=== PATIENT | female | born 1950 | race American Indian/Alaskan Native ===

== ENCOUNTER 2017-05-27 20:14 | Observation (INO) | payer BC ==
[2017-05-27] MEDS ORDERED: Morphine 2 mg/ml ISec IVP STA (20:55)
--- NOTE | 2017-05-27 21:07 | ED PDOC ---
Arrival/HPI - General Chief Complaint: Chest Pain Time Seen by Provider: 05/27/17 20:20 Historian: Patient - History of Present Illness Narrative History of Present Illness (Text): 05/27/17 20:40 Nancy Segovia is a 66 year old female, whose past medical history includes hypertension, CAD s/p stent, and hyperlipidemia, who presents to the Emergency department complaining of chest pressure today. Patient reports associated headache, fever, and chills. Patient denies any shortness of breath, nausea, vomiting, diarrhea, urinary symptoms, back pain, neck pain, dizziness, or any other complaints. PMD: Dr. Villa Time/Duration: Other (today) Symptom Onset: Gradual Symptom Course: Unchanged Activities at Onset: Rest, Light Context: Home Past Medical History - Provider Review Nursing Documentation Reviewed: Yes - Infectious Disease Hx of Infectious Diseases: None - Cardiac Hx Cardiac Disorders: Yes Hx Hypertension: Yes Other/Comment: [place], - Pulmonary Hx Respiratory Disorders: Yes Other/Comment: H/O OF CARBON MONOXIDE POISONING - Neurological Hx Neurological Disorder: Yes Hx Dizziness: Yes (VERTIGO) - HEENT Hx HEENT Disorder: No - Renal Hx Renal Disorder: No - Endocrine/Metabolic Hx Endocrine Disorders: No - Hematological/Oncological Hx Blood Disorders: Yes Other/Comment: FATTY LIVER,BILIARY CIRRHOSIS - Integumentary Hx Dermatological Disorder: No - Musculoskeletal/Rheumatological Hx Musculoskeletal Disorders: Yes Hx Falls: No Hx Fractures: Yes (FX OF PATELLA) Hx Osteoarthritis: Yes Other/Comment: L KNEE SURGERY,FX OF PATELLA - Gastrointestinal Hx Gastrointestinal Disorders: Yes Hx Diverticulitis: Yes Other/Comment: CHRONIC CONSTIPATION - Genitourinary/Gynecological Hx Genitourinary Disorders: No - Psychiatric Hx Psychophysiologic Disorder: No Hx Substance Use: No - Surgical History Hx Cardiac Catheterization: Yes Hx Coronary Stent: Yes (X1) Hx Orthopedic Surgery: Yes (left knee 01/2016) - Anesthesia Hx Anesthesia: Yes Hx Anesthesia Reactions: No Hx Malignant Hyperthermia: No - Suicidal Assessment Feels Threatened In Home Enviroment: No Family/Social History - Physician Review Nursing Documentation Reviewed: Yes Family/Social History: Unknown Family HX Smoking Status: Never Smoked Hx Alcohol Use: No Hx Substance Use: No Allergies/Home Meds Allergies/Adverse Reactions: Allergies No Known Allergies Allergy (Verified 01/22/17 11:39) Home Medications: Home Meds Medication Instructions Recorded Confirmed Lubiprostone [Amitiza] 8 mcg PO DAILY 01/22/17 05/27/17 Ursodiol [Actigall] 300 mg PO TID 01/22/17 05/27/17 hydroCHLOROthiazide [Hydrodiuril] 25 mg PO DAILY 01/22/17 05/27/17 Review of Systems - Physician Review All systems were reviewed & negative as marked: Yes - Review of Systems Constitutional: Fevers, Other (+chills) Eyes: Normal ENT: Normal Respiratory: Normal. absent: SOB, Cough Cardiovascular: Chest Pain Gastrointestinal: Normal. absent: Abdominal Pain, Nausea, Vomiting Genitourinary Female: Normal. absent: Dysuria, Frequency, Urine Output Changes Musculoskeletal: Normal. absent: Back Pain, Neck Pain Skin: Normal Neurological: Headache. absent: Dizziness Endocrine: Normal Hemo/Lymphatic: Normal Psychiatric: Normal Physical Exam Vital Signs Reviewed: Yes Vital Signs Temp Pulse Resp BP Pulse Ox 05/28/17 00:15 69 18 106/55 L 92 L 05/27/17 20:35 102.4 F H 90 22 126/62 93 L Temperature: Febrile Blood Pressure: Normal Pulse: Regular Respiratory Rate: Normal Appearance: Positive for: Well-Appearing, Non-Toxic, Comfortable Pain Distress: None Mental Status: Positive for: Alert and Oriented X 3 - Systems Exam Head: Present: Atraumatic, Normocephalic Pupils: Present: PERRL Extroacular Muscles: Present: EOMI Conjunctiva: Present: Normal Mouth: Present: Moist Mucous Membranes Neck: Present: Normal Range of Motion Respiratory/Chest: Present: Clear to Auscultation, Good Air Exchange. No: Respiratory Distress, Accessory Muscle Use Cardiovascular: Present: Regular Rate and Rhythm, Normal S1, S2. No: Murmurs Abdomen: Present: Normal Bowel Sounds. No: Tenderness, Distention, Peritoneal Signs Back: Present: Normal Inspection Upper Extremity: Present: Normal Inspection. No: Cyanosis, Edema Lower Extremity: Present: Normal Inspection. No: Edema Neurological: Present: GCS=15, CN II-XII Intact, Speech Normal Skin: Present: Warm, Dry, Normal Color. No: Rashes Psychiatric: Present: Alert, Oriented x 3, Normal Insight, Normal Concentration Medical Decision Making ED Course and Treatment: 05/27/17 20:40 Impression: 66 year old female complaining of chest pressure, headache, fever, and chills. Differential Diagnosis included but are not limited to: chest pain Plan: -- EKG -- CXR -- Labs, VBG, troponin, blood cultures, sputum culture -- UA, urine culture -- IV fluids -- Tylenol -- Morphine -- Reassess and disposition Prior Visits: Notes and results from previous visits were reviewed. On 01/22/2017, pt was seen in the Emergency department for chest pain with dry coughing, sinus pressure, and nasal congestion. Pt was admitted to the hospital for further evaluation. Progress Notes Reviewed EKG, NSR at 86 bpm[address] Non-specific ST/T wave changes. 05/27/17 21:34 Reviewed radiology, Chest X-ray shows no acute processes. 05/27/17 22:48 Case discussed with medical support assistant, who is aware and agrees with plan. 05/27/17 23:[address] Amado, who is aware and agrees with plan. Accepts pt in to hospitalist service. Pt will go to Telemetry observation for chest pain. Pt is no acute distress. Discussed results and hospital observation with pt, who is aware and verbalizes understanding. - Lab Interpretations Microbiology Results: Microbiology Results 05/27/17 21:20 Blood Blood Culture - Preliminary NO GROWTH AFTER 24 HOURS 05/27/17 21:02 Blood Blood Culture - Preliminary NO GROWTH AFTER 24 HOURS 05/27/17 22:30 Sputum Gram Stain - Final 05/27/17 22:30 Sputum Sputum Culture - Final Lab Results: 05/27/17 21:02 05/27/17 21:02 Lab Results 05/27/17 21:02: Sodium 138, Chloride 100, Potassium 4.0, Carbon Dioxide 28, Anion Gap 14, BUN 14, Creatinine 0.9, Est GFR ( Amer) > 60, Est GFR (Non- Af Amer) > 60, Random Glucose 93, Calcium 9.3, Phosphorus 3.5, Magnesium 1.9, Total Bilirubin 0.9, AST 69 H, ALT 102 H, Alkaline Phosphatase 221 H, Troponin I < 0.01, Total Protein 8.6 H, Albumin 4.1, Globulin 4.5, Albumin/Globulin Ratio 0.9 L 05/27/17 21:02: pO2 48, VBG pH 7.40, VBG pCO2 51.0, VBG HCO3 31.6 H, VBG Total CO2 33.2 H, VBG O2 Sat (Calc) 85.9 H, VBG Base Excess 5.4 H, VBG Potassium 4.3, Sodium 139.0, Chloride 104.0, Glucose 96, Lactate 1.1, FiO2 21.0, Venous Blood Potassium 4.3 05/27/17 21:02: PT 10.7, INR 0.99, APTT 37.8 H 05/27/17 21:02: WBC 7.3 D, RBC 5.23, Hgb 13.7, Hct 40.4, MCV 77.2 L, MCH 26.2, MCHC 33.9, RDW 15.9 H, Plt Count 218, MPV 9.8, Gran % 74.9 H, Lymph % (Auto) 15.5 L, [place] % (Auto) 8.8 H, Eos % (Auto) 0.3 L, Baso % (Auto) 0.5, Gran # 5.45 , Lymph # 1.1 L, Rush # 0.6, Eos # 0.0, Baso # 0.04 I have reviewed the lab results: Yes - RAD Interpretation Radiology Orders: 05/27/17 20:41 CHEST PORTABLE [RAD] Stat Cover Stitch Machine Operator: ED Physician - EKG Interpretation Interpreted by ED Physician: Yes Type: 12 lead EKG - Medication Orders Current Medication Orders: Acetaminophen (Tylenol 325mg Tab) 975 mg PO ONCE PRN PRN Reason: Fever >100.4 F Last Admin: 05/27/17 20:45 Dose: 975 mg Re-Assess: MAR Pain/Vitals Document 05/27/17 21:45 HD (Rec: 05/28/17 07:47 HD [id number]) Pain Reassessment Is This A Pain ReAssessment? Yes Sleep Is patient sleeping during reassessment? No Presence of Pain Presence of Pain No Aspirin (Ecotrin) 81 mg PO DAILY SCOTT Clopidogrel Bisulfate (Plavix) 75 mg PO DAILY SCOTT Doxycycline Hyclate (Doryx) 100 mg PO Q12 SCOTT PRN Reason: Protocol Last Admin: 05/28/17 22:03 Dose: 100 mg Famotidine (Pepcid) 40 mg PO HS SCOTT Hydrochlorothiazide (Hydrodiuril) 25 mg PO DAILY SCOTT Sodium Chloride (Sodium Chloride 0.9%) 1,000 mls @ 80 mls/hr IV .[id number] SCOTT Last Admin: 05/28/17 22:05 Dose: 80 mls/hr Vancomycin HCl (Vancomycin 1gm) 1 gm in 250 mls @ 167 mls/hr IVPB Q12H SCOTT PRN Reason: Protocol Last Admin: 05/28/17 22:03 Dose: 167 mls/hr Ceftriaxone Sodium (Rocephin 2 Gm Ivpb) 2 gm in 100 mls @ 100 mls/hr IVPB Q12 SCOTT PRN Reason: Protocol Last Admin: 05/28/17 22:02 Dose: 100 mls/hr Discontinued Medications Clopidogrel Bisulfate (Plavix) 300 mg PO STAT STA Stop: 05/28/17 08:18 Last Admin: 05/28/17 08:32 Dose: 300 mg Gadodiamide ( Omniscan) Confirm Administered Dose 5,740 mg IV .STK-MED ONE Stop: 05/28/17 19:54 Ceftriaxone Sodium (Rocephin 1 Gram Ivpb) 1 gm in 100 mls @ 100 mls/hr IVPB DAILY SCOTT PRN Reason: Protocol Last Admin: 05/28/17 09:36 Dose: 100 mls/hr Iohexol (Omnipaque 300 100 Ml) Confirm Administered Dose 100 ml IJ .STK-MED ONE Stop: 05/28/17 14:59 Last Admin: 05/28/17 15:41 Dose: Ketorolac Tromethamine (Toradol) 15 mg IM STAT STA Stop: 05/28/17 18:10 Last Admin: 05/28/17 18:24 Dose: 15 mg Re-Assess: LINDSEY Pain Assessment Document 05/28/17 19:24 HD (Rec: 05/28/17 19:37 HD [id number]) Pain Reassessment Is this a pain reassessment? Yes Sleep Is patient sleeping during reassessment? No Presence of Pain Presence of Pain No Lidocaine HCl (Lidocaine 2% 20ml Vial) 10 ml IJ ONCE STA Stop: 05/28/17 17:05 Last Admin: 05/28/17 18:24 Dose: 10 ml Comments: given by md Morphine Sulfate (Morphine) 2 mg IVP STAT STA Stop: 05/27/17 20:56 Last Admin: 05/27/17 21:10 Dose: 2 mg Re-Assess: MAR Pain Assessment Document 05/27/17 22:10 HD (Rec: 05/28/17 07:47 HD [email or web address]) Pain Reassessment Is this a pain reassessment? Yes Sleep Is patient sleeping during reassessment? No Presence of Pain Presence of Pain No - Scribe Statement The provider has reviewed the documentation as recorded by the Tasia [place] Provider Attestation: All medical record entries made by the Keatonibne were at my direction and personally dictated by me. I have reviewed the chart and agree that the record accurately reflects my personal performance of the history, physical exam, medical decision making, and the department course for this patient. I have also personally directed, reviewed, and agree with the discharge instructions and disposition. Disposition/Present on Arrival - Present on Arrival Any Indicators Present on Arrival: No History of DVT/PE: No History of Uncontrolled Diabetes: No Urinary Catheter: No History of Decub. Ulcer: No History Surgical Site Infection Following: None - Disposition Have Diagnosis and Disposition been Completed?: Yes Diagnosis: Chest pain Disposition: HOSPITALIZED Disposition Time: 23:00 Condition: FAIR
[2017-05-27] MEDS: Sodium Chloride 0.9% 1,000 ML IV SCH (21:10)
[2017-05-27 21:21] LABS: VENOUS BLOOD GAS BASE EXCESS 5.4 mmol/L (0.0-2.0); VENOUS BLOOD GAS PO2 48 mm/Hg (30-55)
[2017-05-27 21:22] LABS: BASO # 0.04 K/mm3 (0.0-2.0); BASO % 0.5 % (0.0-3.0); EOS % 0.3 % (1.5-5.0); GRAN # 5.45 (1.4-6.5); GRAN % 74.9 % (50.0-68.0); HEMOGLOBIN 13.7 gm/dL (12.0-16.0); LYMPH # 1.1 (1.2-3.4); LYMPH % 15.5 % (22.0-35.0); MEAN CELL VOLUME 77.2 fL (80.0-105.0); MEAN CORPUSCULAR HEMOGLOBIN 26.2 pg (25.0-35.0); MEAN CORPUSCULAR HGB CONC 33.9 g/dl (31.0-37.0); MEAN PLATELET VOLUME 9.8 fl (7.0-11.0); MONO # 0.6 (0.1-0.6); MONO % 8.8 % (1.0-6.0); PLATELET COUNT 218 10^3/uL (120.0-450.0); RBC 5.23 10^6/uL (3.5-6.1); RED CELL DISTRIBUTION WIDTH 15.9 % (11.5-14.5); WHITE BLOOD COUNT 7.3 10^3/ul (4.5-11.0)
[2017-05-27 21:29] LABS: INR 0.99 (0.93-1.08); PARTIAL THROMBOPLASTIN TIME 37.8 Seconds (23.7-30.8); PROTHROMBIN TIME 10.7 Seconds (9.9-11.8)
[2017-05-27 21:30] LABS: ALB/GLOB RATIO 0.9 (1.1-1.8); ALBUMIN 4.1 g/dL (3.0-4.8); ALT/SGPT 102 U/L (7-56); AST/SGOT 69 U/L (15-39); BLOOD UREA NITROGEN 14 mg/dL (7-21); CALCIUM 9.3 mg/dL (8.4-10.5); GFR AFRICAN-AMERICAN > 60; GFR NON-AFRICAN AMERICAN > 60; MAGNESIUM 1.9 mg/dL (1.7-2.2)
[2017-05-27 21:49] LABS: TROPONIN I < 0.01 ng/mL
[2017-05-28 03:20] LABS: ALBUMIN 3.8 g/dL (3.0-4.8); ALT/SGPT 87 U/L (7-56); AST/SGOT 52 U/L (15-39); BLOOD UREA NITROGEN 17 mg/dL (7-21); GFR AFRICAN-AMERICAN > 60; GFR NON-AFRICAN AMERICAN 55
[2017-05-28 03:33] LABS: BASO # 0.03 K/mm3 (0.0-2.0); BASO % 0.5 % (0.0-3.0); EOS % 0.5 % (1.5-5.0); GRAN # 3.85 (1.4-6.5); GRAN % 67.5 % (50.0-68.0); HEMOGLOBIN 12.7 gm/dL (12.0-16.0); LYMPH # 1.3 (1.2-3.4); LYMPH % 22.2 % (22.0-35.0); MEAN CELL VOLUME 77.7 fL (80.0-105.0); MEAN CORPUSCULAR HEMOGLOBIN 25.5 pg (25.0-35.0); MEAN CORPUSCULAR HGB CONC 32.8 g/dl (31.0-37.0); MEAN PLATELET VOLUME 9.7 fl (7.0-11.0); MONO # 0.5 (0.1-0.6); MONO % 9.3 % (1.0-6.0); PLATELET COUNT 201 10^3/uL (120.0-450.0); RBC 4.98 10^6/uL (3.5-6.1); RED CELL DISTRIBUTION WIDTH 16.1 % (11.5-14.5); WHITE BLOOD COUNT 5.7 10^3/ul (4.5-11.0)
--- NOTE | 2017-05-28 06:49 | CP.PCM.HP ---
<Hunter Perry Milagros - Last Filed: 05/28/17 06:49> History of Present Illness - History of Present Illness History of Present Illness: CC: Chest Pain Ms. Segovia is a pleasant 66 y/o female with a pertinent PMHx of HTN, MO s/p stent in Oct 2016, and HLD, who presented with a c/o non-radiating pressure- like chest pain of 7/10 severity that started around 10AM on 05/27. Patient stated that nothing made the pain better or worse except in the ED when she got morphine. This dropped the pain from 7 to 5 out of 10. Patient also admits to fevers, chills, and a headache, but denies SOB, nausea, vomiting, diarrhea, urinary symptoms and dizziness. PMHx: As above PSHx: S/p stent 2015 All: NKDA SocHx: Patient denies Meds: ASA, HCTZ+Lisinopril FamHx: DM, HTN, MO Present on Admission - Present on Admission Any Indicators Present on Admission: No Review of Systems - Review of Systems Review of Systems: Constitutional: +fever; denies chills, generalized weakness Head: +headache ENT: pt denies dysphagia, ofalgia, hearing deficit, rhinorrhea Eyes: pt denies sudden loss of vision, diplopia, blurred vision MSK: pt denies muscle stiffness, joint pain, extremity cramping Cardio: +chest pain; pt denies sob, heart murmur; see hpi Pulm: pt denies cough, hemoptysis, wheeze GI: pt denies loss of appetite, abdominal pain, constipation, melena, n/v/d : pt denies burning on urination, urinary frequency, hematuria, urinary urgency Neuro: pt denies paresis, paresthesia, dizziness, hamm, numbness, tingling Derm: pt denies skin changes, lesions, nail changes Endo: pt denies intolerance to heat/cold, diaphoresis, night sweats, polydipsia Psych: pt denies anxiety, depression, mood changes Past Patient History - Infectious Disease Hx of Infectious Diseases: None - Past Social History Smoking Status: Never Smoked - CARDIAC Hx Angina: Yes Hx Hypercholesterolemia: Yes Hx Hypertension: Yes - PULMONARY Hx Respiratory Disorders: Yes Other/Comment: H/O OF CARBON MONOXIDE POISONING - NEUROLOGICAL Hx Neurological Disorder: Yes Hx Dizziness: Yes (VERTIGO) - HEENT Hx HEENT Problems: No - RENAL Hx Chronic Kidney Disease: No - ENDOCRINE/METABOLIC Hx Endocrine Disorders: No - HEMATOLOGICAL/ONCOLOGICAL Hx Blood Disorders: Yes Other/Comment: FATTY LIVER,BILIARY CIRRHOSIS - INTEGUMENTARY Hx Dermatological Problems: No - MUSCULOSKELETAL/RHEUMATOLOGICAL Hx Falls: No - GASTROINTESTINAL Hx Gastrointestinal Disorders: Yes Hx Diverticulitis: Yes Other/Comment: CHRONIC CONSTIPATION - GENITOURINARY/GYNECOLOGICAL Hx Genitourinary Disorders: No - PSYCHIATRIC Hx Anxiety: Yes - SURGICAL HISTORY Hx Surgeries: Yes Hx Cardiac Catheterization: Yes Hx Coronary Stent: Yes - ANESTHESIA Hx Anesthesia: Yes Hx Anesthesia Reactions: No Hx Malignant Hyperthermia: No Meds Allergies/Adverse Reactions: Allergies Allergy/AdvReac Type Severity Reaction Status Date / Time No Known Allergies Allergy Verified 01/22/17 11:39 Physical Exam - Constitutional Additional comments: VS as above Constitutional: +patient perspiring; obese female, a&o x 4, nad; Head and Neck: neck supple, no jvd, trachea midline, carotid midline, no cervical/head mass Eyes: becki, nonicteric sclera, eom intact ENT: auditory acuity grossly intact, throat not congested, no nasal deformity Cardio: rrr, no m/r/g, no carotid bruit, nml s1, s2 Pulm: no accessory muscle use, equal nml breath sounds bilaterally, ctab Abd: s/nt/nd, nbs x 4 q, no palpable masses Derm: no rashes, no ulcers, no lesions Extr: no edema, no cyanosis, no calf tenderness, no lesions, no varicosities Neuro: cn II-XII grossly intact, ue and le 3+ muscle strength bilaterally, no los ue, le bilaterally and core Results - Vital Signs Recent Vital Signs: Last Vital Signs Temp 97.9 F 05/28/17 02:50 Pulse 62 05/28/17 06:00 Resp 18 05/28/17 02:50 BP 105/56 L 05/28/17 02:50 Pulse Ox 92 L 05/28/17 00:15 - Labs Result Diagrams: 05/28/17 02:50 05/28/17 02:50 Labs: Laboratory Results - last 24 hr 05/28/17 05/28/17 05/28/17 02:50 02:50 02:50 WBC 5.7 D RBC 4.98 Hgb 12.7 Hct 38.7 MCV 77.7 L MCH 25.5 MCHC 32.8 RDW 16.1 H Plt Count 201 MPV 9.7 Gran % 67.5 Lymph % (Auto) 22.2 [place] % (Auto) 9.3 H Eos % (Auto) 0.5 L Baso % (Auto) 0.5 Gran # 3.85 Lymph # 1.3 [place] # 0.5 Eos # 0.0 Baso # 0.03 Sodium 139 Potassium 3.7 Chloride 101 Carbon Dioxide 27 Anion Gap 15 BUN 17 Creatinine 1.0 Est GFR ( Amer) > 60 Est GFR (Non-Af Amer) 55 Random Glucose 94 Calcium 9.0 Total Bilirubin 0.9 AST 52 H ALT 87 H Alkaline Phosphatase 194 H Total Creatine Kinase 29 L Total Protein 7.7 Albumin 3.8 Globulin 3.9 Albumin/Globulin Ratio 1.0 L Lipase 33 Assessment & Plan - Assessment and Plan (Free Text) Assessment: Ms. Segovia is a pleasant 66 y/o female with a pertinent PMHx of HTN, MO s/p stent in Oct 2016, and HLD, who presented with a c/o non-radiating pressure- like chest pain of 7/10 severity that started around 10AM on 05/27 A/P: 1.) Chest pain likely 2/2 musculoskeletal VS viral sickness a.) cardio on consult b.) serial tropes c.) serial ekgs 2.) Headache likely 2/2 viral sickness VS unknown etiology a.) one dose morphine for pain 3.) Fever likely 2/2 viral sickness VS unknown etiology a.) Tylenol prn 4.) Hx/O CAD s/p stent a.) continue home ASA 5.) Hx/O HTN a.) continue home HCTCZ+Lisinopril <Deepika Amado - Last Filed: 05/28/17 22:43> Results - Vital Signs Recent Vital Signs: Last Vital Signs Temp 97.8 F 05/28/17 12:00 Pulse 84 05/28/17 13:00 Resp 19 05/28/17 12:00 BP 110/64 05/28/17 12:00 Pulse Ox 96 05/28/17 06:00 - Labs Result Diagrams: 05/28/17 02:50 05/28/17 02:50 Labs: Laboratory Results - last 24 hr 05/28/17 05/28/17 05/28/17 02:50 02:50 02:50 WBC 5.7 D RBC 4.98 Hgb 12.7 Hct 38.7 MCV 77.7 L MCH 25.5 MCHC 32.8 RDW 16.1 H Plt Count 201 MPV 9.7 Gran % 67.5 Lymph % (Auto) 22.2 [place] % (Auto) 9.3 H Eos % (Auto) 0.5 L Baso % (Auto) 0.5 Gran # 3.85 Lymph # 1.3 [place] # 0.5 Eos # 0.0 Baso # 0.03 Sodium 139 Potassium 3.7 Chloride 101 Carbon Dioxide 27 Anion Gap 15 BUN 17 Creatinine 1.0 Est GFR ( Amer) > 60 Est GFR (Non-Af Amer) 55 Random Glucose 94 Calcium 9.0 Total Bilirubin 0.9 AST 52 H ALT 87 H Alkaline Phosphatase 194 H Total Creatine Kinase 29 L Troponin I Total Protein 7.7 Albumin 3.8 Globulin 3.9 Albumin/Globulin Ratio 1.0 L Lipase 33 Procalcitonin Influenza Typ A,B (EIA) 05/28/17 05/28/17 05/28/17 06:00 06:40 11:50 WBC RBC Hgb Hct MCV MCH MCHC RDW Plt Count MPV Gran % Lymph % (Auto) [place] % (Auto) Eos % (Auto) Baso % (Auto) Gran # Lymph # [place] # Eos # Baso # Sodium Potassium Chloride Carbon Dioxide Anion Gap BUN Creatinine Est GFR ( Amer) Est GFR (Non-Af Amer) Random Glucose Calcium Total Bilirubin AST ALT Alkaline Phosphatase Total Creatine Kinase Troponin I < 0.01 < 0.01 Total Protein Albumin Globulin Albumin/Globulin Ratio Lipase Procalcitonin 0.53 H Influenza Typ A,B (EIA) 05/28/17 12:45 WBC RBC Hgb Hct MCV MCH MCHC RDW Plt Count MPV Gran % Lymph % (Auto) [place] % (Auto) Eos % (Auto) Baso % (Auto) Gran # Lymph # [place] # Eos # Baso # Sodium Potassium Chloride Carbon Dioxide Anion Gap BUN Creatinine Est GFR ( Amer) Est GFR (Non-Af Amer) Random Glucose Calcium Total Bilirubin AST ALT Alkaline Phosphatase Total Creatine Kinase Troponin I Total Protein Albumin Globulin Albumin/Globulin Ratio Lipase Procalcitonin Influenza Typ A,B (EIA) Negative for flu a/b Attending/Attestation - Attestation I have personally seen and examined this patient.: Yes I have fully participated in the care of the patient.: Yes I have reviewed all pertinent clinical information: Yes Notes (Text): 05/28/17 22:05 Patient was seen when she was in ER. Agree with history, physical examination, assessment and plan. Patient states that she came to ER about 5 PM.Complained of headache, on top of head ,severe.Also had fever for one day.Denies chills. Has pressure in the chest . Had little sob , but not anymore.Gives history of MO Oct 2016, had STENT placement at that time.Has PMH of HTN of 7 years duration , is on Bystolic ,HCTZ,and lisinopril.Also has obesity history.Had left knee patella fracture in January.Had endoscopy and colonoscopy done [address] Pagan at [facility], and 3-4 polyps removed.She was told by that she has fatty liver.Gives Family history of pacemaker ( maternal grandmother and mother),DM(Sister) and Cirrhosis of liver+ETOH (Father). She takes alcohol occasionally, had GERD 15 years ago and suffers from constipation.
--- NOTE | 2017-05-28 08:22 | RAD ---
HISTORY: Sepsis Patient COMPARISON: No prior. FINDINGS: LUNGS: Poor inspiration with low lung volumes, crowded bronchovascular markings and mild bibasilar atelectasis. PLEURA: No significant pleural effusion identified, no pneumothorax apparent. CARDIOVASCULAR: Heart appears mildly enlarged. Aorta is slightly ectatic and uncoiled. The OSSEOUS STRUCTURES: No significant abnormalities. VISUALIZED UPPER ABDOMEN: Normal. OTHER FINDINGS: None. IMPRESSION: Poor inspiration with low lung volumes, crowded bronchovascular markings and mild bibasilar atelectasis.
[2017-05-28] MEDS: Sodium Chloride 0.9% 1,000 ML IV SCH ×2 (09:36→22:05)
--- NOTE | 2017-05-28 09:54 | US ---
HISTORY: rule out biliary tree obstruction COMPARISON: Comparison made with abdominal ultrasound 12/30/[address] scan abdomen and pelvis 07/29/2016 pacs TECHNIQUE: Sonographic evaluation of the abdomen. FINDINGS: LIVER: Measures 13.7 cm. Smooth contour and normal echogenicity of the liver parenchyma. No mass. No intrahepatic bile duct dilatation. . No evidence of ascites. GALLBLADDER: Unremarkable. No gallstones. No pericholecystic fluid collections or sonographic Rodríguez sign COMMON BILE DUCT: Measures 5.9 mm. No stones. No dilatation. PANCREAS: Unremarkable as visualized. No mass. No ductal dilatation. RIGHT KIDNEY: Measures 8.8 x 4.2 x 4.8cm. Normal echogenicity. No calculus, mass, or hydronephrosis. LEFT KIDNEY: Measures 9.6 x 4.9 x 6.2cm. Normal echogenicity. No calculus, mass, or hydronephrosis. SPLEEN: Spleen measures approximately 10.1 x 3.5 x 3.8 cm AORTA: No aneurysmal dilatation. IVC: Unremarkable. OTHER FINDINGS: None. IMPRESSION: Limited study due to bowel gas. No acute intra abdominal findings.
[2017-05-28] MEDS ORDERED: cefTRIAXone 1 gm 1 GM/100 ML BAG IVPB SCH (10:00)
--- NOTE | 2017-05-28 10:03 | CARD ---
APPROVED REPORT EKG Measurement Heart [id number] <Conclusion> Normal sinus rhythm Possible Inferior infarct, age undetermined PRWP V 1 - 4 No change
--- NOTE | 2017-05-28 10:57 | CP.PCM.CON ---
History of Present Illness - History of Present Illness History of Present Illness: 66 year old female with PMH of HTN, CAD S/P PCI, dyslipidemia, history of carbon monoxide posoining in 2016, obesity with BMI 30, history of fatty liver and biliary cirrhosis, history of vertigo, S/P left patellar surgery for fracture came in to [facility] because of pressure-like chest pain which started yesterday as well as throbbing headache and neck pain for the past 2 days associated with fevers. The patient states she does not get headaches and her headache is "bad." She denies photophobia, denies travel outside of [place] in the past 3 months, denies specific ill-contacts, denies animal contacts or insect bites, denies sore throat, no cough or rhinorrhea, no abdominal pain, no SOB, no diarrhea, no dysuria. Infectious Diseases consult is requested to further evaluate and manage. Review of Systems - Review of Systems All systems: reviewed and no additional remarkable complaints except (as per HPI ) Past Patient History - Infectious Disease Hx of Infectious Diseases: None - Past Social History Smoking Status: Never Smoked - CARDIAC Hx Angina: Yes Hx Hypercholesterolemia: Yes Hx Hypertension: Yes - PULMONARY Hx Respiratory Disorders: Yes Other/Comment: H/O OF CARBON MONOXIDE POISONING - NEUROLOGICAL Hx Neurological Disorder: Yes Hx Dizziness: Yes (VERTIGO) - HEENT Hx HEENT Problems: No - RENAL Hx Chronic Kidney Disease: No - ENDOCRINE/METABOLIC Hx Endocrine Disorders: No - HEMATOLOGICAL/ONCOLOGICAL Hx Blood Disorders: Yes Other/Comment: FATTY LIVER,BILIARY CIRRHOSIS - INTEGUMENTARY Hx Dermatological Problems: No - MUSCULOSKELETAL/RHEUMATOLOGICAL Hx Falls: No - GASTROINTESTINAL Hx Gastrointestinal Disorders: Yes Hx Diverticulitis: Yes Other/Comment: CHRONIC CONSTIPATION - GENITOURINARY/GYNECOLOGICAL Hx Genitourinary Disorders: No - PSYCHIATRIC Hx Anxiety: Yes - SURGICAL HISTORY Hx Surgeries: Yes Hx Cardiac Catheterization: Yes Hx Coronary Stent: Yes - ANESTHESIA Hx Anesthesia: Yes Hx Anesthesia Reactions: No Hx Malignant Hyperthermia: No Meds Allergies/Adverse Reactions: Allergies Allergy/AdvReac Type Severity Reaction Status Date / Time No Known Allergies Allergy Verified 01/22/17 11:39 - Medications Medications: Current Medications Acetaminophen (Tylenol 325mg Tab) 975 mg PO ONCE PRN PRN Reason: Fever >100.4 F Last Admin: 05/27/17 20:45 Dose: 975 mg Sodium Chloride (Sodium Chloride 0.9%) 1,000 mls @ 80 mls/hr IV .[id number] [facility] Last Admin: 05/27/17 21:10 Dose: 80 mls/hr Pantoprazole Sodium (Protonix Ec Tab) 20 mg PO 0600,1600 [facility] Physical Exam - Constitutional Appears: Other (in pain) - Head Exam Head Exam: NORMAL INSPECTION - Neck Exam Neck exam: Positive for: Tenderness (noted when flexing the neck) - Respiratory Exam Respiratory Exam: Decreased Breath Sounds. absent: Chest Wall Tenderness - Cardiovascular Exam Cardiovascular Exam: +S1, +S2 - GI/Abdominal Exam GI & Abdominal Exam: Soft. absent: Tenderness Results - Vital Signs Recent Vital Signs: Last Vital Signs Temp 97.9 F 05/28/17 02:50 Pulse 62 05/28/17 06:00 Resp 18 05/28/17 02:50 BP 105/56 L 05/28/17 02:50 Pulse Ox 92 L 05/28/17 00:15 - Labs Result Diagrams: 05/28/17 02:50 05/28/17 02:50 Labs: Laboratory Results - last 24 hr 05/28/17 05/28/17 05/28/17 02:50 02:50 02:50 WBC 5.7 D RBC 4.98 Hgb 12.7 Hct 38.7 MCV 77.7 L MCH 25.5 MCHC 32.8 RDW 16.1 H Plt Count 201 MPV 9.7 Gran % 67.5 Lymph % (Auto) 22.2 [place] % (Auto) 9.3 H Eos % (Auto) 0.5 L Baso % (Auto) 0.5 Gran # 3.85 Lymph # 1.3 [place] # 0.5 Eos # 0.0 Baso # 0.03 Sodium 139 Potassium 3.7 Chloride 101 Carbon Dioxide 27 Anion Gap 15 BUN 17 Creatinine 1.0 Est GFR ( Amer) > 60 Est GFR (Non-Af Amer) 55 Random Glucose 94 Calcium 9.0 Total Bilirubin 0.9 AST 52 H ALT 87 H Alkaline Phosphatase 194 H Total Creatine Kinase 29 L Total Protein 7.7 Albumin 3.8 Globulin 3.9 Albumin/Globulin Ratio 1.0 L Lipase 33 Assessment & Plan - Assessment and Plan (Free Text) Plan: Assessment Systemic Inflammatory Response Syndrome with headache, R/O intra-cranial event ( ie. such as bleed), R/O acute meningitis chest pain, etiology to be determined HTN CAD S/P PCI dyslipidemia history of carbon monoxide posoining in 2016 obesity with BMI 30 history of fatty liver and biliary cirrhosis history of vertigo S/P left patellar surgery for fracture Plan Will start patient on Vancomycin and Rocephin and Doxycycline, pending blood cx , CXR, PCT; ordered CT scan of the head to rule out bleed - if this is negative , and as discussed with Dr. Munoz, the patient should have lumbar puncture done will monitor clinically
[2017-05-28] MEDS: Vancomycin 1gm in NS 250ml 1 GM/250 ML BAG IVPB SCH ×2 (11:54→22:03)
[2017-05-28] MEDS ORDERED: Iohexol 300 100 ML IJ ONE (14:58)
--- NOTE | 2017-05-28 15:58 | CT ---
PROCEDURE: CT HEAD WITH AND WITHOUT CONTRAST HISTORY: rule out bleed, rule out intra-cranial mass/lesion COMPARISON: 12/16/2016 TECHNIQUE: Axial computed tomography images were obtained through the head/brain with and without intravenous contrast enhancement. Contrast dose: 100 cc of Omni 300 Radiation dose: Total exam DLP = 2069 mGy-cm. This CT exam was performed using one or more of the following dose reduction techniques: Automated exposure control, adjustment of the mA and/or kV according to patient size, and/or use of iterative reconstruction technique. FINDINGS: HEMORRHAGE: No intracranial hemorrhage. BRAIN: No mass, mass effect or edema. No abnormal intracranial enhancement. No atrophy or chronic microvascular ischemic changes. VENTRICLES: Unremarkable. No hydrocephalus. CALVARIUM: Unremarkable. SINUSES: Unremarkable as visualized. No significant inflammatory changes. MASTOID AIR CELLS: Unremarkable as visualized. No mastoid effusion. OTHER FINDINGS: None. IMPRESSION: Normal pre and post contrast enhanced CT of the head.
[2017-05-28] MEDS ORDERED: Pantoprazole 20 mg EC Tab PO SCH (16:00)
[2017-05-28] MEDS ORDERED: Lidocaine 2% Inj (20ml) IJ STA (17:04)
--- NOTE | 2017-05-28 17:39 | CARD ---
APPROVED REPORT EKG Measurement Heart [id number] <Conclusion> Normal sinus rhythm Normal ECG
--- NOTE | 2017-05-28 18:14 | CP.PCM.CON ---
<Brittney Lyles - Last Filed: 05/28/17 18:46> History of Present Illness - History of Present Illness History of Present Illness: PGY-2 Neurology cosult note for Dr Jay. Reason for consult: headache/fever r/o meningitis. Patient is a 66 y/o with PMH of HTN, CAD s/p stents, dyslipidemia, history of carbon monoxide poisoning in 2016, history of fatty liver and biliary cirrhosis, history of vertigo presenting with chest pain and headache for one day. Patient denies h/o headaches, states she never had headaches like this before. Patient states the headache is constant, and is relieved by morphine she got in the ED. Patient admits to neck pain as well. Patient admits to fever , tmax of 102 in the ED. 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 Patient is currently c/o generalized weakness. Admits to occasional cough productive with yellowish sputum. Patient denies recent travel. PMH: As mentioned above PSH: PTCI and left patellar surgery for fracture, back surgery. Review of Systems - Review of Systems All systems: reviewed and no additional remarkable complaints except Review of Systems: As per HPI. Past Patient History - Infectious Disease Hx of Infectious Diseases: None - Past Social History Smoking Status: Never Smoked Alcohol: None Drugs: Denies Home Situation {Lives}: With Family - CARDIAC Hx Angina: Yes Hx Hypercholesterolemia: Yes Hx Hypertension: Yes - PULMONARY Hx Respiratory Disorders: Yes Other/Comment: H/O OF CARBON MONOXIDE POISONING - NEUROLOGICAL Hx Neurological Disorder: Yes Hx Dizziness: Yes (VERTIGO) - HEENT Hx HEENT Problems: No - RENAL Hx Chronic Kidney Disease: No - ENDOCRINE/METABOLIC Hx Endocrine Disorders: No - HEMATOLOGICAL/ONCOLOGICAL Hx Blood Disorders: Yes Other/Comment: FATTY LIVER,BILIARY CIRRHOSIS - INTEGUMENTARY Hx Dermatological Problems: No - MUSCULOSKELETAL/RHEUMATOLOGICAL Hx Falls: No - GASTROINTESTINAL Hx Gastrointestinal Disorders: Yes Hx Diverticulitis: Yes Other/Comment: CHRONIC CONSTIPATION - GENITOURINARY/GYNECOLOGICAL Hx Genitourinary Disorders: No - PSYCHIATRIC Hx Anxiety: Yes - SURGICAL HISTORY Hx Surgeries: Yes Hx Cardiac Catheterization: Yes Hx Coronary Stent: Yes - ANESTHESIA Hx Anesthesia: Yes Hx Anesthesia Reactions: No Hx Malignant Hyperthermia: No Meds Allergies/Adverse Reactions: Allergies Allergy/AdvReac Type Severity Reaction Status Date / Time No Known Allergies Allergy Verified 01/22/17 11:39 - Medications Medications: Current Medications Acetaminophen (Tylenol 325mg Tab) 975 mg PO ONCE PRN PRN Reason: Fever >100.4 F Last Admin: 05/27/17 20:45 Dose: 975 mg Aspirin (Ecotrin) 81 mg PO DAILY [facility] Clopidogrel Bisulfate (Plavix) 75 mg PO DAILY [facility] Doxycycline Hyclate (Doryx) 100 mg PO Q12 [facility] PRN Reason: Protocol Last Admin: 05/28/17 09:36 Dose: 100 mg Famotidine (Pepcid) 40 mg PO HS [facility] Hydrochlorothiazide (Hydrodiuril) 25 mg PO DAILY [facility] Sodium Chloride (Sodium Chloride 0.9%) 1,000 mls @ 80 mls/hr IV .[id number] [facility] Last Admin: 05/28/17 09:36 Dose: 80 mls/hr Vancomycin HCl (Vancomycin 1gm) 1 gm in 250 mls @ 167 mls/hr IVPB Q12H [facility] PRN Reason: Protocol Last Admin: 05/28/17 11:54 Dose: 167 mls/hr Ceftriaxone Sodium (Rocephin 2 Gm Ivpb) 2 gm in 100 mls @ 100 mls/hr IVPB Q12 [facility] PRN Reason: Protocol Ketorolac Tromethamine (Toradol) 15 mg IM STAT STA Stop: 05/28/17 18:10 Physical Exam - Constitutional Appears: No Acute Distress - Head Exam Head Exam: ATRAUMATIC, NORMAL INSPECTION, NORMOCEPHALIC - Eye Exam Eye Exam: EOMI, Normal appearance, PERRL. absent: Scleral icterus Pupil Exam: NORMAL ACCOMODATION, PERRL - ENT Exam ENT Exam: Mucous Membranes Moist - Neck Exam Neck exam: Positive for: Tenderness. Negative for: Lymphadenopathy, Meningismus , Thyromegaly - Respiratory Exam Respiratory Exam: Clear to Auscultation Bilateral, NORMAL BREATHING PATTERN. absent: Rales, Rhonchi, Wheezes, Respiratory Distress, Stridor - Cardiovascular Exam Cardiovascular Exam: REGULAR RHYTHM, +S1, +S2. absent: Systolic Murmur - GI/Abdominal Exam GI & Abdominal Exam: Normal Bowel Sounds, Soft. absent: Distended, Tenderness - Extremities Exam Extremities exam: Positive for: normal inspection. Negative for: pedal edema - Back Exam Back exam: NORMAL INSPECTION. absent: muscle spasm, tenderness, vertebral tenderness - Neurological Exam Neurological exam: Alert, CN II-XII Intact, Oriented x3, Reflexes Normal Additional comments: Mental status: Patient is a&ox3, Attention, thought process and insight and judgment are appropriate. CNII-CNXII- Perrla, VFF by confrontation, EMOI, no nystagamus, no ptosis, sensation intact to light touch. Masseter muscles strong symmetrically, no facial asymmetry. Tongue protrude midline, no atrophy or fasciculation. Sensory: fine tough, pp temperature, vibration sensations and proprioceptive functions intact. There is no evidence of extinction to DSS. Normal cortical sensory function. Motor exam: b/l upper and LE 5/5 flexion and extension, no tremors and no muscle rigidity Reflex: deep tendon reflex were plus 2 with flexor plantar response on the LE. Negative kernig and brudzinski sign. - Psychiatric Exam Psychiatric exam: Anxious - Skin Skin Exam: Dry, Intact, Normal Color, Warm Results - Vital Signs Recent Vital Signs: Last Vital Signs Temp 97.8 F 05/28/17 12:00 Pulse 84 05/28/17 13:00 Resp 19 05/28/17 12:00 BP 110/64 05/28/17 12:00 Pulse Ox 96 05/28/17 06:00 - Labs Result Diagrams: 05/28/17 02:50 05/28/17 02:50 Labs: Laboratory Results - last 24 hr 05/28/17 05/28/17 05/28/17 02:50 02:50 02:50 WBC 5.7 D RBC 4.98 Hgb 12.7 Hct 38.7 MCV 77.7 L MCH 25.5 MCHC 32.8 RDW 16.1 H Plt Count 201 MPV 9.7 Gran % 67.5 Lymph % (Auto) 22.2 [place] % (Auto) 9.3 H Eos % (Auto) 0.5 L Baso % (Auto) 0.5 Gran # 3.85 Lymph # 1.3 [place] # 0.5 Eos # 0.0 Baso # 0.03 Sodium 139 Potassium 3.7 Chloride 101 Carbon Dioxide 27 Anion Gap 15 BUN 17 Creatinine 1.0 Est GFR ( Amer) > 60 Est GFR (Non-Af Amer) 55 Random Glucose 94 Calcium 9.0 Total Bilirubin 0.9 AST 52 H ALT 87 H Alkaline Phosphatase 194 H Total Creatine Kinase 29 L Troponin I Total Protein 7.7 Albumin 3.8 Globulin 3.9 Albumin/Globulin Ratio 1.0 L Lipase 33 Procalcitonin Influenza Typ A,B (EIA) 05/28/17 05/28/17 05/28/17 06:00 06:40 11:50 WBC RBC Hgb Hct MCV MCH MCHC RDW Plt Count MPV Gran % Lymph % (Auto) [place] % (Auto) Eos % (Auto) Baso % (Auto) Gran # Lymph # [place] # Eos # Baso # Sodium Potassium Chloride Carbon Dioxide Anion Gap BUN Creatinine Est GFR ( Amer) Est GFR (Non-Af Amer) Random Glucose Calcium Total Bilirubin AST ALT Alkaline Phosphatase Total Creatine Kinase Troponin I < 0.01 < 0.01 Total Protein Albumin Globulin Albumin/Globulin Ratio Lipase Procalcitonin 0.53 H Influenza Typ A,B (EIA) 05/28/17 12:45 WBC RBC Hgb Hct MCV MCH MCHC RDW Plt Count MPV Gran % Lymph % (Auto) [place] % (Auto) Eos % (Auto) Baso % (Auto) Gran # Lymph # [place] # Eos # Baso # Sodium Potassium Chloride Carbon Dioxide Anion Gap BUN Creatinine Est GFR ( Amer) Est GFR (Non-Af Amer) Random Glucose Calcium Total Bilirubin AST ALT Alkaline Phosphatase Total Creatine Kinase Troponin I Total Protein Albumin Globulin Albumin/Globulin Ratio Lipase Procalcitonin Influenza Typ A,B (EIA) Negative for flu a/b Assessment & Plan - Assessment and Plan (Free Text) Assessment: Patient is a 66 y/o with PMH of HTN, CAD s/p stents, dyslipidemia, history of carbon monoxide poisoning in 2016, history of fatty liver and biliary cirrhosis, history of vertigo, 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 r/o CVA, R/O Meningitis. Plan: 1) CT head w/o and w/ contrast with no acute ischemic changes. 2) LP was attempted, but due to patient's arthritic back, was not able to get the needle through. Patient also has knee problems and was not able to tolerate the procedure well. 3) Will consult IR for LP under floroscope. 4) continue with asa and plavix for cva prevention. 5) C/W droplet precaution 6) Continue abx as per ID. 7) f/u with MRI report. 8) Will continue to follow. Patient seen, examined case discussed with Dr Jay. - Date & Time Date: 05/28/17 Time: 17:10 <Romie Jay - Last Filed: 05/29/17 14:53> Meds - Medications Medications: Current Medications Acetaminophen (Tylenol 325mg Tab) 975 mg PO ONCE PRN PRN Reason: Fever >100.4 F Last Admin: 05/27/17 20:45 Dose: 975 mg Acetaminophen/Butalbital/Caffeine (Fioricet) 1 tab PO Q4H PRN PRN Reason: Headache Aspirin (Ecotrin) 81 mg PO DAILY [facility] Last Admin: 05/29/17 09:59 Dose: 81 mg Doxycycline Hyclate (Doryx) 100 mg PO Q12 [facility]OTT PRN Reason: Protocol Last Admin: 05/29/17 09:59 Dose: 100 mg Famotidine (Pepcid) 40 mg PO HS [facility] Hydrochlorothiazide (Hydrodiuril) 25 mg PO DAILY [facility] Last Admin: 05/29/17 09:59 Dose: 25 mg Sodium Chloride (Sodium Chloride 0.9%) 1,000 mls @ 80 mls/hr IV .[id number] [facility] Last Admin: 05/29/17 10:00 Dose: 80 mls/hr Vancomycin HCl (Vancomycin 1gm) 1 gm in 250 mls @ 167 mls/hr IVPB Q12H [facility] PRN Reason: Protocol Last Admin: 05/29/17 12:01 Dose: 167 mls/hr Ceftriaxone Sodium (Rocephin 2 Gm Ivpb) 2 gm in 100 mls @ 100 mls/hr IVPB Q12 [facility] PRN Reason: Protocol Last Admin: 05/29/17 10:00 Dose: 100 mls/hr Tizanidine HCl (Zanaflex) 4 mg PO TID [facility] Last Admin: 05/29/17 13:22 Dose: 4 mg Results - Vital Signs Recent Vital Signs: Last Vital Signs Temp 98.7 F 05/29/17 11:42 Pulse 62 05/29/17 11:42 Resp 20 05/29/17 11:42 BP 135/63 05/29/17 11:42 Pulse Ox 95 05/29/17 06:00 - Labs Result Diagrams: 05/29/17 09:45 05/29/17 09:45 Labs: Laboratory Results - last 24 hr 05/28/17 05/29/17 05/29/17 06:00 09:45 09:45 WBC 4.1 L D RBC 4.82 Hgb 12.2 Hct 37.1 MCV 77.0 L MCH 25.3 MCHC 32.9 RDW 15.9 H Plt Count 173 MPV 9.5 Gran % 50.9 Lymph % (Auto) 28.3 [place] % (Auto) 18.4 H Eos % (Auto) 1.7 Baso % (Auto) 0.7 Gran # 2.10 Lymph # 1.2 [place] # 0.8 H Eos # 0.1 Baso # 0.03 Sodium 140 Potassium 3.4 L Chloride 106 Carbon Dioxide 25 Anion Gap 12 BUN 18 Creatinine 0.7 Est GFR ( Amer) > 60 Est GFR (Non-Af Amer) > 60 Random Glucose 91 Calcium 8.7 Total Bilirubin 0.6 AST 55 H ALT 78 H Alkaline Phosphatase 193 H Total Protein 7.0 Albumin 3.4 Globulin 3.6 Albumin/Globulin Ratio 0.9 L Triglycerides 119 Cholesterol 212 H LDL Cholesterol Direct 155 H HDL Cholesterol 27 L Procalcitonin 0.53 H Attending/Attestation - Attestation I have personally seen and examined this patient.: Yes I have fully participated in the care of the patient.: Yes I have reviewed all pertinent clinical information: Yes
--- NOTE | 2017-05-28 18:54 | CARD ---
APPROVED REPORT EXAM: Two-dimensional and M-mode echocardiogram with Doppler and color Doppler. INDICATION 2D DIMENSIONS IVSd1.2 (0.7-1.1cm)LVDd4.4 (3.9-5.9cm) PWd1.3 (0.7-1.1cm)LVDs2.7 (2.5-4.0cm) FS (%) 38.5 %LVEF (%)69.0 (>50%) M-Mode DIMENSIONS Left Atrium (MM)4.10 (2.5-4.0cm)Aortic Root2.30 (2.2-3.7cm) Aortic Cusp Exc.1.70 (1.5-2.0cm) Aortic Valve AoV Peak Hehxkdsp126.0cm/Sybil Peak GR.16mmHg Mitral Valve MV E Shzualmx02.5cm/sMV A Qnhxbdvp24.5cm/sE/A ratio1.0 TDI Lateral E' Peak V10.30cm/sMedial E' Peak V6.34cm/sE/Lateral E'7.3 E/Medial E'11.9 Tricuspid Valve TR Peak Cilqrtzr269dc/sRAP EAQPYDTM27wcTtQN Peak Gr.34mmHg [id number] LEFT VENTRICLE The left ventricle is normal size. There is mild concentric left ventricular hypertrophy. The left ventricular function is normal.EF-60-65% There is normal LV segmental wall motion. Transmitral Doppler flow pattern is Grade III-reversible restrictive diastolic dysfunction. No left ventricle thrombus noted on this study. There is no ventricular septal defect visualized. There is no left ventricular aneurysm. There is no mass noted in the left ventricle. RIGHT VENTRICLE The right ventricle is normal size. There is normal right ventricular wall thickness. The right ventricular systolic function is normal. ATRIA The left atrium is mildly dilated. The right atrium size is normal. The interatrial septum is intact with no evidence for an atrial septal defect. AORTIC VALVE The aortic valve is calcified and displays decreased opening. There is trace aortic regurgitation. Aortic Sclerosis Vs Mild There is no aortic valvular vegetation. MITRAL VALVE The mitral valve is thickened but opens well. Mitral regurgitation is trace. There is no mitral valve stenosis. There is no evidence of mitral valve prolapse. TRICUSPID VALVE The tricuspid valve leaflets are thickened , but open well. There is mild tricuspid regurgitation.RVSP-44 mmof HG There is no tricuspid valve stenosis. There is no tricuspid valve prolapse or vegetation. PULMONIC VALVE The pulmonary valve is normal in structure. There is no pulmonic valvular regurgitation. There is no pulmonic valvular stenosis. GREAT VESSELS The aortic root is normal in size. The ascending aorta is normal in size. The pulmonary artery is normal. The IVC is normal in size and collapses >50% with inspiration. PERICARDIAL EFFUSION There is no pleural effusion. There is no pericardial effusion. <Conclusion> The left ventricle is normal size. There is mild concentric left ventricular hypertrophy. The left ventricular function is normal.EF-60-65% There is trace aortic regurgitation. Aortic Sclerosis Vs Mild Mitral regurgitation is trace. There is mild tricuspid regurgitation.RVSP-44 mmof HG
[2017-05-28] MEDS ORDERED: Gadodiamide 287 MG/ML VIAL (20ML) IV ONE (19:53)
[2017-05-28] MEDS: cefTRIAXone 2 GM IN NS 2 GM/100 ML BAG IVPB SCH (22:02)
[2017-05-29 07:27] VITALS: RESP 20
[2017-05-29] MEDS: cefTRIAXone 2 GM IN NS 2 GM/100 ML BAG IVPB SCH ×2 (10:00→23:03)
[2017-05-29] MEDS: Sodium Chloride 0.9% 1,000 ML IV SCH ×2 (10:00→23:03)
--- NOTE | 2017-05-29 10:04 | MRI ---
PROCEDURE: MRI BRAIN WITH AND WITHOUT CONTRAST HISTORY: meningitis/headache COMPARISON: CT head without and with intravenous contrast from 05/28/2017 TECHNIQUE: Multiplanar, multisequence MR images of the brain were obtained with and without intravenous contrast enhancement. FINDINGS: HEMORRHAGE: None DWI: No evidence of an acute or early subacute infarction. BRAIN PARENCHYMA: There are scattered T2/FLAIR hyperintense foci in the subcortical supratentorial white matter and confluent periventricular hyperintensities. There is no mass, mass effect or abnormal extra-axial fluid collection. The midline sagittal structures are normal. ENHANCEMENT: No abnormal intracranial enhancement. VENTRICLES: The ventricles are normal in size, shape and configuration. CRANIUM: There is normal bone marrow signal pattern. ORBITS: Grossly unremarkable. PARANASAL SINUSES/MASTOIDS: Predominantly clear. VASCULAR SYSTEM: There are normal signal voids in the larger intracranial arteries. OTHER FINDINGS: None . IMPRESSION: No acute intracranial abnormality. Mild subcortical and periventricular white matter changes are strictly nonspecific but statistically in this age group most compatible with mild chronic microangiopathic changes. The other differential considerations include migraine headache effect, gliosis, Lyme disease, vasculitis and less likely demyelinating disease including multiple sclerosis.
[2017-05-29 10:39] LABS: BASO # 0.03 K/mm3 (0.0-2.0); BASO % 0.7 % (0.0-3.0); EOS # 0.1 (0.0-0.7); EOS % 1.7 % (1.5-5.0); GRAN % 50.9 % (50.0-68.0); HEMOGLOBIN 12.2 gm/dL (12.0-16.0); LYMPH # 1.2 (1.2-3.4); LYMPH % 28.3 % (22.0-35.0); MEAN CORPUSCULAR HEMOGLOBIN 25.3 pg (25.0-35.0); MEAN CORPUSCULAR HGB CONC 32.9 g/dl (31.0-37.0); MEAN PLATELET VOLUME 9.5 fl (7.0-11.0); MONO # 0.8 (0.1-0.6); MONO % 18.4 % (1.0-6.0); PLATELET COUNT 173 10^3/uL (120.0-450.0); RBC 4.82 10^6/uL (3.5-6.1); RED CELL DISTRIBUTION WIDTH 15.9 % (11.5-14.5); WHITE BLOOD COUNT 4.1 10^3/ul (4.5-11.0)
[2017-05-29 10:45] LABS: ALB/GLOB RATIO 0.9 (1.1-1.8); ALBUMIN 3.4 g/dL (3.0-4.8); ALT/SGPT 78 U/L (7-56); AST/SGOT 55 U/L (15-39); BLOOD UREA NITROGEN 18 mg/dL (7-21); CALCIUM 8.7 mg/dL (8.4-10.5); GFR AFRICAN-AMERICAN > 60; GFR NON-AFRICAN AMERICAN > 60; HDL CHOLESTEROL 27 mg/dL (29-60)
[2017-05-29 10:56] LABS: LDL CHOLESTEROL 155 mg/dL (0-129)
--- NOTE | 2017-05-29 10:59 | CP.PCM.PN ---
Subjective - Date & Time of Evaluation Date of Evaluation: 05/29/17 Time of Evaluation: 10:00 - Subjective Subjective: Still has some headache but feels better, no fevers overnight, no photophobia, no diarrhea, no nausea, no chest pain currently. Objective - Vital Signs/Intake and Output Vital Signs (last 24 hours): Temp Pulse Resp BP Pulse Ox 98.8 F 62 19 121/65 98 05/29/17 00:01 05/29/17 02:00 05/29/17 00:01 05/29/17 00:01 05/29/17 00:01 - Medications Medications: Current Medications Acetaminophen (Tylenol 325mg Tab) 975 mg PO ONCE PRN PRN Reason: Fever >100.4 F Last Admin: 05/27/17 20:45 Dose: 975 mg Aspirin (Ecotrin) 81 mg PO DAILY [facility] Clopidogrel Bisulfate (Plavix) 75 mg PO DAILY [facility] Doxycycline Hyclate (Doryx) 100 mg PO Q12 [facility] PRN Reason: Protocol Last Admin: 05/28/17 22:03 Dose: 100 mg Famotidine (Pepcid) 40 mg PO HS [facility] Hydrochlorothiazide (Hydrodiuril) 25 mg PO DAILY [facility] Sodium Chloride (Sodium Chloride 0.9%) 1,000 mls @ 80 mls/hr IV .[id number] [facility] Last Admin: 05/28/17 22:05 Dose: 80 mls/hr Vancomycin HCl (Vancomycin 1gm) 1 gm in 250 mls @ 167 mls/hr IVPB Q12H [facility] PRN Reason: Protocol Last Admin: 05/28/17 22:03 Dose: 167 mls/hr Ceftriaxone Sodium (Rocephin 2 Gm Ivpb) 2 gm in 100 mls @ 100 mls/hr IVPB Q12 [facility] PRN Reason: Protocol Last Admin: 05/28/17 22:02 Dose: 100 mls/hr - Labs Labs: 05/28/17 02:50 05/28/17 02:50 PT 10.7 Seconds (9.9-11.8) 05/27/17 21:02 INR 0.99 (0.93-1.08) 05/27/17 21:02 APTT 37.8 Seconds (23.7-30.8) H 05/27/17 21:02 - Constitutional Appears: Non-toxic, No Acute Distress - Head Exam Head Exam: NORMAL INSPECTION - Neck Exam Neck Exam: absent: Lymphadenopathy, Meningismus - Respiratory Exam Respiratory Exam: Decreased Breath Sounds - Cardiovascular Exam Cardiovascular Exam: +S1, +S2 - GI/Abdominal Exam GI & Abdominal Exam: Soft. absent: Tenderness Assessment and Plan - Assessment and Plan (Free Text) Plan: Assessment Systemic Inflammatory Response Syndrome with headache - no evidence of intra- cranial event (ie. such as bleed), R/O acute meningitis (although less likely with no meningeal enhancement noted on MRI of the brain) - LP was attempted 3 times yesterday by the medical team, Neurology and anesthesia but unsuccessful chest pain, etiology to be determined HTN CAD S/P PCI dyslipidemia history of carbon monoxide posoining in 2016 obesity with BMI 30 history of fatty liver and biliary cirrhosis history of vertigo S/P left patellar surgery for fracture Plan continue Vancomycin and Rocephin and Doxycycline (Day 2); blood cx, CXR are negative; PCT slightly elevated at 0.55 but the patient had midl acute renal failure when it was taken; reviewed CT head and MRI brain Reviewed Neuro evaluation and will follow up their re-evaluation will monitor clinically Discussed with Dr. Brady droplet isolation can be discontinued this afternoon
--- NOTE | 2017-05-29 11:11 | CP.PCM.PN ---
<Brittney Lyles - Last Filed: 05/29/17 15:09> Subjective - Date & Time of Evaluation Date of Evaluation: 05/29/17 Time of Evaluation: 09:00 - Subjective Subjective: PGY-2 Neurology progress note for Dr Jay. Patient speaking in full sentences. No acute events overnight. Patient reports the headache has improved, c/o back pain, and reproducible chest pain. Fever has resolved. Patient is able to speak in full sentences, no focal weakness. Objective - Vital Signs/Intake and Output Vital Signs (last 24 hours): Temp Pulse Resp BP Pulse Ox 98.5 F 74 20 130/61 95 05/29/17 06:00 05/29/17 06:00 05/29/17 06:00 05/29/17 06:00 05/29/17 06:00 Intake and Output: 05/29/17 05/29/17 06:59 18:59 Intake Total 420 Output Total 3 Balance 417 - Medications Medications: Current Medications Acetaminophen (Tylenol 325mg Tab) 975 mg PO ONCE PRN PRN Reason: Fever >100.4 F Last Admin: 05/27/17 20:45 Dose: 975 mg Aspirin (Ecotrin) 81 mg PO DAILY [facility] Last Admin: 05/29/17 09:59 Dose: 81 mg Doxycycline Hyclate (Doryx) 100 mg PO Q12 [facility] PRN Reason: Protocol Last Admin: 05/29/17 09:59 Dose: 100 mg Famotidine (Pepcid) 40 mg PO HS [facility] Hydrochlorothiazide (Hydrodiuril) 25 mg PO DAILY [facility] Last Admin: 05/29/17 09:59 Dose: 25 mg Sodium Chloride (Sodium Chloride 0.9%) 1,000 mls @ 80 mls/hr IV .[id number] [facility] Last Admin: 05/29/17 10:00 Dose: 80 mls/hr Vancomycin HCl (Vancomycin 1gm) 1 gm in 250 mls @ 167 mls/hr IVPB Q12H [facility] PRN Reason: Protocol Last Admin: 05/28/17 22:03 Dose: 167 mls/hr Ceftriaxone Sodium (Rocephin 2 Gm Ivpb) 2 gm in 100 mls @ 100 mls/hr IVPB Q12 [facility] PRN Reason: Protocol Last Admin: 05/29/17 10:00 Dose: 100 mls/hr - Labs Labs: 05/29/17 09:45 05/29/17 09:45 PT 10.7 Seconds (9.9-11.8) 05/27/17 21:02 INR 0.99 (0.93-1.08) 05/27/17 21:02 APTT 37.8 Seconds (23.7-30.8) H 05/27/17 21:02 - Constitutional Appears: No Acute Distress - Head Exam Head Exam: ATRAUMATIC, NORMAL INSPECTION, NORMOCEPHALIC - Eye Exam Eye Exam: EOMI, Normal appearance, PERRL. absent: Scleral icterus Pupil Exam: NORMAL ACCOMODATION, PERRL - ENT Exam ENT Exam: Mucous Membranes Moist - Neck Exam Neck Exam: Full ROM, Normal Inspection, Tenderness - Respiratory Exam Respiratory Exam: Clear to Ausculation Bilateral, NORMAL BREATHING PATTERN. absent: Rhonchi, Wheezes, Respiratory Distress, Stridor - Cardiovascular Exam Cardiovascular Exam: REGULAR RHYTHM, RRR, +S1, +S2 - GI/Abdominal Exam GI & Abdominal Exam: Soft, Normal Bowel Sounds. absent: Distended, Firm, Tenderness - Extremities Exam Extremities Exam: Normal Inspection. absent: Pedal Edema - Back Exam Back Exam: NORMAL INSPECTION - Neurological Exam Neurological Exam: Alert, Awake, CN II-XII Intact, Oriented x3 Neuro motor strength exam: Left Upper Extremity: 5, Right Upper Extremity: 5, Left Lower Extremity: 5, Right Lower Extremity: 5 Additional comments: Mental status: Patient is a&ox3, Attention, thought process and insight and judgment are appropriate. patient is able to speak in full sentences. CNII-CNXII- Perrla, VFF by confrontation, EMOI, no nystagamus, no ptosis, sensation intact to light touch. [place] muscles strong symmetrically, no facial asymmetry. Tongue protrude midline, no atrophy or fasciculation. Sensory: vibration sensations and proprioceptive functions intact. There is no evidence of extinction to DSS. Motor exam: b/l upper and LE 5/5 flexion and extension, no tremors and no muscle rigidity Reflex: deep tendon reflex were plus 2 with flexor plantar response on the LE. Negative kernig and brudzinski sign. 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 Patient is unable to undergo fluoroscope guided LP due to plavix. Patient's improving clinically with broadspectrum antibiotics. Patient's headache has improved. Plan: - MRI with subcortical and periventricular white matter changes. - Cleared for cardiac cath from neuro perspective - Zanaflex ok for muscle spasm, - Fiorecet for headache - Thank you for consulting Dr Jay. Patient seen, examined, case discussed with Dr Jay. <Romie Jay - Last Filed: 05/29/17 16:04> Objective - Vital Signs/Intake and Output Vital Signs (last 24 hours): Temp Pulse Resp BP Pulse Ox 98.7 F 62 20 135/63 95 05/29/17 11:42 05/29/17 11:42 05/29/17 11:42 05/29/17 11:42 05/29/17 06:00 Intake and Output: 05/29/17 05/29/17 06:59 18:59 Intake Total 420 Output Total 3 Balance 417 - Medications Medications: Current Medications Acetaminophen (Tylenol 325mg Tab) 975 mg PO ONCE PRN PRN Reason: Fever >100.4 F Last Admin: 05/27/17 20:45 Dose: 975 mg Acetaminophen/Butalbital/Caffeine (Fioricet) 1 tab PO Q4H PRN PRN Reason: Headache Aspirin (Ecotrin) 81 mg PO DAILY [facility] Last Admin: 05/29/17 09:59 Dose: 81 mg Doxycycline Hyclate (Doryx) 100 mg PO Q12 [facility] PRN Reason: Protocol Last Admin: 05/29/17 09:59 Dose: 100 mg Famotidine (Pepcid) 40 mg PO HS [facility] Hydrochlorothiazide (Hydrodiuril) 25 mg PO DAILY [facility] Last Admin: 05/29/17 09:59 Dose: 25 mg Sodium Chloride (Sodium Chloride 0.9%) 1,000 mls @ 80 mls/hr IV .[id number] [facility] Last Admin: 05/29/17 10:00 Dose: 80 mls/hr Vancomycin HCl (Vancomycin 1gm) 1 gm in 250 mls @ 167 mls/hr IVPB Q12H [facility] PRN Reason: Protocol Last Admin: 05/29/17 12:01 Dose: 167 mls/hr Ceftriaxone Sodium (Rocephin 2 Gm Ivpb) 2 gm in 100 mls @ 100 mls/hr IVPB Q12 [facility] PRN Reason: Protocol Last Admin: 05/29/17 10:00 Dose: 100 mls/hr Tizanidine HCl (Zanaflex) 4 mg PO TID [facility] Last Admin: 05/29/17 13:22 Dose: 4 mg - Labs Labs: 05/29/17 09:45 05/29/17 09:45 PT 10.7 Seconds (9.9-11.8) 05/27/17 21:02 INR 0.99 (0.93-1.08) 05/27/17 21:02 APTT 37.8 Seconds (23.7-30.8) H 05/27/17 21:02 Attending/Attestation - Attestation I have personally seen and examined this patient.: Yes I have fully participated in the care of the patient.: Yes I have reviewed all pertinent clinical information, including history, physical exam and plan: Yes
[2017-05-29] MEDS: Vancomycin 1gm in NS 250ml 1 GM/250 ML BAG IVPB SCH ×2 (12:01→23:04)
[2017-05-29] MEDS ORDERED: Apap-Butalbital-Caffeine 325-50-40mg Tab PO PRN (12:21)
[2017-05-29] MEDS ORDERED: Potassium Chloride 20 mEq ER Tab PO ONE (13:49)
--- NOTE | 2017-05-29 14:02 | CP.PCM.PN ---
<FERMÍNGO - Last Filed: 05/29/17 14:52> Subjective - Date & Time of Evaluation Date of Evaluation: 05/29/17 Time of Evaluation: 10:35 - Subjective Subjective: Medicine Progress Note: Pt was seen and assessed at bedside, following droplet precaution protocols. Pt states that her chest pain has improved but that her headache and neck soreness have remained the same. She has not experienced blurry vision since before she was admitted to the hospital. She describes her neck pain as "more on the sides above my shoulders". She denies photophobia, changes in vision, N/V, aura, fever , chest pain, shortness of breath, or abdominal pain. Objective - Vital Signs/Intake and Output Vital Signs (last 24 hours): Temp Pulse Resp BP Pulse Ox 98.7 F 62 20 135/63 95 05/29/17 11:42 05/29/17 11:42 05/29/17 11:42 05/29/17 11:42 05/29/17 06:00 Intake and Output: 05/29/17 05/29/17 06:59 18:59 Intake Total 420 Output Total 3 Balance 417 - Medications Medications: Current Medications Acetaminophen (Tylenol 325mg Tab) 975 mg PO ONCE PRN PRN Reason: Fever >100.4 F Last Admin: 05/27/17 20:45 Dose: 975 mg Acetaminophen/Butalbital/Caffeine (Fioricet) 1 tab PO Q4H PRN PRN Reason: Headache Aspirin (Ecotrin) 81 mg PO DAILY [facility] Last Admin: 05/29/17 09:59 Dose: 81 mg Doxycycline Hyclate (Doryx) 100 mg PO Q12 [facility] PRN Reason: Protocol Last Admin: 05/29/17 09:59 Dose: 100 mg Famotidine (Pepcid) 40 mg PO HS [facility] Hydrochlorothiazide (Hydrodiuril) 25 mg PO DAILY [facility] Last Admin: 05/29/17 09:59 Dose: 25 mg Sodium Chloride (Sodium Chloride 0.9%) 1,000 mls @ 80 mls/hr IV .[id number] [facility] Last Admin: 05/29/17 10:00 Dose: 80 mls/hr Vancomycin HCl (Vancomycin 1gm) 1 gm in 250 mls @ 167 mls/hr IVPB Q12H [facility] PRN Reason: Protocol Last Admin: 05/29/17 12:01 Dose: 167 mls/hr Ceftriaxone Sodium (Rocephin 2 Gm Ivpb) 2 gm in 100 mls @ 100 mls/hr IVPB Q12 [facility] PRN Reason: Protocol Last Admin: 05/29/17 10:00 Dose: 100 mls/hr Tizanidine HCl (Zanaflex) 4 mg PO TID [facility] Last Admin: 05/29/17 13:22 Dose: 4 mg - Labs Labs: 05/29/17 09:45 05/29/17 09:45 PT 10.7 Seconds (9.9-11.8) 05/27/17 21:02 INR 0.99 (0.93-1.08) 05/27/17 21:02 APTT 37.8 Seconds (23.7-30.8) H 05/27/17 21:02 - Constitutional Appears: No Acute Distress - Head Exam Head Exam: NORMAL INSPECTION, NORMOCEPHALIC - Eye Exam Eye Exam: EOMI, Normal appearance, PERRL. absent: Scleral icterus Pupil Exam: NORMAL ACCOMODATION, PERRL - ENT Exam ENT Exam: Mucous Membranes Moist, Normal Exam - Neck Exam Neck Exam: Full ROM, Tenderness. absent: Meningismus Additional comments: Kernig and Brudzinszkis signs were negative; paraspinal musculature tenderness - Respiratory Exam Respiratory Exam: Clear to Ausculation Bilateral, NORMAL BREATHING PATTERN. absent: Rales, Rhonchi, Wheezes - Cardiovascular Exam Cardiovascular Exam: REGULAR RHYTHM, +S1, +S2. absent: Murmur - GI/Abdominal Exam GI & Abdominal Exam: Normal Bowel Sounds. absent: Tenderness - Extremities Exam Extremities Exam: absent: Calf Tenderness, Pedal Edema - Back Exam Back Exam: NORMAL INSPECTION - Neurological Exam Neurological Exam: Alert, Awake, Oriented x3 - Psychiatric Exam Psychiatric exam: Normal Affect, Normal Mood - Skin Skin Exam: Dry, Intact, Normal Color, Warm Assessment and Plan - Assessment and Plan (Free Text) Assessment: 64 year old female with a PMH of HTN, HLD, AL w/ stents (10/2016) presents with headache, fever and chest pain. Plan: 1. Systemic Inflammatory Response Syndrome -currently on vancomycin, rocephin and doxycycline, per ID -neuro was consulted for possible meningitis r/o; attempted LP but were unsuccessful -no evidence of intra-cranial event (ie. such as bleed), R/O acute meningitis ( although less likely with no meningeal enhancement noted on MRI of the brain) -anesthesiolgy consulted for fluoroscopy guided LP; patient on plavix and earliest LP could be done is 06/02 -WBC count has been WNL since admission 2. Chest Pain -cardiology following, Jackson already sees patient as outpatient -troponins and EKG negative -ASA 3. Elevated LFT's -h/o of fatty liver, per chart review -currently has regular outpatient f/u with Dr. Izquierdo 4. Hypertension -HCTZ 5. Hyperlipidemia -cardiology following -per pt, taken off statin d/t elevated liver enzymes 6. Hypokalemia -potassium at 3.4 -K-Dur 20meq ordered -currently asymptomatic and will continue to monitor 7. GI/DVT Prophylaxis -pepcid/scd's Patient seen and case discussed with attending physician, Dr. Brady. <Beth Brady - Last Filed: 05/29/17 16:51> Objective - Vital Signs/Intake and Output Vital Signs (last 24 hours): Temp Pulse Resp BP Pulse Ox 98.7 F 62 20 135/63 95 05/29/17 11:42 05/29/17 11:42 05/29/17 11:42 05/29/17 11:42 05/29/17 06:00 Intake and Output: 05/29/17 05/29/17 06:59 18:59 Intake Total 420 Output Total 3 Balance 417 - Medications Medications: Current Medications Acetaminophen (Tylenol 325mg Tab) 975 mg PO ONCE PRN PRN Reason: Fever >100.4 F Last Admin: 05/27/17 20:45 Dose: 975 mg Acetaminophen/Butalbital/Caffeine (Fioricet) 1 tab PO Q4H PRN PRN Reason: Headache Aspirin (Ecotrin) 81 mg PO DAILY [facility] Last Admin: 05/29/17 09:59 Dose: 81 mg Doxycycline Hyclate (Doryx) 100 mg PO Q12 [facility] PRN Reason: Protocol Last Admin: 05/29/17 09:59 Dose: 100 mg Famotidine (Pepcid) 40 mg PO HS [facility] Hydrochlorothiazide (Hydrodiuril) 25 mg PO DAILY [facility] Last Admin: 05/29/17 09:59 Dose: 25 mg Sodium Chloride (Sodium Chloride 0.9%) 1,000 mls @ 80 mls/hr IV .[id number] [facility] Last Admin: 05/29/17 10:00 Dose: 80 mls/hr Vancomycin HCl (Vancomycin 1gm) 1 gm in 250 mls @ 167 mls/hr IVPB Q12H [facility] PRN Reason: Protocol Last Admin: 05/29/17 12:01 Dose: 167 mls/hr Ceftriaxone Sodium (Rocephin 2 Gm Ivpb) 2 gm in 100 mls @ 100 mls/hr IVPB Q12 [facility] PRN Reason: Protocol Last Admin: 05/29/17 10:00 Dose: 100 mls/hr Tizanidine HCl (Zanaflex) 4 mg PO TID [facility] Last Admin: 05/29/17 13:22 Dose: 4 mg - Labs Labs: 05/29/17 09:45 05/29/17 09:45 PT 10.7 Seconds (9.9-11.8) 05/27/17 21:02 INR 0.99 (0.93-1.08) 05/27/17 21:02 APTT 37.8 Seconds (23.7-30.8) H 05/27/17 21:02 Attending/Attestation - Attestation I have personally seen and examined this patient.: Yes I have fully participated in the care of the patient.: Yes I have reviewed all pertinent clinical information, including history, physical exam and plan: Yes Notes (Text): 05/29/17 16:48 Attending note; Patient seen and examined with resident. Patient is a 66 y/o female with the PMHx of HTN, AL s/p stent in Oct 2016, and HLD, who presented with a c/o non-radiating pressure-like chest pain of 7/10. Cardiac enzymes 3 negative. Cardiology evaluation with Dr. Jackson appreciated. Outpatient cardiac cath planned. Headache and fever; currently has no photophobia. No neck rigidity. Less likely meningitis. Failed LP yesterday. Case discussed with neurology in detail. Continue anti-biotics. Started on Fioricet for headache. Patient is not able to get LP by anesthesia since patient got loading dose of Plavix yesterday. Case discussed with infectious disease in detail. Possible DC isolation tomorrow. Upon discharge the patient will follow-up with PMD . 05/29/17 16:51
[2017-05-30 06:36] VITALS: O2SAT 96
[2017-05-30 07:27] LABS: BASO # 0.05 K/mm3 (0.0-2.0); BASO % 1.1 % (0.0-3.0); EOS # 0.1 (0.0-0.7); GRAN # 2.24 (1.4-6.5); GRAN % 50.8 % (50.0-68.0); HEMOGLOBIN 12.6 gm/dL (12.0-16.0); LYMPH # 1.4 (1.2-3.4); LYMPH % 31.2 % (22.0-35.0); MEAN CELL VOLUME 76.4 fL (80.0-105.0); MEAN CORPUSCULAR HEMOGLOBIN 25.4 pg (25.0-35.0); MEAN CORPUSCULAR HGB CONC 33.2 g/dl (31.0-37.0); MONO # 0.7 (0.1-0.6); MONO % 14.9 % (1.0-6.0); PLATELET COUNT 185 10^3/uL (120.0-450.0); RBC 4.96 10^6/uL (3.5-6.1); RED CELL DISTRIBUTION WIDTH 15.7 % (11.5-14.5); WHITE BLOOD COUNT 4.4 10^3/ul (4.5-11.0)
[2017-05-30 07:44] LABS: ALB/GLOB RATIO 0.9 (1.1-1.8); ALBUMIN 3.4 g/dL (3.0-4.8); ALT/SGPT 68 U/L (7-56); AST/SGOT 50 U/L (15-39); BLOOD UREA NITROGEN 12 mg/dL (7-21); CALCIUM 8.9 mg/dL (8.4-10.5); GFR AFRICAN-AMERICAN > 60; GFR NON-AFRICAN AMERICAN > 60
[2017-05-30] MEDS: cefTRIAXone 2 GM IN NS 2 GM/100 ML BAG IVPB SCH (09:05)
--- NOTE | 2017-05-30 10:23 | CP.PCM.PN ---
Subjective - Date & Time of Evaluation Date of Evaluation: 05/30/17 Time of Evaluation: 09:25 - Subjective Subjective: Patient states her headache is a little better, no fevers overnight, not in distress. Objective - Vital Signs/Intake and Output Vital Signs (last 24 hours): Temp Pulse Resp BP Pulse Ox 98.5 F 70 20 157/77 H 93 L 05/30/17 00:01 05/30/17 05:56 05/30/17 00:01 05/30/17 00:01 05/30/17 00:01 Intake and Output: 05/29/17 05/30/17 18:59 06:59 Intake Total 300 Balance 300 - Medications Medications: Current Medications Acetaminophen (Tylenol 325mg Tab) 975 mg PO ONCE PRN PRN Reason: Fever >100.4 F Last Admin: 05/27/17 20:45 Dose: 975 mg Acetaminophen/Butalbital/Caffeine (Fioricet) 1 tab PO Q4H PRN PRN Reason: Headache Last Admin: 05/30/17 05:20 Dose: 1 tab Aspirin (Ecotrin) 81 mg PO DAILY [facility] Last Admin: 05/29/17 09:59 Dose: 81 mg Doxycycline Hyclate (Doryx) 100 mg PO Q12 [facility] PRN Reason: Protocol Last Admin: 05/29/17 23:05 Dose: 100 mg Famotidine (Pepcid) 40 mg PO HS [facility] Last Admin: 05/29/17 23:05 Dose: 40 mg Hydrochlorothiazide (Hydrodiuril) 25 mg PO DAILY [facility] Last Admin: 05/29/17 09:59 Dose: 25 mg Sodium Chloride (Sodium Chloride 0.9%) 1,000 mls @ 80 mls/hr IV .[id number] [facility] Last Admin: 05/29/17 23:03 Dose: 80 mls/hr Vancomycin HCl (Vancomycin 1gm) 1 gm in 250 mls @ 167 mls/hr IVPB Q12H [facility] PRN Reason: Protocol Last Admin: 05/29/17 23:04 Dose: 167 mls/hr Ceftriaxone Sodium (Rocephin 2 Gm Ivpb) 2 gm in 100 mls @ 100 mls/hr IVPB Q12 [facility] PRN Reason: Protocol Last Admin: 05/29/17 23:03 Dose: 100 mls/hr Tizanidine HCl (Zanaflex) 4 mg PO TID [facility] Last Admin: 05/29/17 17:03 Dose: 4 mg - Labs Labs: 05/29/17 09:45 05/29/17 09:45 PT 10.7 Seconds (9.9-11.8) 05/27/17 21:02 INR 0.99 (0.93-1.08) 05/27/17 21:02 APTT 37.8 Seconds (23.7-30.8) H 05/27/17 21:02 - Constitutional Appears: Non-toxic, No Acute Distress - Head Exam Head Exam: NORMAL INSPECTION - ENT Exam ENT Exam: Mucous Membranes Moist - Neck Exam Neck Exam: absent: Meningismus - Respiratory Exam Respiratory Exam: Decreased Breath Sounds - Cardiovascular Exam Cardiovascular Exam: +S1, +S2 - GI/Abdominal Exam GI & Abdominal Exam: Soft. absent: Tenderness Assessment and Plan - Assessment and Plan (Free Text) Plan: Assessment Systemic Inflammatory Response Syndrome with headache - no evidence of intra- cranial event (ie. such as bleed), R/O acute meningitis (although less likely with no meningeal enhancement noted on MRI of the brain) - LP was attempted 3 times by the medical team, Neurology and anesthesia but unsuccessful - patient also was given antiplatelets and it may be dangerous to attempt lumbar puncture chest pain, etiology to be determined HTN CAD S/P PCI dyslipidemia history of carbon monoxide posoining in 2016 obesity with BMI 30 history of fatty liver and biliary cirrhosis history of vertigo S/P left patellar surgery for fracture Plan on Vancomycin and Rocephin and Doxycycline (Day 3); blood cx, CXR are negative; PCT slightly elevated at 0.55 but the patient had mild acute renal failure when it was taken; reviewed CT head and MRI brain Reviewed Neuro evaluation Discussed with Dr. Brady Patient may be switched to PO Avelox and PO Bactrim for another 7-10 days with outpatient follow up with PMD and Neurology
[2017-05-30] MEDS: Vancomycin 1gm in NS 250ml 1 GM/250 ML BAG IVPB SCH (11:12)
[2017-05-30] MEDS: Sodium Chloride 0.9% 1,000 ML IV SCH (11:13)
--- NOTE | 2017-05-30 11:55 | CP.PCM.PN ---
Subjective - Date & Time of Evaluation Date of Evaluation: 05/30/17 Time of Evaluation: 08:08 - Subjective Subjective: This is Dr. Duc Jackson dictating a cardiology follow up on Nancy Oates. DOS:05/30/17 HPI: Patient is a female presenting for a cardiology follow up. She is still complaining of headaches. ROS: Head: Headaches. Objective - Vital Signs/Intake and Output Vital Signs (last 24 hours): Temp Pulse Resp BP Pulse Ox 98.9 F 72 20 172/89 H 96 05/30/17 06:00 05/30/17 06:00 05/30/17 06:00 05/30/17 06:00 05/30/17 06:00 Intake and Output: 05/30/17 05/30/17 06:59 18:59 Intake Total 1370 Balance 1370 - Medications Medications: Current Medications Acetaminophen (Tylenol 325mg Tab) 975 mg PO ONCE PRN PRN Reason: Fever >100.4 F Last Admin: 05/27/17 20:45 Dose: 975 mg Acetaminophen/Butalbital/Caffeine (Fioricet) 1 tab PO Q4H PRN PRN Reason: Headache Last Admin: 05/30/17 05:20 Dose: 1 tab Aspirin (Ecotrin) 81 mg PO DAILY [facility] Last Admin: 05/30/17 09:06 Dose: 81 mg Clonidine HCl (Catapres) 0.1 mg PO BID [facility] Last Admin: 05/30/17 09:07 Dose: 0.1 mg Doxycycline Hyclate (Doryx) 100 mg PO Q12 [facility] PRN Reason: Protocol Last Admin: 05/30/17 09:06 Dose: 100 mg Famotidine (Pepcid) 40 mg PO HS [facility] Last Admin: 05/29/17 23:05 Dose: 40 mg Hydrochlorothiazide (Hydrodiuril) 25 mg PO DAILY [facility] Last Admin: 05/30/17 09:06 Dose: 25 mg Sodium Chloride (Sodium Chloride 0.9%) 1,000 mls @ 80 mls/hr IV .[id number] [facility] Last Admin: 05/29/17 23:03 Dose: 80 mls/hr Vancomycin HCl (Vancomycin 1gm) 1 gm in 250 mls @ 167 mls/hr IVPB Q12H [facility] PRN Reason: Protocol Last Admin: 05/29/17 23:04 Dose: 167 mls/hr Ceftriaxone Sodium (Rocephin 2 Gm Ivpb) 2 gm in 100 mls @ 100 mls/hr IVPB Q12 [facility] PRN Reason: Protocol Last Admin: 05/30/17 09:05 Dose: 100 mls/hr Tizanidine HCl (Zanaflex) 4 mg PO TID [facility] Last Admin: 05/30/17 09:06 Dose: 4 mg - Labs Labs: 05/30/17 07:05 05/30/17 07:05 PT 10.7 Seconds (9.9-11.8) 05/27/17 21:02 INR 0.99 (0.93-1.08) 05/27/17 21:02 APTT 37.8 Seconds (23.7-30.8) H 05/27/17 21:02 - Neck Exam Additional comments: No JVD - Respiratory Exam Additional comments: no rales - Cardiovascular Exam Additional comments: Normal S1 and S2 - Extremities Exam Additional comments: no edema Assessment and Plan - Assessment and Plan (Free Text) Assessment: Diagnosis: 1)Resolution of chest pain 2)No evidence for acute coronary syndrome 3)Headaches 4)Questionable diagnosis of meningitis 5)HTN Plan: 1) Given these findings, will add Clonidine to her regimen for better BP control. 2) If the patient is discharged on IV Abx, will arrange for outpatient stress test.
[2017-05-30 12:02] VITALS: BP 119/84; PULSE 63; TEMP 98.5
--- NOTE | 2017-05-30 20:59 | CP.PCM.DIS ---
<GO KOVACS - Last Filed: 05/30/17 20:54> Provider - Provider Date of Admission: 05/28/17 00:09 Attending physician: Beth Brady MD Primary care physician: Alfonso Villa MD Consults: ID: [id number] Neuro: Pierre Cardio: Jackson Time Spent in preparation of Discharge (in minutes): 57 Hospital Course - Lab Results Lab Results: Most Recent Lab Values WBC 4.4 10^3/ul (4.5-11.0) L 05/30/17 07:05 RBC 4.96 10^6/uL (3.5-6.1) 05/30/17 07:05 Hgb 12.6 gm/dL (12.0-16.0) 05/30/17 07:05 Hct 37.9 % (36.0-48.0) 05/30/17 07:05 MCV 76.4 fL (80.0-105.0) L 05/30/17 07:05 MCH 25.4 pg (25.0-35.0) 05/30/17 07:05 MCHC 33.2 g/dl (31.0-37.0) 05/30/17 07:05 RDW 15.7 % (11.5-14.5) H 05/30/17 07:05 Plt Count 185 10^3/uL (120.0-450.0) 05/30/17 07:05 MPV 10.0 fl (7.0-11.0) 05/30/17 07:05 Gran % 50.8 % (50.0-68.0) 05/30/17 07:05 Lymph % (Auto) 31.2 % (22.0-35.0) 05/30/17 07:05 [place] % (Auto) 14.9 % (1.0-6.0) H 05/30/17 07:05 Eos % (Auto) 2.0 % (1.5-5.0) 05/30/17 07:05 Baso % (Auto) 1.1 % (0.0-3.0) 05/30/17 07:05 Gran # 2.24 (1.4-6.5) 05/30/17 07:05 Lymph # 1.4 (1.2-3.4) 05/30/17 07:05 [place] # 0.7 (0.1-0.6) H 05/30/17 07:05 Eos # 0.1 (0.0-0.7) 05/30/17 07:05 Baso # 0.05 K/mm3 (0.0-2.0) 05/30/17 07:05 PT 10.7 Seconds (9.9-11.8) 05/27/17 21:02 INR 0.99 (0.93-1.08) 05/27/17 21:02 APTT 37.8 Seconds (23.7-30.8) H 05/27/17 21:02 pO2 48 mm/Hg (30-55) 05/27/17 21:02 VBG pH 7.40 (7.32-7.43) 05/27/17 21:02 VBG pCO2 51.0 (40-60) 05/27/17 21:02 VBG HCO3 31.6 mmol/l (21-28) H 05/27/17 21:02 VBG Total CO2 33.2 mmol.L (22-28) H 05/27/17 21:02 VBG O2 Sat (Calc) 85.9 % (40-65) H 05/27/17 21:02 VBG Base Excess 5.4 mmol/L (0.0-2.0) H 05/27/17 21:02 VBG Potassium 4.3 mmol/L (3.6-5.2) 05/27/17 21:02 Sodium 139.0 mmol/L (132-148) 05/27/17 21:02 Chloride 104.0 mmol/L (98-107) 05/27/17 21:02 Glucose 96 mg/dl (65-105) 05/27/17 21:02 Lactate 1.1 mmol/L (0.7-2.1) 05/27/17 21:02 FiO2 21.0 % 05/27/17 21:02 Sodium 139 mmol/L (132-148) 05/30/17 07:05 Potassium 4.0 mmol/L (3.6-5.0) 05/30/17 07:05 Chloride 106 mmol/L (98-107) 05/30/17 07:05 Carbon Dioxide 23 mmol/L (21-33) 05/30/17 07:05 Anion Gap 14 (10-20) 05/30/17 07:05 BUN 12 mg/dL (7-21) 05/30/17 07:05 Creatinine 0.7 mg/dL (0.5-1.4) 05/30/17 07:05 Est GFR ( Amer) > 60 05/30/17 07:05 Est GFR (Non-Af Amer) > 60 05/30/17 07:05 Random Glucose 88 mg/dL (70-110) 05/30/17 07:05 Calcium 8.9 mg/dL (8.4-10.5) 05/30/17 07:05 Phosphorus 3.5 mg/dL (2.5-4.5) 05/27/17 21:02 Magnesium 1.9 mg/dL (1.7-2.2) 05/27/17 21:02 Total Bilirubin 0.5 mg/dL (0.2-1.3) 05/30/17 07:05 AST 50 U/L (15-39) H 05/30/17 07:05 ALT 68 U/L (7-56) H 05/30/17 07:05 Alkaline Phosphatase 201 U/L (38-133) H 05/30/17 07:05 Total Creatine Kinase 29 U/L (35-230) L 05/28/17 02:50 Troponin I < 0.01 ng/mL 05/28/17 11:50 Total Protein 7.2 g/dL (5.8-8.3) 05/30/17 07:05 Albumin 3.4 g/dL (3.0-4.8) 05/30/17 07:05 Globulin 3.8 gm/dL 05/30/17 07:05 Albumin/Globulin Ratio 0.9 (1.1-1.8) L 05/30/17 07:05 Triglycerides 119 mg/dL (35-160) 05/29/17 09:45 Cholesterol 212 mg/dL (130-200) H 05/29/17 09:45 LDL Cholesterol Direct 155 mg/dL (0-129) H 05/29/17 09:45 HDL Cholesterol 27 mg/dL (29-60) L 05/29/17 09:45 Lipase 33 U/L (23-300) 05/28/17 02:50 Procalcitonin 0.53 NG/ML (0.19-0.49) H 05/28/17 06:00 Venous Blood Potassium 4.3 mmol/L (3.6-5.2) 05/27/17 21:02 Influenza Typ A,B (EIA) Negative for flu a/b (NEGATIVE) 05/28/17 12:45 - Hospital Course Hospital Course: 66 y/o female with the PMHx of HTN, OK s/p stent in Oct 2016, and HLD, who presented with chest pain, fever and headache. ID and Cardio were consulted. ID placed her on droplet precautions and started her on Vancomycin, Rocephin and Doxicycline for possible meningitis. After initial temperature of 102.5, patient was afebrile for [address] and MRI of head were both negative for meningitis. Patient was then taken off of droplet precautions and placed on PO antibiotics of Avelox and Bactrim. Patient was admitted with chest pain and this resolved. Troponins and ECG were both negative. Cardiology scheduled an OP stress test. - Date & Time of H&P Date of H&P: 05/28/17 Time of H&P: 06:45 Discharge Exam - Head Exam Head Exam: NORMAL INSPECTION - Eye Exam Eye Exam: EOMI, Normal appearance, PERRL Pupil Exam: NORMAL ACCOMODATION, PERRL - ENT Exam ENT Exam: Mucous Membranes Moist, Normal Exam - Neck Exam Neck exam: Full Rom Additional comments: Negative Kernigs and Brudzinkis signs - Respiratory Exam Respiratory Exam: NORMAL BREATHING PATTERN. absent: Rales, Rhonchi, Wheezes, Respiratory Distress - Cardiovascular Exam Cardiovascular Exam: REGULAR RHYTHM, RRR, +S1, +S2 - GI/Abdominal Exam GI & Abdominal Exam: Normal Bowel Sounds - Extremities Exam Additional comments: no calf tenderness or lower extremity edema - Back Exam Back exam: absent: CVA tenderness (L), CVA tenderness (R) - Neurological Exam Neurological exam: Alert, Normal Gait, Oriented x3 - Psychiatric Exam Psychiatric exam: Normal Affect, Normal Mood - Skin Skin Exam: Dry, Intact, Normal Color, Warm Discharge Plan - Discharge Medications Prescriptions: Aspirin [Ecotrin] 81 mg PO DAILY #30 tablet. Moxifloxacin [Avelox] 400 mg PO DAILY #7 tab Naproxen [Naprosyn] 500 mg PO PRN PRN #15 tablet PRN Reason: Pain, Moderate (4-7) Sulfamethoxazole/Trimethoprim [Bactrim DS 800 mg-160 mg] 1 tab PO BID #14 tab - Follow Up Plan Condition: FAIR Disposition: HOME/ ROUTINE Instructions: Angina (GEN), Chest Pain (DC), Acute Headache (DC) Additional Instructions: 1. If any of your symptoms worsen or new symptoms should arise, please seek emergency medical assistance immediately. 2. Please follow up with Neurologist, Dr. Jay, by SundayJune 01. 3. Please follow up with [employer], Dr. Jackson, for outpatient stress test. 4. Please follow up with your PMD as soon as possible for a hospital follow up visit. 5. Please return to work on SundayJune 04. Referrals: Romie Jay MD [Staff Provider] - Alfonso Villa MD [Primary Care Provider] - Duc Jackson MD [Staff Provider] - <Beth Brady - Last Filed: 05/31/17 07:58> Provider - Provider Date of Admission: 05/28/17 00:09 Attending physician: Beth Brady MD Primary care physician: Alfonso Villa MD Hospital Course - Lab Results Lab Results: Most Recent Lab Values WBC 4.4 10^3/ul (4.5-11.0) L 05/30/17 07:05 RBC 4.96 10^6/uL (3.5-6.1) 05/30/17 07:05 Hgb 12.6 gm/dL (12.0-16.0) 05/30/17 07:05 Hct 37.9 % (36.0-48.0) 05/30/17 07:05 MCV 76.4 fL (80.0-105.0) L 05/30/17 07:05 MCH 25.4 pg (25.0-35.0) 05/30/17 07:05 MCHC 33.2 g/dl (31.0-37.0) 05/30/17 07:05 RDW 15.7 % (11.5-14.5) H 05/30/17 07:05 Plt Count 185 10^3/uL (120.0-450.0) 05/30/17 07:05 MPV 10.0 fl (7.0-11.0) 05/30/17 07:05 Gran % 50.8 % (50.0-68.0) 05/30/17 07:05 Lymph % (Auto) 31.2 % (22.0-35.0) 05/30/17 07:05 [place] % (Auto) 14.9 % (1.0-6.0) H 05/30/17 07:05 Eos % (Auto) 2.0 % (1.5-5.0) 05/30/17 07:05 Baso % (Auto) 1.1 % (0.0-3.0) 05/30/17 07:05 Gran # 2.24 (1.4-6.5) 05/30/17 07:05 Lymph # 1.4 (1.2-3.4) 05/30/17 07:05 [place] # 0.7 (0.1-0.6) H 05/30/17 07:05 Eos # 0.1 (0.0-0.7) 05/30/17 07:05 Baso # 0.05 K/mm3 (0.0-2.0) 05/30/17 07:05 PT 10.7 Seconds (9.9-11.8) 05/27/17 21:02 INR 0.99 (0.93-1.08) 05/27/17 21:02 APTT 37.8 Seconds (23.7-30.8) H 05/27/17 21:02 pO2 48 mm/Hg (30-55) 05/27/17 21:02 VBG pH 7.40 (7.32-7.43) 05/27/17 21:02 VBG pCO2 51.0 (40-60) 05/27/17 21:02 VBG HCO3 31.6 mmol/l (21-28) H 05/27/17 21:02 VBG Total CO2 33.2 mmol.L (22-28) H 05/27/17 21:02 VBG O2 Sat (Calc) 85.9 % (40-65) H 05/27/17 21:02 VBG Base Excess 5.4 mmol/L (0.0-2.0) H 05/27/17 21:02 VBG Potassium 4.3 mmol/L (3.6-5.2) 05/27/17 21:02 Sodium 139.0 mmol/L (132-148) 05/27/17 21:02 Chloride 104.0 mmol/L (98-107) 05/27/17 21:02 Glucose 96 mg/dl (65-105) 05/27/17 21:02 Lactate 1.1 mmol/L (0.7-2.1) 05/27/17 21:02 FiO2 21.0 % 05/27/17 21:02 Sodium 139 mmol/L (132-148) 05/30/17 07:05 Potassium 4.0 mmol/L (3.6-5.0) 05/30/17 07:05 Chloride 106 mmol/L (98-107) 05/30/17 07:05 Carbon Dioxide 23 mmol/L (21-33) 05/30/17 07:05 Anion Gap 14 (10-20) 05/30/17 07:05 BUN 12 mg/dL (7-21) 05/30/17 07:05 Creatinine 0.7 mg/dL (0.5-1.4) 05/30/17 07:05 Est GFR ( Amer) > 60 05/30/17 07:05 Est GFR (Non-Af Amer) > 60 05/30/17 07:05 Random Glucose 88 mg/dL (70-110) 05/30/17 07:05 Calcium 8.9 mg/dL (8.4-10.5) 05/30/17 07:05 Phosphorus 3.5 mg/dL (2.5-4.5) 05/27/17 21:02 Magnesium 1.9 mg/dL (1.7-2.2) 05/27/17 21:02 Total Bilirubin 0.5 mg/dL (0.2-1.3) 05/30/17 07:05 AST 50 U/L (15-39) H 05/30/17 07:05 ALT 68 U/L (7-56) H 05/30/17 07:05 Alkaline Phosphatase 201 U/L (38-133) H 05/30/17 07:05 Total Creatine Kinase 29 U/L (35-230) L 05/28/17 02:50 Troponin I < 0.01 ng/mL 05/28/17 11:50 Total Protein 7.2 g/dL (5.8-8.3) 05/30/17 07:05 Albumin 3.4 g/dL (3.0-4.8) 05/30/17 07:05 Globulin 3.8 gm/dL 05/30/17 07:05 Albumin/Globulin Ratio 0.9 (1.1-1.8) L 05/30/17 07:05 Triglycerides 119 mg/dL (35-160) 05/29/17 09:45 Cholesterol 212 mg/dL (130-200) H 05/29/17 09:45 LDL Cholesterol Direct 155 mg/dL (0-129) H 05/29/17 09:45 HDL Cholesterol 27 mg/dL (29-60) L 05/29/17 09:45 Lipase 33 U/L (23-300) 05/28/17 02:50 Procalcitonin 0.53 NG/ML (0.19-0.49) H 05/28/17 06:00 Venous Blood Potassium 4.3 mmol/L (3.6-5.2) 05/27/17 21:02 Influenza Typ A,B (EIA) Negative for flu a/b (NEGATIVE) 05/28/17 12:45 Attending/Attestation - Attestation I have personally seen and examined this patient.: Yes I have fully participated in the care of the patient.: Yes I have reviewed all pertinent clinical information, including history, physical exam and plan: Yes Notes (Text): 05/31/17 07:54 Attending note; Patient seen and examined with resident. Patient is a 66 y/o female with the PMHx of HTN, OK s/p stent in Oct 2016, and HLD, who presented with a c/o non-radiating pressure-like chest pain of 05/28. Cardiac enzymes 3 negative. Cardiology evaluation with Dr. Jackson appreciated. Outpatient stress test planned. Headache and fever; currently has no photophobia. No neck rigidity. Less likely meningitis. Failed LP by the bed side.Case discussed with neurology in detail. Continue anti -biotics. Started on Fioricet for headache. will take naprosyn as outpatient for few more days. MRI is with subcortical and periventricular changes. Patient is not able to get LP by anesthesia since patient got loading dose of Plavix yesterday. advised to stop plavix. continue only aspirin. Case discussed with infectious disease in detail. We'll be discharged home with by mouth Bactrim and Avelox. Patient will follow-up with neurology in 2 days. Can go back to work after one week after seen by neurology as outpatient. Case discussed with neurologist in detail. Upon discharge the patient will follow-up with PMD . Diagnosis; Headache Hypertension History of cardiac stent
--- NOTE | 2017-06-06 12:39 | CP.PCM.CON ---
History of Present Illness - History of Present Illness History of Present Illness: The patient is a 66 year old woman who presents with progressive angina including angina at rest. Patient'S past medical history is notable for history of PTC and stent of the LAD in October,. She suffers from HTN, as well as hypercholesterolemia. Patient stopped her statin therapy for personal reasons. She denies diabetes mellitus. At rest, patient is currently asymptomatic. Review of Systems - Review of Systems All systems: reviewed and no additional remarkable complaints except - Cardiovascular Additional comments: Substernal chest pain at rest, but currently at rest she is chest pain free. Past Patient History - Infectious Disease Hx of Infectious Diseases: None - Past Social History Smoking Status: Former Smoker - CARDIAC Hx Cardiac Disorders: Yes Hx Hypertension: Yes Other/Comment: AR, - PULMONARY Hx Respiratory Disorders: Yes Other/Comment: H/O OF CARBON MONOXIDE POISONING - NEUROLOGICAL Hx Neurological Disorder: Yes Hx Dizziness: Yes (VERTIGO) - HEENT Hx HEENT Problems: No - RENAL Hx Chronic Kidney Disease: No - ENDOCRINE/METABOLIC Hx Endocrine Disorders: No - HEMATOLOGICAL/ONCOLOGICAL Hx Blood Disorders: Yes Other/Comment: FATTY LIVER,BILIARY CIRRHOSIS - INTEGUMENTARY Hx Dermatological Problems: No - MUSCULOSKELETAL/RHEUMATOLOGICAL Hx Musculoskeletal Disorders: Yes Hx Falls: No Hx Fractures: Yes (FX OF [place]) Hx Osteoarthritis: Yes Other/Comment: L KNEE SURGERY,FX OF [place] - GASTROINTESTINAL Hx Gastrointestinal Disorders: Yes Hx Diverticulitis: Yes Other/Comment: CHRONIC CONSTIPATION - GENITOURINARY/GYNECOLOGICAL Hx Genitourinary Disorders: No - PSYCHIATRIC Hx Psychophysiologic Disorder: No Hx Substance Use: No - SURGICAL HISTORY Hx Cardiac Catheterization: Yes Hx Coronary Stent: Yes (X1) Hx Orthopedic Surgery: Yes (left knee 01/2016) Other/Comment: PTC and stent of LAD. HTN. Hypercholesterolemia - ANESTHESIA Hx Anesthesia: Yes Hx Anesthesia Reactions: No Hx Malignant Hyperthermia: No Meds Home Medications: Home Medication List Medication Instructions Recorded Confirmed Type Aspirin [Ecotrin] 81 mg PO DAILY #30 tablet. 05/30/17 Rx Moxifloxacin [Avelox] 400 mg PO DAILY #7 tab 05/30/17 Rx Naproxen [Naprosyn] 500 mg PO PRN PRN #15 tablet 05/30/17 Rx Sulfamethoxazole/Trimethoprim 1 tab PO BID #14 tab 05/30/17 Rx [Bactrim DS 800 mg-160 mg] tiZANidine [Zanaflex] 4 mg PO TID tab 05/30/17 Rx Allergies/Adverse Reactions: Allergies Allergy/AdvReac Type Severity Reaction Status Date / Time No Known Allergies Allergy Verified 01/22/17 11:39 Physical Exam - Neck Exam Additional comments: Negative JVD - Respiratory Exam Respiratory Exam: absent: Rales - Cardiovascular Exam Cardiovascular Exam: +S1, +S2 - Extremities Exam Additional comments: No Edema Results - Vital Signs Recent Vital Signs: Last Vital Signs Temp 98.5 F 05/30/17 12:00 Pulse 63 05/30/17 12:00 Resp 20 05/30/17 12:00 BP 119/84 05/30/17 12:00 Pulse Ox 96 05/30/17 06:00 - Labs Result Diagrams: 05/30/17 07:05 05/30/17 07:05 Labs: Troponin: Negative x2 BUN and creatinine: Unremarkable Hemoglobin: 12.7 - EKG Data When Compared to Previous EKG: No Significant Change Assessment & Plan - Assessment and Plan (Free Text) Assessment: 1)Unstable angina 2)CAD 3)History of PTC and stent of LAD 4)HTN 5)Non-compliant with medications Plan: 1)Given these findings, I've discussed with her alternatives for diagnostic testing, including stress test versus cardiac catheterization. Patient has agreed with cardiac catheterization, will schedule for the morning. 2)Give her loading dose of Plavix today.
== END 2017-05-30 14:24 | disposition home or self-care (01) ==
LOC: ED 20:14 → ERH 05-28 00:09 → 2RNO 05-28 02:19
PROVIDERS: ADMIT Internal Medicine; ATTEND Internal Medicine
DX: R07.89 Other chest pain (principal); I10 Essential (primary) hypertension; I25.10 Atherosclerotic heart disease of native coronary artery without angina pectoris; E78.5 Hyperlipidemia, unspecified; E66.9 Obesity, unspecified; Z68.30 Body mass index [BMI] 30.0-30.9, adult; E78.00 Pure hypercholesterolemia, unspecified; I25.2 Old myocardial infarction; Z95.5 Presence of coronary angioplasty implant and graft; Z79.82 Long term (current) use of aspirin; R65.10 Systemic inflammatory response syndrome (SIRS) of non-infectious origin without acute organ dysfunction; K74.5 Biliary cirrhosis, unspecified; K76.0 Fatty (change of) liver, not elsewhere classified; Z79.899 Other long term (current) drug therapy; Z82.49 Family history of ischemic heart disease and other diseases of the circulatory system; Z83.3 Family history of diabetes mellitus; K59.09 Other constipation; Z87.19 Personal history of other diseases of the digestive system; B34.9 Viral infection, unspecified; R51 Headache; R50.9 Fever, unspecified; Z87.81 Personal history of (healed) traumatic fracture; Z83.79 Family history of other diseases of the digestive system; Z81.1 Family history of alcohol abuse and dependence; Z91.89 Other specified personal risk factors, not elsewhere classified; R42 Dizziness and giddiness; F41.9 Anxiety disorder, unspecified; N17.9 Acute kidney failure, unspecified; E87.6 Hypokalemia; G03.9 Meningitis, unspecified
CPT/HCPCS: 36415; 70470; 70553; 71010; 76700; 80053; 80061; 82550; 82803; 83690; 83735; 84100; 84145; 84484; 85025; 85610; 85730; 87040; 87070; 87804; 93005; 93306; 96374; 99285; A9579; G0378; J0696; J1885; J2270; J7040; Q9967

== ENCOUNTER 2017-06-12 06:09 | Day surgery (SDC) | payer BC ==
[2017-06-11 12:47] VITALS: BMI 30.9
[2017-06-12] MEDS ORDERED: Lidocaine 2% Inj (20ml) ONE (06:54)
[2017-06-12] MEDS ORDERED: Iohexol 350mgl/ml 50 ML ONE (06:55)
[2017-06-12 06:58] LABS: BASO # 0.04 K/mm3 (0.0-2.0); BASO % 0.5 % (0.0-3.0); EOS # 0.3 (0.0-0.7); EOS % 3.6 % (1.5-5.0); GRAN # 4.23 (1.4-6.5); GRAN % 56.5 % (50.0-68.0); HEMOGLOBIN 12.2 gm/dL (12.0-16.0); LYMPH # 2.4 (1.2-3.4); LYMPH % 32.1 % (22.0-35.0); MEAN CELL VOLUME 76.6 fL (80.0-105.0); MEAN CORPUSCULAR HEMOGLOBIN 25.1 pg (25.0-35.0); MEAN CORPUSCULAR HGB CONC 32.7 g/dl (31.0-37.0); MEAN PLATELET VOLUME 9.3 fl (7.0-11.0); MONO # 0.6 (0.1-0.6); MONO % 7.3 % (1.0-6.0); PLATELET COUNT 234 10^3/uL (120.0-450.0); RBC 4.87 10^6/uL (3.5-6.1); RED CELL DISTRIBUTION WIDTH 16.6 % (11.5-14.5); WHITE BLOOD COUNT 7.5 10^3/ul (4.5-11.0)
[2017-06-12 07:13] LABS: BLOOD UREA NITROGEN 13 mg/dL (7-21); CALCIUM 9.2 mg/dL (8.4-10.5); GFR AFRICAN-AMERICAN > 60; GFR NON-AFRICAN AMERICAN > 60; HDL CHOLESTEROL 44 mg/dL (29-60)
[2017-06-12 07:15] LABS: INR 0.93 (0.93-1.08); PARTIAL THROMBOPLASTIN TIME 33.6 Seconds (23.7-30.8)
[2017-06-12 07:26] LABS: LDL CHOLESTEROL 172 mg/dL (0-129)
[2017-06-12] MEDS ORDERED: Midazolam 2 MG/2 ML VIAL ONE ×2 (08:02→08:14)
[2017-06-12] MEDS ORDERED: Adenosine 90 mg/30mL IV ONE (08:25)
[2017-06-12] MEDS ORDERED: Sodium Chloride 0.9% 1,000 ML IV SCH (09:00)
[2017-06-12 09:50] VITALS: TEMP 97.7
[2017-06-12 11:15] VITALS: RESP 18
--- NOTE | 2017-06-12 12:29 | CARDCATH ---
PROCEDURE DATE: 06/12/2017 HISTORY: The patient is a 66-year-old woman who presents with atypical chest pain. A stress test was abnormal. The patient had previous history of PTCA and stent of the LAD in 10/2016 after a non-STEMI. Because of this, a repeat cardiac catheterization was recommended. PROCEDURE: Left heart catheterization, coronary angiography and left ventriculogram followed by an FFR. The right femoral artery was cannulated with a 6-[place] sheath. There were no complications. The findings on catheterization revealed the left ventricle that contracted normally. Estimated ejection fraction is 60%. Her coronary anatomy revealed a left dominant circulation. The RCA was a small vessel with intimal irregularities without significant stenosis. The left main artery was unremarkable. The LAD revealed a 60% to 70% stenoses in its proximal portion at the takeoff of the diagonal vessel just prior to a patent stent in the LAD. Diagonal vessels were free of significant disease. The circumflex artery and obtuse marginal branches revealed intimal irregularities without significant stenosis. The patient was started on intravenous Angiomax. The guiding catheter was placed in the ostium of the left main artery. An FFR wire was placed in the LAD past critical lesion. After adenosine was infused, the FFR result was 0.93. Because of the FFR result, no angioplasty was performed. The patient tolerated the procedure well. Angio-Seal was used to close the femoral artery site. SUMMARY: The procedure revealed a patent stent in the mid LAD, with a 60% to 70% stenoses just prior to the stent with an FFR of 0.93. No angioplasty was performed. LV function is normal. Given these findings, the patient will need to remain on Plavix for another 6 months and undergo a strict cardiac risk reduction program. Stop the statin therapy for questionable reasons, then we will restart her on Lipitor. Duc Jackson MD
[2017-06-12 13:55] VITALS: PULSE 57; O2SAT 99
[2017-06-12 15:48] VITALS: BP 142/86
== END 2017-06-12 16:00 | disposition home or self-care (01) ==
LOC: CATH 06:09
PROVIDERS: ATTEND Internal Medicine Cardiovascular Disease
DX: I25.119 Atherosclerotic heart disease of native coronary artery with unspecified angina pectoris (principal); I25.2 Old myocardial infarction; Z95.1 Presence of aortocoronary bypass graft
CPT/HCPCS: 36415; 80048; 80061; 85025; 85610; 85730; 86850; 86900; 93458; 93571; 99152; 99153; C1760; C1769 ×2; C1887; C2629; J0153; J0583; J1644; J2250; J3010; J7040 ×2; Q9967 ×2

== ENCOUNTER 2018-05-16 08:38 | Emergency (ER) | payer BC ==
[2018-05-16 08:38] VITALS: BMI 30.9
[2018-05-16 09:42] VITALS: PULSE 79; TEMP 98.1
[2018-05-16] MEDS ORDERED: TDAP Vaccine 0.5 mL Syr IM ONE (09:47)
--- NOTE | 2018-05-16 10:34 | ED PDOC ---
Arrival/HPI - General Chief Complaint: Abnormal Skin Integrity Time Seen by Provider: 05/16/18 10:31 Historian: Patient - History of Present Illness Narrative History of Present Illness (Text): 05/16/18 10:31 67 year old female presents to the Emergency department complaining of itchiness to bilateral lower extremities with "red spots" that have been present for 2 days. Patient reports applying Vaseline to her legs with no relief. Patient denies any fever, chills, chest pain, shortness of breath, nausea, vomiting, diarrhea, urinary symptoms, back pain, neck pain, headache, dizziness, or any other complaints. Time/Duration: < week (2 days) Symptom Onset: Gradual Symptom Course: Unchanged Quality: Other (itching) Context: Home Past Medical History - Provider Review Nursing Documentation Reviewed: Yes - Infectious Disease Hx of Infectious Diseases: None - Cardiac Hx Cardiac Disorders: Yes Hx WI: Yes Hx Hypertension: Yes - Pulmonary Hx Respiratory Disorders: Yes Other/Comment: H/O OF CARBON MONOXIDE POISONING - Neurological Hx Neurological Disorder: Yes Hx Dizziness: Yes (VERTIGO) - HEENT Hx HEENT Disorder: No - Renal Hx Renal Disorder: No - Endocrine/Metabolic Hx Endocrine Disorders: No - Hematological/Oncological Hx Blood Disorders: No - Integumentary Hx Dermatological Disorder: No - Musculoskeletal/Rheumatological Hx Musculoskeletal Disorders: Yes Hx Fractures: Yes (FX OF PATELLA) Hx Osteoarthritis: Yes - Gastrointestinal Hx Gastrointestinal Disorders: Yes Hx Diverticulitis: Yes Hx Fatty Liver Disease: Yes Other/Comment: CHRONIC CONSTIPATION - Genitourinary/Gynecological Hx Genitourinary Disorders: No - Psychiatric Hx Psychophysiologic Disorder: No Hx Substance Use: No - Surgical History Hx Cardiac Catheterization: Yes Hx Coronary Stent: Yes (X1) Hx Orthopedic Surgery: Yes (left knee 01/2016) - Anesthesia Hx Anesthesia: Yes Hx Anesthesia Reactions: No Hx Malignant Hyperthermia: No - Suicidal Assessment Feels Threatened In Home Enviroment: No Family/Social History - Physician Review Nursing Documentation Reviewed: Yes Family/Social History: Unknown Family HX Smoking Status: Never Smoked Hx Alcohol Use: No Hx Substance Use: No Allergies/Home Meds Allergies/Adverse Reactions: Allergies No Known Allergies Allergy (Verified 05/16/18 09:38) Home Medications: Home Meds Medication Instructions Recorded Confirmed Lubiprostone [Amitiza] 8 mcg PO DAILY 01/22/17 05/16/18 Ursodiol [Actigall] 300 mg PO BID 01/22/17 05/16/18 hydroCHLOROthiazide [Hydrodiuril] 25 mg PO DAILY 01/22/17 05/16/18 Atorvastatin [Lipitor] 1 tab PO DAILY 06/12/17 05/16/18 Clopidogrel [Plavix] 75 mg PO DAILY 06/12/17 05/16/18 Review of Systems - Review of Systems Constitutional: Normal Eyes: Normal ENT: Normal Respiratory: Normal Cardiovascular: Normal Gastrointestinal: Normal Genitourinary Female: Normal Musculoskeletal: Normal Skin: Skin Lesions (bilateral lower extremities) Neurological: Normal Endocrine: Normal Hemo/Lymphatic: Normal Psychiatric: Normal Physical Exam Vital Signs Reviewed: Yes Vital Signs Temp Pulse Resp BP Pulse Ox 05/16/18 11:23 79 18 186/95 H 95 05/16/18 09:38 98.1 F 79 16 190/97 H 98 Temperature: Afebrile Blood Pressure: Normal Pulse: Regular Respiratory Rate: Normal Appearance: Positive for: Well-Appearing, Non-Toxic, Comfortable Pain Distress: None Mental Status: Positive for: Alert and Oriented X 3 - Systems Exam Head: Present: Atraumatic, Normocephalic Pupils: Present: PERRL Extroacular Muscles: Present: EOMI Conjunctiva: Present: Normal Mouth: Present: Moist Mucous Membranes Neck: Present: Normal Range of Motion Respiratory/Chest: Present: Clear to Auscultation, Good Air Exchange. No: Respiratory Distress, Accessory Muscle Use Cardiovascular: Present: Regular Rate and Rhythm, Normal S1, S2. No: Murmurs Abdomen: No: Tenderness, Distention, Peritoneal Signs Back: Present: Normal Inspection Upper Extremity: Present: Normal Inspection. No: Cyanosis, Edema Lower Extremity: No: Edema, Tenderness, Other (No swelling, crepitus, or fluctuance) Neurological: Present: GCS=15, CN II-XII Intact, Speech Normal Skin: Present: Other (Mild skin lesions to bilateral lower extremities) Psychiatric: Present: Alert, Oriented x 3, Normal Insight, Normal Concentration Medical Decision Making ED Course and Treatment: 05/16/18 10:36 You were treated in the ED today for skin lesions to lower extremities with itching and otherwise without any insect bites/new foods/travel/sick contacts/ new detergents/new perfumes/new medicationsnausea/vomiting/headache/dizziness/ difficulty breathing/chest pain/abdomen pain/numbness/tingling/loss of limb function/pain with urination. You were otherwise breathing easily, smiling and talking easily without any drooling/back of throat swelling/redness, good strength/sensation, walking easily, clear lungs, no abdomen tenderness, both lower legs legs irritation rash without redness/fluctuance/crepitus and otherwise extremity warm/sensation/good distal pulses positive, no fever temp 98.1, stable heart rate 79, stable breathing rate 16, excellent oxygen level 98 % room air, elevated blood pressure 190/97 which we recommend repeat in 2-3 days primary care office to determine further treatment, pepcid, benadryl, prednisone, tetanus booster as your outofdate in the past 5 years, observation done in the ED with improvement, counselled to monitor symptoms and thus discharged home with safe ride. 1. Recommend benadry as directed for allergy/ rash and don't work/drive/drink alcohol when using. 2. Recommend prednisone and pepcid as directed for rash/allergy control. 3. Recommend follow-up primary care 2-3 days to review symptoms, referral to allergy clinic. 4. If any worsening pain, fever, chills, nausea, vomiting, difficulty breathing, numbness , loss of limb function, pain with urination or any medical condition then return to the ED. 05/16/18 11:44 Reassessment Condition: Re-examined, Improved - Medication Orders Current Medication Orders: Discontinued Medications Diphenhydramine HCl (Benadryl) 50 mg PO STAT STA Stop: 05/16/18 09:47 Last Admin: 05/16/18 10:06 Dose: 50 mg Famotidine (Pepcid) 20 mg PO STAT STA Stop: 05/16/18 09:48 Last Admin: 05/16/18 10:06 Dose: 20 mg Prednisone (Prednisone Tab) 60 mg PO STAT ONE Stop: 05/16/18 09:47 Last Admin: 05/16/18 10:06 Dose: 60 mg Tetanus/Reduced Diphtheria/Acell Pertussis (Boostrix Vaccine Inj) 0.5 ml IM .ONCE ONE Stop: 05/16/18 09:48 Last Admin: 05/16/18 10:06 Dose: 0.5 ml Immunization Registry Document 05/16/18 10:06 EQ (Rec: 06/28/18 10:06 EQ [facility] [id number] Immunization Registry Consent Date 03/30/18 - Scribe Statement The provider has reviewed the documentation as recorded by the Tasia Frederick Provider Scribe Attestation: All medical record entries made by the Scribe were at my direction and personally dictated by me. I have reviewed the chart and agree that the record accurately reflects my personal performance of the history, physical exam, medical decision making, and the department course for this patient. I have also personally directed, reviewed, and agree with the discharge instructions and disposition. Disposition/Present on Arrival - Present on Arrival Any Indicators Present on Arrival: No History of DVT/PE: No History of Uncontrolled Diabetes: No Urinary Catheter: No History of Decub. Ulcer: No History Surgical Site Infection Following: None - Disposition Have Diagnosis and Disposition been Completed?: Yes Diagnosis: Allergic reaction Disposition: HOME/ ROUTINE Disposition Time: 11:50 Patient Plan: Discharge Condition: IMPROVED Discharge Instructions (ExitCare): Allergy Skin Testing Additional Instructions: You were treated in the ED today for skin lesions to lower extremities with itching and otherwise without any insect bites/new foods/travel/sick contacts/ new detergents/new perfumes/new medicationsnausea/vomiting/headache/dizziness/ difficulty breathing/chest pain/abdomen pain/numbness/tingling/loss of limb function/pain with urination. You were otherwise breathing easily, smiling and talking easily without any drooling/back of throat swelling/redness, good strength/sensation, walking easily, clear lungs, no abdomen tenderness, both lower legs legs irritation rash without redness/fluctuance/crepitus and otherwise extremity warm/sensation/good distal pulses positive, no fever temp 98.1, stable heart rate 79, stable breathing rate 16, excellent oxygen level 98 % room air, elevated blood pressure 190/97 which we recommend repeat in 2-3 days primary care office to determine further treatment, pepcid, benadryl, prednisone, tetanus booster as your outofdate in the past 5 years, observation done in the ED with improvement, counselled to monitor symptoms and thus discharged home with safe ride. 1. Recommend benadry as directed for allergy/ rash and don't work/drive/drink alcohol when using. 2. Recommend prednisone and pepcid as directed for rash/allergy control. 3. Recommend follow-up primary care 2-3 days to review symptoms, referral to allergy clinic. 4. If any worsening pain, fever, chills, nausea, vomiting, difficulty breathing, numbness , loss of limb function, pain with urination or any medical condition then return to the ED. Prescriptions: DiphenhydrAMINE [Benadryl] 25 mg PO Q8 PRN 5 Days #30 cap PRN Reason: rash/itching Famotidine [Pepcid] 20 mg PO DAILY 5 Days #10 tab Prednisone [Deltasone] 20 mg PO DAILY 5 Days #5 tablet Referrals: Alfonso Villa MD [Primary Care Provider] - Follow up with primary Forms: [facility] (Lebanese)
[2018-05-16 11:28] VITALS: BP 186/95; RESP 18
[2018-05-16 12:29] VITALS: O2SAT 96
== END 2018-05-16 12:15 | disposition home or self-care (01) ==
LOC: ED 08:38
DX: T78.49XA Other allergy, initial encounter (principal); X58.XXXA Exposure to other specified factors, initial encounter; Z23 Encounter for immunization

== ENCOUNTER 2018-08-26 16:19 | Inpatient (IN) | payer BC, MEDICARE ==
--- NOTE | 2018-08-26 17:22 | ED PDOC ---
Arrival/HPI - General Historian: Patient - History of Present Illness Narrative History of Present Illness (Text): 08/26/18 17:25 Patient is a 67 year old female with a past medical history including HTN, hyperlipidemia and MN x1 s/p stent (in Oct 2016) presenting to the emergency room with a 3 day history of worsening chest pain. Patient has been experiencing non-radiating chest pressure located in the center of her chest. The chest pressure has been getting worse over the past couple of days. She has been feeling short of breath, "Like an elephant sitting on my chest." She has been feeling nausea but has not vomited. She has been feeling extremely fatigued for the past 3 days and felt like she was about to pass out. She denies losing consciousness. This has never happened to her before. Denies fevers, chills, diarrhea, constipation, abdominal pain, headache, numbness or tingling. PMD: [place] PMH: HTN, hyperlipidemia and MN x1 s/p stent (in Oct 2016) PSH: 1 stent in LAD (Oct 2016), Time/Duration: Other (3 days) <Augie Dobson - Last Filed: 08/26/18 19:24> <Maxim Shelley - Last Filed: 08/27/18 14:37> - General Chief Complaint: Chest Pain Time Seen by Provider: 08/26/18 16:45 Past Medical History - Provider Review Nursing Documentation Reviewed: Yes - Infectious Disease Hx of Infectious Diseases: None - Cardiac Hx Cardiac Disorders: Yes Hx MN: Yes Hx Hypertension: Yes - Pulmonary Hx Respiratory Disorders: Yes Other/Comment: H/O OF CARBON MONOXIDE POISONING - Neurological Hx Neurological Disorder: Yes Hx Dizziness: Yes (VERTIGO) - HEENT Hx HEENT Disorder: No - Renal Hx Renal Disorder: No - Endocrine/Metabolic Hx Endocrine Disorders: No - Hematological/Oncological Hx Blood Disorders: No - Integumentary Hx Dermatological Disorder: No - Musculoskeletal/Rheumatological Hx Musculoskeletal Disorders: Yes Hx Fractures: Yes (FX OF PATELLA) Hx Osteoarthritis: Yes - Gastrointestinal Hx Gastrointestinal Disorders: Yes Hx Diverticulitis: Yes Hx Fatty Liver Disease: Yes Other/Comment: CHRONIC CONSTIPATION - Genitourinary/Gynecological Hx Genitourinary Disorders: No - Psychiatric Hx Psychophysiologic Disorder: No Hx Substance Use: No - Surgical History Hx Cardiac Catheterization: Yes Hx Coronary Stent: Yes (X1) Hx Orthopedic Surgery: Yes (left knee 01/2016) - Anesthesia Hx Anesthesia: Yes Hx Anesthesia Reactions: No Hx Malignant Hyperthermia: No - Suicidal Assessment Feels Threatened In Home Enviroment: No <Augie Dobson - Last Filed: 08/26/18 19:24> Family/Social History - Physician Review Nursing Documentation Reviewed: Yes Family/Social History: Unknown Family HX Smoking Status: Never Smoked Hx Alcohol Use: No Hx Substance Use: No <Augie Dobson - Last Filed: 08/26/18 19:24> Allergies/Home Meds <Augie Dobson - Last Filed: 08/26/18 19:24> <Maxim Shelley - Last Filed: 08/27/18 14:37> Allergies/Adverse Reactions: Allergies No Known Allergies Allergy (Verified 05/16/18 09:38) Home Medications: Home Meds Medication Instructions Recorded Confirmed Lubiprostone [Amitiza] 8 mcg PO DAILY 01/22/17 08/27/18 Ursodiol [Actigall] 300 mg PO BID 01/22/17 08/27/18 hydroCHLOROthiazide [Hydrodiuril] 25 mg PO DAILY 01/22/17 08/27/18 Atorvastatin [Lipitor] 1 tab PO DAILY 06/12/17 08/27/18 Clopidogrel [Plavix] 75 mg PO DAILY 06/12/17 08/27/18 Review of Systems - Physician Review All systems were reviewed & negative as marked: Yes - Review of Systems Constitutional: Fatigue. absent: Fevers Eyes: Vision Changes ENT: Normal Respiratory: SOB. absent: Cough, Wheezing Cardiovascular: Chest Pain, BILLS. absent: Palpitations Gastrointestinal: Nausea. absent: Abdominal Pain, Constipation, Diarrhea, Vomiting, Appetite Changes Musculoskeletal: Normal Skin: Normal. absent: Rash Neurological: Headache, Dizziness. absent: Focal Weakness, Disequilibrium Endocrine: Normal. absent: Diaphoresis Hemo/Lymphatic: Normal Psychiatric: Normal. absent: Anxiety <Augie Dobson - Last Filed: 08/26/18 19:24> Physical Exam Vital Signs Reviewed: Yes Vital Signs Temp Pulse Resp BP Pulse Ox 08/26/18 16:20 98.7 F 35 L 18 185/54 H 93 L Temperature: Afebrile Blood Pressure: Hypertensive Pulse: Bradycardic Respiratory Rate: Normal Appearance: Positive for: Non-Toxic, Ill-Appearing, Uncomfortable Pain Distress: Mild Mental Status: Positive for: Alert and Oriented X 3 - Systems Exam Head: Present: Atraumatic, Normocephalic Extroacular Muscles: Present: EOMI Conjunctiva: Present: Normal Mouth: Present: Moist Mucous Membranes Nose (External): Present: Atraumatic Nose (Internal): Present: No Active Bleeding Neck: Present: Normal Range of Motion Respiratory/Chest: Present: Clear to Auscultation, Good Air Exchange. No: Respiratory Distress, Accessory Muscle Use Cardiovascular: Present: Normal S1, S2, Bradycardic. No: Murmurs Abdomen: No: Tenderness, Distention, Peritoneal Signs Upper Extremity: Present: Normal Inspection, NORMAL PULSES. No: Cyanosis, Edema Lower Extremity: Present: Normal Inspection, NORMAL PULSES. No: Edema, CALF TENDERNESS Neurological: Present: GCS=15, CN II-XII Intact, Speech Normal Skin: Present: Warm, Dry, Normal Color. No: Rashes Lymphatic: No: Cervical Adenopathy Psychiatric: Present: Alert, Oriented x 3, Normal Insight, Normal Concentration <Augie Dobson - Last Filed: 08/26/18 19:24> Vital Signs Temp Pulse Resp BP Pulse Ox 08/27/18 12:00 98.5 F 55 L 18 125/81 98 08/27/18 11:30 48 L 118/69 08/27/18 11:00 49 L 21 122/64 98 08/27/18 10:00 47 L 20 128/68 95 08/27/18 09:00 50 L 21 122/69 94 L 08/27/18 08:00 48 L 22 145/69 08/27/18 07:15 98.5 F 63 18 132/56 L 97 08/27/18 07:00 97.8 F 12 L 48 H 148/69 94 L 08/27/18 06:02 60 16 123/49 L 99 08/27/18 05:18 60 18 138/58 L 98 08/27/18 05:07 59 L 18 127/74 96 08/27/18 03:17 37 L 18 136/49 L 96 08/27/18 03:02 57 L 16 135/59 L 96 08/27/18 01:48 39 L 20 141/68 96 08/27/18 01:34 48 L 96 H 135/60 96 08/27/18 00:07 37 L 20 120/49 L 96 08/26/18 23:45 37 L 119/40 L 08/26/18 23:33 45 L 18 150/68 96 08/26/18 23:17 36 L 18 129/59 L 100 08/26/18 22:35 36 L 126/47 L 08/26/18 20:23 42 L 133/47 L 08/26/18 16:20 98.7 F 35 L 18 185/54 H 93 L <Maxim Shelley - Last Filed: 08/27/18 14:37> Medical Decision Making ED Course and Treatment: Patient is a 67 year old female with cardiac history presenting to the emergency room with chest pain after contacting Dr. Jackson's office and being to told to come directly to the emergency room. EKG shows marked sinus carlito @42bpm, no ST segment elevations or depressions. Transcutaneous pacer pads placed Labs, CXR Labs unremarkable - trop negative Atropine 0.5mg IVP given twice - no response. Discussed case with Dr. Jacobson (Hospitalist), she has accepted case to hospita list service. Requested ICU consulted. Call placed. Dr. Jackson (Cardiology) has been contacted three times without a return call. Awaiting call back. Call placed to Dr. Morton (Cardiology) in mean time awaiting call back from Dr. Jackson. 08/26/18 18:[address] Morton - keep transcutaneous pacer pads in place and admit patient to ICU. Possibly 2/2 to beta annette. Have atropine at bed side. Patient may need transvenous pacer but BP has been stable at this time. Patient admitted to the ICU. Re-evaluation Time: 18:41 Reassessment Condition: Improving,but remains with symptoms (no chest pain, only fatigue) - Lab Interpretations I have reviewed the lab results: Yes - RAD Interpretation Narrative RAD Interpretations (Text): 08/26/18 18:46 CXR: No active disease. No significant interval change compared to the prior examination(s). Radiology Orders: 08/26/18 17:12 CHEST PORTABLE [RAD] Stat Electrical Technology Instructor: Radiologist - EKG Interpretation EKG Interpretation (Text): 08/26/18 18:47 Sinus Bradycardia @42bpm, normal axis, PAC, no acute ST segment elevations or depressions. Interpreted by ED Physician: Yes Type: 12 lead EKG Comparison: Different from prev. EKG - Medication Orders Current Medication Orders: Discontinued Medications Atropine Sulfate (Atropine) 0.5 mg IVP STAT STA Stop: 08/26/18 17:15 <Augie Dobson - Last Filed: 08/26/18 19:24> - Lab Interpretations Lab Results: 08/26/18 17:00 08/26/18 17:00 Lab Results 08/26/18 18:48: Amylase 76, Lipase 65 08/26/18 17:00: Sodium 140, Potassium 4.5, Chloride 105, Carbon Dioxide 25, An ion Gap 14, BUN 16, Creatinine 0.9, Est GFR ( Amer) > 60, Est GFR (Non-Af Amer) > 60, Random Glucose 80, Calcium 9.6, Magnesium 2.1, Total Bilirubin 0.9, AST 34, ALT 35, Alkaline Phosphatase 112, Troponin I < 0.01, NT-Pro-B Natriuret Pep 468 H, Total Protein 7.7, Albumin 4.1, Globulin 3.6, Albumin/Globulin Ratio 1.1 08/26/18 17:00: PT 11.0, INR 0.97, APTT 28.8 08/26/18 17:00: WBC 8.8, RBC 5.38, Hgb 13.8, Hct 42.4, MCV 78.8 L, MCH 25.7, MCHC 32.5, RDW 16.6 H, Plt Count 229, MPV 10.5, Gran % 53.3, Lymph % (Auto) 35.3 H, [place] % (Auto) 7.7 H, Eos % (Auto) 3.5, Baso % (Auto) 0.2, Gran # 4.66, Lymph # (Auto) 3.1, [place] # (Auto) 0.7 H, Eos # (Auto) 0.3, Baso # (Auto) 0.02 - RAD Interpretation Radiology Orders: 08/26/18 17:12 CHEST PORTABLE [RAD] Stat - Medication Orders Current Medication Orders: Aspirin (Ecotrin) 81 mg PO DAILY [facility] Last Admin: 08/27/18 11:26 Dose: 81 mg Atorvastatin Calcium (Lipitor) 40 mg PO DIN [facility] Clopidogrel Bisulfate (Plavix) 75 mg PO DAILY [facility] Last Admin: 08/27/18 11:26 Dose: 75 mg Famotidine (Pepcid) 20 mg PO 1000,2200 [facility] Last Admin: 08/27/18 11:26 Dose: 20 mg Sodium Chloride (Sodium Chloride 0.9%) 1,000 mls @ 100 mls/hr IV .Q10H [facility] Stop: 08/27/18 19:00 Discontinued Medications Atorvastatin Calcium (Lipitor) 20 mg PO DIN [facility] Last Admin: 08/26/18 20:30 Dose: 20 mg Atropine Sulfate (Atropine) 0.5 mg IVP STAT STA Stop: 08/26/18 17:15 Last Admin: 08/26/18 17:27 Dose: 0.5 mg IVP Administration Document 08/26/18 17:27 EQ (Rec: 08/26/18 17:29 EQ [id number] Charges for Administration # of IVP Administrations 1 Atropine Sulfate (Atropine) 0.5 mg IVP STAT STA Stop: 08/26/18 17:39 Last Admin: 08/26/18 17:50 Dose: 0.5 mg IVP Administration Document 08/26/18 17:50 EQ (Rec: 08/26/18 17:50 EQ [id number]) Charges for Administration # of IVP Administrations 1 Dopamine HCl/Dextrose (Dopamine 400mg/250ml D5w) 400 mg in 250 mls @ 7.867 mls/hr IV .Q24H PRN PRN Reason: bradycardia Stop: 08/27/18 19:32 Last Admin: 08/26/18 20:23 Dose: 7.867 mls/hr eMAR Start Stop Document 08/26/18 20:23 (Rec: 08/26/18 20:23 [id number]) Intravenous Solution Start Date 08/26/18 Start Time 20:23 End Date 08/26/18 End time 22:35 Total Infusion Time 132 MAR Pulse and Blood Pressure Document 08/26/18 20:23 (Rec: 08/26/18 20:23 [id number]) Pulse Pulse Rate (60-90) 42 Blood Pressure Blood Pressure (100/60-150/90) 133/47 Dopamine HCl/Dextrose (Dopamine 400mg/250ml D5w) 400 mg in 250 mls @ 17.248 mls/hr IV .[id number] [facility]; Protocol Last Admin: 08/26/18 22:35 Dose: 17.248 mls/hr eMAR Start Stop Document 08/26/18 22:35 RG (Rec: 08/26/18 23:41 [id number]) Intravenous Solution Start Date 08/26/18 Start Time 22:35 MAR Pulse and Blood Pressure Document 08/26/18 22:35 RG (Rec: 08/26/18 23:41 [id number]) Pulse Pulse Rate (60-90) 36 Blood Pressure Blood Pressure (100/60-150/90) 126/47 Dopamine HCl/Dextrose (Dopamine 400mg/250ml D5w) 400 mg in 250 mls @ 17.248 mls/hr IV .[id number] PRN; Protocol PRN Reason: BRADYCARDIA Last Admin: 08/27/18 11:30 Dose: 17.248 mls/hr eMAR Start Stop Document 08/27/18 11:30 GLI (Rec: 08/27/18 11:32 GLI [id number]) Intravenous Solution Start Date 08/27/18 Start Time 11:32 End Date 08/27/18 MAR Pulse and Blood Pressure Document 08/27/18 11:30 GLI (Rec: 08/27/18 11:32 GLI [id number]) Pulse Pulse Rate (60-90) 48 Blood Pressure Blood Pressure (100/60-150/90) 118/69 Ondansetron HCl (Zofran Inj) 4 mg IVP STAT STA Stop: 08/26/18 23:33 Last Admin: 08/26/18 23:40 Dose: 4 mg IVP Administration Document 08/26/18 23:40 RG (Rec: 08/26/18 23:40 [id number]) Charges for Administration # of IVP Administrations 1 <Maxim Shelley - Last Filed: 08/27/18 14:37> - PA / [employer]AC[employer] DEVELOPER / Resident Statement BOWEN has reviewed & agrees with the documentation as recorded. BOWEN has examined the patient and agrees with the treatment plan. <Maxim Shelley - Last Filed: 08/27/18 14:37> Disposition/Present on Arrival - Present on Arrival Any Indicators Present on Arrival: Yes History of DVT/PE: No History of Uncontrolled Diabetes: No Urinary Catheter: No History of Decub. Ulcer: No History Surgical Site Infection Following: None - Disposition Have Diagnosis and Disposition been Completed?: Yes Disposition Time: 18:41 Patient Plan: Admission, ICU <Augie Dobson - Last Filed: 08/26/18 19:24> <Maxim Shelley - Last Filed: 08/27/18 14:37> - Disposition Diagnosis: Chest pain, Symptomatic sinus bradycardia Disposition: HOSPITALIZED Condition: CRITICAL
[2018-08-26 17:46] LABS: ALB/GLOB RATIO 1.1 (1.1-1.8); ALBUMIN 4.1 g/dL (3.0-4.8); BLOOD UREA NITROGEN 16 mg/dL (7-21); CALCIUM 9.6 mg/dL (8.4-10.5); GFR NON-AFRICAN AMERICAN > 60
[2018-08-26 17:50] LABS: ALT/SGPT 35 U/L (7-56); AST/SGOT 34 U/L (14-36)
[2018-08-26 17:56] LABS: B-TYPE NATRIURETIC PEPTIDE 468 pg/mL (0-450); TROPONIN I < 0.01 ng/mL
[2018-08-26 18:01] LABS: INR 0.97; PARTIAL THROMBOPLASTIN TIME 28.8 Seconds (25.1-36.5)
[2018-08-26 18:07] LABS: WHITE BLOOD COUNT 8.8 10^3/ul (4.5-11.0)
[2018-08-26 18:08] LABS: BASO # 0.02 K/mm3 (0.0-2.0); BASO % 0.2 % (0.0-3.0); EOS # 0.3 (0.0-0.7); EOS % 3.5 % (1.5-5.0); GRAN # 4.66 (1.4-6.5); GRAN % 53.3 % (50.0-68.0); HEMOGLOBIN 13.8 g/dL (12.0-16.0); LYMPH # 3.1 (1.2-3.4); LYMPH % 35.3 % (22.0-35.0); MEAN CELL VOLUME 78.8 fl (80.0-105.0); MEAN CORPUSCULAR HEMOGLOBIN 25.7 pg (25.0-35.0); MEAN CORPUSCULAR HGB CONC 32.5 g/dl (31.0-37.0); MEAN PLATELET VOLUME 10.5 fl (7.0-11.0); MONO # 0.7 (0.1-0.6); MONO % 7.7 % (1.0-6.0); RBC 5.38 10^6/uL (3.5-6.1); RED CELL DISTRIBUTION WIDTH 16.6 % (11.5-14.5)
--- NOTE | 2018-08-26 18:11 | RAD ---
Date of service: 08/26/2018 HISTORY: Chest pain COMPARISON: 05/27/2017. FINDINGS: LUNGS: No active pulmonary disease. PLEURA: No significant pleural effusion identified, no pneumothorax apparent. CARDIOVASCULAR: No radiographic findings to suggest acute or significant cardiovascular disease. OSSEOUS STRUCTURES: No significant abnormalities. VISUALIZED UPPER ABDOMEN: Normal. OTHER FINDINGS: None. IMPRESSION: No active disease. No significant interval change compared to the prior examination(s).
[2018-08-26 18:56] LABS: AMYLASE 76 U/L (35-125); LIPASE 65 U/L (23-300)
--- NOTE | 2018-08-26 19:14 | CP.PCM.HP ---
History of Present Illness - History of Present Illness History of Present Illness: PGY-1 Medicine Progress Note for Dr. Amado CC: chest pain HPI: Patient is a 67 yo female with PMH of HTN, NV (stent 2015), HLD presents to hospital for 3 day history of chest pain a/w sob, nausea, lightheadedness. Patient states the pain started three days ago which felt like an elephant sitting on her chest. Patient reports 10/10 chest pain located in her left upper chest, nonradiating, constant in nature, worsened with any physical exertion. Patient reports that she would be out of breath within 5 steps and felt like she was about to pass out. The reason she came in today was because the pain did not go away with her home meds (asa, hctz). She called Dr. Jackson's office and spoke with a nurse who suggested she go to the Emergency Room. Patient had a stress test earlier this year with Dr. Jackson in january (which was abnormal-unspecified). Patient's pain is reproducible on palpation of the chest wall. Patient denies fevers, chills, headaches, dizziness, lightheadedness, cough, sob, n/v, constipation or diarrhea currently. PMH- HTN, NV(stent 2015), HLD PSH- knee arthroscopy (2014) FH- Mom and GM (heart disease requring pacemaker) Meds- HCTZ 25mg po daily, Atorvastatin 20mg daily, Norvasc 5mg daily, Plavix 75mg po daily, ASA 81mg Alls- NKDA PMD- Mutterperl Specimen Collector- Krupa Code- Full Code Present on Admission - Present on Admission Any Indicators Present on Admission: No Review of Systems - Review of Systems Review of Systems: 12 point ROS obtained and noted in HPI Past Patient History - Infectious Disease Hx of Infectious Diseases: None - Past Social History Smoking Status: Never Smoked - CARDIAC Hx Cardiac Disorders: Yes Hx Heart Attack: Yes Hx Hypertension: Yes - PULMONARY Hx Respiratory Disorders: Yes Other/Comment: H/O OF CARBON MONOXIDE POISONING - NEUROLOGICAL Hx Neurological Disorder: Yes Hx Dizziness: Yes (VERTIGO) - HEENT Hx HEENT Problems: No - RENAL Hx Chronic Kidney Disease: No - ENDOCRINE/METABOLIC Hx Endocrine Disorders: No - HEMATOLOGICAL/ONCOLOGICAL Hx Blood Disorders: No - INTEGUMENTARY Hx Dermatological Problems: No - MUSCULOSKELETAL/RHEUMATOLOGICAL Hx Musculoskeletal Disorders: Yes Hx Fractures: Yes (FX OF PATELLA) Hx Osteoarthritis: Yes - GASTROINTESTINAL Hx Gastrointestinal Disorders: Yes Hx Diverticulitis: Yes Hx Fatty Liver Disease: Yes Other/Comment: CHRONIC CONSTIPATION - GENITOURINARY/GYNECOLOGICAL Hx Genitourinary Disorders: No - PSYCHIATRIC Hx Psychophysiologic Disorder: No Hx Substance Use: No - SURGICAL HISTORY Hx Cardiac Catheterization: Yes Hx Coronary Stent: Yes (X1) Hx Orthopedic Surgery: Yes (left knee 01/2016) - ANESTHESIA Hx Anesthesia: Yes Hx Anesthesia Reactions: No Hx Malignant Hyperthermia: No Meds Allergies/Adverse Reactions: Allergies Allergy/AdvReac Type Severity Reaction Status Date / Time No Known Allergies Allergy Verified 05/16/18 09:38 Physical Exam - Constitutional Appears: Non-toxic, No Acute Distress Additional comments: patient appears tired - Head Exam Head Exam: NORMAL INSPECTION, NORMOCEPHALIC - Eye Exam Eye Exam: EOMI, Normal appearance. absent: Nystagmus, Scleral icterus - ENT Exam ENT Exam: Mucous Membranes Moist - Respiratory Exam Respiratory Exam: Clear to Auscultation Bilateral, NORMAL BREATHING PATTERN. absent: Rales, Rhonchi, Wheezes - Cardiovascular Exam Cardiovascular Exam: Bradycardia, REGULAR RHYTHM, +S1, +S2. absent: Systolic Murmur - GI/Abdominal Exam GI & Abdominal Exam: Normal Bowel Sounds, Soft. absent: Distended, Firm, Guarding, Tenderness - Extremities Exam Extremities exam: Positive for: normal inspection. Negative for: calf tenderness, pedal edema - Neurological Exam Neurological exam: Alert, Oriented x3 - Psychiatric Exam Psychiatric exam: Normal Affect, Normal Mood - Skin Skin Exam: Intact, Normal Color Results - Vital Signs Recent Vital Signs: Last Vital Signs Temp 98.7 F 08/26/18 16:20 Pulse 35 L 08/26/18 16:20 Resp 18 08/26/18 16:20 BP 185/54 H 08/26/18 16:20 Pulse Ox 93 L 08/26/18 16:20 - Labs Result Diagrams: 08/26/18 17:00 08/26/18 17:00 Labs: Laboratory Results - last 24 hr 08/26/18 08/26/18 08/26/18 17:00 17:00 17:00 WBC 8.8 RBC 5.38 Hgb 13.8 Hct 42.4 MCV 78.8 L MCH 25.7 MCHC 32.5 RDW 16.6 H Plt Count 229 MPV 10.5 Gran % 53.3 Lymph % (Auto) 35.3 H Mcdonough % (Auto) 7.7 H Eos % (Auto) 3.5 Baso % (Auto) 0.2 Gran # 4.66 Lymph # (Auto) 3.1 Mcdonough # (Auto) 0.7 H Eos # (Auto) 0.3 Baso # (Auto) 0.02 PT 11.0 INR 0.97 APTT 28.8 Sodium 140 Potassium 4.5 Chloride 105 Carbon Dioxide 25 Anion Gap 14 BUN 16 Creatinine 0.9 Est GFR ( Amer) > 60 Est GFR (Non-Af Amer) > 60 Random Glucose 80 Calcium 9.6 Magnesium 2.1 Total Bilirubin 0.9 AST 34 ALT 35 Alkaline Phosphatase 112 Troponin I < 0.01 NT-Pro-B Natriuret Pep 468 H Total Protein 7.7 Albumin 4.1 Globulin 3.6 Albumin/Globulin Ratio 1.1 Amylase Lipase 08/26/18 18:48 WBC RBC Hgb Hct MCV MCH MCHC RDW Plt Count MPV Gran % Lymph % (Auto) Mcdonough % (Auto) Eos % (Auto) Baso % (Auto) Gran # Lymph # (Auto) Mcdonough # (Auto) Eos # (Auto) Baso # (Auto) PT INR APTT Sodium Potassium Chloride Carbon Dioxide Anion Gap BUN Creatinine Est GFR ( Amer) Est GFR (Non-Af Amer) Random Glucose Calcium Magnesium Total Bilirubin AST ALT Alkaline Phosphatase Troponin I NT-Pro-B Natriuret Pep Total Protein Albumin Globulin Albumin/Globulin Ratio Amylase 76 Lipase 65 Assessment & Plan - Assessment and Plan (Free Text) Assessment: Patient is a 67 yo female with PMH of HTN, NV (stent 2015), HLD presents to hospital for 3 day history of chest pain a/w sob, nausea, lightheadedness. EKG shows sinus bradycardia with PVCs. Dr. Jackson consulted for recommendations. Plan: Symptomatic Bradycardia Cardio Consult- Dr. Jackson- recommendations appreciated EKG shows sinus bradycardia with PVCs Atropine x 2 in ED Dobutamine drip started (Consider stopping or decreasing if BP rises significantly) Hx of NV w/ stent Aspirin 81mg po Plavix 75mg po HTN Hold med 2/2 symptomatic bradycardia HLD Atorvastatin 20mg po PPX DVT- SCD GI- PPx
[2018-08-26] MEDS ORDERED: DOPamine 400mg/250ml D5W 400 MG/250 ML BAG IV PRN ×2 (19:31→23:35)
--- NOTE | 2018-08-26 20:27 | CP.PCM.CON ---
<DandreYancyManuel - Last Filed: 08/26/18 20:56> History of Present Illness - History of Present Illness History of Present Illness: Manuel Caldera, PGY-1 ICU Consult Note for Hospitalist Service CC: Chest pain HPI: Patient is a 67 yo female with PMH of HTN, [place] (stent 2015), HLD who presents to hospital for 3 day history of chest pain associated with SOB, nausea, lightheadedness. Patient states the pain started three days ago which felt like an elephant sitting on her chest. Patient reports 10/10 chest pain located in her left upper chest, nonradiating, constant in nature, worsened with any physical exertion. Patient reports that she would be out of breath within 5 steps and felt like she was about to pass out. The reason she came in today was because the pain did not go away with her home meds (asa, hctz). She called Dr. Jackson's office and spoke with a nurse who suggested she go to the Emergency Room. Patient had a stress test earlier this year with Dr. Jackson in January 2018 (which was abnormal-unspecified). Patient denies fevers, chills, headaches, dizziness, lightheadedness, cough, vomiting, constipation or diarrhea currently. PMH- HTN, [place](stent 2015), HLD PSH- knee arthroscopy (2014) FH- Mom and GM (heart disease requiring pacemaker) Meds- HCTZ 25mg po daily, Atorvastatin 20mg daily, Norvasc 5mg daily, Plavix 75mg po daily, ASA 81mg Alls- NKDA PMD- Mutterperl Folding Machine Operator- Krupa Code- Full Code Review of Systems - Review of Systems Review of Systems: 12 point ROS completed and negative except as described in HPI. Past Patient History - Infectious Disease Hx of Infectious Diseases: None - Past Social History Smoking Status: Never Smoked - CARDIAC Hx Cardiac Disorders: Yes Hx Heart Attack: Yes Hx Hypertension: Yes - PULMONARY Hx Respiratory Disorders: Yes Other/Comment: H/O OF CARBON MONOXIDE POISONING - NEUROLOGICAL Hx Neurological Disorder: Yes Hx Dizziness: Yes (VERTIGO) - HEENT Hx HEENT Problems: No - RENAL Hx Chronic Kidney Disease: No - ENDOCRINE/METABOLIC Hx Endocrine Disorders: No - HEMATOLOGICAL/ONCOLOGICAL Hx Blood Disorders: No - INTEGUMENTARY Hx Dermatological Problems: No - MUSCULOSKELETAL/RHEUMATOLOGICAL Hx Musculoskeletal Disorders: Yes Hx Fractures: Yes (FX OF PATELLA) Hx Osteoarthritis: Yes - GASTROINTESTINAL Hx Gastrointestinal Disorders: Yes Hx Diverticulitis: Yes Hx Fatty Liver Disease: Yes Other/Comment: CHRONIC CONSTIPATION - GENITOURINARY/GYNECOLOGICAL Hx Genitourinary Disorders: No - PSYCHIATRIC Hx Psychophysiologic Disorder: No Hx Substance Use: No - SURGICAL HISTORY Hx Cardiac Catheterization: Yes Hx Coronary Stent: Yes (X1) Hx Orthopedic Surgery: Yes (left knee 01/2016) - ANESTHESIA Hx Anesthesia: Yes Hx Anesthesia Reactions: No Hx Malignant Hyperthermia: No Meds Allergies/Adverse Reactions: Allergies Allergy/AdvReac Type Severity Reaction Status Date / Time No Known Allergies Allergy Verified 05/16/18 09:38 - Medications Medications: Current Medications Aspirin (Ecotrin) 81 mg PO DAILY [facility] Atorvastatin Calcium (Lipitor) 20 mg PO DIN [facility] Clopidogrel Bisulfate (Plavix) 75 mg PO DAILY [facility] Famotidine (Pepcid) 40 mg PO HS [facility] Dopamine HCl/Dextrose (Dopamine 400mg/250ml D5w) 400 mg in 250 mls @ 7.867 mls/hr IV .Q24H PRN PRN Reason: bradycardia Stop: 08/27/18 19:32 Physical Exam - Additional Findings Additional findings: - Constitutional Appears: Non-toxic, No Acute Distress, Uncomfortable Additional comments: patient appears fatigued - Head Exam Head Exam: NORMAL INSPECTION, NORMOCEPHALIC - Eye Exam Eye Exam: EOMI, Normal appearance. absent: Nystagmus, Scleral icterus - ENT Exam ENT Exam: Mucous Membranes Moist - Respiratory Exam Respiratory Exam: Clear to Auscultation Bilateral, NORMAL BREATHING PATTERN. absent: Rales, Rhonchi, Wheezes - Cardiovascular Exam Cardiovascular Exam: Bradycardia 40 bpm on monitor, REGULAR RHYTHM, +S1, +S2. absent: Systolic Murmur - GI/Abdominal Exam GI & Abdominal Exam: Normal Bowel Sounds, Soft. absent: Distended, Firm, Guarding, Tenderness - Extremities Exam Extremities exam: Positive for: normal inspection. Negative for: calf tenderness, pedal edema - Neurological Exam Neurological exam: Alert, Oriented x3 - Psychiatric Exam Psychiatric exam: Normal Affect, Normal Mood - Skin Skin Exam: Intact, Normal Color Results - Vital Signs Recent Vital Signs: Last Vital Signs Temp 98.7 F 08/26/18 16:20 Pulse 35 L 08/26/18 16:20 Resp 18 08/26/18 16:20 BP 185/54 H 08/26/18 16:20 Pulse Ox 93 L 08/26/18 16:20 - Labs Result Diagrams: 08/26/18 17:00 08/26/18 17:00 Labs: Laboratory Results - last 24 hr 08/26/18 08/26/18 08/26/18 17:00 17:00 17:00 WBC 8.8 RBC 5.38 Hgb 13.8 Hct 42.4 MCV 78.8 L MCH 25.7 MCHC 32.5 RDW 16.6 H Plt Count 229 MPV 10.5 Gran % 53.3 Lymph % (Auto) 35.3 H Bryan % (Auto) 7.7 H Eos % (Auto) 3.5 Baso % (Auto) 0.2 Gran # 4.66 Lymph # (Auto) 3.1 Bryan # (Auto) 0.7 H Eos # (Auto) 0.3 Baso # (Auto) 0.02 PT 11.0 INR 0.97 APTT 28.8 Sodium 140 Potassium 4.5 Chloride 105 Carbon Dioxide 25 Anion Gap 14 BUN 16 Creatinine 0.9 Est GFR ( Amer) > 60 Est GFR (Non-Af Amer) > 60 Random Glucose 80 Calcium 9.6 Magnesium 2.1 Total Bilirubin 0.9 AST 34 ALT 35 Alkaline Phosphatase 112 Troponin I < 0.01 NT-Pro-B Natriuret Pep 468 H Total Protein 7.7 Albumin 4.1 Globulin 3.6 Albumin/Globulin Ratio 1.1 Amylase Lipase 08/26/18 18:48 WBC RBC Hgb Hct MCV MCH MCHC RDW Plt Count MPV Gran % Lymph % (Auto) Bryan % (Auto) Eos % (Auto) Baso % (Auto) Gran # Lymph # (Auto) Bryan # (Auto) Eos # (Auto) Baso # (Auto) PT INR APTT Sodium Potassium Chloride Carbon Dioxide Anion Gap BUN Creatinine Est GFR ( Amer) Est GFR (Non-Af Amer) Random Glucose Calcium Magnesium Total Bilirubin AST ALT Alkaline Phosphatase Troponin I NT-Pro-B Natriuret Pep Total Protein Albumin Globulin Albumin/Globulin Ratio Amylase 76 Lipase 65 Assessment & Plan - Assessment and Plan (Free Text) Assessment: Assessment: Patient is a 67 yo female with PMH of HTN, [place] (stent 2015), HLD presents to hospital for 3 day history of chest pain and associated shortness of breath. EKG shows sinus bradycardia with PVCs. Dr. Jackson consulted for recommendations. Plan: Neuro: -AAOx3, no FND, moving extremities past midline. -Monitor neuro status. -Reorient patient as necessary. Cardio: - Regular rate, normotensive, bradycardia in the 40's, no signs of HD compromise. BP 133/47 - EKG shows sinus bradycardia with PVCs. - Transcutaneous pacemaker in place - Dr. Jackson consulted for symptomatic bradycardia - ASA 81, Atropine 0.5 mg Px2 given in ED, Plavix to begin tomorrow AM - Dopamine drip 2.5/mcg/kg/min - Atorvastatin 20 mg PO for HLD - Maintain MAP>65 - Monitor for S/S, HD compromise Pulm: -No signs of respiratory distress. CTA B/L -Patient is stating well on room air. -93% on 2L currently, Maintain O2 saturation>95%. -CXR: NO active disease and no changes since previous study -Elevate bed to 30 degrees GI: - HHD - Pepcid 40 mg PO prophylaxis /Nephro: -BUN/Cr stable at 16/0.9 -UA awaiting results -Continue monitoring -Maintain euvolemia Endocrinology: -Random glucose: 80 -Maintain euglycemia as per NICE-SUGAR trial Heme/Onc: -H/H stable at 13.8/42.4 -No signs of HD compromise. -Continue monitoring H/H ID: - Afebrile, no leukocytosis - Monitor for signs and symptoms of infection. DVT prophylaxis: SCDs GI prophylaxis: Pepcid Patient seen, case reviewed and plan discussed with Dr. Amado, attending. Manuel Amos, PGY-1 <Deepika Amado - Last Filed: 08/26/18 21:53> Meds - Medications Medications: Current Medications Aspirin (Ecotrin) 81 mg PO DAILY [facility] Atorvastatin Calcium (Lipitor) 20 mg PO DIN [facility] Last Admin: 08/26/18 20:30 Dose: 20 mg Clopidogrel Bisulfate (Plavix) 75 mg PO DAILY [facility] Famotidine (Pepcid) 40 mg PO HS [facility] Dopamine HCl/Dextrose (Dopamine 400mg/250ml D5w) 400 mg in 250 mls @ 7.867 mls/hr IV .Q24H PRN PRN Reason: bradycardia Stop: 08/27/18 19:32 Last Admin: 08/26/18 20:23 Dose: 7.867 mls/hr Results - Vital Signs Recent Vital Signs: Last Vital Signs Temp 98.7 F 08/26/18 16:20 Pulse 42 L 08/26/18 20:23 Resp 18 08/26/18 16:20 BP 133/47 L 08/26/18 20:23 Pulse Ox 93 L 08/26/18 16:20 - Labs Result Diagrams: 08/26/18 17:00 08/26/18 17:00 Labs: Laboratory Results - last 24 hr 08/26/18 08/26/18 08/26/18 17:00 17:00 17:00 WBC 8.8 RBC 5.38 Hgb 13.8 Hct 42.4 MCV 78.8 L MCH 25.7 MCHC 32.5 RDW 16.6 H Plt Count 229 MPV 10.5 Gran % 53.3 Lymph % (Auto) 35.3 H Bryan % (Auto) 7.7 H Eos % (Auto) 3.5 Baso % (Auto) 0.2 Gran # 4.66 Lymph # (Auto) 3.1 Bryan # (Auto) 0.7 H Eos # (Auto) 0.3 Baso # (Auto) 0.02 PT 11.0 INR 0.97 APTT 28.8 Sodium 140 Potassium 4.5 Chloride 105 Carbon Dioxide 25 Anion Gap 14 BUN 16 Creatinine 0.9 Est GFR ( Amer) > 60 Est GFR (Non-Af Amer) > 60 Random Glucose 80 Calcium 9.6 Magnesium 2.1 Total Bilirubin 0.9 AST 34 ALT 35 Alkaline Phosphatase 112 Troponin I < 0.01 NT-Pro-B Natriuret Pep 468 H Total Protein 7.7 Albumin 4.1 Globulin 3.6 Albumin/Globulin Ratio 1.1 Amylase Lipase 08/26/18 18:48 WBC RBC Hgb Hct MCV MCH MCHC RDW Plt Count MPV Gran % Lymph % (Auto) Bryan % (Auto) Eos % (Auto) Baso % (Auto) Gran # Lymph # (Auto) Bryan # (Auto) Eos # (Auto) Baso # (Auto) PT INR APTT Sodium Potassium Chloride Carbon Dioxide Anion Gap BUN Creatinine Est GFR ( Amer) Est GFR (Non-Af Amer) Random Glucose Calcium Magnesium Total Bilirubin AST ALT Alkaline Phosphatase Troponin I NT-Pro-B Natriuret Pep Total Protein Albumin Globulin Albumin/Globulin Ratio Amylase 76 Lipase 65 Attending/Attestation - Attestation I have personally seen and examined this patient.: Yes I have fully participated in the care of the patient.: Yes I have reviewed all pertinent clinical information: Yes Notes (Text): 08/26/18 21:51 Patient was seen when seen when she was in bed #4 in the ER. Medical record was reviewed. Agree with history, physical examination, assessment and plan.
--- NOTE | 2018-08-27 11:26 | CP.PCM.PN ---
Subjective - Date & Time of Evaluation Date of Evaluation: 08/27/18 Time of Evaluation: 11:20 - Subjective Subjective: Patient seen and examined, reports persistent worsening SOB, and chest pain. Bradycardic 45sinus, on Dopamine. Objective - Vital Signs/Intake and Output Vital Signs (last 24 hours): Temp Pulse Resp BP Pulse Ox 98.5 F 47 L 20 151/88 H 95 08/27/18 07:15 08/27/18 10:00 08/27/18 10:00 08/27/18 10:00 08/27/18 10:00 - Medications Medications: Current Medications Aspirin (Ecotrin) 81 mg PO DAILY [facility] Atorvastatin Calcium (Lipitor) 20 mg PO DIN [facility] Last Admin: 08/26/18 20:30 Dose: 20 mg Clopidogrel Bisulfate (Plavix) 75 mg PO DAILY [facility] Famotidine (Pepcid) 20 mg PO 1000,2200 [facility] Last Admin: 08/26/18 23:15 Dose: 20 mg Dopamine HCl/Dextrose (Dopamine 400mg/250ml D5w) 400 mg in 250 mls @ 17.248 ml s/hr IV .[id number] PRN; Protocol PRN Reason: BRADYCARDIA Last Admin: 08/26/18 23:45 Dose: 17.248 mls/hr - Labs Labs: 08/26/18 17:00 08/26/18 17:00 PT 11.0 SECONDS (9.4-12.5) 08/26/18 17:00 INR 0.97 08/26/18 17:00 APTT 28.8 Seconds (25.1-36.5) 08/26/18 17:00 - Constitutional Appears: Non-toxic, No Acute Distress - Head Exam Head Exam: NORMAL INSPECTION - Eye Exam Eye Exam: Normal appearance - ENT Exam ENT Exam: Mucous Membranes Moist - Neck Exam Neck Exam: Full ROM - Respiratory Exam Respiratory Exam: Clear to Ausculation Bilateral, NORMAL BREATHING PATTERN - Cardiovascular Exam Cardiovascular Exam: Bradycardia, REGULAR RHYTHM, +S1, +S2 - GI/Abdominal Exam GI & Abdominal Exam: Soft, Normal Bowel Sounds - Back Exam Back Exam: NORMAL INSPECTION - Neurological Exam Neurological Exam: Alert, Awake, Oriented x3 - Psychiatric Exam Psychiatric exam: Anxious - Skin Skin Exam: Normal Color, Warm Assessment and Plan - Assessment and Plan (Free Text) Assessment: Patient is 67y female a/w SOB SOB HTN Hx of CAD HLD Bradycardia - currently afebrile, BP stable, 130-140s, HR 40s sinus, on Dopamine 5mcg/kg/min, complaining of persistent SOB - EKG with sinus bradycardia, no STT changes Recommend: - supp o2 as needed, duonebs PRN - pancutlreu, BCX, UCX, Check procal - IVF - Dopamine drip - cardiology follow up - ECHO - obtain CT Angio PE protocol, complaining of persistent SOB, and has bradycardia - BP control - Statin - GI ppx - DVT ppx - Monitor in MICU
[2018-08-27 11:37] LABS: BASO # 0.05 K/mm3 (0.0-2.0); BASO % 0.5 % (0.0-3.0); EOS # 0.2 (0.0-0.7); EOS % 1.6 % (1.5-5.0); GRAN # 7.04 (1.4-6.5); GRAN % 69.8 % (50.0-68.0); HEMOGLOBIN 13.3 g/dL (12.0-16.0); LYMPH # 2.1 (1.2-3.4); MEAN CELL VOLUME 79.3 fl (80.0-105.0); MEAN CORPUSCULAR HEMOGLOBIN 25.8 pg (25.0-35.0); MEAN CORPUSCULAR HGB CONC 32.5 g/dl (31.0-37.0); MEAN PLATELET VOLUME 9.8 fl (7.0-11.0); MONO # 0.7 (0.1-0.6); MONO % 7.1 % (1.0-6.0); RBC 5.16 10^6/uL (3.5-6.1); RED CELL DISTRIBUTION WIDTH 15.8 % (11.5-14.5); WHITE BLOOD COUNT 10.1 10^3/ul (4.5-11.0)
[2018-08-27 11:47] LABS: ALBUMIN 3.9 g/dL (3.0-4.8); ALT/SGPT 30 U/L (7-56); AST/SGOT 21 U/L (14-36); BLOOD UREA NITROGEN 13 mg/dL (7-21); CALCIUM 9.2 mg/dL (8.4-10.5); GFR NON-AFRICAN AMERICAN > 60
[2018-08-27 11:55] LABS: TROPONIN I < 0.01 ng/mL
--- NOTE | 2018-08-27 11:55 | CARD ---
APPROVED REPORT Date of service: 08/26/2018 EKG Measurement Heart [id number] <Conclusion> Mobitz Type II block with heart rate 42 Abnormal ECG
[2018-08-27] MEDS ORDERED: Phenylephrine 10 mg/ml Inj ONE (12:34)
[2018-08-27] MEDS ORDERED: Lidocaine 2% PF (10 ml) Amp ONE (12:34)
[2018-08-27] MEDS ORDERED: Iodixanol 320 MG/ML 200 ML BOTTLE IV ONE (12:35)
[2018-08-27] MEDS ORDERED: Iohexol 350mgl/ml 50 ML ONE (12:35)
[2018-08-27] MEDS ORDERED: Iodixanol 320 MG/ML 100 ML BOTTLE IV ONE (12:35)
[2018-08-27] MEDS ORDERED: Nitroglycerin 50mg in D5W 0 MG/0 ML BOTTLE IV ONE (12:35)
[2018-08-27] MEDS ORDERED: Midazolam 2 MG/2 ML VIAL ONE ×3 (12:40→13:24)
[2018-08-27 13:26] LABS: HDL CHOLESTEROL 44 mg/dL (29-60)
[2018-08-27 13:36] LABS: LDL CHOLESTEROL 192 mg/dL (0-129)
[2018-08-27] MEDS ORDERED: Sodium Chloride 0.9% 1,000 ML IV SCH (14:15)
--- NOTE | 2018-08-27 16:35 | CP.PCM.PN ---
Subjective - Date & Time of Evaluation Date of Evaluation: 08/27/18 Time of Evaluation: 09:30 - Subjective Subjective: PGY-1 Medicine Progress Note for Dr. Pate's service Patient seen and examined at bedside. Patient reports continued chest pain a/w sob at times. Patient denies fevers, chills, n/v, constipation or diarrhea, dysuria. Objective - Vital Signs/Intake and Output Vital Signs (last 24 hours): Temp Pulse Resp BP Pulse Ox 98.5 F 55 L 18 125/81 98 08/27/18 12:00 08/27/18 12:00 08/27/18 12:00 08/27/18 12:00 08/27/18 12:00 - Medications Medications: Current Medications Aspirin (Ecotrin) 81 mg PO DAILY [facility] Last Admin: 08/27/18 11:26 Dose: 81 mg Atorvastatin Calcium (Lipitor) 40 mg PO DIN [facility] Clopidogrel Bisulfate (Plavix) 75 mg PO DAILY [facility] Last Admin: 08/27/18 11:26 Dose: 75 mg Famotidine (Pepcid) 20 mg PO 1000,2200 [facility] Last Admin: 08/27/18 11:26 Dose: 20 mg Sodium Chloride (Sodium Chloride 0.9%) 1,000 mls @ 100 mls/hr IV .Q10H [facility] Stop: 08/27/18 19:00 Last Admin: 08/27/18 14:30 Dose: 100 mls/hr - Labs Labs: 08/27/18 11:25 08/27/18 11:25 PT 11.0 SECONDS (9.4-12.5) 08/26/18 17:00 INR 0.97 08/26/18 17:00 APTT 28.8 Seconds (25.1-36.5) 08/26/18 17:00 - Constitutional Appears: Non-toxic, No Acute Distress - Head Exam Head Exam: NORMAL INSPECTION, NORMOCEPHALIC - Eye Exam Eye Exam: EOMI, Normal appearance. absent: Nystagmus, Scleral icterus - Respiratory Exam Respiratory Exam: Clear to Ausculation Bilateral, NORMAL BREATHING PATTERN. absent: Rales, Rhonchi, Wheezes - Cardiovascular Exam Cardiovascular Exam: Bradycardia, REGULAR RHYTHM, +S1, +S2 - GI/Abdominal Exam GI & Abdominal Exam: Soft, Normal Bowel Sounds. absent: Distended, Firm, Guarding, Rigid - Extremities Exam Extremities Exam: Normal Inspection. absent: Calf Tenderness, Pedal Edema - Neurological Exam Neurological Exam: Alert, Awake, Oriented x3 - Psychiatric Exam Psychiatric exam: Normal Affect, Normal Mood - Skin Skin Exam: Intact, Normal Color Assessment and Plan - Assessment and Plan (Free Text) Assessment: Patient is a 67 yo female with PMH of HTN, NV (stent 2016), HLD presents to hospital for 3 day history of chest pain a/w sob, nausea, lightheadedness. EKG shows sinus bradycardia with PVCs. Dr. Jackson took patient for cardiac cath today. Stent was placed. Plan: Symptomatic Bradycardia Cardio Consult- Dr. Jackson- recommendations appreciated EKG shows sinus bradycardia with PVCs Cardiac cath procedure done today with stent placed; Full report pending Echo pending NS@100mls/hr Hx of NV w/ stent Aspirin 81mg po Plavix 75mg po HTN Hold med 2/2 symptomatic bradycardia HLD Atorvastatin 40mg po PPX DVT- SCD GI- PPx
--- NOTE | 2018-08-27 19:13 | CARDCATH ---
PROCEDURE DATE: 08/27/2018 EMERGENCY CARDIAC CATHETERIZATION HISTORY: The patient is a 67-year-old woman who presents to the Emergency Room with progressive exertional angina and shortness of breath. The patient has had previous PTCA in the past. In addition, in the Emergency Room, she was found to have Wenckebach. Because of her ongoing symptoms including symptoms at rest, an emergency cardiac catheterization was recommended. PROCEDURE: Left heart catheterization with coronary arteriography and left ventriculogram followed by PTCA and stent of two lesions in the circumflex artery. There were no complications. I performed moderate sedation, which included the presence of a trained observer to monitor her consciousness as well as her hemodynamic data. After administration of Versed and fentanyl, my intra-service time was 30 minutes. Findings on catheterization revealed a left ventricle that contracted normally. Estimated ejection fraction 60%. The patient had a left dominant circulation. The RCA was a small vessel and revealed diffuse atherosclerosis without critical lesions. The left main artery was unremarkable. The LAD revealed a patent stent in the proximal/mid portion. Proximal to the stent, there is a 50% stenosis noted which is unchanged from her previous. The circumflex artery revealed a bifurcating posterolateral and PDA lesion. This was both 80% and 90% stenoses. The patient was started on intravenous Angiomax on the fluoroscopic guide, the guiding catheter was placed in the ostium of the left main and 0.014 ATW wire was used to cross the inferior branch of the branching circumflex. A 2 balloon was utilized to pre-dilate the lesion. A 2.25 x 8 mm drug-eluting stent was placed and deployed at 14 atmospheres of pressure. Repeat coronary arteriography revealed an excellent result. The wire was then brought back and placed into the superior branch and dilated with a 2.25 balloon. This was followed by implantation of a 2.75 x 12 mm drug-eluting stent. Repeat coronary arteriography revealed an excellent result with no residual stenosis of the two lesions. Angio-Seal was used to close the femoral artery site. The patient tolerated the procedure well. In summary, the procedure was successful PTCA and stent of two lesions in a dominant circumflex artery with drug-eluting stents. Cardiac catheterization reveals the new lesions in the circumflex artery as well as a patent stent in the proximal/mid LAD. The 50% stenosis proximal to the LAD stent was changed from her previous. Angio-Seal was used to close the femoral artery site. PLAN: Given these findings, the patient will need to remain on aspirin indefinitely and Plavix for at least a year. In addition, we need to stop her beta-blockers, Bystolic, given her propensity for Wenckebach AV cee block. Duc Jackson MD
--- NOTE | 2018-08-27 19:53 | CON ---
DATE: 08/26/2018 HISTORY: The patient is a 67-year-old woman who presents with progressive exertional shortness of breath and angina. Her symptoms have progressed to where she is able to ambulate less than half a block. In addition, the patient complains of palpitations. PAST MEDICAL HISTORY: Also includes history of hypertension and hypercholesterolemia. SOCIAL HISTORY: The patient denies smoking. REVIEW OF SYSTEMS: A 14-point review of systems is reviewed in detail. No additional symptoms are noted. PHYSICAL EXAMINATION: VITAL SIGNS: Blood pressure is 118/69, heart rate in the 40s with recurrent episodes of Wenckebach AV heart block. NECK: Negative JVD. LUNGS: Without rales. HEART: S1, S2. EXTREMITIES: Without edema. EKG shows normal sinus rhythm with Wenckebach AV cee block. No ST-T changes. LABORATORY DATA: Troponins are negative. Glucose is 115, hemoglobin is 13.3. IMPRESSION: 1. Progressive unstable angina. 2. Coronary artery disease. 3. History of percutaneous transluminal coronary angioplasty and stent in the past. 4. Wenckebach atrioventricular cee block. 5. History of hypertension. 6. Hypercholesterolemia. 7. Exertional dyspnea. PLAN: Given these findings, the patient's Wenckebach is a benign rhythm. We will DC her Coreg, which may be responsible for her AV cee delay. It is likely the patient will need cardiac catheterization given her history of progressive anginal symptoms and documented coronary disease. Duc Jackson MD
[2018-08-27 21:38] VITALS: BMI 35.9
[2018-08-27] MEDS ORDERED: Pneumococcal 23-Valent Vaccine IM ONE (21:38)
[2018-08-27] MEDS ORDERED: Influenza Vaccine 60 mcg/0.5 mL SYR (4YR UP) IM ONE (21:38)
[2018-08-28 06:03] VITALS: O2SAT 97
--- NOTE | 2018-08-28 06:33 | CARD ---
APPROVED REPORT Date of service: 08/27/2018 EKG Measurement Heart [id number] MD [id number] <Conclusion> Marked sinus bradycardia with Mobitz type II block Abnormal ECG
[2018-08-28 07:15] LABS: BASO # 0.01 K/mm3 (0.0-2.0); BASO % 0.1 % (0.0-3.0); EOS # 0.2 (0.0-0.7); EOS % 2.5 % (1.5-5.0); GRAN # 6.12 (1.4-6.5); LYMPH # 1.7 (1.2-3.4); LYMPH % 19.1 % (22.0-35.0); MEAN CELL VOLUME 79.7 fl (80.0-105.0); MEAN CORPUSCULAR HEMOGLOBIN 25.4 pg (25.0-35.0); MEAN CORPUSCULAR HGB CONC 31.9 g/dl (31.0-37.0); MEAN PLATELET VOLUME 10.3 fl (7.0-11.0); MONO # 0.6 (0.1-0.6); MONO % 7.3 % (1.0-6.0); RBC 5.12 10^6/uL (3.5-6.1); WHITE BLOOD COUNT 8.6 10^3/ul (4.5-11.0)
[2018-08-28 07:50] LABS: BLOOD UREA NITROGEN 17 mg/dL (7-21); CALCIUM 8.9 mg/dL (8.4-10.5); GFR NON-AFRICAN AMERICAN > 60
--- NOTE | 2018-08-28 08:19 | PN ---
DATE: 08/28/2018 CARDIOLOGY FOLLOWUP SUBJECTIVE: The patient is asymptomatic. PHYSICAL EXAMINATION: VITAL SIGNS: Blood pressure is 119/64, the heart rate is in the 50s with AV Wenckebach block. NECK: Negative JVD. LUNGS: Without rales. HEART: Reveals S1, S2. EXTREMITIES: Without edema. The right groin site is stable. LABORATORY DATA: Hemoglobin is 13. Chemistries: BUN and creatinine are unremarkable. IMPRESSION: 1. Wenckebach atrioventricular block, exacerbated by beta-blockers. 2. Resolution of chest pain. 3. Status post percutaneous transluminal coronary angioplasty and stent of 2 lesions in the circumflex artery. 4. Multivessel coronary artery disease. 5. Hypertension. PLAN: Given these findings, the patient's cardiac status is stable. She can be discharged today. The patient needs to continue on aspirin, Plavix and a statin therapy. She will need to stay off beta blockers. Coreg should be stopped. Her pressure is adequately controlled at this time. I have discussed this with the patient in detail. I have instructed the nurses to go over these medications again with her before discharge. I have left a message with Dr. Villa, the primary care doctor to keep her off beta blockers. She will follow up with Dr. Villa this week for blood pressure check and follow up with me next week in the office. Duc Jackson MD
--- NOTE | 2018-08-28 14:52 | CP.PCM.PN ---
<Evelin Bowles - Last Filed: 08/28/18 14:47> Subjective - Date & Time of Evaluation Date of Evaluation: 08/28/18 Time of Evaluation: 10:20 - Subjective Subjective: PGY-1 Medicine Progress Note for Dr. Munoz's service Patient seen and examined at bedside. Patient reports feeling lightheaded and dizzy. Patient denies fevers, chills, chest pain, sob, n/v, constipation or diarrhea, dysuria. Objective - Vital Signs/Intake and Output Vital Signs (last 24 hours): Temp Pulse Resp BP Pulse Ox 98.5 F 57 L 18 139/68 97 08/28/18 12:00 08/28/18 12:00 08/28/18 12:00 08/28/18 12:00 08/28/18 06:00 Intake and Output: 08/28/18 08/28/18 06:59 18:59 Intake Total 240 Output Total 240 Balance 0 - Medications Medications: Current Medications Aspirin (Ecotrin) 81 mg PO DAILY [facility] Last Admin: 08/28/18 10:03 Dose: 81 mg Atorvastatin Calcium (Lipitor) 40 mg PO DIN [facility] Last Admin: 08/27/18 17:59 Dose: 40 mg Clopidogrel Bisulfate (Plavix) 75 mg PO DAILY [facility] Last Admin: 08/28/18 10:04 Dose: 75 mg Famotidine (Pepcid) 20 mg PO 1000,2200 [facility] Last Admin: 08/28/18 10:04 Dose: 20 mg - Labs Labs: 08/28/18 06:30 08/28/18 06:30 PT 11.0 SECONDS (9.4-12.5) 08/26/18 17:00 INR 0.97 08/26/18 17:00 APTT 28.8 Seconds (25.1-36.5) 08/26/18 17:00 - Additional Findings Additional findings: - Constitutional Appears: Non-toxic, No Acute Distress - Head Exam Head Exam: NORMAL INSPECTION, NORMOCEPHALIC - Eye Exam Eye Exam: EOMI, Normal appearance. absent: Nystagmus, Scleral icterus - Respiratory Exam Respiratory Exam: Clear to Ausculation Bilateral, NORMAL BREATHING PATTERN. absent: Rales, Rhonchi, Wheezes - Cardiovascular Exam Cardiovascular Exam: Bradycardia, REGULAR RHYTHM, +S1, +S2 - GI/Abdominal Exam GI & Abdominal Exam: Soft, Normal Bowel Sounds. absent: Distended, Firm, Guarding, Rigid - Extremities Exam Extremities Exam: Normal Inspection. absent: Calf Tenderness, Pedal Edema - Neurological Exam Neurological Exam: Alert, Awake, Oriented x3 - Psychiatric Exam Psychiatric exam: Normal Affect, Normal Mood - Skin Skin Exam: Intact, Normal Color Assessment and Plan - Assessment and Plan (Free Text) Assessment: Patient is a 67 yo female with PMH of HTN, [place] (stent 2016), HLD presents to hospital for 3 day history of chest pain a/w sob, nausea, lightheadedness. EKG shows sinus bradycardia with PVCs. Dr. Jackson took patient for cardiac cath today. Stent was placed. Patient complaining of dizziness and lightheadedness. PT/OT eval pending. Plan: Symptomatic Bradycardia Cardio Consult- Dr. Jackson- continue asa, lipitor, plavix; DC bistolic EKG shows sinus bradycardia with PVCs Stent placed in Left circumflex artery Echo pending Hx of MD w/ stent Aspirin 81mg po Plavix 75mg po Lipitor HTN Normotensive Consider agent if blood pressure rises HLD Atorvastatin 40mg po PPX DVT- SCD GI- PPx <No Munoz - Last Filed: 08/28/18 16:48> Objective - Vital Signs/Intake and Output Vital Signs (last 24 hours): Temp Pulse Resp BP Pulse Ox 98.5 F 41 L 18 139/68 97 08/28/18 12:00 08/28/18 14:00 08/28/18 12:00 08/28/18 12:00 08/28/18 06:00 Intake and Output: 08/28/18 08/28/18 06:59 18:59 Intake Total 240 Output Total 240 Balance 0 - Medications Medications: Current Medications Aspirin (Ecotrin) 81 mg PO DAILY [facility] Last Admin: 08/28/18 10:03 Dose: 81 mg Atorvastatin Calcium (Lipitor) 40 mg PO DIN [facility] Last Admin: 08/27/18 17:59 Dose: 40 mg Clopidogrel Bisulfate (Plavix) 75 mg PO DAILY [facility] Last Admin: 08/28/18 10:04 Dose: 75 mg Famotidine (Pepcid) 20 mg PO 1000,2200 [facility] Last Admin: 08/28/18 10:04 Dose: 20 mg - Labs Labs: 08/28/18 06:30 08/28/18 06:30 PT 11.0 SECONDS (9.4-12.5) 08/26/18 17:00 INR 0.97 08/26/18 17:00 APTT 28.8 Seconds (25.1-36.5) 08/26/18 17:00 Attending/Attestation - Attestation I have personally seen and examined this patient.: Yes I have fully participated in the care of the patient.: Yes I have reviewed all pertinent clinical information, including history, physical exam and plan: Yes Notes (Text): 08/28/18 16:46 67 year old female with past medical history of hypertension, CAD s/p stent, and dyslipidemia who presented with complaint of chest pain and lightheadedness. She was found to have significant bradycardia and her bistolic was discontinued. Heart rate improved. She was seen by cardiology and underwent cardiac cath yesterday with stent placement. Continue with aspirin, plavix and statin. Beta annette on hold for now as above. Today she still complains of feeling lightheaded. PT evaluation is requested for d/c planning recommendations. No Munoz MD Hospitalist.
[2018-08-29 08:39] LABS: BASO # 0.02 K/mm3 (0.0-2.0); BASO % 0.2 % (0.0-3.0); EOS # 0.4 (0.0-0.7); EOS % 3.8 % (1.5-5.0); GRAN # 8.97 (1.4-6.5); GRAN % 77.5 % (50.0-68.0); HEMOGLOBIN 13.1 g/dL (12.0-16.0); LYMPH # 1.5 (1.2-3.4); MEAN CELL VOLUME 79.2 fl (80.0-105.0); MEAN CORPUSCULAR HEMOGLOBIN 25.5 pg (25.0-35.0); MEAN CORPUSCULAR HGB CONC 32.2 g/dl (31.0-37.0); MEAN PLATELET VOLUME 10.3 fl (7.0-11.0); MONO # 0.6 (0.1-0.6); MONO % 5.5 % (1.0-6.0); RBC 5.14 10^6/uL (3.5-6.1); RED CELL DISTRIBUTION WIDTH 15.8 % (11.5-14.5); WHITE BLOOD COUNT 11.6 10^3/ul (4.5-11.0)
[2018-08-29 08:48] LABS: ALBUMIN 3.5 g/dL (3.0-4.8); ALT/SGPT 28 U/L (7-56); AST/SGOT 24 U/L (14-36); BLOOD UREA NITROGEN 17 mg/dL (7-21); CALCIUM 8.8 mg/dL (8.4-10.5); GFR NON-AFRICAN AMERICAN 55
--- NOTE | 2018-08-29 10:20 | PN ---
DATE: 08/29/2018 CARDIOLOGY FOLLOWUP SUBJECTIVE: The patient is chest pain free. PHYSICAL EXAMINATION: VITAL SIGNS: Blood pressure is 124/54, the heart rate is in the 60s with intermittent periods of Wenckebach. NECK: Negative JVD. LUNGS: Without rales. HEART: Reveals S1, S2. EXTREMITIES: Without edema. LABORATORY DATA: Hemoglobin is 13. Chemistries: BUN and creatinine are unremarkable. The glucose is 120. IMPRESSION: 1. Stable post percutaneous transluminal coronary angioplasty and stent of the circumflex artery. 2. Multivessel coronary artery disease. 3. Intermittent Wenckebach exacerbated by beta-blockers. 4. Diabetes mellitus. 5. Hypercholesterolemia. PLAN: Given these findings, the patient's Bystolic has been stopped. She has been placed on aspirin and Plavix and she will go home on atorvastatin. I have discussed this with the patient in detail. We will enroll her in the cardiac rehab program as part of her cardiac risk reduction program. Duc Jackson MD
[2018-08-29 12:41] VITALS: TEMP 98.6
[2018-08-29 12:43] VITALS: RESP 18
--- NOTE | 2018-08-29 14:50 | CP.PCM.DIS ---
Addendum entered and electronically signed by Evelin Bowles DO 08/30/18 06:22: Patient was discharged home not to TCU Original Note: <Evelin Bowles - Last Filed: 08/29/18 14:43> Provider - Provider Date of Admission: 08/26/18 19:18 Attending physician: No Munoz MD Consults: Dr. Jackson Time Spent in preparation of Discharge (in minutes): 45 Hospital Course - Lab Results Lab Results: Most Recent Lab Values WBC 11.6 10^3/ul (4.5-11.0) H D 08/29/18 08:00 RBC 5.14 10^6/uL (3.5-6.1) 08/29/18 08:00 Hgb 13.1 g/dL (12.0-16.0) 08/29/18 08:00 Hct 40.7 % (36.0-48.0) 08/29/18 08:00 MCV 79.2 fl (80.0-105.0) L 08/29/18 08:00 MCH 25.5 pg (25.0-35.0) 08/29/18 08:00 MCHC 32.2 g/dl (31.0-37.0) 08/29/18 08:00 RDW 15.8 % (11.5-14.5) H 08/29/18 08:00 Plt Count 208 10^3/uL (120.0-450.0) 08/29/18 08:00 MPV 10.3 fl (7.0-11.0) 08/29/18 08:00 Gran % 77.5 % (50.0-68.0) H 08/29/18 08:00 Lymph % (Auto) 13.0 % (22.0-35.0) L 08/29/18 08:00 [place] % (Auto) 5.5 % (1.0-6.0) 08/29/18 08:00 Eos % (Auto) 3.8 % (1.5-5.0) 08/29/18 08:00 Baso % (Auto) 0.2 % (0.0-3.0) 08/29/18 08:00 Gran # 8.97 (1.4-6.5) H 08/29/18 08:00 Lymph # (Auto) 1.5 (1.2-3.4) 08/29/18 08:00 [place] # (Auto) 0.6 (0.1-0.6) 08/29/18 08:00 Eos # (Auto) 0.4 (0.0-0.7) 08/29/18 08:00 Baso # (Auto) 0.02 K/mm3 (0.0-2.0) 08/29/18 08:00 PT 11.0 SECONDS (9.4-12.5) 08/26/18 17:00 INR 0.97 08/26/18 17:00 APTT 28.8 Seconds (25.1-36.5) 08/26/18 17:00 Sodium 139 mmol/L (132-148) 08/29/18 08:00 Potassium 3.9 mmol/L (3.6-5.0) 08/29/18 08:00 Chloride 106 mmol/L (98-107) 08/29/18 08:00 Carbon Dioxide 27 mmol/L (21-33) 08/29/18 08:00 Anion Gap 10 (10-20) 08/29/18 08:00 BUN 17 mg/dL (7-21) 08/29/18 08:00 Creatinine 1.0 mg/dl (0.7-1.2) 08/29/18 08:00 Est GFR ( Amer) > 60 08/29/18 08:00 Est GFR (Non-Af Amer) 55 08/29/18 08:00 Random Glucose 120 mg/dL (70-110) H 08/29/18 08:00 Hemoglobin A1c 6.0 % (4.2-6.5) 08/27/18 11:24 Calcium 8.8 mg/dL (8.4-10.5) 08/29/18 08:00 Magnesium 2.1 mg/dL (1.7-2.2) 08/26/18 17:00 Total Bilirubin 1.1 mg/dL (0.2-1.3) 08/29/18 08:00 AST 24 U/L (14-36) 08/29/18 08:00 ALT 28 U/L (7-56) 08/29/18 08:00 Alkaline Phosphatase 103 U/L (38-126) 08/29/18 08:00 Troponin I < 0.01 ng/mL 08/27/18 11:25 NT-Pro-B Natriuret Pep 468 pg/mL (0-450) H 08/26/18 17:00 Total Protein 6.9 g/dL (5.8-8.3) 08/29/18 08:00 Albumin 3.5 g/dL (3.0-4.8) 08/29/18 08:00 Globulin 3.4 gm/dL 08/29/18 08:00 Albumin/Globulin Ratio 1.0 (1.1-1.8) L 08/29/18 08:00 Triglycerides 106 mg/dL (35-160) 08/27/18 11:24 Cholesterol 270 mg/dL (130-200) H 08/27/18 11:24 LDL Cholesterol Direct 192 mg/dL (0-129) H 08/27/18 11:24 HDL Cholesterol 44 mg/dL (29-60) 08/27/18 11:24 Amylase 76 U/L (35-125) 08/26/18 18:48 Lipase 65 U/L (23-300) 08/26/18 18:48 TSH 3rd Generation 0.42 mIU/mL (0.46-4.68) L 08/27/18 11:25 - Hospital Course Hospital Course: Upon admission Patient is a 67 yo female with PMH of HTN, [place] (stent 2015), HLD presents to hospital for 3 day history of chest pain a/w sob, nausea, lightheadedness. Patient states the pain started three days ago which felt like an elephant sitting on her chest. Patient reports 10/10 chest pain located in her left upper chest, nonradiating, constant in nature, worsened with any physical exertion. Patient reports that she would be out of breath within 5 steps and felt like she was about to pass out. The reason she came in today was because the pain did not go away with her home meds (asa, hctz). She called Dr. Jackson's office and spoke with a nurse who suggested she go to the Emergency Room. Patient had a stress test earlier this year with Dr. Jackson in january (which was abnormal-unspecified). Patient's pain is reproducible on palpation of the chest wall. Patient denies fevers, chills, headaches, dizziness, lightheadedness, cough, sob, n/v, constipation or diarrhea currently. Hospital Course 67 year old chest pain with associated SOB. In the ED, EKG showed sinus bradycardia with heart rate 42. ACS ruled out with trends of troponin. CXR resulted WNL. Patient was given 2 doses of Atropine in the ED, with no improvement seen. Started on Dopamine drip, and HR began to normalize. Cardio logy, Dr. Jackson, was consulted. Echo resulted EF of 67.2%. Patient had cardiac cath performed with drug eluting stent placed in left circumfelx artery. Dr. Jackson recommended patient be discharged on 08/28/2018, continue Aspirin (indefinitely), Plavix (for at least 1 year), Lipitor 40mg daily; discontinue Bistolic; follow up outpatient in 1 week and to follow up with Dr. Villa, PMD, this week for blood pressure check. In addition, lipid panel resulted elevated LDL and cholesterol noted; TSH resulted 0.42. Initially, patient stated she was having lightheadedness when PT attempted to have her walk. Upon re- evaluation following day, patient was able to ambulate. Patient was seen by PT, and cleared for discharge. Patient denied home with services evaluation after conversation with social services aide. munitions worker spoke to patient and patient declined services, reporting she has family who will assist if needed. Upon re- evaluation, patient agreed to TCU. TCU evaluation performed and patient acc epted. Discharge plan Patient is stable for discharge to TCU as per Dr. Munoz. She was counseled to return to the emergency department if symptoms return or worsen. Patient is to follow up with primary medical doctor, Dr. Villa, within 3-5 days of discharge for blood pressure check. Patient is to follow up with cardiology, Dr. Jackson, within 5-7 days of discharge. Patient is to stop use of Bystolic. Patient is to continue home medications: Aspirin, Plavix, Lipitor as prescribed and instructed in discharge instructions. Reviewed all medications with patient, and she understands instructions. Patient understands and agrees with discharge plan. Disclaimer: Written above is a synopsis of patients current hospital admission. For full admission refer to EMR. Discharge Exam - Head Exam Head Exam: NORMAL INSPECTION, NORMOCEPHALIC - Eye Exam Eye Exam: EOMI, Normal appearance. absent: Nystagmus, Scleral icterus - ENT Exam ENT Exam: Mucous Membranes Moist - Respiratory Exam Respiratory Exam: NORMAL BREATHING PATTERN. absent: Rales, Rhonchi, Wheezes - Cardiovascular Exam Cardiovascular Exam: REGULAR RHYTHM, +S1, +S2. absent: Bradycardia, Tachycardia - GI/Abdominal Exam GI & Abdominal Exam: Normal Bowel Sounds, Soft. absent: Distended, Firm, Guarding, Tenderness - Neurological Exam Neurological exam: Alert, Normal Gait, Oriented x3 - Psychiatric Exam Psychiatric exam: Normal Affect, Normal Mood - Skin Skin Exam: Intact, Normal Color Discharge Plan - Discharge Medications Prescriptions: Atorvastatin [Lipitor] 40 mg PO DIN #30 tab Clopidogrel [Plavix] 75 mg PO DAILY #14 tab - Follow Up Plan Condition: IMPROVED Disposition: HOME/ ROUTINE Instructions: Coronary Heart Disease, Bradycardia, Coronary Angioplasty, Heart Healthy Diet Additional Instructions: 1. Patient is stable for discharge as per Dr. Munoz 2. Patient is stay home and not go to work until followup appointment with Dr. Villa on 09-02-18. Patient educated not to overexert herself at home. [place] has extensive family support at home. Patient ambulated with PT with no episodes of dizziness or shortness of breath. Patient is to follow up with Dr. Jackson within 3-7 days of discharge from hospital. 3. Patient is to stop taking her home bistolic medication. Patient is to continue taking aspirin 81mg by mouth once a day and plavix 75mg by mouth once a day. Patient is to stop stop taking lipitor 20mg and instead continue lipitor 40mg by mouth once daily. Blood pressure during hospital admission has been under well control without any anti-HTN agents. Follow up with Dr. Villa to repeat blood pressure in office if necessary to begin anti-HTN agents. 4. Patient is educated to return to hospital if symptoms recur or worsen. 5. Patient understands the plan and agrees to the above. Referrals: Duc Jackson MD [Staff Provider] - <No Munoz - Last Filed: 08/29/18 18:17> Provider - Provider Date of Admission: 08/26/18 19:18 Attending physician: No Munoz MD Hospital Course - Lab Results Lab Results: Most Recent Lab Values WBC 11.6 10^3/ul (4.5-11.0) H D 08/29/18 08:00 RBC 5.14 10^6/uL (3.5-6.1) 08/29/18 08:00 Hgb 13.1 g/dL (12.0-16.0) 08/29/18 08:00 Hct 40.7 % (36.0-48.0) 08/29/18 08:00 MCV 79.2 fl (80.0-105.0) L 08/29/18 08:00 MCH 25.5 pg (25.0-35.0) 08/29/18 08:00 MCHC 32.2 g/dl (31.0-37.0) 08/29/18 08:00 RDW 15.8 % (11.5-14.5) H 08/29/18 08:00 Plt Count 208 10^3/uL (120.0-450.0) 08/29/18 08:00 MPV 10.3 fl (7.0-11.0) 08/29/18 08:00 Gran % 77.5 % (50.0-68.0) H 08/29/18 08:00 Lymph % (Auto) 13.0 % (22.0-35.0) L 08/29/18 08:00 [place] % (Auto) 5.5 % (1.0-6.0) 08/29/18 08:00 Eos % (Auto) 3.8 % (1.5-5.0) 08/29/18 08:00 Baso % (Auto) 0.2 % (0.0-3.0) 08/29/18 08:00 Gran # 8.97 (1.4-6.5) H 08/29/18 08:00 Lymph # (Auto) 1.5 (1.2-3.4) 08/29/18 08:00 [place] # (Auto) 0.6 (0.1-0.6) 08/29/18 08:00 Eos # (Auto) 0.4 (0.0-0.7) 08/29/18 08:00 Baso # (Auto) 0.02 K/mm3 (0.0-2.0) 08/29/18 08:00 PT 11.0 SECONDS (9.4-12.5) 08/26/18 17:00 INR 0.97 08/26/18 17:00 APTT 28.8 Seconds (25.1-36.5) 08/26/18 17:00 Sodium 139 mmol/L (132-148) 08/29/18 08:00 Potassium 3.9 mmol/L (3.6-5.0) 08/29/18 08:00 Chloride 106 mmol/L (98-107) 08/29/18 08:00 Carbon Dioxide 27 mmol/L (21-33) 08/29/18 08:00 Anion Gap 10 (10-20) 08/29/18 08:00 BUN 17 mg/dL (7-21) 08/29/18 08:00 Creatinine 1.0 mg/dl (0.7-1.2) 08/29/18 08:00 Est GFR ( Amer) > 60 08/29/18 08:00 Est GFR (Non-Af Amer) 55 08/29/18 08:00 Random Glucose 120 mg/dL (70-110) H 08/29/18 08:00 Hemoglobin A1c 6.0 % (4.2-6.5) 08/27/18 11:24 Calcium 8.8 mg/dL (8.4-10.5) 08/29/18 08:00 Magnesium 2.1 mg/dL (1.7-2.2) 08/26/18 17:00 Total Bilirubin 1.1 mg/dL (0.2-1.3) 08/29/18 08:00 AST 24 U/L (14-36) 08/29/18 08:00 ALT 28 U/L (7-56) 08/29/18 08:00 Alkaline Phosphatase 103 U/L (38-126) 08/29/18 08:00 Troponin I < 0.01 ng/mL 08/27/18 11:25 NT-Pro-B Natriuret Pep 468 pg/mL (0-450) H 08/26/18 17:00 Total Protein 6.9 g/dL (5.8-8.3) 08/29/18 08:00 Albumin 3.5 g/dL (3.0-4.8) 08/29/18 08:00 Globulin 3.4 gm/dL 08/29/18 08:00 Albumin/Globulin Ratio 1.0 (1.1-1.8) L 08/29/18 08:00 Triglycerides 106 mg/dL (35-160) 08/27/18 11:24 Cholesterol 270 mg/dL (130-200) H 08/27/18 11:24 LDL Cholesterol Direct 192 mg/dL (0-129) H 08/27/18 11:24 HDL Cholesterol 44 mg/dL (29-60) 08/27/18 11:24 Amylase 76 U/L (35-125) 08/26/18 18:48 Lipase 65 U/L (23-300) 08/26/18 18:48 TSH 3rd Generation 0.42 mIU/mL (0.46-4.68) L 08/27/18 11:25 Attending/Attestation - Attestation I have personally seen and examined this patient.: Yes I have fully participated in the care of the patient.: Yes I have reviewed all pertinent clinical information, including history, physical exam and plan: Yes Notes (Text): 08/29/18 18:12 67 year old female with past medical history of hypertension, CAD s/p stent, and dyslipidemia who presented with complaint of chest pain and lightheadedness. She was found to have significant bradycardia and her bistolic was discontinued. Heart rate improved. She was seen by cardiology and underwent cardiac cath with stent placement. She is on aspirin, plavix and statin. Beta annette is on hold for now as above. She complained of lightheadedness yesterday which improved today. PT recommended TCU which patient refused. Patient reports she has good family support at home. Patient is discharged home. Follow up with pmd. Follow up with cardiology. Beta annette is on hold. No Munoz MD Hospitalist.
--- NOTE | 2018-08-29 15:50 | CARD ---
APPROVED REPORT Date of service: 08/28/2018 EXAM: Two-dimensional and M-mode echocardiogram with Doppler and color Doppler. INDICATION Dyspnea BRADYCARDIA 2D DIMENSIONS Left Atrium (2D)3.9 (1.6-4.0cm)IVSd1.3 (0.7-1.1cm) LVDd4.4 (3.9-5.9cm)PWd1.4 (0.7-1.1cm) LVDs2.8 (2.5-4.0cm)FS (%) 37.0 % LVEF (%)67.2 (>50%) M-Mode DIMENSIONS Aortic Root2.80 (2.2-3.7cm)Aortic Cusp Exc.1.40 (1.5-2.0cm) Aortic Valve AoV Peak Qqtfhwfn263.0cm/Sybil Peak GR.14mmHg Mitral Valve E/A ratio0.0 TDI E/Lateral E'0.0E/Medial E'0.0 Tricuspid Valve TR Peak [id number]/sRAP [id number] Peak Gr.25mmHg [id number] LEFT VENTRICLE The left ventricle is normal size. There is mild concentric left ventricular hypertrophy. The left ventricular function is normal.EF-65% There is normal LV segmental wall motion. Transmitral Doppler flow pattern is Grade III-reversible restrictive diastolic dysfunction. No left ventricle thrombus noted on this study. There is no ventricular septal defect visualized. There is no left ventricular aneurysm. There is no mass noted in the left ventricle. RIGHT VENTRICLE The right ventricle is normal size. There is normal right ventricular wall thickness. The right ventricular systolic function is normal. ATRIA The left atrium is borderline dilated. The right atrium size is normal. The interatrial septum is intact with no evidence for an atrial septal defect. AORTIC VALVE The aortic valve is moderately thickened. There is trace aortic regurgitation. There is mild valvular aortic stenosis. There is no aortic valvular vegetation. MITRAL VALVE The mitral valve is thickened but opens well. Mitral regurgitation is mild. There is no mitral valve stenosis. There is no evidence of mitral valve prolapse. TRICUSPID VALVE The tricuspid valve leaflets are thickened or calcified, but open well. There is mild tricuspid regurgitation.RVSP-35 mmof hg. There is no tricuspid valve stenosis. There is no tricuspid valve prolapse or vegetation. PULMONIC VALVE The pulmonic valve is mildly thickened. There is mild pulmonic valvular regurgitation. There is no pulmonic valvular stenosis. GREAT VESSELS The aortic root is normal in size. The ascending aorta is normal in size. The pulmonary artery is normal. The IVC is normal in size and collapses >50% with inspiration. PERICARDIAL EFFUSION There is no pleural effusion. There is no pericardial effusion. <Conclusion> Normal chamber size, LVH, EF-65% There is trace aortic regurgitation. Mitral regurgitation is mild. There is mild tricuspid regurgitation.RVSP-35 mmof hg. There is mild pulmonic valvular regurgitation. The IVC is normal in size and collapses >50% with inspiration. There is no pericardial effusion. No Vegetation or thrombus noted.
[2018-08-29 18:27] VITALS: BP 118/63; PULSE 84
== END 2018-08-29 19:00 | disposition home or self-care (01) | DRG 247 ==
LOC: ED 16:19 → ERH 19:18 → 2RSO 08-27 14:30
PROVIDERS: ADMIT Hospitalist; ATTEND Internal Medicine
PROC: 027034Z Dilation of Coronary Artery, One Artery with Drug-eluting Intraluminal Device, Percutaneous Approach (ICD-10-PCS; principal; 2018-08-27)
PROC: 4A023N7 Measurement of Cardiac Sampling and Pressure, Left Heart, Percutaneous Approach (ICD-10-PCS; 2018-08-27)
PROC: B2151ZZ Fluoroscopy of Left Heart using Low Osmolar Contrast (ICD-10-PCS; 2018-08-27)
PROC: B2111ZZ Fluoroscopy of Multiple Coronary Arteries using Low Osmolar Contrast (ICD-10-PCS; 2018-08-27)
DX: I44.1 Atrioventricular block, second degree (principal); I25.110 Atherosclerotic heart disease of native coronary artery with unstable angina pectoris; E11.9 Type 2 diabetes mellitus without complications; E78.00 Pure hypercholesterolemia, unspecified; E78.5 Hyperlipidemia, unspecified; I10 Essential (primary) hypertension; I25.2 Old myocardial infarction; Z79.82 Long term (current) use of aspirin; Z79.02 Long term (current) use of antithrombotics/antiplatelets; Z95.5 Presence of coronary angioplasty implant and graft

== ENCOUNTER 2018-09-02 11:19 | Observation (INO) | payer BC, MEDICARE ==
[2018-09-02 11:27] VITALS: BMI 33.6
[2018-09-02 12:31] LABS: BASO # 0.05 K/mm3 (0.0-2.0); BASO % 0.7 % (0.0-3.0); EOS # 0.3 (0.0-0.7); EOS % 3.7 % (1.5-5.0); GRAN # 4.57 (1.4-6.5); GRAN % 59.9 % (50.0-68.0); HEMOGLOBIN 15.1 g/dL (12.0-16.0); LYMPH # 2.3 (1.2-3.4); LYMPH % 29.8 % (22.0-35.0); MEAN CELL VOLUME 78.4 fl (80.0-105.0); MEAN CORPUSCULAR HGB CONC 33.2 g/dl (31.0-37.0); MEAN PLATELET VOLUME 10.1 fl (7.0-11.0); MONO # 0.5 (0.1-0.6); MONO % 5.9 % (1.0-6.0); RBC 5.8 10^6/uL (3.5-6.1); RED CELL DISTRIBUTION WIDTH 15.3 % (11.5-14.5); WHITE BLOOD COUNT 7.6 10^3/ul (4.5-11.0)
[2018-09-02 12:39] LABS: INR 0.96
[2018-09-02 12:41] LABS: ALB/GLOB RATIO 1.2 (1.1-1.8); ALBUMIN 4.7 g/dL (3.0-4.8); ALT/SGPT 45 U/L (7-56); AST/SGOT 37 U/L (14-36); BLOOD UREA NITROGEN 12 mg/dL (7-21); CALCIUM 10.5 mg/dL (8.4-10.5); GFR NON-AFRICAN AMERICAN > 60
[2018-09-02 12:48] LABS: VENOUS BLOOD GAS BASE EXCESS 2.2 mmol/L (0.0-2.0); VENOUS BLOOD GAS PO2 28 mm/Hg (30-55); VENOUS BLOOD PH 7.39 (7.32-7.43)
[2018-09-02 12:52] LABS: B-TYPE NATRIURETIC PEPTIDE 197 pg/mL (0-450); TROPONIN I < 0.01 ng/mL
[2018-09-02] MEDS ORDERED: Iohexol 350 MG/100 ML VIAL ONE (13:42)
--- NOTE | 2018-09-02 14:44 | CT ---
Date of service: 09/02/2018 PROCEDURE: CT Chest with contrast (Pulmonary Angiogram) HISTORY: SOB COMPARISON: None available. TECHNIQUE: Axial computed tomography images were obtained of the chest in the pulmonary arterial phase of enhancement. Coronal and sagittal reformatted images were created and reviewed. Intravenous contrast dose: 100 cc of Omni 350 Radiation dose: Total exam DLP = 433 mGy-cm. This CT exam was performed using one or more of the following dose reduction techniques: Automated exposure control, adjustment of the mA and/or kV according to patient size, and/or use of iterative reconstruction technique. FINDINGS: PULMONARY ARTERIES: Unremarkable. No pulmonary embolism. AORTA: No acute findings. No thoracic aortic aneurysm. There is an average right subclavian artery which is a normal variation LUNGS: Unremarkable. No nodule, mass or pulmonary consolidation. PLEURAL SPACES: Unremarkable. No effusion or pneumothorax. HEART: Unremarkable. No cardiomegaly. No significant pericardial effusion. LYMPH NODES: No lymphadenopathy. BONES, CHEST WALL: Unremarkable. No fracture or destructive lesion OTHER FINDINGS: Aortic and coronary artery calcification IMPRESSION: Unremarkable CT pulmonary angiogram. No pulmonary embolus.
--- NOTE | 2018-09-02 15:10 | CARD ---
APPROVED REPORT Date of service: 09/02/2018 EKG Measurement Heart [id number] <Conclusion> Normal sinus rhythm Normal Electrocardiogram
--- NOTE | 2018-09-02 15:57 | ED PDOC ---
Arrival/HPI - General Historian: Patient - History of Present Illness Narrative History of Present Illness (Text): 09/02/18 15:46 67yo female with pmhx of hypertension, Diabetes, bradycardia s/p cardiac stent who was referred to ED by her PMD for complaint of SOB, generalized weakness, chest pressure. States she was getting these symptoms when she was seen here last week and was carlito at that visit requiring a stent. States she started having these symptoms while she was at her PMD office today and he sent her to ED with EMS. <ShericeHappiness A - Last Filed: 09/02/18 19:20> <Jade Bocanegra - Last Filed: 09/07/18 06:25> - General Chief Complaint: Shortness Of Breath Time Seen by Provider: 09/02/18 11:55 Past Medical History - Provider Review Nursing Documentation Reviewed: Yes - Infectious Disease Hx of Infectious Diseases: None - Cardiac Hx Cardiac Disorders: Yes Hx Hypertension: Yes - Pulmonary Hx Respiratory Disorders: Yes Other/Comment: H/O OF CARBON MONOXIDE POISONING - Neurological Hx Neurological Disorder: Yes Hx Dizziness: Yes (VERTIGO) - HEENT Hx HEENT Disorder: No - Renal Hx Renal Disorder: No - Endocrine/Metabolic Hx Endocrine Disorders: No - Hematological/Oncological Hx Blood Disorders: No - Integumentary Hx Dermatological Disorder: No - Musculoskeletal/Rheumatological Hx Musculoskeletal Disorders: Yes Hx Falls: No Hx Fractures: Yes (FX OF PATELLA) Hx Osteoarthritis: Yes - Gastrointestinal Hx Gastrointestinal Disorders: Yes Hx Diverticulitis: Yes Other/Comment: CHRONIC CONSTIPATION - Genitourinary/Gynecological Hx Genitourinary Disorders: No - Psychiatric Hx Psychophysiologic Disorder: No Hx Substance Use: No - Surgical History Hx Cardiac Catheterization: Yes Hx Coronary Stent: Yes (X3) Hx Orthopedic Surgery: Yes (left knee 01/2016) - Anesthesia Hx Anesthesia: Yes Hx Anesthesia Reactions: No Hx Malignant Hyperthermia: No - Suicidal Assessment Feels Threatened In Home Enviroment: No <DiruHappiness A - Last Filed: 09/02/18 19:20> Family/Social History - Physician Review Nursing Documentation Reviewed: Yes Family/Social History: Unknown Family HX Smoking Status: Never Smoked Hx Alcohol Use: No Hx Substance Use: No <DiruHappiness A - Last Filed: 09/02/18 19:20> Allergies/Home Meds <DiruHappiness A - Last Filed: 09/02/18 19:20> <Jade Bocanegra - Last Filed: 09/07/18 06:25> Allergies/Adverse Reactions: Allergies No Known Allergies Allergy (Verified 09/05/18 04:43) Review of Systems - Physician Review All systems were reviewed & negative as marked: Yes - Review of Systems Constitutional: Fatigue Eyes: Normal ENT: Normal Respiratory: SOB Cardiovascular: Chest Pain Gastrointestinal: Normal Genitourinary Female: Normal Musculoskeletal: Normal Skin: Normal Neurological: Normal Endocrine: Normal Hemo/Lymphatic: Normal Psychiatric: Normal <Adama Smiley A - Last Filed: 09/02/18 19:20> Physical Exam Vital Signs Reviewed: Yes Vital Signs Temp Pulse Resp BP Pulse Ox 09/02/18 15:41 64 18 139/71 99 09/02/18 12:23 20 09/02/18 11:32 97.8 F 80 20 161/90 H 99 Temperature: Afebrile Blood Pressure: Normal Pulse: Regular Respiratory Rate: Normal Appearance: Positive for: Well-Appearing, Non-Toxic, Comfortable Pain Distress: None Mental Status: Positive for: Alert and Oriented X 3 - Systems Exam Head: Present: Atraumatic, Normocephalic Pupils: Present: PERRL Extroacular Muscles: Present: EOMI Conjunctiva: Present: Normal Mouth: Present: Moist Mucous Membranes Neck: Present: Normal Range of Motion Respiratory/Chest: Present: Clear to Auscultation, Good Air Exchange. No: Respiratory Distress, Accessory Muscle Use, Wheezes, Decreased Breath Sounds, Rales, Retracting, Rhonchi Cardiovascular: Present: Regular Rate and Rhythm, Normal S1, S2. No: Murmurs Abdomen: No: Tenderness, Distention, Peritoneal Signs Back: Present: Normal Inspection Upper Extremity: Present: Normal Inspection. No: Cyanosis, Edema Lower Extremity: Present: Normal Inspection. No: Edema Neurological: Present: GCS=15, CN II-XII Intact, Speech Normal Skin: Present: Warm, Dry, Normal Color. No: Rashes Psychiatric: Present: Alert, Oriented x 3, Normal Insight, Normal Concentration <Adama Smiley A - Last Filed: 09/02/18 19:20> Vital Signs Temp Pulse Resp BP Pulse Ox 09/02/18 15:41 64 18 139/71 99 09/02/18 12:23 20 09/02/18 11:32 97.8 F 80 20 161/90 H 99 <Jade Bocanegra - Last Filed: 09/07/18 06:25> Medical Decision Making ED Course and Treatment: 09/02/18 19:21 PT presented to ED for stated history. Labs CXR EKG D dimer PT was hemodynamically stable in ED. Secondary to her recent history of cardiac stent, d dimer was ordered to r/o PE Lab was unremarkable with the exception of the elevated d dimer CTA IMPRESSION: IMPRESSION: Unremarkable CT pulmonary angiogram. No pulmonary embolus. EKG NSR @ 78bpm. N-STEMI Secondary to pt's cardiac risk and complain of chest pain she will be place in Tele for OBS and further evaluation. Case was MAGO Villa who referred pt to the ED and he agreed Case was MAGO Michelle and he accepted pt for admission All result and plan was DW the pt and she agreed - Lab Interpretations Lab Results: 09/02/18 12:15 09/02/18 12:15 Lab Results 09/02/18 12:40: pO2 28 L, VBG pH 7.39, VBG pCO2 46.0, VBG HCO3 27.8, VBG Total CO2 29.2 H, VBG O2 Sat (Calc) 56.1, VBG Base Excess 2.2 H, VBG Potassium 3.9, Glucose 94, Lactate 1.7, FiO2 21.0, Sodium 138.0, Chloride 104.0, Venous Blood Potassium 3.9 09/02/18 12:15: PT 11.0, INR 0.96, APTT 22.0 L, D-Dimer, Quantitative 348 H 09/02/18 12:15: Sodium 140, Potassium 4.1, Chloride 105, Carbon Dioxide 21, Anion Gap 18, BUN 12, Creatinine 0.8, Est GFR ( Amer) > 60, Est GFR (Non- Af Amer) > 60, Random Glucose 86, Calcium 10.5, Magnesium 2.0, Total Bilirubin 0.9, AST 37 H D, ALT 45, Alkaline Phosphatase 158 H D, Lactate Dehydrogenase 657, Total Creatine Kinase 72, Troponin I < 0.01, NT-Pro-B Natriuret Pep 197, Total Protein 8.5 H, Albumin 4.7, Globulin 3.9, Albumin/Globulin Ratio 1.2 10/15/18 12:15: WBC 7.6 D, RBC 5.80, Hgb 15.1 D, Hct 45.5, MCV 78.4 L, MCH 26.0, MCHC 33.2, RDW 15.3 H, Plt Count 182, MPV 10.1, Gran % 59.9, Lymph % (Auto) 29.8, [place] % (Auto) 5.9, Eos % (Auto) 3.7, Baso % (Auto) 0.7, Gran # 4.57, Lymph # (Auto) 2.3, [place] # (Auto) 0.5, Eos # (Auto) 0.3, Baso # (Auto) 0.05 - RAD Interpretation Radiology Orders: 09/02/18 12:44 ANGIO CHEST PE PROTOCOL [CT] Stat <Diru,Happiness A - Last Filed: 09/02/18 19:20> - Lab Interpretations Microbiology Results: Microbiology Results 09/02/18 12:30 Blood-Venous Blood Culture - Preliminary NO GROWTH AFTER 4 DAYS 09/02/18 12:00 Blood-Venous Blood Culture - Preliminary NO GROWTH AFTER 4 DAYS Lab Results: 09/02/18 12:15 09/02/18 12:15 Lab Results 09/02/18 12:40: pO2 28 L, VBG pH 7.39, VBG pCO2 46.0, VBG HCO3 27.8, VBG Total CO2 29.2 H, VBG O2 Sat (Calc) 56.1, VBG Base Excess 2.2 H, VBG Potassium 3.9, Glucose 94, Lactate 1.7, FiO2 21.0, Sodium 138.0, Chloride 104.0, Venous Blood Potassium 3.9 09/02/18 12:15: PT 11.0, INR 0.96, APTT 22.0 L, D-Dimer, Quantitative 348 H 09/02/18 12:15: Sodium 140, Potassium 4.1, Chloride 105, Carbon Dioxide 21, Anion Gap 18, BUN 12, Creatinine 0.8, Est GFR ( Amer) > 60, Est GFR (Non- Af Amer) > 60, Random Glucose 86, Calcium 10.5, Magnesium 2.0, Total Bilirubin 0.9, AST 37 H D, ALT 45, Alkaline Phosphatase 158 H D, Lactate Dehydrogenase 657, Total Creatine Kinase 72, Troponin I < 0.01, NT-Pro-B Natriuret Pep 197, Total Protein 8.5 H, Albumin 4.7, Globulin 3.9, Albumin/Globulin Ratio 1.2 09/02/18 12:15: WBC 7.6 D, RBC 5.80, Hgb 15.1 D, Hct 45.5, MCV 78.4 L, MCH 26.0, MCHC 33.2, RDW 15.3 H, Plt Count 182, MPV 10.1, Gran % 59.9, Lymph % (Auto) 29.8, [place] % (Auto) 5.9, Eos % (Auto) 3.7, Baso % (Auto) 0.7, Gran # 4.57, Lymph # (Auto) 2.3, [place] # (Auto) 0.5, Eos # (Auto) 0.3, Baso # (Auto) 0.05 - RAD Interpretation Radiology Orders: 09/02/18 12:44 ANGIO CHEST PE PROTOCOL [CT] Stat - Medication Orders Current Medication Orders: Discontinued Medications Aspirin (Aspirin Chewable) 81 mg PO DAILY [facility] Last Admin: 09/04/18 10:56 Dose: 81 mg Atorvastatin Calcium (Lipitor) 40 mg PO DIN [facility] Last Admin: 09/04/18 17:50 Dose: 40 mg Clopidogrel Bisulfate (Plavix) 75 mg PO DAILY [facility] Last Admin: 09/04/18 10:56 Dose: 75 mg Clopidogrel Bisulfate (Plavix) 75 mg PO ONCE ONE Stop: 09/02/18 18:20 Last Admin: 09/02/18 18:32 Dose: 75 mg Heparin Sodium (Porcine) (Heparin) 5,000 units SC Q8 [facility]; Protocol Last Admin: 09/04/18 15:26 Dose: 5,000 units Subcutaneous Administrations Document 09/04/18 15:26 MF (Rec: 09/04/18 15:26 [id number]) Injection Site MAR Injection Site Right Abdomen Charges for Administration # of Subcutaneous Administrations 1 Hydralazine HCl (Apresoline) 10 mg IVP Q6 PRN PRN Reason: SBP>180 Influenza Virus Vaccine (Flucelvax Quad [id number] Syr) 60 mcg IM .ONCE ONE Stop: 09/02/18 19:17 Pantoprazole Sodium (Protonix Ec Tab) 40 mg PO 0600 [facility] Last Admin: 09/04/18 05:46 Dose: 40 mg Pneumococcal Polyvalent Vaccine (Pneumovax 23 Vaccine) 0.5 ml IM .ONCE ONE Stop: 09/02/18 19:17 <Jade Bocanegra - Last Filed: 09/07/18 06:25> - PA / [employer]OR [employer] SUPERINTENDENT / Resident Statement / has reviewed & agrees with the documentation as recorded. <Jade Bocanegra - Last Filed: 09/07/18 06:25> Disposition/Present on Arrival - Present on Arrival Any Indicators Present on Arrival: No History of DVT/PE: No History of Uncontrolled Diabetes: No Urinary Catheter: No History of Decub. Ulcer: No History Surgical Site Infection Following: None - Disposition Have Diagnosis and Disposition been Completed?: Yes Disposition Time: 16:00 Patient Plan: Admission <Adama Smiley - Last Filed: 09/02/18 19:20> <Jade Bocanegra - Last Filed: 09/07/18 06:25> - Disposition Diagnosis: Chest pain, Dizziness Disposition: HOSPITALIZED Condition: STABLE
--- NOTE | 2018-09-02 17:00 | CP.PCM.HP ---
<Evelin Bowles - Last Filed: 09/02/18 17:46> History of Present Illness - History of Present Illness History of Present Illness: PGY-1 Medicine History and Physical for Dr. Michelle's service CC: chest pain HPI: Patient is a 67 yo female with PMH of HTN, IA (stent 2015, 2018), HLD presents to hospital for 2 day history of chest pain with associated shortness of breath. Chest pain is waxing and waning,non-radiating, localized in the midsternal and left chest. Patient presented to the ED for similar symptoms on 08/26/2018, during which time she was found to be bradycardic. She was admitted and cardiac cath was performed with drug eluting stent placed in left circumflex artery. Patient was discharged on 08/29/2018 with recommendations to stop use of Bystolic and to f/u with PMD and cardiology outpatient. Patient was being seen by her PMD, Dr. Villa, today, during which time she complained of shortness of breath worsened with exertion and associated chest pressure and dizziness. She was sent to the ED from the office. Patient reports that her shortness of breath has been present since prior to previous admission. She describes it as being like someone is squeezing my chest. She has had difficulty walking more than a few steps due to symptoms. Shortness of breath and chest pain resolve with rest. Patient denies waking up gasping for air. In addition, she has had intermittent episodes of dizziness, which she believes is due to standing too quickly. Patient denies fevers, chills, headaches,lightheadedness, cough, n/v, constipation or diarrhea currently. PMH- HTN, IA(stent 2016), HLD, Ronyback(stent placed in LCX 2018)) PSH- knee arthroscopy (2014) FH- Mom and GM (heart disease requring pacemaker) Meds- HCTZ 25mg po daily, Atorvastatin 40mg daily, Plavix 75mg po daily, ASA 81mg Alls- NKDA PMD- Allen Steward/Stewardess Third- Krupa Code- Full Code Present on Admission - Present on Admission Any Indicators Present on Admission: No Review of Systems - Review of Systems Review of Systems: 12 point ROS obtained and noted as in HPI Past Patient History - Infectious Disease Hx of Infectious Diseases: None - Past Social History Smoking Status: Never Smoked - CARDIAC Hx Cardiac Disorders: Yes Hx Hypertension: Yes - PULMONARY Hx Respiratory Disorders: Yes Other/Comment: H/O OF CARBON MONOXIDE POISONING - NEUROLOGICAL Hx Neurological Disorder: Yes Hx Dizziness: Yes (VERTIGO) - HEENT Hx HEENT Problems: No - RENAL Hx Chronic Kidney Disease: No - ENDOCRINE/METABOLIC Hx Endocrine Disorders: No - HEMATOLOGICAL/ONCOLOGICAL Hx Blood Disorders: No - INTEGUMENTARY Hx Dermatological Problems: No - MUSCULOSKELETAL/RHEUMATOLOGICAL Hx Musculoskeletal Disorders: Yes Hx Falls: No Hx Fractures: Yes (FX OF PATELLA) Hx Osteoarthritis: Yes - GASTROINTESTINAL Hx Gastrointestinal Disorders: Yes Hx Diverticulitis: Yes Other/Comment: CHRONIC CONSTIPATION - GENITOURINARY/GYNECOLOGICAL Hx Genitourinary Disorders: No - PSYCHIATRIC Hx Psychophysiologic Disorder: No Hx Substance Use: No - SURGICAL HISTORY Hx Cardiac Catheterization: Yes Hx Coronary Stent: Yes (X3) Hx Orthopedic Surgery: Yes (left knee 01/2016) - ANESTHESIA Hx Anesthesia: Yes Hx Anesthesia Reactions: No Hx Malignant Hyperthermia: No Meds Allergies/Adverse Reactions: Allergies Allergy/AdvReac Type Severity Reaction Status Date / Time No Known Allergies Allergy Verified 09/05/18 04:43 Physical Exam - Constitutional Appears: Non-toxic, No Acute Distress - Head Exam Head Exam: NORMAL INSPECTION, NORMOCEPHALIC - Eye Exam Eye Exam: EOMI, Normal appearance. absent: Nystagmus, Scleral icterus - ENT Exam ENT Exam: Mucous Membranes Moist - Respiratory Exam Respiratory Exam: Clear to Auscultation Bilateral, NORMAL BREATHING PATTERN. absent: Rales, Rhonchi, Wheezes - Cardiovascular Exam Cardiovascular Exam: REGULAR RHYTHM, +S1, +S2. absent: Bradycardia - GI/Abdominal Exam GI & Abdominal Exam: Normal Bowel Sounds, Soft. absent: Diminished Bowel Sounds, Distended, Firm, Guarding, Hernia, Tenderness - Extremities Exam Extremities exam: Positive for: normal inspection. Negative for: pedal edema - Neurological Exam Neurological exam: Alert, Oriented x3 - Psychiatric Exam Psychiatric exam: Normal Affect, Normal Mood - Skin Skin Exam: Intact, Normal Color Results - Vital Signs Recent Vital Signs: Last Vital Signs Temp 97.8 F 09/02/18 11:32 Pulse 64 09/02/18 15:41 Resp 18 09/02/18 15:41 BP 139/71 09/02/18 15:41 Pulse Ox 99 09/02/18 15:41 - Labs Result Diagrams: 09/02/18 12:15 09/02/18 12:15 Labs: Laboratory Results - last 24 hr 09/02/18 09/02/18 09/02/18 12:15 12:15 12:15 WBC 7.6 D RBC 5.80 Hgb 15.1 D Hct 45.5 MCV 78.4 L MCH 26.0 MCHC 33.2 RDW 15.3 H Plt Count 182 MPV 10.1 Gran % 59.9 Lymph % (Auto) 29.8 [place] % (Auto) 5.9 Eos % (Auto) 3.7 Baso % (Auto) 0.7 Gran # 4.57 Lymph # (Auto) 2.3 [place] # (Auto) 0.5 Eos # (Auto) 0.3 Baso # (Auto) 0.05 PT 11.0 INR 0.96 APTT 22.0 L D-Dimer, Quantitative 348 H pO2 VBG pH VBG pCO2 VBG HCO3 VBG Total CO2 VBG O2 Sat (Calc) VBG Base Excess VBG Potassium Glucose Lactate FiO2 Sodium 140 Potassium 4.1 Chloride 105 Carbon Dioxide 21 Anion Gap 18 BUN 12 Creatinine 0.8 Est GFR ( Amer) > 60 Est GFR (Non-Af Amer) > 60 Random Glucose 86 Calcium 10.5 Magnesium 2.0 Total Bilirubin 0.9 AST 37 H D ALT 45 Alkaline Phosphatase 158 H D Lactate Dehydrogenase 657 Total Creatine Kinase 72 Troponin I < 0.01 NT-Pro-B Natriuret Pep 197 Total Protein 8.5 H Albumin 4.7 Globulin 3.9 Albumin/Globulin Ratio 1.2 Venous Blood Potassium 09/02/18 12:40 WBC RBC Hgb Hct MCV MCH MCHC RDW Plt Count MPV Gran % Lymph % (Auto) [place] % (Auto) Eos % (Auto) Baso % (Auto) Gran # Lymph # (Auto) [place] # (Auto) Eos # (Auto) Baso # (Auto) PT INR APTT D-Dimer, Quantitative pO2 28 L VBG pH 7.39 VBG pCO2 46.0 VBG HCO3 27.8 VBG Total CO2 29.2 H VBG O2 Sat (Calc) 56.1 VBG Base Excess 2.2 H VBG Potassium 3.9 Glucose 94 Lactate 1.7 FiO2 21.0 Sodium 138.0 Potassium Chloride 104.0 Carbon Dioxide Anion Gap BUN Creatinine Est GFR ( Amer) Est GFR (Non-Af Amer) Random Glucose Calcium Magnesium Total Bilirubin AST ALT Alkaline Phosphatase Lactate Dehydrogenase Total Creatine Kinase Troponin I NT-Pro-B Natriuret Pep Total Protein Albumin Globulin Albumin/Globulin Ratio Venous Blood Potassium 3.9 Assessment & Plan - Assessment and Plan (Free Text) Assessment: Patient is a 67 yo female presents to hospital for 2 day history of chest pain with associated shortness of breath and dizziness. Plan: Chest pain r/o ACS likely noncardiac in region with reproducible chest pain Cardiology consulted- Dr. Jackson- recommendations appreciated EKG normal sinus rhythm Trop x 1 <0.01; Repeat troponins q6h faisal Cardiac cath done approximately 1 week ago with stent placement in LCX artery Chest CT with contrast- No signs of P.E; elevated D-dimer Hx of IA w/ stent Asa 81 mg po Plavix 75 mg po Hx of HTN If BP measurements elevated consider JASON-I Hyperlipidemia Lipitor 40mg po PPx GI ppx- Protonix 40mg po DVT ppx- Heparin 5000 units sc q8 <Zachary Michelle - Last Filed: 09/06/18 16:24> Results - Vital Signs Recent Vital Signs: Last Vital Signs Temp 98.4 F 09/04/18 17:44 Pulse 84 09/04/18 17:44 Resp 20 09/04/18 17:44 BP 176/86 H 09/04/18 17:44 Pulse Ox 98 09/04/18 06:00 - Labs Result Diagrams: 09/04/18 06:30 09/04/18 06:30 Attending/Attestation - Attestation I have fully participated in the care of the patient.: Yes I have reviewed all pertinent clinical information: Yes Notes (Text): 09/06/18 16:24 Medical record note made by the resident after discussion with my direction and input after the patient was personally seen and examined by me. I have reviewed the chart and agree that the record accurately reflects by personal performance of the history, physical exam, data review, and medical decision-making, in the course for the patient. I have also personally directed the plan of care.
[2018-09-02 17:11] LABS: URINE BILIRUBIN NEGATIVE (NEGATIVE); URINE BLOOD NEGATIVE (NEGATIVE); URINE GLUCOSE (UA) NEGATIVE (NEGATIVE); URINE LEUKOCYTE ESTERASE NEGATIVE Leu/uL (NEGATIVE); URINE PROTEIN NEGATIVE mg/dL (<30 mg/dL); URINE UROBILINOGEN 0.2 E.U./dL (<1 E.U./dL)
[2018-09-02 17:30] LABS: URINE APPEARANCE CLEAR (CLEAR); URINE COLOR YELLOW (YELLOW)
[2018-09-02] MEDS ORDERED: Pneumococcal 23-Valent Vaccine IM ONE (19:16)
[2018-09-02] MEDS ORDERED: Influenza Vaccine 60 mcg/0.5 mL SYR (4YR UP) IM ONE (19:16)
[2018-09-03] MEDS: Pantoprazole 40 mg EC Tab PO SCH (05:46)
[2018-09-03 09:26] LABS: PH,URINE 5.5 (4.7-8.0); URINE APPEARANCE CLEAR (CLEAR); URINE BILIRUBIN NEGATIVE (NEGATIVE); URINE BLOOD NEGATIVE (NEGATIVE); URINE COLOR YELLOW (YELLOW); URINE GLUCOSE (UA) NEGATIVE (NEGATIVE); URINE LEUKOCYTE ESTERASE NEGATIVE Leu/uL (NEGATIVE); URINE PROTEIN NEGATIVE mg/dL (<30 mg/dL); URINE UROBILINOGEN 0.2 E.U./dL (<1 E.U./dL)
[2018-09-03 10:27] LABS: BARBITURATES, UR NEGATIVE (NEGATIVE); BENZODIAZEPINES, UR NEGATIVE (NEGATIVE); OPIATES, UR NEGATIVE (NEGATIVE); PHENCYCLIDINE, UR NEGATIVE (NEGATIVE)
[2018-09-03 10:43] LABS: BASO # 0.04 K/mm3 (0.0-2.0); BASO % 0.5 % (0.0-3.0); EOS # 0.4 (0.0-0.7); EOS % 5.6 % (1.5-5.0); GRAN # 4.22 (1.4-6.5); GRAN % 56.2 % (50.0-68.0); HEMOGLOBIN 13.6 g/dL (12.0-16.0); LYMPH # 2.1 (1.2-3.4); LYMPH % 27.7 % (22.0-35.0); MEAN CELL VOLUME 78.7 fl (80.0-105.0); MEAN CORPUSCULAR HEMOGLOBIN 25.7 pg (25.0-35.0); MEAN CORPUSCULAR HGB CONC 32.6 g/dl (31.0-37.0); MEAN PLATELET VOLUME 9.5 fl (7.0-11.0); MONO # 0.8 (0.1-0.6); RBC 5.3 10^6/uL (3.5-6.1); RED CELL DISTRIBUTION WIDTH 15.4 % (11.5-14.5); WHITE BLOOD COUNT 7.5 10^3/ul (4.5-11.0)
[2018-09-03 10:53] LABS: ALB/GLOB RATIO 1.2 (1.1-1.8); ALBUMIN 3.8 g/dL (3.0-4.8); ALT/SGPT 43 U/L (7-56); AST/SGOT 25 U/L (14-36); BLOOD UREA NITROGEN 14 mg/dL (7-21); CALCIUM 9.3 mg/dL (8.4-10.5); GFR NON-AFRICAN AMERICAN > 60
--- NOTE | 2018-09-03 14:40 | CP.PCM.PN ---
<Evelin Bowles - Last Filed: 09/03/18 14:36> Subjective - Date & Time of Evaluation Date of Evaluation: 09/03/18 Time of Evaluation: 09:30 - Subjective Subjective: PGY-1 Medicine Progress Note for Dr. Michelle's service Patient seen and examined at bedside. Patient reports continued dizziness upon standing and moving. Patient reports shortness of breath and chest pressure on exertion. Patient denies fevers, chills, chest pain, sob at rest, n/v constipation or diarrhea, dysuria, headaches. Objective - Vital Signs/Intake and Output Vital Signs (last 24 hours): Temp Pulse Resp BP Pulse Ox 98.3 F 81 21 150/95 H 94 L 09/03/18 11:42 09/03/18 11:42 09/03/18 11:42 09/03/18 11:42 09/03/18 06:00 Intake and Output: 09/03/18 09/03/18 06:59 18:59 Intake Total 20 Output Total 0 Balance 20 - Medications Medications: Current Medications Aspirin (Aspirin Chewable) 81 mg PO DAILY [facility] Last Admin: 09/03/18 10:13 Dose: 81 mg Atorvastatin Calcium (Lipitor) 40 mg PO DIN [facility] Last Admin: 09/02/18 18:32 Dose: 40 mg Clopidogrel Bisulfate (Plavix) 75 mg PO DAILY [facility] Last Admin: 09/03/18 10:13 Dose: 75 mg Heparin Sodium (Porcine) (Heparin) 5,000 units SC Q8 [facility]; Protocol Last Admin: 09/03/18 14:05 Dose: 5,000 units Hydralazine HCl (Apresoline) 10 mg IVP Q6 PRN PRN Reason: SBP>180 Pantoprazole Sodium (Protonix Ec Tab) 40 mg PO 0600 [facility] Last Admin: 09/03/18 05:46 Dose: 40 mg - Labs Labs: 09/03/18 10:30 09/03/18 10:30 PT 11.0 SECONDS (9.4-12.5) 09/02/18 12:15 INR 0.96 09/02/18 12:15 APTT 22.0 Seconds (25.1-36.5) L 09/02/18 12:15 - Constitutional Appears: Non-toxic, No Acute Distress - Head Exam Head Exam: NORMAL INSPECTION, NORMOCEPHALIC - Eye Exam Eye Exam: EOMI, Normal appearance. absent: Nystagmus, Scleral icterus - Respiratory Exam Respiratory Exam: Clear to Ausculation Bilateral, NORMAL BREATHING PATTERN. absent: Rales, Rhonchi, Wheezes, Respiratory Distress - Cardiovascular Exam Cardiovascular Exam: REGULAR RHYTHM, +S1, +S2. absent: Bradycardia, Tachycardia - GI/Abdominal Exam GI & Abdominal Exam: Soft, Normal Bowel Sounds. absent: Distended, Firm, Guarding, Rigid, Tenderness - Extremities Exam Extremities Exam: Normal Inspection. absent: Calf Tenderness, Pedal Edema - Neurological Exam Neurological Exam: Alert, Awake, Oriented x3 - Psychiatric Exam Psychiatric exam: Normal Affect, Normal Mood - Skin Skin Exam: Intact, Normal Color Assessment and Plan - Assessment and Plan (Free Text) Assessment: Patient is a 67 yo female HTN, HLD, NC (s/p 2 stents) presents to hospital for 2 day history of chest pain with associated shortness of breath and dizziness. Plan: Dizziness Cardiology Consulted- Dr. Jackson- recommendations appreciated Orthostatics positive Educated patient on orthostatic hypotension PT eval pending Unlikely medication induced as blood pressure meds held yesterday ACS ruled out: EKG NSR and Trop x 3 <0.01 Hx of NC w/ stent Asa 81 mg po Plavix 75 mg po HTN Hydralazine 10mg IVP q6h prn (SBP>180) Hyperlipidemia Lipitor 40mg po PPx GI ppx- Protonix 40mg po DVT ppx- Heparin 5000 units sc q8 <Zachary Michelle - Last Filed: 09/06/18 16:22> Objective - Vital Signs/Intake and Output Vital Signs (last 24 hours): Temp Pulse Resp BP Pulse Ox 98.4 F 84 20 176/86 H 98 09/04/18 17:44 09/04/18 17:44 09/04/18 17:44 09/04/18 17:44 09/04/18 06:00 - Labs Labs: 09/04/18 06:30 09/04/18 06:30 PT 11.0 SECONDS (9.4-12.5) 09/02/18 12:15 INR 0.96 09/02/18 12:15 APTT 22.0 Seconds (25.1-36.5) L 09/02/18 12:15 Attending/Attestation - Attestation I have personally seen and examined this patient.: Yes I have fully participated in the care of the patient.: Yes I have reviewed all pertinent clinical information, including history, physical exam and plan: Yes Notes (Text): 09/06/18 16:22 ]Medical record note made by the resident after discussion with my direction and input after the patient was personally seen and examined by me. I have reviewed the chart and agree that the record accurately reflects by personal performance of the history, physical exam, data review, and medical decision-making, in the course for the patient. I have also personally directed the plan of care.
--- NOTE | 2018-09-03 23:43 | CON ---
DATE: 09/03/2018 CARDIOLOGY CONSULTATION HISTORY: The patient is a 67-year-old woman, who presents with weakness and dizziness. She denies chest pain. The patient's past medical history includes multivessel PTCA and stent. She underwent her last stent on 08/27/2018, which was a drug-eluting stent placed in the circumflex artery, stents in her LAD are patent, and LV function was normal. Echocardiogram on that admission reveals good LV function with an EF of 67% with mild pulmonary hypertension. There was no aortic stenosis. Currently, the patient is without chest pain, without shortness breath, but complains of dizziness. SOCIAL HISTORY: She denies smoking. REVIEW OF SYSTEMS: A 14-point review of systems is reviewed in detail. Her symptoms are dominated by weakness and dizziness. PHYSICAL EXAMINATION: Blood pressure varies from 132 to 150 systolic, her heart rate is in the 80s. There are periods of 2:1 Wenckebach. Neck: Negative JVD. Lungs: Without rales. Heart: S1 and S2. Extremities: Without edema. LABORATORY DATA: Hemoglobin is 13.6. Chemistries: BUN and creatinine are unremarkable. Troponins are negative x3. The glucose is 124. EKG shows no acute changes. IMPRESSION: 1. Stable angina. 2. No evidence for acute coronary syndrome. 3. Transient episodes of Wenckebach 2:1 heart block. 4. Hypertension. 5. Diabetes mellitus. 6. Hypercholesterolemia. 7. Obesity. 8. Weakness. 9. Dizziness. Given these findings, it is unlikely any of her symptoms are cardiac in nature. Her LV function is normal. There is no acute coronary syndrome. HER heart rhythm is stable. Given these findings, we will need to look for a different cause of her dizziness and weakness. We will obtain carotid ultrasounds. We will monitor on telemetry x24 hours. Duc Jackson MD
[2018-09-04 01:08] VITALS: RESP 20
[2018-09-04] MEDS: Pantoprazole 40 mg EC Tab PO SCH (05:46)
[2018-09-04 06:46] VITALS: O2SAT 98
[2018-09-04 07:10] LABS: BASO # 0.06 K/mm3 (0.0-2.0); BASO % 0.8 % (0.0-3.0); EOS # 0.4 (0.0-0.7); EOS % 5.5 % (1.5-5.0); GRAN # 4.26 (1.4-6.5); HEMOGLOBIN 13.4 g/dL (12.0-16.0); LYMPH # 2.6 (1.2-3.4); LYMPH % 32.8 % (22.0-35.0); MEAN CELL VOLUME 79.8 fl (80.0-105.0); MEAN CORPUSCULAR HEMOGLOBIN 26.5 pg (25.0-35.0); MEAN CORPUSCULAR HGB CONC 33.2 g/dl (31.0-37.0); MEAN PLATELET VOLUME 9.8 fl (7.0-11.0); MONO # 0.5 (0.1-0.6); MONO % 6.9 % (1.0-6.0); RBC 5.06 10^6/uL (3.5-6.1); RED CELL DISTRIBUTION WIDTH 15.7 % (11.5-14.5); WHITE BLOOD COUNT 7.9 10^3/ul (4.5-11.0)
[2018-09-04 07:28] LABS: ALB/GLOB RATIO 1.1 (1.1-1.8); ALBUMIN 3.9 g/dL (3.0-4.8); ALT/SGPT 38 U/L (7-56); AST/SGOT 29 U/L (14-36); BLOOD UREA NITROGEN 13 mg/dL (7-21); CALCIUM 9.3 mg/dL (8.4-10.5); GFR NON-AFRICAN AMERICAN > 60
--- NOTE | 2018-09-04 08:34 | US ---
PROCEDURE: Bilateral carotid artery duplex ultrasound HISTORY: Carotid stenosis dizziness PHYSICIAN(S): Duc Pagan MD. TECHNIQUE: Duplex sonography and color-flow Doppler were used to evaluate the carotid bifurcations and limited segments of the vertebral arteries bilaterally. FINDINGS: The exam is limited by body habitus and tortuous vessels. There is mild diffuse smooth heterogeneous plaque noted at the carotid bifurcations bilaterally. The peak systolic velocity in the proximal right internal carotid artery is 61 cm/sec. This corresponds to a 20 to 39% proximal right ICA stenosis. Normal systolic velocities are noted in the proximal right external carotid artery. There is antegrade flow in the right vertebral artery. The peak systolic velocity in the proximal left internal carotid artery is 77 cm/sec. This corresponds to a 20 to 39% proximal left ICA stenosis. Normal systolic velocities are noted in the proximal left external carotid artery. There is antegrade flow in the left vertebral artery. IMPRESSION: 1. Bilateral 20-39% proximal ICA stenoses. 2. Antegrade flow in both vertebral arteries.
--- NOTE | 2018-09-04 13:33 | CP.PCM.PN ---
<Evelin Bowles - Last Filed: 09/04/18 13:29> Subjective - Date & Time of Evaluation Date of Evaluation: 09/04/18 Time of Evaluation: 11:15 - Subjective Subjective: PGY-1 Medicine Progress note for Dr. Michelle's service Patient seen and examined at bedside. Patient reports decreased dizziness. Patient still reports BILLS with minimal exertion. Patient denies cp, sob, n/v, constipation or diarrhea, dysuria, fevers and chills. Objective - Vital Signs/Intake and Output Vital Signs (last 24 hours): Temp Pulse Resp BP Pulse Ox 97.8 F 78 20 126/57 L 98 09/04/18 06:00 09/04/18 06:00 09/04/18 06:00 09/04/18 06:00 09/04/18 06:00 Intake and Output: 09/04/18 09/04/18 06:59 18:59 Intake Total 480 Output Total 700 Balance -220 - Medications Medications: Current Medications Aspirin (Aspirin Chewable) 81 mg PO DAILY [facility] Last Admin: 09/04/18 10:56 Dose: 81 mg Atorvastatin Calcium (Lipitor) 40 mg PO DIN [facility] Last Admin: 09/03/18 17:57 Dose: 40 mg Clopidogrel Bisulfate (Plavix) 75 mg PO DAILY [facility] Last Admin: 09/04/18 10:56 Dose: 75 mg Heparin Sodium (Porcine) (Heparin) 5,000 units SC Q8 [facility]; Protocol Last Admin: 09/04/18 05:46 Dose: 5,000 units Hydralazine HCl (Apresoline) 10 mg IVP Q6 PRN PRN Reason: SBP>180 Pantoprazole Sodium (Protonix Ec Tab) 40 mg PO 0600 [facility] Last Admin: 09/04/18 05:46 Dose: 40 mg - Labs Labs: 09/04/18 06:30 09/04/18 06:30 PT 11.0 SECONDS (9.4-12.5) 09/02/18 12:15 INR 0.96 09/02/18 12:15 APTT 22.0 Seconds (25.1-36.5) L 09/02/18 12:15 - Constitutional Appears: Non-toxic, No Acute Distress - Head Exam Head Exam: NORMAL INSPECTION, NORMOCEPHALIC - Eye Exam Eye Exam: EOMI, Normal appearance. absent: Nystagmus, Scleral icterus - ENT Exam ENT Exam: Mucous Membranes Moist - Respiratory Exam Respiratory Exam: Clear to Ausculation Bilateral, NORMAL BREATHING PATTERN. absent: Rales, Rhonchi, Wheezes - Cardiovascular Exam Cardiovascular Exam: REGULAR RHYTHM, +S1, +S2. absent: Bradycardia, Tachycardia - GI/Abdominal Exam GI & Abdominal Exam: Soft, Normal Bowel Sounds. absent: Distended, Firm, Guarding, Tenderness - Extremities Exam Extremities Exam: Normal Inspection. absent: Calf Tenderness, Pedal Edema - Neurological Exam Neurological Exam: Alert, Awake, Normal Gait, Oriented x3 - Psychiatric Exam Psychiatric exam: Normal Affect, Normal Mood - Skin Skin Exam: Intact, Normal Color Assessment and Plan - Assessment and Plan (Free Text) Assessment: Patient is a 67 yo female HTN, HLD, CT (s/p 2 stents) presents to hospital for 2 day history of chest pain with associated shortness of breath and dizziness Plan: Dizziness Cardiology Consulted- Dr. Jackson- noncardiac in origin Orthostatics positive Educated patient on orthostatic hypotension PT eval- recommends TCU for strength conditioning ACS ruled out: EKG NSR and Trop x 3 <0.[address] w/ stent Asa 81 mg po Plavix 75 mg po HTN Hydralazine 10mg IVP q6h prn (SBP>180) Hyperlipidemia Lipitor 40mg po PPx GI ppx- Protonix 40mg po DVT ppx- Heparin 5000 units sc q8 <Zachary Michelle - Last Filed: 09/06/18 16:20> Objective - Vital Signs/Intake and Output Vital Signs (last 24 hours): Temp Pulse Resp BP Pulse Ox 98.4 F 84 20 176/86 H 98 09/04/18 17:44 09/04/18 17:44 09/04/18 17:44 09/04/18 17:44 09/04/18 06:00 - Labs Labs: 09/04/18 06:30 09/04/18 06:30 PT 11.0 SECONDS (9.4-12.5) 09/02/18 12:15 INR 0.96 09/02/18 12:15 APTT 22.0 Seconds (25.1-36.5) L 09/02/18 12:15 Attending/Attestation - Attestation I have personally seen and examined this patient.: Yes I have fully participated in the care of the patient.: Yes I have reviewed all pertinent clinical information, including history, physical exam and plan: Yes Notes (Text): 09/06/18 16:20 Medical record note made by the resident after discussion with my direction and input after the patient was personally seen and examined by me. I have reviewed the chart and agree that the record accurately reflects by personal performance of the history, physical exam, data review, and medical decision-making, in the course for the patient. I have also personally directed the plan of care.
--- NOTE | 2018-09-04 16:49 | CP.PCM.DIS ---
<Evelin Bowles - Last Filed: 09/04/18 16:43> Provider - Provider Date of Admission: 09/03/18 13:14 Attending physician: Zachary Michelle MD Primary care physician: Alfonso Villa MD Consults: Dr. Jackson Time Spent in preparation of Discharge (in minutes): 45 Hospital Course - Lab Results Lab Results: Micro Results 09/02/18 12:30 Blood-Venous Blood Culture - Preliminary NO GROWTH AFTER 48 HOURS 09/02/18 12:00 Blood-Venous Blood Culture - Preliminary NO GROWTH AFTER 48 HOURS 09/03/18 09:07 Urine Urine Culture - Final No Growth (<1,000 CFU/ML) Most Recent Lab Values WBC 7.9 10^3/ul (4.5-11.0) 09/04/18 06:30 RBC 5.06 10^6/uL (3.5-6.1) 09/04/18 06:30 Hgb 13.4 g/dL (12.0-16.0) 09/04/18 06:30 Hct 40.4 % (36.0-48.0) 09/04/18 06:30 MCV 79.8 fl (80.0-105.0) L 09/04/18 06:30 MCH 26.5 pg (25.0-35.0) 09/04/18 06:30 MCHC 33.2 g/dl (31.0-37.0) 09/04/18 06:30 RDW 15.7 % (11.5-14.5) H 09/04/18 06:30 Plt Count 242 10^3/uL (120.0-450.0) 09/04/18 06:30 MPV 9.8 fl (7.0-11.0) 09/04/18 06:30 Gran % 54.0 % (50.0-68.0) 09/04/18 06:30 Lymph % (Auto) 32.8 % (22.0-35.0) 09/04/18 06:30 [place] % (Auto) 6.9 % (1.0-6.0) H 09/04/18 06:30 Eos % (Auto) 5.5 % (1.5-5.0) H 09/04/18 06:30 Baso % (Auto) 0.8 % (0.0-3.0) 09/04/18 06:30 Gran # 4.26 (1.4-6.5) 09/04/18 06:30 Lymph # (Auto) 2.6 (1.2-3.4) 09/04/18 06:30 [place] # (Auto) 0.5 (0.1-0.6) 09/04/18 06:30 Eos # (Auto) 0.4 (0.0-0.7) 09/04/18 06:30 Baso # (Auto) 0.06 K/mm3 (0.0-2.0) 09/04/18 06:30 PT 11.0 SECONDS (9.4-12.5) 09/02/18 12:15 INR 0.96 09/02/18 12:15 APTT 22.0 Seconds (25.1-36.5) L 09/02/18 12:15 D-Dimer, Quantitative 348 ng/mlDDU (0-243) H 09/02/18 12:15 pO2 28 mm/Hg (30-55) L 09/02/18 12:40 VBG pH 7.39 (7.32-7.43) 09/02/18 12:40 VBG pCO2 46.0 (40-60) 09/02/18 12:40 VBG HCO3 27.8 mmol/l (21-28) 09/02/18 12:40 VBG Total CO2 29.2 mmol.L (22-28) H 09/02/18 12:40 VBG O2 Sat (Calc) 56.1 % (40-65) 09/02/18 12:40 VBG Base Excess 2.2 mmol/L (0.0-2.0) H 09/02/18 12:40 VBG Potassium 3.9 mmol/L (3.6-5.2) 09/02/18 12:40 Sodium 138.0 mmol/L (132-148) 09/02/18 12:40 Chloride 104.0 mmol/L (98-107) 09/02/18 12:40 Glucose 94 mg/dl (65-105) 09/02/18 12:40 Lactate 1.7 mmol/L (0.7-2.1) 09/02/18 12:40 FiO2 21.0 % 09/02/18 12:40 Sodium 141 mmol/L (132-148) 09/04/18 06:30 Potassium 4.0 mmol/L (3.6-5.0) 09/04/18 06:30 Chloride 104 mmol/L (98-107) 09/04/18 06:30 Carbon Dioxide 28 mmol/L (21-33) 09/04/18 06:30 Anion Gap 13 (10-20) 09/04/18 06:30 BUN 13 mg/dL (7-21) 09/04/18 06:30 Creatinine 0.9 mg/dl (0.7-1.2) 09/04/18 06:30 Est GFR ( Amer) > 60 09/04/18 06:30 Est GFR (Non-Af Amer) > 60 09/04/18 06:30 Random Glucose 110 mg/dL (70-110) 09/04/18 06:30 Calcium 9.3 mg/dL (8.4-10.5) 09/04/18 06:30 Magnesium 2.0 mg/dL (1.7-2.2) 09/02/18 12:15 Total Bilirubin 0.7 mg/dL (0.2-1.3) 09/04/18 06:30 AST 29 U/L (14-36) 09/04/18 06:30 ALT 38 U/L (7-56) 09/04/18 06:30 Alkaline Phosphatase 133 U/L (38-126) H 09/04/18 06:30 Lactate Dehydrogenase 657 U/L (333-699) 09/02/18 12:15 Total Creatine Kinase 72 U/L (35-230) 09/02/18 12:15 Troponin I < 0.01 ng/mL 09/03/18 00:25 NT-Pro-B Natriuret Pep 197 pg/mL (0-450) 09/02/18 12:15 Total Protein 7.6 g/dL (5.8-8.3) 09/04/18 06:30 Albumin 3.9 g/dL (3.0-4.8) 09/04/18 06:30 Globulin 3.7 gm/dL 09/04/18 06:30 Albumin/Globulin Ratio 1.1 (1.1-1.8) 09/04/18 06:30 Venous Blood Potassium 3.9 mmol/L (3.6-5.2) 09/02/18 12:40 Urine Color Yellow (YELLOW) 09/03/18 09:07 Urine Appearance Clear (CLEAR) 09/03/18 09:07 Urine pH 5.5 (4.7-8.0) 09/03/18 09:07 Ur Specific [place] 1.025 (1.005-1.035) 09/03/18 09:07 Urine Protein Negative mg/dL (<30 mg/dL) 09/03/18 09:07 Urine Glucose (UA) Negative mg/dL (NEGATIVE) 09/03/18 09:07 Urine Ketones Negative mg/dL (NEGATIVE) 09/03/18 09:07 Urine Blood Negative (NEGATIVE) 09/03/18 09:07 Urine Nitrate Negative (NEGATIVE) 09/03/18 09:07 Urine Bilirubin Negative (NEGATIVE) 09/03/18 09:07 Urine Urobilinogen 0.2 E.U./dL (<1 E.U./dL) 09/03/18 09:07 Ur Leukocyte Esterase Negative Moy/uL (NEGATIVE) 09/03/18 09:07 Urine Opiates Screen Negative (NEGATIVE) 09/03/18 10:00 Urine Methadone Screen Negative (NEGATIVE) 09/03/18 10:00 Ur Barbiturates Screen Negative (NEGATIVE) 09/03/18 10:00 Ur Phencyclidine Scrn Negative (NEGATIVE) 09/03/18 10:00 Ur Amphetamines Screen Negative (NEGATIVE) 09/03/18 10:00 U Benzodiazepines Scrn Negative (NEGATIVE) 09/03/18 10:00 U Oth Cocaine Metabols Negative (NEGATIVE) 09/03/18 10:00 U Cannabinoids Screen Negative (NEGATIVE) 09/03/18 10:00 - Hospital Course Hospital Course: Upon admission Patient is a 67 yo female with PMH of HTN, [place] (stent 2015, 2018), HLD presents to hospital for 2 day history of chest pain with associated shortness of breath. Chest pain is waxing and waning,non-radiating, localized in the midsternal and left chest. Patient presented to the ED for similar symptoms on 08/26/2018, during which time she was found to be bradycardic. She was admitted and cardiac cath was performed with drug eluting stent placed in left circumflex artery. Patient was discharged on 08/29/2018 with recommendations to stop use of Bystolic and to f/u with PMD and cardiology outpatient. Patient was being seen by her PMD, Dr. Villa, today, during which time she complained of shortness of breath worsened with exertion and associated chest pressure and dizziness. She was sent to the ED from the office. Patient reports that her shortness of breath has been present since prior to previous admission. She describes it as being like someone is squeezing my chest. She has had difficulty walking more than a few steps due to symptoms. Shortness of breath and chest pain resolve with rest. Patient denies waking up gasping for air. In addition, she has had intermittent episodes of dizziness, which she believes is due to standing too quickly. Patient denies fevers, chills, headaches,lightheadedness, cough, n/v, constipation or diarrhea currently. Hospital Course 67 year old female admitted for dizziness with associated SOB. EKG and serial troponins obtained to r/o ACS. EKG resulted normal sinus rhythm. Serial troponins resulted WNL. Patient had cardiac cath with drug eluting stent placement in the LCX one week ago. D-dimer was elevated. Chest CT with contrast was obtained and resulted no signs of pulmonary embolism. Orthostatics found to be positive, unlikely to be secondary to medications as HTN medications were held on admission. Patient counseled on standing slowly, discontinued low salt diet, and recommended increasing daily fluid intake. Carotid artery duplex resulted bilateral 20-39% proximal ICA stenosis, anterograde flow in both vertebral arteries. Cardiology, Dr. Jackson, was consulted. As per cardiology, symptoms were unlikely of cardiac origin, recommended to monitor patient on tele for 24 hours. PT was consulted, and recommended that patient be admitted to TCU for strength conditioning. Discharge plan Patient is stable for discharge to TCU as per Dr. Michelle. She was counseled to return to the emergency department if symptoms return or worsen. Patient is to follow up with primary medical doctor, Dr. Villa, within 3-5 days of discharge. Patient is to follow up with cardiology, Dr. Jackson, within 3-5 days of discharge. Patient is continue Hydralazine Hcl PRN for systolic BP is greater than 180. Patient is to continue the following medications, Aspirin, Lipitor, Plavix as prescribed and instructed in discharge instructions. Reviewed all medications with patient, and she understands instructions. Educated patient on standing slowly, discontinuing low sodium diet, and increasing fluid intake to prevent dizziness and orthostatic hypotension episodes. Patient understands and agrees with discharge plan. Disclaimer: Written above is a synopsis of patient's current hospital admission. For full report refer to EMR. Discharge Exam - Head Exam Head Exam: NORMAL INSPECTION, NORMOCEPHALIC - Eye Exam Eye Exam: EOMI, Normal appearance. absent: Nystagmus, Scleral icterus - ENT Exam ENT Exam: Mucous Membranes Moist - Respiratory Exam Respiratory Exam: NORMAL BREATHING PATTERN. absent: Rales, Rhonchi, Wheezes, Respiratory Distress - Cardiovascular Exam Cardiovascular Exam: REGULAR RHYTHM, +S1, +S2. absent: Bradycardia, Tachycardia - GI/Abdominal Exam GI & Abdominal Exam: Normal Bowel Sounds, Soft. absent: Distended, Firm, Guarding - Neurological Exam Neurological exam: Alert, Oriented x3 - Psychiatric Exam Psychiatric exam: Normal Affect, Normal Mood - Skin Skin Exam: Intact, Normal Color Discharge Plan - Follow Up Plan Condition: STABLE Disposition: TRANSF TO SNF Instructions: DASH Diet, High Blood Pressure (DC), Vertigo (a Type of Dizziness) (DC), Chest Pain (DC) Referrals: Alfonso Villa MD [Primary Care Provider] - <Zachary Michelle - Last Filed: 09/06/18 16:20> Provider - Provider Date of Admission: 09/02/18 16:02 Attending physician: Zachary Michelle MD Primary care physician: Alfonso Villa MD Hospital Course - Lab Results Lab Results: Micro Results 09/02/18 12:30 Blood-Venous Blood Culture - Preliminary NO GROWTH AFTER 4 DAYS 09/02/18 12:00 Blood-Venous Blood Culture - Preliminary NO GROWTH AFTER 4 DAYS 09/03/18 09:07 Urine Urine Culture - Final No Growth (<1,000 CFU/ML) Most Recent Lab Values WBC 7.9 10^3/ul (4.5-11.0) 09/04/18 06:30 RBC 5.06 10^6/uL (3.5-6.1) 09/04/18 06:30 Hgb 13.4 g/dL (12.0-16.0) 09/04/18 06:30 Hct 40.4 % (36.0-48.0) 09/04/18 06:30 MCV 79.8 fl (80.0-105.0) L 09/04/18 06:30 MCH 26.5 pg (25.0-35.0) 09/04/18 06:30 MCHC 33.2 g/dl (31.0-37.0) 09/04/18 06:30 RDW 15.7 % (11.5-14.5) H 09/04/18 06:30 Plt Count 242 10^3/uL (120.0-450.0) 09/04/18 06:30 MPV 9.8 fl (7.0-11.0) 09/04/18 06:30 Gran % 54.0 % (50.0-68.0) 09/04/18 06:30 Lymph % (Auto) 32.8 % (22.0-35.0) 09/04/18 06:30 [place] % (Auto) 6.9 % (1.0-6.0) H 09/04/18 06:30 Eos % (Auto) 5.5 % (1.5-5.0) H 09/04/18 06:30 Baso % (Auto) 0.8 % (0.0-3.0) 09/04/18 06:30 Gran # 4.26 (1.4-6.5) 09/04/18 06:30 Lymph # (Auto) 2.6 (1.2-3.4) 09/04/18 06:30 [place] # (Auto) 0.5 (0.1-0.6) 09/04/18 06:30 Eos # (Auto) 0.4 (0.0-0.7) 09/04/18 06:30 Baso # (Auto) 0.06 K/mm3 (0.0-2.0) 09/04/18 06:30 PT 11.0 SECONDS (9.4-12.5) 09/02/18 12:15 INR 0.96 09/02/18 12:15 APTT 22.0 Seconds (25.1-36.5) L 09/02/18 12:15 D-Dimer, Quantitative 348 ng/mlDDU (0-243) H 09/02/18 12:15 pO2 28 mm/Hg (30-55) L 09/02/18 12:40 VBG pH 7.39 (7.32-7.43) 09/02/18 12:40 VBG pCO2 46.0 (40-60) 09/02/18 12:40 VBG HCO3 27.8 mmol/l (21-28) 09/02/18 12:40 VBG Total CO2 29.2 mmol.L (22-28) H 09/02/18 12:40 VBG O2 Sat (Calc) 56.1 % (40-65) 09/02/18 12:40 VBG Base Excess 2.2 mmol/L (0.0-2.0) H 09/02/18 12:40 VBG Potassium 3.9 mmol/L (3.6-5.2) 09/02/18 12:40 Sodium 138.0 mmol/L (132-148) 09/02/18 12:40 Chloride 104.0 mmol/L (98-107) 09/02/18 12:40 Glucose 94 mg/dl (65-105) 09/02/18 12:40 Lactate 1.7 mmol/L (0.7-2.1) 09/02/18 12:40 FiO2 21.0 % 09/02/18 12:40 Sodium 141 mmol/L (132-148) 09/04/18 06:30 Potassium 4.0 mmol/L (3.6-5.0) 09/04/18 06:30 Chloride 104 mmol/L (98-107) 09/04/18 06:30 Carbon Dioxide 28 mmol/L (21-33) 09/04/18 06:30 Anion Gap 13 (10-20) 09/04/18 06:30 BUN 13 mg/dL (7-21) 09/04/18 06:30 Creatinine 0.9 mg/dl (0.7-1.2) 09/04/18 06:30 Est GFR ( Amer) > 60 09/04/18 06:30 Est GFR (Non-Af Amer) > 60 09/04/18 06:30 Random Glucose 110 mg/dL (70-110) 09/04/18 06:30 Calcium 9.3 mg/dL (8.4-10.5) 09/04/18 06:30 Magnesium 2.0 mg/dL (1.7-2.2) 09/02/18 12:15 Total Bilirubin 0.7 mg/dL (0.2-1.3) 09/04/18 06:30 AST 29 U/L (14-36) 09/04/18 06:30 ALT 38 U/L (7-56) 09/04/18 06:30 Alkaline Phosphatase 133 U/L (38-126) H 09/04/18 06:30 Lactate Dehydrogenase 657 U/L (333-699) 09/02/18 12:15 Total Creatine Kinase 72 U/L (35-230) 09/02/18 12:15 Troponin I < 0.01 ng/mL 09/03/18 00:25 NT-Pro-B Natriuret Pep 197 pg/mL (0-450) 09/02/18 12:15 Total Protein 7.6 g/dL (5.8-8.3) 09/04/18 06:30 Albumin 3.9 g/dL (3.0-4.8) 09/04/18 06:30 Globulin 3.7 gm/dL 09/04/18 06:30 Albumin/Globulin Ratio 1.1 (1.1-1.8) 09/04/18 06:30 Venous Blood Potassium 3.9 mmol/L (3.6-5.2) 09/02/18 12:40 Urine Color Yellow (YELLOW) 09/03/18 09:07 Urine Appearance Clear (CLEAR) 09/03/18 09:07 Urine pH 5.5 (4.7-8.0) 09/03/18 09:07 Ur Specific [place] 1.025 (1.005-1.035) 09/03/18 09:07 Urine Protein Negative mg/dL (<30 mg/dL) 09/03/18 09:07 Urine Glucose (UA) Negative mg/dL (NEGATIVE) 09/03/18 09:07 Urine Ketones Negative mg/dL (NEGATIVE) 09/03/18 09:07 Urine Blood Negative (NEGATIVE) 09/03/18 09:07 Urine Nitrate Negative (NEGATIVE) 09/03/18 09:07 Urine Bilirubin Negative (NEGATIVE) 09/03/18 09:07 Urine Urobilinogen 0.2 E.U./dL (<1 E.U./dL) 09/03/18 09:07 Ur Leukocyte Esterase Negative Moy/uL (NEGATIVE) 09/03/18 09:07 Urine Opiates Screen Negative (NEGATIVE) 09/03/18 10:00 Urine Methadone Screen Negative (NEGATIVE) 09/03/18 10:00 Ur Barbiturates Screen Negative (NEGATIVE) 09/03/18 10:00 Ur Phencyclidine Scrn Negative (NEGATIVE) 09/03/18 10:00 Ur Amphetamines Screen Negative (NEGATIVE) 09/03/18 10:00 U Benzodiazepines Scrn Negative (NEGATIVE) 09/03/18 10:00 U Oth Cocaine Metabols Negative (NEGATIVE) 09/03/18 10:00 U Cannabinoids Screen Negative (NEGATIVE) 09/03/18 10:00 Attending/Attestation - Attestation I have personally seen and examined this patient.: Yes I have fully participated in the care of the patient.: Yes I have reviewed all pertinent clinical information, including history, physical exam and plan: Yes Notes (Text): 09/06/18 16:15 Medical record note made by the resident after discussion with my direction and input after the patient was personally seen and examined by me. I have reviewed the chart and agree that the record accurately reflects by personal performance of the history, physical exam, data review, and medical decision-making, in the course for the patient. I have also personally directed the plan of care. 67 yrs old female with PMH of CAD,SP Cardiac stent, last stent was on 08/27/18 ,HTN and Obesity was admitted with atypical chest pain and dizziness with standing and change of position. Patient was found to have orthostatic hypotension. EKG was negative for ischemic changes.Serial troponins were normal.Patient was evaluated by cardiology and no further work up was recommended. Patient was ataxic.She was evaluated by physical therapy .TCU has been recommended.She will be discharged to TCU for rehabilitation. Dizziness has improved. Management plan was discussed in detail with patient. Education was provided.
[2018-09-04 17:45] VITALS: BP 176/86; PULSE 84; TEMP 98.4
== END 2018-09-04 19:35 ==
LOC: ED 11:19 → OBSVTOIN 16:02 → INTOOBSV 16:02 → ERH 16:02 → 2RSO 17:10 → OBSVTOIN 09-03 13:14 → INTOOBSV 09-03 13:14
PROVIDERS: ADMIT Internal Medicine; ATTEND Internal Medicine
DX: I20.8 Other forms of angina pectoris (principal); I10 Essential (primary) hypertension; I27.20 Pulmonary hypertension, unspecified; E78.00 Pure hypercholesterolemia, unspecified; E11.9 Type 2 diabetes mellitus without complications; E78.5 Hyperlipidemia, unspecified; I65.29 Occlusion and stenosis of unspecified carotid artery; I25.2 Old myocardial infarction; E66.9 Obesity, unspecified; Z68.33 Body mass index [BMI] 33.0-33.9, adult; Z95.5 Presence of coronary angioplasty implant and graft
CPT/HCPCS: 36415; 71275; 80053; 81003; 82550; 82803; 83615; 83735; 83880; 84484; 85025; 85378; 85610; 85730; 87040; 87086; 93005; 93880; 97162; 97530; 99285; G0378; G0480; G8978; G8979; J1644; Q9967

== ENCOUNTER 2018-09-04 19:35 | Inpatient (IN) | payer BC, OTHER ==
[2018-09-05 01:02] VITALS: BMI 34.0
[2018-09-05] MEDS: Pantoprazole 40 mg EC Tab PO SCH (05:11)
[2018-09-05 06:08] LABS: BASO # 0.08 K/mm3 (0.0-2.0); EOS # 0.4 (0.0-0.7); EOS % 5.6 % (1.5-5.0); GRAN # 4.39 (1.4-6.5); GRAN % 55.7 % (50.0-68.0); HEMOGLOBIN 13.2 g/dL (12.0-16.0); LYMPH # 2.3 (1.2-3.4); LYMPH % 28.6 % (22.0-35.0); MEAN CELL VOLUME 79.5 fl (80.0-105.0); MEAN CORPUSCULAR HEMOGLOBIN 25.2 pg (25.0-35.0); MEAN CORPUSCULAR HGB CONC 31.7 g/dl (31.0-37.0); MEAN PLATELET VOLUME 9.9 fl (7.0-11.0); MONO # 0.7 (0.1-0.6); MONO % 9.1 % (1.0-6.0); RBC 5.23 10^6/uL (3.5-6.1); RED CELL DISTRIBUTION WIDTH 15.6 % (11.5-14.5); WHITE BLOOD COUNT 7.9 10^3/ul (4.5-11.0)
[2018-09-05 06:54] LABS: ALB/GLOB RATIO 1.1 (1.1-1.8); ALBUMIN 4.1 g/dL (3.0-4.8); ALT/SGPT 41 U/L (7-56); AST/SGOT 34 U/L (14-36); BLOOD UREA NITROGEN 14 mg/dL (7-21); CALCIUM 9.9 mg/dL (8.4-10.5); GFR NON-AFRICAN AMERICAN > 60
--- NOTE | 2018-09-05 14:46 | CP.PCM.HP ---
<Evelin Bowles - Last Filed: 09/05/18 14:43> History of Present Illness - History of Present Illness History of Present Illness: PGY-1 Medicine H&P for Dr. Michelle's service CC: BILLS 67 year old female w/ PMH of HTN, [place] (stent 2016, 2018), HLD presents to hospital for 2 day history of chest pain with associated shortness of breath and dizziness. EKG and serial troponins obtained to r/o ACS. EKG resulted normal sinus rhythm. Serial troponins resulted WNL. Patient had cardiac cath with drug eluting stent placement in the LCX w/in past month. D-dimer was elevated. Chest CT with contrast was obtained and resulted no signs of pulmonary embolism. Orthostatics found to be positive, unlikely to be secondary to medications as HTN medications were held on admission. Patient counseled on standing slowly, discontinued low salt diet, and recommended increasing daily fluid intake. Carotid artery duplex resulted bilateral 20-39% proximal ICA stenosis, anterograde flow in both vertebral arteries. Cardiology, Dr. Jackson, was consulted. As per cardiology, symptoms were unlikely of cardiac origin, recommended to monitor patient on tele for 24 hours. PT was consulted, and recommended that patient be admitted to TCU for strength conditioning. Patient was transferred to TCU for further PT prior to discharge. Patient denies fevers, chills, cp, sob, n/v, constipation or diarrhea, dysuria, headaches. PMH- HTN, [place](stent 2016), HLD, [place] (stent placed in LCX 2018)) PSH- knee arthroscopy (2014) FH- Mom and GM (heart disease requring pacemaker) Meds- Aspirin 81mg po daily, Hydralazine 25mg po tid, Protonix 40mg po, Plavix 75mg po daily, Lipitor 40mg po Alls- NKDA PMD- [employer]- [place] Code- Full Code Present on Admission - Present on Admission Any Indicators Present on Admission: No Review of Systems - Review of Systems Review of Systems: 12 point ROS obtained and noted in HPI Past Patient History - Infectious Disease Hx of Infectious Diseases: None - Past Social History Smoking Status: Never Smoked - CARDIAC Hx Cardiac Disorders: Yes Hx Hypercholesterolemia: Yes Hx Hypertension: Yes - PULMONARY Hx Respiratory Disorders: Yes Other/Comment: H/O OF CARBON MONOXIDE POISONING - NEUROLOGICAL Hx Neurological Disorder: Yes Hx Dizziness: Yes (VERTIGO) - HEENT Hx HEENT Problems: No - RENAL Hx Chronic Kidney Disease: No - ENDOCRINE/METABOLIC Hx Diabetes Mellitus Type 2: Yes - HEMATOLOGICAL/ONCOLOGICAL Hx Blood Disorders: No - INTEGUMENTARY Hx Dermatological Problems: No - MUSCULOSKELETAL/RHEUMATOLOGICAL Hx Arthritis: Yes - GASTROINTESTINAL Hx Gastrointestinal Disorders: Yes Hx Diverticulitis: Yes Other/Comment: CHRONIC CONSTIPATION - GENITOURINARY/GYNECOLOGICAL Hx Reproductive Disorders: Yes - PSYCHIATRIC Hx Psychophysiologic Disorder: No Hx Substance Use: No - SURGICAL HISTORY Hx Cardiac Catheterization: Yes Hx Coronary Stent: Yes (X3) Hx Orthopedic Surgery: Yes (left knee 01/2016) - ANESTHESIA Hx Anesthesia: Yes Hx Anesthesia Reactions: No Hx Malignant Hyperthermia: No Meds Allergies/Adverse Reactions: Allergies Allergy/AdvReac Type Severity Reaction Status Date / Time No Known Allergies Allergy Verified 09/05/18 04:43 Physical Exam - Constitutional Appears: Non-toxic, No Acute Distress - Head Exam Head Exam: NORMAL INSPECTION, NORMOCEPHALIC - Eye Exam Eye Exam: EOMI, Normal appearance. absent: Nystagmus, Scleral icterus - ENT Exam ENT Exam: Mucous Membranes Moist - Respiratory Exam Respiratory Exam: Clear to Auscultation Bilateral, NORMAL BREATHING PATTERN. absent: Rales, Rhonchi, Wheezes, Respiratory Distress - Cardiovascular Exam Cardiovascular Exam: REGULAR RHYTHM, +S1, +S2. absent: Bradycardia, Tachycardia, Systolic Murmur - GI/Abdominal Exam GI & Abdominal Exam: Normal Bowel Sounds, Soft. absent: Distended, Firm, Guarding, Rebound - Extremities Exam Extremities exam: Positive for: normal inspection. Negative for: calf tenderness, pedal edema - Neurological Exam Neurological exam: Alert, Oriented x3 - Psychiatric Exam Psychiatric exam: Normal Affect, Normal Mood - Skin Skin Exam: Intact, Normal Color Results - Vital Signs Recent Vital Signs: Last Vital Signs Temp 97.7 F 09/05/18 10:00 Pulse 79 09/05/18 10:00 Resp 18 09/05/18 10:00 BP 168/92 H 09/05/18 10:00 Pulse Ox 95 09/05/18 10:00 - Labs Result Diagrams: 09/05/18 05:45 09/05/18 05:45 Labs: Laboratory Results - last 24 hr 09/05/18 09/05/18 05:45 05:45 WBC 7.9 RBC 5.23 Hgb 13.2 Hct 41.6 MCV 79.5 L MCH 25.2 MCHC 31.7 RDW 15.6 H Plt Count 260 MPV 9.9 Gran % 55.7 Lymph % (Auto) 28.6 [place] % (Auto) 9.1 H Eos % (Auto) 5.6 H Baso % (Auto) 1.0 Gran # 4.39 Lymph # (Auto) 2.3 [place] # (Auto) 0.7 H Eos # (Auto) 0.4 Baso # (Auto) 0.08 Sodium 142 Potassium 4.9 Chloride 107 Carbon Dioxide 25 Anion Gap 15 BUN 14 Creatinine 0.8 Est GFR ( Amer) > 60 Est GFR (Non-Af Amer) > 60 Random Glucose 106 Calcium 9.9 Total Bilirubin 0.7 AST 34 ALT 41 Alkaline Phosphatase 141 H Total Protein 7.8 Albumin 4.1 Globulin 3.7 Albumin/Globulin Ratio 1.1 Assessment & Plan - Assessment and Plan (Free Text) Assessment: Patient is a 67 yo female presents to hospital for 2 day history of chest pain with associated shortness of breath and dizziness. Plan: Chest pain r/o ACS Cardiology consulted- Dr. Jackson- noncardiac in nature EKG normal sinus rhythm Trop x 3 <0.01; Cardiac cath done approximately 1 week ago with stent placement in LCX artery Chest CT with contrast- No signs of P.E; elevated D-dimer Hx of DC w/ stent Asa 81 mg po Plavix 75 mg po Hx of HTN Hydralazine 25mg po tid Hyperlipidemia Lipitor 40mg po PPx GI ppx- Protonix 40mg po DVT ppx- Heparin 5000 units sc q8 Dispo Patient requires physical therapy in TCU for deconditioning prior to discharge. D/C as per TCU. patient medically clear Medical Management discussed with Dr. Michelle PGY-1 Evelin Bowles <Zachary Michelle - Last Filed: 09/06/18 16:22> Results - Vital Signs Recent Vital Signs: Last Vital Signs Temp 98.2 F 09/06/18 11:23 Pulse 83 09/06/18 11:23 Resp 18 09/06/18 11:23 BP 159/82 H 09/06/18 14:53 Pulse Ox 97 09/06/18 11:23 - Labs Result Diagrams: 09/05/18 05:45 09/05/18 05:45 Labs: Laboratory Results - last 24 hr 09/06/18 09:00 TSH 3rd Generation 2.53 Attending/Attestation - Attestation I have personally seen and examined this patient.: Yes I have fully participated in the care of the patient.: Yes I have reviewed all pertinent clinical information: Yes Notes (Text): 09/06/18 16:21 Medical record note made by the resident after discussion with my direction and input after the patient was personally seen and examined by me. I have reviewed the chart and agree that the record accurately reflects by personal performance of the history, physical exam, data review, and medical decision-making, in the course for the patient. I have also personally directed the plan of care. 67 yrs old female with PMH of CAD,SP Cardiac stent, last stent was on 08/27/18 ,HTN and Obesity was admitted with atypical chest pain and dizziness with standing and change of position.CT angio chest was negative for Pulnmonary embolism.EKG was negative for ischemic changes.Serial troponins were normal.Patient was evaluated by cardiology and no further work up was recommended. Patient was found to have orthostatic hypotension. Patient was ataxic.She was evaluated by physical therapy .TCU has been recommended.She will be admitted to TCU for rehabilitation. Dizziness has improved. Blood pressure is running high, will start on Hydralazine . Management plan was discussed in detail with patient. Education was provided.
--- NOTE | 2018-09-05 16:51 | CARD ---
APPROVED REPORT Date of service: 09/05/2018 EKG Measurement Heart [id number] <Conclusion> Sinus rhythm with 1st degree AV block Otherwise normal ECG
--- NOTE | 2018-09-05 21:04 | CON ---
DATE OF CONSULTATION: 09/05/2018 REASON FOR CONSULTATION: Congestive heart failure. HISTORY OF PRESENT ILLNESS: The patient is a 67-year-old female who has a history of coronary artery disease, status post small 5-vessel PTCA stenting. The most recent stent was 08/27/2018 with a drug-eluting stent to the circumflex artery. At that time, the patient was found to have a patent LAD stent and low ejection fraction. The patient was initially admitted because of chest discomfort and was found to have transient episodes of Mobitz 1 secondary AV block. The patient did experience dizziness prior to her admission and was transferred from her primary physician's office to the emergency room. The patient did exercise today and reports no dizziness. SOCIAL HISTORY: Nonsmoker, nondrinker. MEDICATIONS: Hydralazine 25 mg 4 times a day, aspirin 81 mg once a day, Plavix 75 mg once a day, Lipitor 40 mg one a day, Protonix 40 mg p.o. once a day REVIEW OF SYSTEMS: No nausea or vomiting. No fever or chills. PHYSICAL EXAMINATION: The patient is an elderly female, who does not appear to be in acute distress. VITAL SIGNS: Blood pressure 168/92, heart rate 79, temperature 97.7, respiration 18. HEENT: Normocephalic. CHEST: Clear. HEART: S1, S2 regular. ABDOMEN: Soft. EXTREMITIES: No edema. LABORATORY DATA: Hemoglobin and hematocrit 13.1 and 41.6, white count 7.9, platelet count 160,000. Today's SMA-7, sodium 142, potassium 4.9, chloride 107, CO2 of 25, glucose 106, BUN 14, creatinine 0.8. Three sets of troponins during the patient's admission 3 days ago were negative. Carotid Doppler was unremarkable except for bilateral 20-39% proximal internal carotid artery stenosis. EKG on admission revealed normal sinus rhythm on 09/02/2018. ASSESSMENT: 1. Coronary artery disease with recent circumflex artery stenting with patent left anterior descending stent. 2. Period of Mobitz 1 secondary atrioventricular block associated with dizziness. 3. Hypertension. PLAN: The patient is to continue hydralazine 25 mg four times a day, aspirin 81 mg once a day, Lipitor 40 mg once a day, subcutaneous heparin 5000 units every 8 hours, Plavix 75 mg once a day. Obtain a 12-lead EKG as well as TSH level. Mingo Morton MD [facility] # [id number]
[2018-09-06] MEDS: Pantoprazole 40 mg EC Tab PO SCH (05:41)
--- NOTE | 2018-09-06 12:06 | PN ---
DATE: 09/06/2018 SUBJECTIVE: The patient denies any dizziness. She is currently in the gym. She is reporting constipation. PHYSICAL EXAMINATION: VITAL SIGNS: Blood pressure 138/73, heart rate 83, temperature 98.2, respirations 18. HEENT: Normocephalic. CHEST: Clear. HEART: S1 and S2 regular. ABDOMEN: Soft. EXTREMITIES: No edema. EKG done yesterday revealed sinus rhythm with first-degree AV block. ASSESSMENT: 1. Coronary artery disease with recent coronary artery stenting to the circumflex artery with known patent left anterior descending stent. 2. Dizziness and Mobitz type 1 second-degree atrioventricular block on admission. 3. Uncontrolled hypertension. 4. Constipation. RECOMMENDATIONS: Continue aspirin 81 mg once a day, Colace at 100 mg t.i.d. was started today. Continue subcutaneous heparin 500 units every 8 hours, Lipitor at 40 mg once a day, Plavix 75 mg once a day. I will increase hydralazine to 50 mg t.i.d. Mingo Morton MD
[2018-09-07] MEDS: Pantoprazole 40 mg EC Tab PO SCH (05:37)
--- NOTE | 2018-09-07 07:03 | CP.PCM.PN ---
<Evelin Bowles - Last Filed: 09/07/18 11:41> Subjective - Date & Time of Evaluation Date of Evaluation: 09/07/18 Time of Evaluation: 11:00 - Subjective Subjective: PGY-1 Medicine Progress note for Dr. Michelle's service Patient seen and examined in TCU during PT session. Patient offers no acute complaints. Patient denies dizziness, sob, fevers, chills, chest pain, n/v, constipation or diarrhea. Objective - Vital Signs/Intake and Output Vital Signs (last 24 hours): Temp Pulse Resp BP Pulse Ox 97.8 F 44 L 18 145/65 93 L 09/06/18 16:00 09/06/18 16:00 09/06/18 16:00 09/06/18 17:28 09/06/18 16:00 Intake and Output: 09/07/18 09/07/18 06:59 18:59 Intake Total 380 Balance 380 - Medications Medications: Current Medications Aspirin (Aspirin Chewable) 81 mg PO DAILY [facility]; Protocol Last Admin: 09/06/18 10:01 Dose: 81 mg Atorvastatin Calcium (Lipitor) 40 mg PO DIN [facility]; Protocol Last Admin: 09/06/18 17:29 Dose: 40 mg Clopidogrel Bisulfate (Plavix) 75 mg PO DAILY [facility]; Protocol Last Admin: 09/06/18 10:01 Dose: 75 mg Docusate Sodium (Colace) 100 mg PO TID [facility] Last Admin: 09/06/18 17:28 Dose: 100 mg Heparin Sodium (Porcine) (Heparin) 5,000 units SC Q8 [facility]; Protocol Last Admin: 09/07/18 05:37 Dose: 5,000 units Hydralazine HCl (Apresoline) 25 mg PO TID [facility] Last Admin: 09/06/18 17:28 Dose: 25 mg Pantoprazole Sodium (Protonix Ec Tab) 40 mg PO 0600 [facility]; Protocol Last Admin: 09/07/18 05:37 Dose: 40 mg - Labs Labs: 09/05/18 05:45 09/05/18 05:45 - Constitutional Appears: Non-toxic, No Acute Distress - Head Exam Head Exam: NORMAL INSPECTION, NORMOCEPHALIC - Eye Exam Eye Exam: EOMI, Normal appearance. absent: Nystagmus, Scleral icterus - ENT Exam ENT Exam: Mucous Membranes Moist - Respiratory Exam Respiratory Exam: Clear to Ausculation Bilateral, NORMAL BREATHING PATTERN. absent: Rales, Rhonchi, Wheezes - Cardiovascular Exam Cardiovascular Exam: REGULAR RHYTHM, +S1, +S2. absent: Bradycardia, Tachycardia, JVD, Murmur - GI/Abdominal Exam GI & Abdominal Exam: Soft, Normal Bowel Sounds. absent: Distended, Firm, Guarding, Tenderness - Neurological Exam Neurological Exam: Alert, Awake, Oriented x3 - Psychiatric Exam Psychiatric exam: Normal Affect, Normal Mood - Skin Skin Exam: Dry, Intact Assessment and Plan - Assessment and Plan (Free Text) Assessment: Patient is a 67 yo w/PMH of [place] (s/p 2 stents), [place], HTN female presents to hospital for evaluation of chest pain and dizziness. Patient pain and dizziness non cardiac in origin. Patient transferred to TCU for further rehab. Plan: Chest pain r/o ACS Cardiology consulted- Dr. Jackson- noncardiac in nature EKG normal sinus rhythm Trop x 3 <0.01; Cardiac cath done approximately 1 week ago with stent placement in LCX artery Chest CT with contrast- No signs of P.E; elevated D-dimer Hx of OR w/ stent Asa 81 mg po Plavix 75 mg po Hx of HTN Hydralazine 25mg po tid Hyperlipidemia Lipitor 40mg po PPx GI ppx- Protonix 40mg po DVT ppx- Heparin 5000 units sc q8 Dispo Patient requires physical therapy in TCU for deconditioning prior to discharge. D/C as per TCU. patient medically clear Medical Management discussed with Dr. Michelle PGY-1 Evelin Bowles <Zachary Michelle - Last Filed: 09/07/18 15:01> Objective - Vital Signs/Intake and Output Vital Signs (last 24 hours): Temp Pulse Resp BP Pulse Ox 97.8 F 87 18 177/88 H 93 L 09/06/18 16:00 09/07/18 13:20 09/06/18 16:00 09/07/18 13:20 09/06/18 16:00 Intake and Output: 09/07/18 09/07/18 06:59 18:59 Intake Total 380 Balance 380 - Medications Medications: Current Medications Aspirin (Aspirin Chewable) 81 mg PO DAILY [facility]; Protocol Last Admin: 09/07/18 09:04 Dose: 81 mg Atorvastatin Calcium (Lipitor) 40 mg PO DIN [facility]; Protocol Last Admin: 09/06/18 17:29 Dose: 40 mg Clopidogrel Bisulfate (Plavix) 75 mg PO DAILY [facility]; Protocol Last Admin: 09/07/18 09:04 Dose: 75 mg Docusate Sodium (Colace) 100 mg PO TID [facility] Last Admin: 09/07/18 13:20 Dose: 100 mg Heparin Sodium (Porcine) (Heparin) 5,000 units SC Q8 [facility]; Protocol Last Admin: 09/07/18 13:22 Dose: 5,000 units Hydralazine HCl (Apresoline) 25 mg PO TID [facility] Last Admin: 09/07/18 13:20 Dose: 25 mg Pantoprazole Sodium (Protonix Ec Tab) 40 mg PO 0600 [facility]; Protocol Last Admin: 09/07/18 05:37 Dose: 40 mg - Labs Labs: 09/07/18 07:00 09/07/18 07:00 Attending/Attestation - Attestation I have personally seen and examined this patient.: Yes I have fully participated in the care of the patient.: Yes I have reviewed all pertinent clinical information, including history, physical exam and plan: Yes Notes (Text): 09/07/18 14:59 Medical record note made by the resident after discussion with my direction and input after the patient was personally seen and examined by me. I have reviewed the chart and agree that the record accurately reflects by personal performance of the history, physical exam, data review, and medical decision-making, in the course for the patient. I have also personally directed the plan of care. 67 yrs old female with PMH of CAD,SP Cardiac stent, last stent LCX was on 08/06 ,HTN and Obesity was admitted with atypical chest pain and dizziness with standing and change of position.CT angio chest was negative for Pulnmonary embolism.EKG was negative for ischemic changes.Serial troponins were normal.Patient was evaluated by cardiology and no further work up was recom mended. Patient was found to have orthostatic hypotension.Patient was ataxic.She was evaluated by physical therapy .TCU was recommended.She is admitted to TCU for rehabilitation. Dizziness has improved. Blood pressure is better controlled with hydralazine.Patient is not beta annette due to bradycardia. Management plan was discussed in detail with patient. Education was provided.
[2018-09-07 07:49] LABS: ALB/GLOB RATIO 1.1 (1.1-1.8); ALBUMIN 3.7 g/dL (3.0-4.8); ALT/SGPT 57 U/L (7-56); AST/SGOT 49 U/L (14-36); BLOOD UREA NITROGEN 18 mg/dL (7-21); CALCIUM 9.3 mg/dL (8.4-10.5); GFR NON-AFRICAN AMERICAN > 60
[2018-09-07 07:54] LABS: BASO # 0.04 K/mm3 (0.0-2.0); BASO % 0.5 % (0.0-3.0); EOS # 0.5 (0.0-0.7); EOS % 5.7 % (1.5-5.0); GRAN # 4.65 (1.4-6.5); GRAN % 59.1 % (50.0-68.0); HEMOGLOBIN 12.3 g/dL (12.0-16.0); LYMPH # 2.3 (1.2-3.4); LYMPH % 28.7 % (22.0-35.0); MEAN CELL VOLUME 80.2 fl (80.0-105.0); MEAN CORPUSCULAR HEMOGLOBIN 25.4 pg (25.0-35.0); MEAN CORPUSCULAR HGB CONC 31.7 g/dl (31.0-37.0); MONO # 0.5 (0.1-0.6); RBC 4.84 10^6/uL (3.5-6.1); RED CELL DISTRIBUTION WIDTH 15.7 % (11.5-14.5); WHITE BLOOD COUNT 7.9 10^3/ul (4.5-11.0)
--- NOTE | 2018-09-07 15:11 | CARD ---
APPROVED REPORT Date of service: 09/07/2018 EKG Measurement Heart [id number] <Conclusion> Normal sinus rhythm Inferior infarct, age undetermined Possible anterior infarct, age undetermined Abnormal ECG
--- NOTE | 2018-09-07 16:26 | PN ---
DATE: 09/07/2018 SUBJECTIVE: The patient was reported yesterday to be bradycardic at rate 44. The only symptom the patient reported is feeling her heart pounding. There was no reported dizziness. PHYSICAL EXAMINATION: VITAL SIGNS: Today's blood pressure is 141/83, heart rate 72, temperature 97.8. HEENT: Normocephalic. CHEST: Clear. HEART: S1 and S2, regular. EXTREMITIES: No edema. LABORATORY DATA: Today's hemoglobin and hematocrit is 12.3 and 38.8, white count and platelet count are within normal limits. Today's SMA-7 is within normal limit. Liver enzymes are mildly elevated. TSH level is within normal limit. ASSESSMENT: 1. Periods of sinus bradycardia. 2. Coronary artery disease with history of coronary artery stenting to circumflex artery with history of recent coronary artery stenting to circumflex artery. 3. Recent dizziness with documented Mobitz I second-degree AV block. 4. Hypertension. CONDITIONS: Continue hydralazine 25 mg t.i.d., aspirin 81 mg once a day, Plavix 75 mg once a day, subcutaneous heparin 5000 units every 8 hours, Lipitor 40 mg once a day. Obtain 12-lead EKG today. Mingo Morton MD
[2018-09-08] MEDS: Pantoprazole 40 mg EC Tab PO SCH (05:38)
[2018-09-08] MEDS ORDERED: POLYETHYLENE GLYCOL 3350 17 GM/Dose PACKET PO PRN (10:10)
--- NOTE | 2018-09-08 17:29 | PN ---
DATE: 09/08/2018 SUBJECTIVE: The patient denies any dizziness or palpitation. She is experiencing constipation. PHYSICAL EXAMINATION: VITAL SIGNS: Blood pressure 153/98, heart rate 85, temperature 98.3, respiration 16. HEENT: Normocephalic. CHEST: Clear. HEART: S1 and S2, regular. EXTREMITIES: No edema. ASSESSMENT: 1. Uncontrolled hypertension. 2. Improved sinus bradycardia. 3. Coronary artery disease with recent stenting to the mid circumflex artery. 4. Constipation. CONDITIONS: Continue hydralazine 25 mg t.i.d., aspirin 81 mg once a day, Plavix 75 mg once a day, subcutaneous heparin 5000 units every 8 hours, Lipitor 40 mg once a day, Zestril at 5 mg once a day. Start Norvasc at 5 mg once a day. Start lactulose at 30 mg p.o. daily. Mingo Morton MD
[2018-09-09] MEDS: Pantoprazole 40 mg EC Tab PO SCH (05:54)
[2018-09-09 13:36] LABS: BASO # 0.06 K/mm3 (0.0-2.0); BASO % 0.7 % (0.0-3.0); EOS # 0.5 (0.0-0.7); GRAN # 5.2 (1.4-6.5); GRAN % 63.4 % (50.0-68.0); HEMOGLOBIN 12.5 g/dL (12.0-16.0); LYMPH # 2.1 (1.2-3.4); LYMPH % 25.1 % (22.0-35.0); MEAN CELL VOLUME 80.4 fl (80.0-105.0); MEAN CORPUSCULAR HEMOGLOBIN 25.3 pg (25.0-35.0); MEAN CORPUSCULAR HGB CONC 31.5 g/dl (31.0-37.0); MEAN PLATELET VOLUME 9.7 fl (7.0-11.0); MONO # 0.4 (0.1-0.6); MONO % 4.8 % (1.0-6.0); RBC 4.94 10^6/uL (3.5-6.1); WHITE BLOOD COUNT 8.2 10^3/ul (4.5-11.0)
[2018-09-09 13:52] LABS: ALB/GLOB RATIO 1.1 (1.1-1.8); ALBUMIN 4.1 g/dL (3.0-4.8); ALT/SGPT 52 U/L (7-56); AST/SGOT 39 U/L (14-36); BLOOD UREA NITROGEN 12 mg/dL (7-21); CALCIUM 9.6 mg/dL (8.4-10.5); GFR NON-AFRICAN AMERICAN > 60
--- NOTE | 2018-09-09 14:26 | CP.PCM.DIS ---
<Ruben Barbosa - Last Filed: 09/09/18 14:26> Provider - Provider Date of Admission: 09/04/18 19:35 Attending physician: Zachary Michelle MD Primary care physician: Alfonso Villa MD Time Spent in preparation of Discharge (in minutes): 40 Hospital Course - Lab Results Lab Results: Most Recent Lab Values WBC 8.2 10^3/ul (4.5-11.0) 09/09/18 13:20 RBC 4.94 10^6/uL (3.5-6.1) 09/09/18 13:20 Hgb 12.5 g/dL (12.0-16.0) 09/09/18 13:20 Hct 39.7 % (36.0-48.0) 09/09/18 13:20 MCV 80.4 fl (80.0-105.0) 09/09/18 13:20 MCH 25.3 pg (25.0-35.0) 09/09/18 13:20 MCHC 31.5 g/dl (31.0-37.0) 09/09/18 13:20 RDW 16.0 % (11.5-14.5) H 09/09/18 13:20 Plt Count 257 10^3/uL (120.0-450.0) 09/09/18 13:20 MPV 9.7 fl (7.0-11.0) 09/09/18 13:20 Gran % 63.4 % (50.0-68.0) 09/09/18 13:20 Lymph % (Auto) 25.1 % (22.0-35.0) 09/09/18 13:20 [place] % (Auto) 4.8 % (1.0-6.0) 09/09/18 13:20 Eos % (Auto) 6.0 % (1.5-5.0) H 09/09/18 13:20 Baso % (Auto) 0.7 % (0.0-3.0) 09/09/18 13:20 Gran # 5.20 (1.4-6.5) 09/09/18 13:20 Lymph # (Auto) 2.1 (1.2-3.4) 09/09/18 13:20 [place] # (Auto) 0.4 (0.1-0.6) 09/09/18 13:20 Eos # (Auto) 0.5 (0.0-0.7) 09/09/18 13:20 Baso # (Auto) 0.06 K/mm3 (0.0-2.0) 09/09/18 13:20 Sodium 142 mmol/L (132-148) 09/09/18 13:20 Potassium 3.8 mmol/L (3.6-5.0) 09/09/18 13:20 Chloride 106 mmol/L (98-107) 09/09/18 13:20 Carbon Dioxide 30 mmol/L (21-33) 09/09/18 13:20 Anion Gap 10 (10-20) 09/09/18 13:20 BUN 12 mg/dL (7-21) 09/09/18 13:20 Creatinine 0.8 mg/dl (0.7-1.2) 09/09/18 13:20 Est GFR ( Amer) > 60 09/09/18 13:20 Est GFR (Non-Af Amer) > 60 09/09/18 13:20 Random Glucose 103 mg/dL (70-110) 09/09/18 13:20 Calcium 9.6 mg/dL (8.4-10.5) 09/09/18 13:20 Total Bilirubin 0.6 mg/dL (0.2-1.3) 09/09/18 13:20 AST 39 U/L (14-36) H D 09/09/18 13:20 ALT 52 U/L (7-56) 09/09/18 13:20 Alkaline Phosphatase 157 U/L (38-126) H 09/09/18 13:20 Total Protein 7.9 g/dL (5.8-8.3) 09/09/18 13:20 Albumin 4.1 g/dL (3.0-4.8) 09/09/18 13:20 Globulin 3.8 gm/dL 09/09/18 13:20 Albumin/Globulin Ratio 1.1 (1.1-1.8) 09/09/18 13:20 TSH 3rd Generation 2.53 mIU/mL (0.46-4.68) 09/06/18 09:00 - Hospital Course Hospital Course: Upon admission: 67 yo F w/ PMHx of HTN, [place] (stent 2016, 2018), HLD presents to hospital for 2 day history of chest pain with associated shortness of breath and dizziness. EKG and serial troponins obtained to r/o ACS. EKG resulted normal sinus rhythm. Serial troponins resulted WNL. Patient had cardiac cath with drug eluting stent placement in the LCX w/in past month. D-dimer was elevated. Chest CT with contrast was obtained and resulted no signs of pulmonary embolism. Orthostatics found to be positive, unlikely to be secondary to medications as HTN medications were held on admission. Patient counseled on standing slowly, discontinued low salt diet, and recommended increasing daily fluid intake. Carotid artery duplex resulted bilateral 20-39% proximal ICA stenosis, anterograde flow in both vertebral arteries. Cardiology, Dr. Jackson, was consulted. As per cardiology, symptoms were unlikely of cardiac origin, recommended to monitor patient on tele for 24 hours. PT was consulted, and recommended that patient be admitted to TCU for strength conditioning. Patient was transferred to TCU for further PT prior to discharge. Patient denies fevers, chills, cp, sob, n/v, constipation or diarrhea, dysuria, headaches. Hospital Course: Patient received daily PT/OT. Cardiology continued to follow patient and she was started on Norvasc 5mg PO daily and Hydralazine was increased to 50mg TID. Patient was started Lactulose 30mg PO for constipation which resolved. PT/OT cleared pt for discharge home. This is a summary of hospital course. For further detail, please review EMR. - Date & Time of H&P Date of H&P: 09/09/18 Time of H&P: 14:24 Discharge Exam - Head Exam Head Exam: NORMAL INSPECTION, NORMOCEPHALIC - Eye Exam Eye Exam: EOMI, Normal appearance Pupil Exam: NORMAL ACCOMODATION - ENT Exam ENT Exam: Mucous Membranes Moist - Neck Exam Neck exam: Full Rom, Normal Inspection - Respiratory Exam Respiratory Exam: Clear to PA & Lateral, NORMAL BREATHING PATTERN, UNREMARKABLE - Cardiovascular Exam Cardiovascular Exam: REGULAR RHYTHM, +S1, +S2 - GI/Abdominal Exam GI & Abdominal Exam: Normal Bowel Sounds, Soft, Unremarkable. absent: Distended, Firm, Guarding, Rebound, Rigid, Tenderness - Extremities Exam Extremities exam: full ROM, normal capillary refill, normal inspection, pedal pulses present - Back Exam Back exam: NORMAL INSPECTION - Neurological Exam Neurological exam: Alert, CN II-XII Intact, Normal Gait, Oriented x3, Reflexes Normal - Psychiatric Exam Psychiatric exam: Normal Affect, Normal Mood - Skin Skin Exam: Dry, Intact, Normal Color, Warm Discharge Plan - Discharge Medications Prescriptions: RX: Aspirin [Ecotrin] 81 mg PO DAILY #30 tablet. RX: Atorvastatin [Lipitor] 40 mg PO DIN #30 tab RX: Clopidogrel [Plavix] 75 mg PO DAILY #14 tab - Follow Up Plan Condition: GOOD Disposition: HOME/ ROUTINE Additional Instructions: Patient is medically stable for discharge as per Dr. Pate. She was counseled to return to the emergency department if symptoms return or worsen. Patient is to follow up with primary medical doctor within 3-5 days of discharge. Patient is to follow up with cardiology within 3-5 days of discharge. Patient is to continue outpatient PT/OT, follow recommendations. Please continue home medications, as currently prescribed. Scripts have been provided, if needed. Reviewed all medications with patient, and she understands instructions. Patient understands and agrees with discharge plan. Referrals: Alfonso Villa MD [Primary Care Provider] - <Jameel Pate - Last Filed: 09/09/18 16:05> Provider - Provider Date of Admission: 09/04/18 19:35 Attending physician: Zachary Michelle MD Primary care physician: Alfonso Villa MD Hospital Course - Lab Results Lab Results: Most Recent Lab Values WBC 8.2 10^3/ul (4.5-11.0) 09/09/18 13:20 RBC 4.94 10^6/uL (3.5-6.1) 09/09/18 13:20 Hgb 12.5 g/dL (12.0-16.0) 09/09/18 13:20 Hct 39.7 % (36.0-48.0) 09/09/18 13:20 MCV 80.4 fl (80.0-105.0) 09/09/18 13:20 MCH 25.3 pg (25.0-35.0) 09/09/18 13:20 MCHC 31.5 g/dl (31.0-37.0) 09/09/18 13:20 RDW 16.0 % (11.5-14.5) H 09/09/18 13:20 Plt Count 257 10^3/uL (120.0-450.0) 09/09/18 13:20 MPV 9.7 fl (7.0-11.0) 09/09/18 13:20 Gran % 63.4 % (50.0-68.0) 09/09/18 13:20 Lymph % (Auto) 25.1 % (22.0-35.0) 09/09/18 13:20 [place] % (Auto) 4.8 % (1.0-6.0) 09/09/18 13:20 Eos % (Auto) 6.0 % (1.5-5.0) H 09/09/18 13:20 Baso % (Auto) 0.7 % (0.0-3.0) 09/09/18 13:20 Gran # 5.20 (1.4-6.5) 09/09/18 13:20 Lymph # (Auto) 2.1 (1.2-3.4) 09/09/18 13:20 [place] # (Auto) 0.4 (0.1-0.6) 09/09/18 13:20 Eos # (Auto) 0.5 (0.0-0.7) 09/09/18 13:20 Baso # (Auto) 0.06 K/mm3 (0.0-2.0) 09/09/18 13:20 Sodium 142 mmol/L (132-148) 09/09/18 13:20 Potassium 3.8 mmol/L (3.6-5.0) 09/09/18 13:20 Chloride 106 mmol/L (98-107) 09/09/18 13:20 Carbon Dioxide 30 mmol/L (21-33) 09/09/18 13:20 Anion Gap 10 (10-20) 09/09/18 13:20 BUN 12 mg/dL (7-21) 09/09/18 13:20 Creatinine 0.8 mg/dl (0.7-1.2) 09/09/18 13:20 Est GFR ( Amer) > 60 09/09/18 13:20 Est GFR (Non-Af Amer) > 60 09/09/18 13:20 Random Glucose 103 mg/dL (70-110) 09/09/18 13:20 Calcium 9.6 mg/dL (8.4-10.5) 09/09/18 13:20 Total Bilirubin 0.6 mg/dL (0.2-1.3) 09/09/18 13:20 AST 39 U/L (14-36) H D 09/09/18 13:20 ALT 52 U/L (7-56) 09/09/18 13:20 Alkaline Phosphatase 157 U/L (38-126) H 09/09/18 13:20 Total Protein 7.9 g/dL (5.8-8.3) 09/09/18 13:20 Albumin 4.1 g/dL (3.0-4.8) 09/09/18 13:20 Globulin 3.8 gm/dL 09/09/18 13:20 Albumin/Globulin Ratio 1.1 (1.1-1.8) 09/09/18 13:20 TSH 3rd Generation 2.53 mIU/mL (0.46-4.68) 09/06/18 09:00 Attending/Attestation - Attestation I have personally seen and examined this patient.: Yes I have fully participated in the care of the patient.: Yes I have reviewed all pertinent clinical information, including history, physical exam and plan: Yes Notes (Text): Patient seen and examined with the residents, agree with above Clinically much improved, no active complaints For discharge on 09/10/18
--- NOTE | 2018-09-09 15:41 | CP.PCM.PN ---
Subjective - Date & Time of Evaluation Date of Evaluation: 09/09/18 Time of Evaluation: 08:40 - Subjective Subjective: PGY-1 Medicine Progress Note for Dr. Pate Patient seen and examined sitting by bedside in TCU, in no acute distress. No acute overnight events reported. Patient clinically improving with PT treatment, denies any current dizziness or lightheadedness. Ambulating steadily on her feet. No complaints at this time. No fevers/chills, headaches, dizziness, chest pain, palpitations, sob, cough, abdominal pain, n/v/d/c, dysuria, or changes in stool. Objective - Vital Signs/Intake and Output Vital Signs (last 24 hours): Temp Pulse Resp BP Pulse Ox 98.5 F 81 18 169/85 H 97 09/08/18 16:28 09/09/18 14:30 09/08/18 16:28 09/09/18 14:30 09/09/18 14:30 - Medications Medications: Current Medications Amlodipine Besylate (Norvasc) 5 mg PO DAILY [facility] Last Admin: 09/09/18 10:25 Dose: 5 mg Aspirin (Aspirin Chewable) 81 mg PO DAILY [facility]; Protocol Last Admin: 09/09/18 10:07 Dose: 81 mg Atorvastatin Calcium (Lipitor) 40 mg PO [facility]; Protocol Last Admin: 09/08/18 17:42 Dose: 40 mg Clopidogrel Bisulfate (Plavix) 75 mg PO DAILY [facility]; Protocol Last Admin: 09/09/18 10:06 Dose: 75 mg Docusate Sodium (Colace) 100 mg PO TID [facility] Last Admin: 09/09/18 14:59 Dose: 100 mg Heparin Sodium (Porcine) (Heparin) 5,000 units SC Q8 [facility]; Protocol Last Admin: 09/09/18 14:59 Dose: 5,000 units Hydralazine HCl (Apresoline) 50 mg PO TID [facility] Last Admin: 09/09/18 14:59 Dose: 50 mg Lactulose (Enulose) 20 gm PO HS [facility] Last Admin: 09/08/18 23:39 Dose: Not Given Lisinopril (Zestril) 5 mg PO DAILY [facility] Last Admin: 09/09/18 10:07 Dose: 5 mg Pantoprazole Sodium (Protonix Ec Tab) 40 mg PO 0600 [facility]; Protocol Last Admin: 09/09/18 05:54 Dose: 40 mg Polyethylene Glycol (Miralax) 17 gm PO DAILY PRN PRN Reason: Pain, moderate (4-7) Last Admin: 09/08/18 14:21 Dose: 17 gm - Labs Labs: 09/09/18 13:20 09/09/18 13:20 - Constitutional Appears: Well, Non-toxic, No Acute Distress - Head Exam Head Exam: ATRAUMATIC, NORMAL INSPECTION, NORMOCEPHALIC - Eye Exam Eye Exam: EOMI, Normal appearance Pupil Exam: NORMAL ACCOMODATION - ENT Exam ENT Exam: Mucous Membranes Moist, Normal Exam - Neck Exam Neck Exam: Full ROM, Normal Inspection - Respiratory Exam Respiratory Exam: Clear to Ausculation Bilateral, NORMAL BREATHING PATTERN. absent: Accessory Muscle Use, Rales, Rhonchi, Wheezes, Respiratory Distress - Cardiovascular Exam Cardiovascular Exam: REGULAR RHYTHM, +S1, +S2 - GI/Abdominal Exam GI & Abdominal Exam: Soft, Normal Bowel Sounds. absent: Distended, Firm, Guarding, Rigid, Tenderness, Rebound - Extremities Exam Extremities Exam: Full ROM, Normal Capillary Refill, Normal Inspection. absent: Calf Tenderness, Joint Swelling, Pedal Edema, Tenderness - Back Exam Back Exam: NORMAL INSPECTION - Neurological Exam Neurological Exam: Alert, Awake, Normal Gait, Oriented x3 - Psychiatric Exam Psychiatric exam: Normal Affect, Normal Mood - Skin Skin Exam: Dry, Intact, Normal Color, Warm Assessment and Plan - Assessment and Plan (Free Text) Assessment: Patient is a 67 yo w/PMH of [place] (s/p 2 stents), [facility], HTN female presents to hospital for evaluation of chest pain and dizziness. Patient pain and dizziness non cardiac in origin. Patient transferred to TCU for further rehab. Plan: Chest pain r/o ACS --Cardio recs (Dr. Jackson) appreciated --noncardiac in nature --EKG normal sinus rhythm --Trop x 3 <0.01 --elevated D-dimer --Cardiac cath done approximately 1 week ago with stent placement in LCX artery --Chest CT with contrast: No signs of PE Hx of [place] w/ stent --ASA 81 mg po --Plavix 75 mg po Hx of HTN --Hydralazine 25mg po tid Hyperlipidemia --Lipitor 40mg po PPx --GI ppx: Protonix 40mg po --DVT ppx: Heparin 5000 units sc q8 --Disposition: Pt undergoing PT in TCU for deconditioning. Medically cleared for discharge. Plan for d/c from TCU tomorrow. Case discussed with Dr. Herlinda Barbosa DO, PGY-1
--- NOTE | 2018-09-09 15:54 | PN ---
DATE: 09/09/2018 FOLLOWUP SUBJECTIVE: The patient is currently undergoing physical therapy. She denies any chest pain. PHYSICAL EXAMINATION VITAL SIGNS: Blood pressure 168/94, heart rate 78, temperature 98.5, and respirations 18. HEENT: Normocephalic. CHEST: Clear. HEART: S1 and S2, regular. EXTREMITIES: No edema. ASSESSMENT: 1. Improved sinus bradycardia. 2. Uncontrolled hypertension. 3. Coronary artery disease with recent stenting to the mid circumflex artery. 4. Improved constipation. RECOMMENDATIONS: Increase hydralazine to 50 mg t.i.d. Continue aspirin 81 mg once a day, Norvasc 5 mg once a day, Plavix 75 mg once a day, Lipitor 40 mg once a day, and Zestril 5 mg once a day. Mingo Morton MD
[2018-09-10] MEDS: Pantoprazole 40 mg EC Tab PO SCH (05:11)
[2018-09-10 10:49] VITALS: BP 184/101; PULSE 95; RESP 18; TEMP 97.4; O2SAT 98
--- NOTE | 2018-09-10 12:40 | CP.PCM.DIS ---
Addendum entered and electronically signed by Ruben Barbosa DO 09/11/18 07:08: *Correction: Patient is medically stable for discharge per *Dr. Munoz Original Note: <Ruben Barbosa - Last Filed: 09/10/18 17:44> Provider - Provider Date of Admission: 09/04/18 19:35 Attending physician: No Munoz MD Primary care physician: Alfonso Villa MD Time Spent in preparation of Discharge (in minutes): 40 Hospital Course - Lab Results Lab Results: Most Recent Lab Values WBC 8.2 10^3/ul (4.5-11.0) 09/09/18 13:20 RBC 4.94 10^6/uL (3.5-6.1) 09/09/18 13:20 Hgb 12.5 g/dL (12.0-16.0) 09/09/18 13:20 Hct 39.7 % (36.0-48.0) 09/09/18 13:20 MCV 80.4 fl (80.0-105.0) 09/09/18 13:20 MCH 25.3 pg (25.0-35.0) 09/09/18 13:20 MCHC 31.5 g/dl (31.0-37.0) 09/09/18 13:20 RDW 16.0 % (11.5-14.5) H 09/09/18 13:20 Plt Count 257 10^3/uL (120.0-450.0) 09/09/18 13:20 MPV 9.7 fl (7.0-11.0) 09/09/18 13:20 Gran % 63.4 % (50.0-68.0) 09/09/18 13:20 Lymph % (Auto) 25.1 % (22.0-35.0) 09/09/18 13:20 [place] % (Auto) 4.8 % (1.0-6.0) 09/09/18 13:20 Eos % (Auto) 6.0 % (1.5-5.0) H 09/09/18 13:20 Baso % (Auto) 0.7 % (0.0-3.0) 09/09/18 13:20 Gran # 5.20 (1.4-6.5) 09/09/18 13:20 Lymph # (Auto) 2.1 (1.2-3.4) 09/09/18 13:20 [place] # (Auto) 0.4 (0.1-0.6) 09/09/18 13:20 Eos # (Auto) 0.5 (0.0-0.7) 09/09/18 13:20 Baso # (Auto) 0.06 K/mm3 (0.0-2.0) 09/09/18 13:20 Sodium 142 mmol/L (132-148) 09/09/18 13:20 Potassium 3.8 mmol/L (3.6-5.0) 09/09/18 13:20 Chloride 106 mmol/L (98-107) 09/09/18 13:20 Carbon Dioxide 30 mmol/L (21-33) 09/09/18 13:20 Anion Gap 10 (10-20) 09/09/18 13:20 BUN 12 mg/dL (7-21) 09/09/18 13:20 Creatinine 0.8 mg/dl (0.7-1.2) 09/09/18 13:20 Est GFR ( Amer) > 60 09/09/18 13:20 Est GFR (Non-Af Amer) > 60 09/09/18 13:20 Random Glucose 103 mg/dL (70-110) 09/09/18 13:20 Calcium 9.6 mg/dL (8.4-10.5) 09/09/18 13:20 Total Bilirubin 0.6 mg/dL (0.2-1.3) 09/09/18 13:20 AST 39 U/L (14-36) H D 09/09/18 13:20 ALT 52 U/L (7-56) 09/09/18 13:20 Alkaline Phosphatase 157 U/L (38-126) H 09/09/18 13:20 Total Protein 7.9 g/dL (5.8-8.3) 09/09/18 13:20 Albumin 4.1 g/dL (3.0-4.8) 09/09/18 13:20 Globulin 3.8 gm/dL 09/09/18 13:20 Albumin/Globulin Ratio 1.1 (1.1-1.8) 09/09/18 13:20 TSH 3rd Generation 2.53 mIU/mL (0.46-4.68) 09/06/18 09:00 - Hospital Course Hospital Course: Upon admission: 67 yo F w/ PMHx of HTN, VT (stent 2015, 2018), [facility] presents to hospital for 2 day history of chest pain with associated shortness of breath and dizziness. EKG and serial troponins obtained to r/o ACS. EKG resulted normal sinus rhythm. Serial troponins resulted WNL. Patient had cardiac cath with drug eluting stent placement in the LCX w/in past month. D-dimer was elevated. Chest CT with contrast was obtained and resulted no signs of pulmonary embolism. Orthostatics found to be positive, unlikely to be secondary to medications as HTN medications were held on admission. Patient counseled on standing slowly, discontinued low salt diet, and recommended increasing daily fluid intake. Carotid artery duplex resulted bilateral 20-39% proximal ICA stenosis, anterograde flow in both vertebral arteries. Cardiology, Dr. Jackson, was consulted. As per cardiology, symptoms were unlikely of cardiac origin, recommended to monitor patient on tele for 24 hours. PT was consulted, and recommended that patient be admitted to TCU for strength conditioning. Patient was transferred to TCU for further PT prior to discharge. Patient denies fevers, chills, cp, sob, n/v, constipation or diarrhea, dysuria, headaches. Hospital Course: Patient received daily PT/OT. Cardiology continued to follow patient and she was started on Norvasc 5mg PO daily and Hydralazine was increased to 50mg TID. Patient was started Lactulose 30mg PO for constipation which resolved. PT/OT cleared pt for discharge home. Repeat BP @14:00 was 111/68 with a heart rate of 68. Patient is medically stable for discharge as per Dr. Munoz. She was counseled to return to the emergency department if symptoms return or worsen. Patient is to follow up with primary medical doctor within 3-5 days of discharge. Patient is to follow up with cardiology within 3-5 days of discharge. Patient is to continue outpatient PT/OT, follow recommendations. Scripts have been provided for the following medications, to be taken as prescribed. Please follow up with your primary care provider for continued care and medication refills. Norvasc 10 mg PO daily Aspirin 81 mg PO daily Lipitor 40 mg PO once at dinner time Plavix 75 mg PO daily Hydralazine 50 mg PO three times daily Lisinopril 5 mg PO daily Reviewed all medications with patient, and she understands instructions. Patient understands and agrees with discharge plan. This is a summary of hospital course. For further detail, please review EMR. - Date & Time of H&P Date of H&P: 09/10/18 Time of H&P: 12:37 Discharge Exam - Head Exam Head Exam: ATRAUMATIC, NORMAL INSPECTION, NORMOCEPHALIC - Eye Exam Eye Exam: EOMI, Normal appearance Pupil Exam: NORMAL ACCOMODATION - ENT Exam ENT Exam: Mucous Membranes Moist, Normal Exam - Respiratory Exam Respiratory Exam: Clear to PA & Lateral, NORMAL BREATHING PATTERN, UNREMARKABLE - Cardiovascular Exam Cardiovascular Exam: REGULAR RHYTHM, +S1, +S2 - GI/Abdominal Exam GI & Abdominal Exam: Normal Bowel Sounds, Soft, Unremarkable. absent: Distended, Firm, Guarding, Rigid, Tenderness - Extremities Exam Extremities exam: full ROM, normal capillary refill, normal inspection, pedal pulses present - Back Exam Back exam: NORMAL INSPECTION - Neurological Exam Neurological exam: Alert, Normal Gait, Oriented x3, Reflexes Normal - Psychiatric Exam Psychiatric exam: Normal Affect, Normal Mood - Skin Skin Exam: Dry, Intact, Normal Color, Warm Discharge Plan - Discharge Medications Prescriptions: amLODIPine [Norvasc] 10 mg PO DAILY #30 tab Aspirin [Ecotrin] 81 mg PO DAILY #30 tablet. Atorvastatin [Lipitor] 40 mg PO DIN #30 tab Clopidogrel [Plavix] 75 mg PO DAILY #14 tab hydrALAZINE [Apresoline] 50 mg PO TID #90 tab Lisinopril [Zestril] 5 mg PO DAILY #30 tab - Follow Up Plan Condition: GOOD Disposition: HOME/ ROUTINE Instructions: Cardiac Catheterization (DC), Chest Pain (DC), Bradycardia (DC) Additional Instructions: Patient is medically stable for discharge as per Dr. Pate. She was counseled to return to the emergency department if symptoms return or worsen. Patient is to follow up with primary medical doctor within 3-5 days of discharge. Patient is to follow up with cardiology within 3-5 days of discharge. Patient is to continue outpatient PT/OT, follow recommendations. Scripts have been provided for the following medications, to be taken as prescribed. Please follow up with your primary care provider for continued care and medication refills. Norvasc 10 mg PO daily Aspirin 81 mg PO daily Lipitor 40 mg PO once at dinner time Plavix 75 mg PO daily Hydralazine 50 mg PO three times daily Lisinopril 5 mg PO daily Reviewed all medications with patient, and she understands instructions. Patient understands and agrees with discharge plan. Referrals: Alfonso Villa MD [Primary Care Provider] - <No Munoz - Last Filed: 09/10/18 18:51> Provider - Provider Date of Admission: 09/04/18 19:35 Attending physician: No Munoz MD Primary care physician: Alfonso Villa MD Hospital Course - Lab Results Lab Results: Most Recent Lab Values WBC 8.2 10^3/ul (4.5-11.0) 09/09/18 13:20 RBC 4.94 10^6/uL (3.5-6.1) 09/09/18 13:20 Hgb 12.5 g/dL (12.0-16.0) 09/09/18 13:20 Hct 39.7 % (36.0-48.0) 09/09/18 13:20 MCV 80.4 fl (80.0-105.0) 09/09/18 13:20 MCH 25.3 pg (25.0-35.0) 09/09/18 13:20 MCHC 31.5 g/dl (31.0-37.0) 09/09/18 13:20 RDW 16.0 % (11.5-14.5) H 09/09/18 13:20 Plt Count 257 10^3/uL (120.0-450.0) 09/09/18 13:20 MPV 9.7 fl (7.0-11.0) 09/09/18 13:20 Gran % 63.4 % (50.0-68.0) 09/09/18 13:20 Lymph % (Auto) 25.1 % (22.0-35.0) 09/09/18 13:20 [place] % (Auto) 4.8 % (1.0-6.0) 09/09/18 13:20 Eos % (Auto) 6.0 % (1.5-5.0) H 09/09/18 13:20 Baso % (Auto) 0.7 % (0.0-3.0) 09/09/18 13:20 Gran # 5.20 (1.4-6.5) 09/09/18 13:20 Lymph # (Auto) 2.1 (1.2-3.4) 09/09/18 13:20 [place] # (Auto) 0.4 (0.1-0.6) 09/09/18 13:20 Eos # (Auto) 0.5 (0.0-0.7) 09/09/18 13:20 Baso # (Auto) 0.06 K/mm3 (0.0-2.0) 09/09/18 13:20 Sodium 142 mmol/L (132-148) 09/09/18 13:20 Potassium 3.8 mmol/L (3.6-5.0) 09/09/18 13:20 Chloride 106 mmol/L (98-107) 09/09/18 13:20 Carbon Dioxide 30 mmol/L (21-33) 09/09/18 13:20 Anion Gap 10 (10-20) 09/09/18 13:20 BUN 12 mg/dL (7-21) 09/09/18 13:20 Creatinine 0.8 mg/dl (0.7-1.2) 09/09/18 13:20 Est GFR ( Amer) > 60 09/09/18 13:20 Est GFR (Non-Af Amer) > 60 09/09/18 13:20 Random Glucose 103 mg/dL (70-110) 09/09/18 13:20 Calcium 9.6 mg/dL (8.4-10.5) 09/09/18 13:20 Total Bilirubin 0.6 mg/dL (0.2-1.3) 09/09/18 13:20 AST 39 U/L (14-36) H D 09/09/18 13:20 ALT 52 U/L (7-56) 09/09/18 13:20 Alkaline Phosphatase 157 U/L (38-126) H 09/09/18 13:20 Total Protein 7.9 g/dL (5.8-8.3) 09/09/18 13:20 Albumin 4.1 g/dL (3.0-4.8) 09/09/18 13:20 Globulin 3.8 gm/dL 09/09/18 13:20 Albumin/Globulin Ratio 1.1 (1.1-1.8) 09/09/18 13:20 TSH 3rd Generation 2.53 mIU/mL (0.46-4.68) 09/06/18 09:00 Attending/Attestation - Attestation I have personally seen and examined this patient.: Yes I have fully participated in the care of the patient.: Yes I have reviewed all pertinent clinical information, including history, physical exam and plan: Yes Notes (Text): 09/10/18 18:43 67 year old female with past medical history of hypertension, CAD and dyslipidemia who presented with chest pain, shortness of breath and dizziness. Serial cardiac enzymes were negative and ACS was ruled out. She was transferred to TCU for physical therapy which she has been tolerating. Today blood pressure was elevated and her norvasc and hydralazine were increased with improvement of hypertension. Patient is discharged home to follow up with pmd and cardiology. No Munoz MD Hospitalist.
--- NOTE | 2018-09-10 17:42 | PN ---
DATE: 09/10/2018 SUBJECTIVE: The patient does report headache and dizziness when she had high diastolic blood pressure. Patient denies any syncope. PHYSICAL EXAMINATION VITAL SIGNS: Most recent blood pressure 184/101, heart rate 95, temperature 97.4, and respirations 18. HEENT: Normocephalic. CHEST: Clear. HEART: S1 and S2, regular EXTREMITIES: No edema. ASSESSMENT: 1. Uncontrolled hypertension. 2. Improved sinus bradycardia. 3. History of coronary artery disease with recent coronary stenting to the mid circumflex artery. RECOMMENDATIONS: Increase Norvasc to 10 mg once a day, continue hydralazine 50 mg t.i.d., aspirin 81 mg once a day, subcutaneous heparin 5000 units every 8 hours, continue Plavix 75 mg once a day mg once a day. Mingo Morton MD
== END 2018-09-10 15:04 | disposition home or self-care (01) | DRG 293 ==
LOC: TRCU 19:35
PROVIDERS: ADMIT Internal Medicine; ATTEND Internal Medicine
PROC: F07Z9FZ Gait Training/Functional Ambulation Treatment using Assistive, Adaptive, Supportive or Protective Equipment (ICD-10-PCS; principal; 2018-09-05)
PROC: F07M6ZZ Therapeutic Exercise Treatment of Musculoskeletal System - Whole Body (ICD-10-PCS; 2018-09-05)
PROC: F08Z1ZZ Dressing Techniques Treatment (ICD-10-PCS; 2018-09-05)
PROC: F08Z2ZZ Grooming/Personal Hygiene Treatment (ICD-10-PCS; 2018-09-05)
PROC: F08Z0ZZ Bathing/Showering Techniques Treatment (ICD-10-PCS; 2018-09-05)
DX: I11.0 Hypertensive heart disease with heart failure (principal); I50.9 Heart failure, unspecified; E11.9 Type 2 diabetes mellitus without complications; E78.00 Pure hypercholesterolemia, unspecified; E78.5 Hyperlipidemia, unspecified; I25.10 Atherosclerotic heart disease of native coronary artery without angina pectoris; I25.2 Old myocardial infarction; I44.1 Atrioventricular block, second degree; I65.29 Occlusion and stenosis of unspecified carotid artery; I95.1 Orthostatic hypotension; K59.00 Constipation, unspecified; Z79.02 Long term (current) use of antithrombotics/antiplatelets; Z79.82 Long term (current) use of aspirin; Z79.899 Other long term (current) drug therapy; Z95.5 Presence of coronary angioplasty implant and graft; K59.09 Other constipation; M19.90 Unspecified osteoarthritis, unspecified site; Z87.19 Personal history of other diseases of the digestive system; R00.1 Bradycardia, unspecified; R27.0 Ataxia, unspecified; E66.9 Obesity, unspecified; Z68.35 Body mass index [BMI] 35.0-35.9, adult; R07.89 Other chest pain

== ENCOUNTER 2018-09-11 14:11 | Emergency (ER) | payer BC, MEDICARE ==
[2018-09-11 14:11] VITALS: BMI 33.6
--- NOTE | 2018-09-11 14:45 | ED PDOC ---
Arrival/HPI - General Chief Complaint: Dizziness/Lightheaded Time Seen by Provider: 09/11/18 14:12 Historian: Patient - History of Present Illness Narrative History of Present Illness (Text): 09/11/18 14:36 A 67 year old female, whose past medical history includes hypertension, diabetes, bradycardia s/p cardiac stent, presents to the emergency department complaining of twisted left ankle s/p fall. Patient reports while she was walking outside, she began to feel dizzy and resulted in falling and injuring her left ankle. States she was recently discharged from the hospital for her hypertension and dizziness. Carotid duplex was performed and showed 20-40% ICA stenosis, anterograde flow in both vertebral arteries. She reports that she was discharged from TCU yesterday and had only been able to ambulate short distances at distance due to dizziness. Reports that she is scheduled for PT as outpatient. Denies head trauma. Patient denies any LOC, chest pain, shortness of breath, or any other complaints at this time. PMD: Dr. Villa 09/11/18 15:32 09/11/18 17:00 Past Medical History - Provider Review Nursing Documentation Reviewed: Yes - Infectious Disease Hx of Infectious Diseases: None - Cardiac Hx Cardiac Disorders: Yes Hx Hypertension: Yes - Pulmonary Hx Respiratory Disorders: Yes Other/Comment: H/O OF CARBON MONOXIDE POISONING - Neurological Hx Neurological Disorder: Yes Hx Dizziness: Yes (VERTIGO) - HEENT Hx HEENT Disorder: No - Renal Hx Renal Disorder: No - Endocrine/Metabolic Hx Diabetes Mellitus Type 2: Yes - Hematological/Oncological Hx Blood Disorders: No - Integumentary Hx Dermatological Disorder: No - Musculoskeletal/Rheumatological Hx Arthritis: Yes (OA) - Gastrointestinal Hx Gastrointestinal Disorders: Yes Hx Diverticulitis: Yes Other/Comment: CHRONIC CONSTIPATION - Genitourinary/Gynecological Hx Genitourinary Disorders: No - Psychiatric Hx Psychophysiologic Disorder: No Hx Substance Use: No - Surgical History Hx Cardiac Catheterization: Yes Hx Coronary Stent: Yes (X3) Hx Orthopedic Surgery: Yes (left knee 01/2016) - Anesthesia Hx Anesthesia: Yes Hx Anesthesia Reactions: No Hx Malignant Hyperthermia: No - Suicidal Assessment Feels Threatened In Home Enviroment: No Family/Social History - Physician Review Nursing Documentation Reviewed: Yes Family/Social History: No Known Family HX Smoking Status: Never Smoked Hx Alcohol Use: No Hx Substance Use: No Allergies/Home Meds Allergies/Adverse Reactions: Allergies No Known Allergies Allergy (Verified 09/05/18 04:43) Review of Systems - Review of Systems Constitutional: absent: Fatigue, Weight Change, Fevers Eyes: absent: Vision Changes ENT: absent: Hearing Changes Respiratory: absent: SOB, Cough, Sputum, Wheezing Cardiovascular: absent: Chest Pain, Palpitations, Edema, Calf Pain, BILLS, Orthopnea, Syncope Gastrointestinal: absent: Abdominal Pain, Constipation, Diarrhea, Nausea, Vomiting Musculoskeletal: Other (left ankle pain s/p fall and twisting ankle.) Skin: Other (ankle pain) Neurological: Dizziness. absent: Other (no LOC) Physical Exam Temperature: Afebrile Blood Pressure: Normal Pulse: Regular Respiratory Rate: Normal Appearance: Positive for: Well-Appearing, Non-Toxic, Comfortable Pain Distress: None Mental Status: Positive for: Alert and Oriented X 3 - Systems Exam Head: Present: Atraumatic, Normocephalic Pupils: Present: PERRL Extroacular Muscles: Present: EOMI, Other (no nystagmus) Mouth: Present: Moist Mucous Membranes Neck: Present: Normal Range of Motion Respiratory/Chest: Present: Clear to Auscultation, Good Air Exchange. No: Respiratory Distress Cardiovascular: Present: Regular Rate and Rhythm, Normal S1, S2. No: Murmurs Abdomen: No: Tenderness, Distention, Rebound, Guarding Upper Extremity: Present: Normal Inspection. No: Cyanosis, Edema Lower Extremity: Present: Swelling (left ankle with swelling), Neurovascularly Intact Neurological: Present: GCS=15, CN II-XII Intact, Speech Normal, Gait Normal Skin: Present: Warm, Dry, Normal Color. No: Rashes Psychiatric: Present: Alert, Oriented x 3, Normal Insight, Normal Concentration Medical Decision Making ED Course and Treatment: 09/11/18 14:39 Impression: 67 year old female with left ankle pain s/p fall and twisting ankle. Physical exam shows left ankle swelling. Plan: -- Chest X-ray -- Labs -- Left Ankle X-Ray -- Motrin -- Reassess and disposition Prior Visits: Notes and results from previous visits were reviewed. Patient was last seen in the emergency department on 09/02/2018 for shortness of breath, generalized weakness, and chest pressure. Patient was admitted. Progress Notes: Foot and ankle xray negative. Cxray negative. Labs grossly normal 09/11/18 17:51 CT head IMPRESSION: No acute intracranial abnormalities. No significant findings to account for the clinical presentation. No significant interval change compared to the prior examination(s). Spoke to Dr. Munoz who admitted patient. Reports that patient has had complete workup for this complaint. Reports that she has outpatient PT already organized. Patient was given meclizine and she does report some improvement of symptoms.She reports that she want to go home and ambulated out of ED with steady gait. - RAD Interpretation Radiology Orders: 09/11/18 14:35 CHEST PORTABLE [RAD] Stat ANKLE LEFT 3 VIEWS ROUTINE [RAD] Stat - Medication Orders Current Medication Orders: Discontinued Medications Ibuprofen (Motrin Tab) 400 mg PO STAT STA Stop: 09/11/18 14:37 - Scribe Statement The provider has reviewed the documentation as recorded by the Tasia Story Provider Scribe Attestation: All medical record entries made by the Scribe were at my direction and personally dictated by me. I have reviewed the chart and agree that the record accurately reflects my personal performance of the history, physical exam, medical decision making, and the department course for this patient. I have also personally directed, reviewed, and agree with the discharge instructions and disposition. Disposition/Present on Arrival - Present on Arrival Any Indicators Present on Arrival: No History of DVT/PE: No History of Uncontrolled Diabetes: No Urinary Catheter: No History of Decub. Ulcer: No History Surgical Site Infection Following: None - Disposition Have Diagnosis and Disposition been Completed?: Yes Diagnosis: Dizziness, Ankle sprain Disposition: HOME/ ROUTINE Disposition Time: 17:52 Patient Plan: Discharge Patient Problems: Current Active Problems Problem Status Onset Ankle sprain Acute Dizziness Acute Condition: GOOD Discharge Instructions (ExitCare): Vertigo (a Type of Dizziness), Ankle Sprain (DC) Additional Instructions: Follow-up with doctors as instructed on your discharge paperwork. Follow-up with PT as instructed. Take meclizine as needed for vertigo. Return to ED if condition worsens. Motrin for ankle pain. Prescriptions: RX: Meclizine [Meclizine*] 25 mg PO Q6 #30 tab Forms: [email or web address] (Greenlandic)
[2018-09-11 14:47] VITALS: TEMP 98.1
[2018-09-11 15:41] LABS: BASO # 0.07 K/mm3 (0.0-2.0); BASO % 0.8 % (0.0-3.0); EOS # 0.4 (0.0-0.7); EOS % 4.6 % (1.5-5.0); GRAN # 5.32 (1.4-6.5); GRAN % 62.2 % (50.0-68.0); HEMOGLOBIN 12.9 g/dL (12.0-16.0); LYMPH # 2.2 (1.2-3.4); LYMPH % 25.9 % (22.0-35.0); MEAN CELL VOLUME 79.9 fl (80.0-105.0); MEAN CORPUSCULAR HGB CONC 32.5 g/dl (31.0-37.0); MEAN PLATELET VOLUME 9.7 fl (7.0-11.0); MONO # 0.6 (0.1-0.6); MONO % 6.5 % (1.0-6.0); RBC 4.97 10^6/uL (3.5-6.1); WHITE BLOOD COUNT 8.6 10^3/ul (4.5-11.0)
--- NOTE | 2018-09-11 15:46 | RAD ---
Date of service: 09/11/2018 PROCEDURE: Left Foot Radiographs. HISTORY: l foot pain COMPARISON: None. FINDINGS: BONES: Normal. No fracture. JOINTS: Normal. SOFT TISSUES: Normal. OTHER FINDINGS: None. IMPRESSION: Normal left foot radiographs.
--- NOTE | 2018-09-11 15:47 | RAD ---
Date of service: 09/11/2018 PROCEDURE: Left Ankle Radiographs. HISTORY: L ankle pain after fall COMPARISON: None FINDINGS: BONES: Normal. No fracture. JOINTS: Normal. No osteoarthritis. Ankle mortise maintained. Talar dome intact SOFT TISSUES: Normal. OTHER FINDINGS: None. IMPRESSION: Normal left ankle radiographs.
[2018-09-11 15:53] LABS: ALT/SGPT 51 U/L (7-56); AST/SGOT 40 U/L (14-36); BLOOD UREA NITROGEN 13 mg/dL (7-21); CALCIUM 9.6 mg/dL (8.4-10.5); GFR NON-AFRICAN AMERICAN > 60
[2018-09-11 16:02] LABS: TROPONIN I < 0.01 ng/mL
--- NOTE | 2018-09-11 16:31 | RAD ---
Date of service: 09/11/2018 HISTORY: dizziness COMPARISON: 08/26/2018. FINDINGS: LUNGS: No active pulmonary disease. PLEURA: No significant pleural effusion identified, no pneumothorax apparent. CARDIOVASCULAR: No atherosclerotic calcification present No radiographic findings to suggest acute or significant cardiovascular disease. OSSEOUS STRUCTURES: No significant abnormalities. VISUALIZED UPPER ABDOMEN: Normal. OTHER FINDINGS: None. IMPRESSION: No active disease. No significant interval change compared to the prior examination(s).
[2018-09-11 17:32] VITALS: O2SAT 99
--- NOTE | 2018-09-11 17:52 | CT ---
Date of service: 09/11/2018 PROCEDURE: CT HEAD WITHOUT CONTRAST. HISTORY: dizziness COMPARISON: 05/28/2017 TECHNIQUE: Axial computed tomography images were obtained through the head/brain without intravenous contrast. Supplemental Coronal and Sagittal projections created and reviewed. Radiation dose: Total exam DLP = 1073.05 mGy-cm. This CT exam was performed using one or more of the following dose reduction techniques: Automated exposure control, adjustment of the mA and/or kV according to patient size, and/or use of iterative reconstruction technique. FINDINGS: HEMORRHAGE: No intracranial hemorrhage. BRAIN: No mass effect or edema. No atrophy or chronic microvascular ischemic changes. VENTRICLES: Unremarkable. No hydrocephalus. CALVARIUM: Unremarkable. PARANASAL SINUSES: Unremarkable as visualized. No significant inflammatory changes. MASTOID AIR CELLS: Unremarkable as visualized. No inflammatory changes. OTHER FINDINGS: None. IMPRESSION: No acute intracranial abnormalities. No significant findings to account for the clinical presentation. No significant interval change compared to the prior examination(s).
[2018-09-11 18:25] VITALS: BP 143/89; PULSE 76; RESP 16
--- NOTE | 2018-09-12 10:37 | CARD ---
APPROVED REPORT Date of service: 09/11/2018 EKG Measurement Heart [id number] <Conclusion> Sinus rhythm with 1st degree AV block Inferior infarct, age undetermined PRWP No change
== END 2018-09-11 18:47 | disposition home or self-care (01) ==
LOC: ED 14:11
DX: R42 Dizziness and giddiness (principal); S93.402A Sprain of unspecified ligament of left ankle, initial encounter; W18.30XA Fall on same level, unspecified, initial encounter; Y93.01 Activity, walking, marching and hiking; Y92.89 Other specified places as the place of occurrence of the external cause; I10 Essential (primary) hypertension; E11.9 Type 2 diabetes mellitus without complications; Z95.5 Presence of coronary angioplasty implant and graft

== ENCOUNTER 2018-09-15 03:15 | Inpatient (IN) | payer BC, MEDICARE ==
[2018-09-15 03:19] VITALS: BMI 31.7
[2018-09-15] MEDS ORDERED: Albuterol-Ipratrop 3 mg / 0.5 (3 ml) UD ONE (03:26)
[2018-09-15] MEDS ORDERED: DiphenhydrAMINE 50 mg/ml Inj ONE (03:27)
[2018-09-15] MEDS ORDERED: EPINEPHrine 1 mg/ml (1:1000) Inj ONE (03:29)
[2018-09-15] MEDS ORDERED: Sodium Chloride 0.9% 1,000 ML IV STA ×2 (03:33→05:11)
[2018-09-15] MEDS ORDERED: EPINEPHrine 1 mg/ml (1:1000) Inj SC STA (03:33)
[2018-09-15] MEDS ORDERED: DiphenhydrAMINE 50 mg/ml Inj IVP STA (03:36)
--- NOTE | 2018-09-15 03:51 | ED PDOC ---
Arrival/HPI - General Chief Complaint: Allergic Reaction Time Seen by Provider: 09/15/18 03:18 Historian: Patient, Spouse EM Caveat: Acuity of Condition - Critical Care Critical Care Minutes: 30 minutes - History of Present Illness Narrative History of Present Illness (Text): 09/15/18 03:20 67 year old female, whose past medical history includes hypertension, [place] (stent 2016, 2018), and hyperlipidemia, presents to the emergency department accompanied by for worsening allergic reaction that began 5-6 hours ago after eating a grapefruit. Patient is complaining of facial swelling and trouble breathing. As per patient's , patient had a cath done approximately 1 week ago with stent placement in LCX artery and is currently on Lisinopril. Patient had a similar episode 3 days ago after eating a grapefruit. HPI and ROS limited due to patient's acuity of condition. PMD: Dr. Villa Rn Hematology- Dr. Gentile Bobbin Hauler: Dr. Jackson Time/Duration: 4-6 hours Symptom Onset: Gradual Symptom Course: Worsening Activities at Onset: Eating Context: Home Past Medical History - Provider Review Nursing Documentation Reviewed: Yes - Infectious Disease Hx of Infectious Diseases: None - Cardiac Hx Cardiac Disorders: Yes Hx Hypertension: Yes Hx Pacemaker: No - Pulmonary Hx Respiratory Disorders: Yes Other/Comment: H/O OF CARBON MONOXIDE POISONING - Neurological Hx Neurological Disorder: Yes Hx Dizziness: Yes (VERTIGO) - HEENT Hx HEENT Disorder: No - Renal Hx Renal Disorder: Yes - Endocrine/Metabolic Hx Diabetes Mellitus Type 2: Yes - Hematological/Oncological Hx Blood Disorders: No - Integumentary Hx Dermatological Disorder: No - Musculoskeletal/Rheumatological Hx Arthritis: Yes (OA) Hx Fractures: Yes (FX OF PATELLA) - Gastrointestinal Hx Diverticulitis: Yes - Genitourinary/Gynecological Hx Genitourinary Disorders: No - Psychiatric Hx Anxiety: Yes Hx Substance Use: No - Surgical History Hx Coronary Stent: Yes (X3) - Anesthesia Hx Anesthesia: Yes Hx Anesthesia Reactions: No Hx Malignant Hyperthermia: No - Suicidal Assessment Feels Threatened In Home Enviroment: No Family/Social History - Physician Review Nursing Documentation Reviewed: Yes Family/Social History: No Known Family HX Smoking Status: Never Smoked Hx Alcohol Use: No Hx Substance Use: No Allergies/Home Meds Allergies/Adverse Reactions: Allergies grapefruit Adverse Reaction (Severe, Verified 09/15/18 16:03) ANGIOEDEMA Review of Systems - Physician Review All systems were reviewed & negative as marked: Yes - Review of Systems Systems not reviewed;Unavailable: Acuity of Condition Respiratory: SOB Skin: Other (Facial swelling) Physical Exam Vital Signs Reviewed: Yes Vital Signs Temp Pulse Resp BP Pulse Ox 09/15/18 03:35 98.4 F 112 H 23 162/96 H 100 09/15/18 03:30 98.4 F 09/15/18 03:21 113 H 24 178/99 H 99 Temperature: Afebrile Blood Pressure: Hypertensive Pulse: Tachycardic Respiratory Rate: Normal Appearance: Positive for: Well-Appearing, Non-Toxic, Comfortable Pain Distress: None Mental Status: Positive for: Alert and Oriented X 3 - Systems Exam Head: Present: Atraumatic, Normocephalic Pupils: Present: PERRL Extroacular Muscles: Present: EOMI Conjunctiva: Present: Normal Mouth: Present: Moist Mucous Membranes, Normal Tounge (No tongue enlargement ), Other (Oral swelling ) Neck: Present: Normal Range of Motion Respiratory/Chest: Present: Clear to Auscultation, Good Air Exchange. No: Respiratory Distress, Accessory Muscle Use Cardiovascular: Present: Regular Rate and Rhythm, Normal S1, S2. No: Murmurs Abdomen: No: Tenderness, Distention, Peritoneal Signs Back: Present: Normal Inspection Upper Extremity: Present: Normal Inspection. No: Cyanosis, Edema Lower Extremity: Present: Normal Inspection. No: Edema Neurological: Present: GCS=15, CN II-XII Intact, Speech Normal Skin: Present: Warm, Dry, Rashes (Blanching urticaria lesions noted to the thorax, upper arms, and lower extremities bialterally) Psychiatric: Present: Alert, Oriented x 3, Normal Insight, Normal Concentration Medical Decision Making ED Course and Treatment: 09/15/18 03:20 Impression: 67 year old female presents for worsening allergic reaction that began 5-6 hours ago after eating a grapefruit. Differential Diagnosis included but are not limited to: Anaphylaxis Type 1 hypersensitivity reaction Plan: -- EKG -- Labs -- Chest X-ray -- Benadryl -- Epinephrine --Pepcid -- Solu-medrol --IV Fluids -- Reassess and disposition Prior Visits: Notes and results from previous visits were reviewed. Progress Notes: 09/15/18 04:40 On re-evaluation, patient is complaining of chest pain. Will order Labs, Troponin I, and D-Dimer. 09/15/18 05:10 Case discussed with medical scientist and Dr. Amado(emergency medicine medical director) who is aware and agrees with the plan to admit to ICU for airway monitoring. Accepts patient into hospitalist service to ICU and request Soft Tissue CT of the neck w/o contrast. - Critical Care Critical Care Minutes: 30 minutes - Lab Interpretations I have reviewed the lab results: Yes - RAD Interpretation Narrative RAD Interpretations (Text): 09/15/18 05:17 CXR Impression: As read by me, cardiomegaly with pulmonary congestion. 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 Interpreted by me. Interpreted by ED Physician: Yes Type: 12 lead EKG - Medication Orders Current Medication Orders: Sodium Chloride (Sodium Chloride 0.9%) 1,000 mls @ 999 mls/hr IV .Q1H1M STA Stop: 09/15/18 04:33 Last Admin: 09/15/18 03:38 Dose: 999 mls/hr eMAR Start Stop Document 09/15/18 03:38 CNR (Rec: 09/15/18 03:38 CNR [id number]) Intravenous Solution Start Date 09/15/18 Start Time 03:38 End Date 09/15/18 End time 04:38 Total Infusion Time 60 Discontinued Medications Diphenhydramine HCl (Benadryl) 50 mg IVP STAT STA Stop: 09/15/18 03:37 Last Admin: 09/15/18 03:39 Dose: 50 mg IVP Administration Document 09/15/18 03:39 CNR (Rec: 09/15/18 03:39 CNR [id number]) Charges for Administration # of IVP Administrations 1 Epinephrine HCl (Epinephrine) 1 mg SC STAT STA Stop: 09/15/18 03:34 Last Admin: 09/15/18 03:39 Dose: 1 mg Subcutaneous Administrations Document 09/15/18 03:39 CNR (Rec: 09/15/18 03:39 CNR [id number]) Injection Site MAR Injection Site Right Arm Charges for Administration # of Subcutaneous Administrations 1 Famotidine (Pepcid) 20 mg IVP STAT STA Stop: 09/15/18 03:34 Last Admin: 09/15/18 03:40 Dose: 20 mg IVP Administration Document 09/15/18 03:40 CNR (Rec: 09/15/18 03:40 CNR [id number]) Charges for Administration # of IVP Administrations 1 Methylprednisolone (Solu-Medrol) 125 mg IVP STAT STA Stop: 09/15/18 03:34 Last Admin: 09/15/18 03:39 Dose: 125 mg IVP Administration Document 09/15/18 03:39 CNR (Rec: 09/15/18 03:39 CNR [id number]) Charges for Administration # of IVP Administrations 1 - Scribe Statement The provider has reviewed the documentation as recorded by the Tasia Gutierrez Provider Scribe Attestation: All medical record entries made by the Tasia were at my direction and personally dictated by me. I have reviewed the chart and agree that the record accurately reflects my personal performance of the history, physical exam, medical decision making, and the department course for this patient. I have also personally directed, reviewed, and agree with the discharge instructions and disposition. Disposition/Present on Arrival - Present on Arrival Any Indicators Present on Arrival: No History of DVT/PE: No History of Uncontrolled Diabetes: No Urinary Catheter: No History of Decub. Ulcer: No History Surgical Site Infection Following: None - Disposition Have Diagnosis and Disposition been Completed?: Yes Diagnosis: Angioedema Disposition: HOSPITALIZED Disposition Time: 05:10 Patient Plan: Admission, ICU Condition: GOOD
[2018-09-15 05:20] LABS: BASO # 0.02 K/mm3 (0.0-2.0); BASO % 0.2 % (0.0-3.0); EOS # 0.1 (0.0-0.7); EOS % 0.5 % (1.5-5.0); GRAN # 7.92 (1.4-6.5); GRAN % 64.5 % (50.0-68.0); LYMPH # 3.7 (1.2-3.4); LYMPH % 30.2 % (22.0-35.0); MEAN CELL VOLUME 80.4 fl (80.0-105.0); MEAN CORPUSCULAR HEMOGLOBIN 25.6 pg (25.0-35.0); MEAN CORPUSCULAR HGB CONC 31.8 g/dl (31.0-37.0); MEAN PLATELET VOLUME 10.3 fl (7.0-11.0); MONO # 0.6 (0.1-0.6); MONO % 4.6 % (1.0-6.0); RBC 5.47 10^6/uL (3.5-6.1); RED CELL DISTRIBUTION WIDTH 15.9 % (11.5-14.5); WHITE BLOOD COUNT 12.3 10^3/uL (4.5-11.0)
[2018-09-15 05:47] LABS: B-TYPE NATRIURETIC PEPTIDE 152 pg/mL (0-450); TROPONIN I < 0.01 ng/mL
[2018-09-15 05:55] LABS: ALBUMIN 3.9 g/dL (3.0-4.8); ALT/SGPT 40 U/L (7-56); AST/SGOT 29 U/L (14-36); BLOOD UREA NITROGEN 17 mg/dL (7-21); CALCIUM 9.2 mg/dL (8.4-10.5); GFR NON-AFRICAN AMERICAN > 60
[2018-09-15] MEDS ORDERED: Iodixanol 320 MG/ML 100 ML BOTTLE IV ONE (06:28)
[2018-09-15] MEDS ORDERED: Albuterol-Ipratrop 3 mg / 0.5 (3 ml) UD IH PRN (06:39)
[2018-09-15] MEDS ORDERED: DiphenhydrAMINE 1% 1 EA TUBE TOP PRN (06:48)
--- NOTE | 2018-09-15 07:00 | CP.PCM.HP ---
<Nir Lane - Last Filed: 09/16/18 07:39> History of Present Illness - History of Present Illness History of Present Illness: ICU Consultation CC: Angioedema/Anaphylaxis HPI: Ms. Segovia is a 67 year old female with a past medical history significant for HTN, [place] (stent 2015, 2018), and HLD who presents with one day of facial swelling and intermittent chest pain. 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 She had associated SOB at that time and then two hours later developed a non-itchy rash on her bilateral legs and shoulders. She denies any personal or family history of this, bug bites, starting any new medications, using any new products, or getting any new pets. She does endorse that she ate a grapefruit around 1000 yesterday morning and "thinks" she has had a much more minor presentation of these symptoms previously after eating a grapefruit in the past. Her chest pain is described as a sharp, substernal, non- radiating and intermittent and rated as a 4/10. She further denies any fevers, chills, headache, changes in her vision, dysphagia, tongue swelling, throat swelling, neck pain/stiffness, palpitations, cough, wheezing, sputum production, abdominal pain, N/V/D/C, changes in urine output, or any numbness/tingling/weakness of any extremity. Of note, she was recently seen for similar presentation without angioedema at on 09/12/18 and discharged with pepcid, benadryl and an eight day course of prednisone. This was attributed to eating grapefruit. PMH: HTN, [place] (stent 2016), HLD, [place] (stent placed in LCX 2017) PSH: Knee arthroscopy (2014) Family History: Mom and GM (heart disease requring pacemaker) Social History: Denies any tobacco, alcohol or illicit drug use Allergies: Grapefruit Home Medications: HCTZ 25mg daily, Atorvastatin 40mg daily, Plavix 75mg po daily, ASA 81mg daily PMD: Dr. Villa Present on Admission - Present on Admission Any Indicators Present on Admission: No Review of Systems - Review of Systems Review of Systems: As stated in HPI, otherwise negative Past Patient History - Infectious Disease Hx of Infectious Diseases: None - Past Social History Smoking Status: Never Smoked - CARDIAC Hx Cardiac Disorders: Yes Hx Hypertension: Yes Hx Pacemaker: No - PULMONARY Hx Respiratory Disorders: Yes Other/Comment: H/O OF CARBON MONOXIDE POISONING - NEUROLOGICAL Hx Neurological Disorder: Yes Hx Dizziness: Yes (VERTIGO) - HEENT Hx HEENT Problems: No - RENAL Hx Chronic Kidney Disease: Yes - ENDOCRINE/METABOLIC Hx Diabetes Mellitus Type 2: Yes - HEMATOLOGICAL/ONCOLOGICAL Hx Blood Disorders: No - INTEGUMENTARY Hx Dermatological Problems: No - MUSCULOSKELETAL/RHEUMATOLOGICAL Hx Arthritis: Yes (OA) Hx Fractures: Yes (FX OF PATELLA) - GASTROINTESTINAL Hx Diverticulitis: Yes - GENITOURINARY/GYNECOLOGICAL Hx Genitourinary Disorders: No - PSYCHIATRIC Hx Anxiety: Yes Hx Substance Use: No - SURGICAL HISTORY Hx Coronary Stent: Yes (X3) - ANESTHESIA Hx Anesthesia: Yes Hx Anesthesia Reactions: No Hx Malignant Hyperthermia: No Meds Home Medications: Home Medication List Medication Instructions Recorded Confirmed Type Aspirin [Ecotrin] 81 mg PO DAILY #30 tablet.dr 09/17/18 Rx Atorvastatin [Lipitor] 40 mg PO DIN #30 tab 09/17/18 Rx Clopidogrel [Plavix] 75 mg PO DAILY #14 tab 09/17/18 Rx DiphenhydrAMINE 1% [Benadryl 1 ea TOP Q6H PRN #1 tube 09/17/18 Rx Maximum Strength 1%] Famotidine [Pepcid] 20 mg PO DAILY #14 tab 09/17/18 Rx Methylprednisolone [Medrol Dose See Taper PO DAILY #21 mg 09/17/18 Rx Pack (21 tabs)] amLODIPine [Norvasc] 10 mg PO DAILY #30 tab 09/17/18 Rx cloNIDine [Catapres] 0.2 mg PO BID #60 tab 09/17/18 Rx Allergies/Adverse Reactions: Allergies Allergy/AdvReac Type Severity Reaction Status Date / Time grapefruit AdvReac Severe ANGIOEDEMA Verified 09/15/18 16:03 Physical Exam - Constitutional Appears: Non-toxic, No Acute Distress - Head Exam Additional comments: Diffuse edema of the soft tissues of the face with upper lip and infraorbital regions more so edematous than the other regions - Eye Exam Eye Exam: EOMI, Normal appearance - ENT Exam ENT Exam: Mucous Membranes Moist Additional comments: No tongue, tonsillar, or uvular edema appreciated - Neck Exam Neck exam: Positive for: Full Rom. Negative for: Lymphadenopathy, Meningismus, Tenderness, Thyromegaly - Respiratory Exam Respiratory Exam: Clear to Auscultation Bilateral, NORMAL BREATHING PATTERN. absent: Accessory Muscle Use, Chest Wall Tenderness, Decreased Breath Sounds, Prolonged Expiratory Phase, Rales, Rhonchi, Wheezes, Respiratory Distress, Stridor - Cardiovascular Exam Cardiovascular Exam: Tachycardia, REGULAR RHYTHM, +S1, +S2 - GI/Abdominal Exam GI & Abdominal Exam: Normal Bowel Sounds, Soft. absent: Tenderness - Extremities Exam Extremities exam: Negative for: calf tenderness - Neurological Exam Neurological exam: Alert, Oriented x3 - Psychiatric Exam Psychiatric exam: Normal Affect, Normal Mood - Skin Skin Exam: Dry, Intact, Urticaria (Noted to bilateral lower extremities and bilateral shoulders), Warm Results - Vital Signs Recent Vital Signs: Last Vital Signs Temp 98.4 F 09/15/18 03:35 Pulse 104 H 09/15/18 06:08 Resp 22 09/15/18 06:08 BP 160/77 H 09/15/18 06:08 Pulse Ox 94 L 09/15/18 06:08 - Labs Result Diagrams: 09/16/18 07:00 09/15/18 03:30 Labs: Laboratory Results - last 24 hr 09/15/18 09/15/18 09/15/18 03:30 03:30 03:30 WBC 12.3 H D RBC 5.47 Hgb 14.0 Hct 44.0 MCV 80.4 MCH 25.6 MCHC 31.8 RDW 15.9 H Plt Count 318 MPV 10.3 Gran % 64.5 Lymph % (Auto) 30.2 Oliver % (Auto) 4.6 Eos % (Auto) 0.5 L Baso % (Auto) 0.2 Gran # 7.92 H Lymph # (Auto) 3.7 H Oliver # (Auto) 0.6 Eos # (Auto) 0.1 Baso # (Auto) 0.02 D-Dimer, Quantitative 1348 H Sodium 142 Potassium 4.0 Chloride 107 Carbon Dioxide 25 Anion Gap 13 BUN 17 Creatinine 0.8 Est GFR ( Amer) > 60 Est GFR (Non-Af Amer) > 60 Random Glucose 103 Calcium 9.2 Phosphorus 3.3 Magnesium 2.1 Total Bilirubin 0.6 AST 29 ALT 40 Alkaline Phosphatase 143 H Troponin I < 0.01 NT-Pro-B Natriuret Pep 152 Total Protein 7.7 Albumin 3.9 Globulin 3.8 Albumin/Globulin Ratio 1.0 L Assessment & Plan - Assessment and Plan (Free Text) Assessment: 67 year old female with a past medical history significant for HTN, [place] (stent 2016, 2018), and HLD who presents with one day of facial swelling and intermittent chest pain. Plan: 1. Angioedema -CT soft tissue H/N showed no oropharngeal or laryngeal edema -Currently saturating well on room air -HAE workup pending -Started on Solu-medrol 60mg IV Q6, Benadryl 50mg IVP Q6, and Pepcid 20mg IVP daily -Not a candidate for intubation at this time; Will continue to monitor in ICU for respirator distress -NPO; Dysphagia evaluation pending 2. Chest Pain -EKG showed sinus tachycardia without any signs of acute ischemia -Three serial troponins ordered and pending -Cardiology consulted, all recommendations appreciated GI Prophylaxis: Pepcid DVT Prophylaxis: Heparin Diet: NPO Code Status: Full Code Patient seen and case discussed with attending, Dr. Amado. Nir Lane PGY2 - Date & Time Date: 09/15/18 Time: 07:00 <Deepika Amado - Last Filed: 09/17/18 13:17> Results - Vital Signs Recent Vital Signs: Last Vital Signs Temp 98.1 F 09/17/18 12:00 Pulse 58 L 09/17/18 12:00 Resp 18 09/17/18 12:00 BP 170/89 H 09/17/18 12:00 Pulse Ox 97 09/17/18 06:00 - Labs Result Diagrams: 09/17/18 06:30 09/17/18 06:30 Labs: Laboratory Results - last 24 hr 09/17/18 09/17/18 06:30 06:30 WBC 11.0 RBC 4.64 Hgb 11.8 L Hct 37.0 MCV 79.7 L MCH 25.4 MCHC 31.9 RDW 15.9 H Plt Count 270 MPV 9.5 Gran % 77.4 H Lymph % (Auto) 15.3 L Oliver % (Auto) 7.3 H Eos % (Auto) 0.0 L Baso % (Auto) 0.0 Gran # 8.53 H Lymph # (Auto) 1.7 Oliver # (Auto) 0.8 H Eos # (Auto) 0.0 Baso # (Auto) 0.00 Sodium 139 Potassium 3.9 Chloride 107 Carbon Dioxide 28 Anion Gap 9 L BUN 17 Creatinine 0.7 Est GFR ( Amer) > 60 Est GFR (Non-Af Amer) > 60 Random Glucose 102 Calcium 8.9 Phosphorus 2.8 Magnesium 2.2 Total Bilirubin 0.5 AST 21 ALT 34 Alkaline Phosphatase 97 Total Protein 6.4 Albumin 3.2 Globulin 3.2 Albumin/Globulin Ratio 1.0 L Attending/Attestation - Attestation I have personally seen and examined this patient.: Yes I have fully participated in the care of the patient.: Yes I have reviewed all pertinent clinical information: Yes
[2018-09-15] MEDS: DiphenhydrAMINE 50 mg/ml Inj IVP SCH ×3 (07:02→18:38)
[2018-09-15] MEDS: Sodium Chloride 0.9% 1,000 ML IV SCH ×2 (07:08→16:43)
--- NOTE | 2018-09-15 10:00 | CARD ---
APPROVED REPORT Date of service: 09/15/2018 EKG Measurement Heart [id number] <Conclusion> Sinus tachycardia Cannot rule out Inferior infarct, age undetermined PRWP Prolonged QTc, new
--- NOTE | 2018-09-15 10:07 | RAD ---
Date of service: 09/15/2018 HISTORY: sob COMPARISON: 09/11/2018. FINDINGS: LUNGS: The lungs are well inflated and clear. PLEURA: No pleural effusions or pneumothorax. CARDIOVASCULAR: There is mild cardiomegaly. Atherosclerotic aortic arch calcifications are present. OSSEOUS STRUCTURES: Within normal limits for the patient's age. VISUALIZED UPPER ABDOMEN: Normal. OTHER FINDINGS: None. IMPRESSION: No active pulmonary disease.
--- NOTE | 2018-09-15 10:53 | CT ---
Date of service: 09/15/2018 PROCEDURE: CT Chest with contrast (Pulmonary Angiogram) HISTORY: tachycardia,elevated d-dimer COMPARISON: None available. TECHNIQUE: Axial computed tomography images were obtained of the chest in the pulmonary arterial phase of enhancement. Coronal and sagittal reformatted images were created and reviewed. Intravenous contrast dose: 100 mL Visipaque 320 Radiation dose: Total exam DLP = 563.71 mGy-cm. This CT exam was performed using one or more of the following dose reduction techniques: Automated exposure control, adjustment of the mA and/or kV according to patient size, and/or use of iterative reconstruction technique. FINDINGS: PULMONARY ARTERIES: No evidence of acute pulmonary embolism. AORTA: No acute findings. No thoracic aortic aneurysm. There are aortic atherosclerotic calcification or mural plaque present. LUNGS: There is confluent airspace disease in posterior basal segments of both lower lobes. No endobronchial lesions. PLEURAL SPACES: No effusion or pneumothorax. HEART: Mild cardiomegaly. No pericardial effusion. LYMPH NODES: No pathologic lymphadenopathy. BONES, CHEST WALL: Within normal limits for the patient's age. No fracture or destructive lesion OTHER FINDINGS: Unremarkable. IMPRESSION: No CTA evidence for acute pulmonary embolism. Confluent airspace disease in the posterior basal segment of the lower lobes may represent pneumonia. Mild cardiomegaly. A preliminary report was provided by [facility].
--- NOTE | 2018-09-15 12:04 | CT ---
Date of service: 09/15/2018 PROCEDURE: CT NECK WITHOUT CONTRAST HISTORY: laryngeal edema COMPARISON: None available. TECHNIQUE: CT of the neck without intravenous contrast. Coronal and sagittal reformats generated. Radiation dose: Total exam DLP = 460.57 mGy-cm. This CT exam was performed using one or more of the following dose reduction techniques: Automated exposure control, adjustment of the mA and/or kV according to patient size, and/or use of iterative reconstruction technique. FINDINGS: NASOPHARYNX: Unremarkable. SUPRAHYOID NECK: Unremarkable oropharynx, oral cavity, parapharyngeal space and retropharyngeal space. INFRAHYOID NECK: Unremarkable larynx, hypopharynx, and supraglottic space. Vocal cords intact. MASS: None. GLANDS: Parotid and submandibular glands unremarkable. Normal size thyroid gland, without nodule. LYMPH NODES: Normal. No lymphadenopathy. CERVICAL SPINE: No fracture or focal lesion. OTHER FINDINGS: There is mild subcutaneous edema overlying the mandible. IMPRESSION: Unremarkable non-contrast enhanced CT of the neck. A preliminary report was provided by [employer].
[2018-09-15] MEDS: MethylPREDNISolone 40 mg Vial IVP SCH ×3 (12:16→23:00)
--- NOTE | 2018-09-15 16:24 | CON ---
DATE: 09/15/2018 REQUESTING PHYSICIAN: Dr. Munoz. CHIEF COMPLAINT: The patient presented with shortness of breath, facial as well as lip swelling. HISTORY OF PRESENT ILLNESS: Ms. Segovia is a 67-year-old female with a history of hypertension, myocardial infarction, hyperlipidemia, coronary artery disease status post stents and diabetes. The patient states that about 5 days ago, she had a reaction with swelling felt to be secondary to allergy after eating grapefruit, and then about 5 hours ago, she developed swelling again with her lips and face and tongue and shortness of breath and presented to the emergency room. Note that the patient was in the hospital several weeks ago and she was on a beta-annette. The physicians had changed her medication from the beta annette to lisinopril.. At this time, in evaluating her, she is awake and alert, speaking freely, no gagging or coughing. No complaints of increased shortness of breath on oxygen and O2 saturation is stable. The patient has no feeling of upper airway obstruction, but her face is swollen as well as the lips, tongue looks normal. No fever or chills, no nausea or vomiting, no chest pain, no abdominal pain, no diarrhea. No increased cough or congestion. PAST MEDICAL HISTORY: As above. ALLERGIES: SHE HAS NO KNOWN ALLERGIES. CURRENT MEDICATIONS: Can be evaluated as per the nurse's intake form. SOCIAL HISTORY: No history of smoking, EtOH abuse or drug abuse. FAMILY HISTORY: Noncontributory. REVIEW OF SYSTEMS: CONSTITUTIONAL: All negative. HEENT: Note that the patient's face, especially on the right side is swollen with swollen lips. No swelling of the tongue. LUNGS: Reveal good breath sounds. HEART: All negative. GASTROINTESTINAL: All negative. MUSCULOSKELETAL: All negative. NEUROPSYCHIATRIC: All negative. HEMATOLOGICAL: Negative. IMMUNOLOGICAL: Negative. ENDOCRINE: All negative. INTEGRITY: All negative. PHYSICAL EXAMINATION: VITAL SIGNS: Note that her temperature is 98.4, her pulse is 112, respirations of 24, BP is 162/96 and O2 saturation is 100%. LABORATORIES: Reveal a white count of 12.3, hemoglobin of 14.0, hematocrit 44.0 with platelets of 318,000. Her D-dimer is 1348. Her sodium is 142, potassium 4.0, chloride 107, CO2 of 25 with a BUN of 17, creatinine of 0.8 and a glucose of 103. DIAGNOSTIC DATA: The patient's chest x-ray reveals no active disease. The patient has had a CT of the neck for the soft tissues, CT of the chest as well as lower extremity ultrasound, all test results are pending. As far as my impression, this patient has allergic reaction and angioedema, thought to be secondary to lisinopril. She has an increased D-dimer and pulmonary embolus is being ruled out. The patient has a history of hypertension, myocardial infarction, hyperlipidemia, coronary artery disease with stents and diabetes. As far as our plan, we will get the final results of the CT angio, as well as the CT of the neck and ultrasound of the lower extremities. The patient is on Benadryl, as well as bronchodilators of DuoNeb and heparin subcutaneously. The patient is getting Pepcid, as well as Solu-Medrol and O2 via nasal cannula. We will continue to follow closely and treat aggressively and follow up on the procedures that were done and we will continue to treat aggressively along with the other consultants and the primary care doctor. Damián Rojas MD
[2018-09-15] MEDS ORDERED: Enoxaparin 100 mg Syringe SC STA (18:30)
[2018-09-16] MEDS: DiphenhydrAMINE 50 mg/ml Inj IVP SCH ×4 (00:23→17:56)
--- NOTE | 2018-09-16 01:20 | CON ---
DATE: 09/16/2018 HISTORY OF PRESENT ILLNESS: This is a 67-year-old black female, who was admitted to [facility] on 09/15/2018 with a history of acute angioedema secondary due to recent start of an JASON inhibitor. The patient was seen in the emergency room and was noted to have severe facial swelling, urticaria, and some shortness of breath that was treated with epinephrine, steroids, and Benadryl with marked improvement in her symptoms. The patient denies previous history of allergies to any JASON inhibitors, that was recently started on 1 week prior to admission to control her blood pressure. PAST MEDICAL HISTORY: Significant for heart disease. ALLERGIES: NO KNOWN DRUG ALLERGIES. SOCIAL HISTORY: Unremarkable. PHYSICAL EXAMINATION: GENERAL: She was alert and oriented, in no acute respiratory distress. HEENT: There was evidence of some mild lower lip edema, mild right facial and neck edema noted. There is no evidence of any strider or shortness of breath. Tympanic membranes are normal bilaterally. Intranasal exam revealed moderate turbinate edema. NEUROLOGICAL: Within normal limits. IMPRESSION: The patient suffered angioedema secondary due to an JASON inhibitor. PLAN: Continue with IV Benadryl and steroids. Avoid JASON inhibitors in the future and follow up in our office as an outpatient should any symptoms persist. Srini Lara DO
[2018-09-16] MEDS: Sodium Chloride 0.9% 1,000 ML IV SCH ×3 (03:36→18:00)
[2018-09-16] MEDS: MethylPREDNISolone 40 mg Vial IVP SCH ×2 (05:06→15:39)
[2018-09-16 07:22] LABS: GRAN % 87.2 % (50.0-68.0); HEMOGLOBIN 12.3 g/dL (12.0-16.0); LYMPH # 1.4 (1.2-3.4); LYMPH % 10.7 % (22.0-35.0); MEAN CELL VOLUME 79.9 fl (80.0-105.0); MEAN CORPUSCULAR HEMOGLOBIN 25.5 pg (25.0-35.0); MEAN CORPUSCULAR HGB CONC 31.9 g/dl (31.0-37.0); MONO # 0.3 (0.1-0.6); MONO % 2.1 % (1.0-6.0); RBC 4.82 10^6/uL (3.5-6.1); RED CELL DISTRIBUTION WIDTH 15.9 % (11.5-14.5); WHITE BLOOD COUNT 12.6 10^3/uL (4.5-11.0)
[2018-09-16 08:32] LABS: ALBUMIN 3.4 g/dL (3.0-4.8); ALT/SGPT 28 U/L (7-56); AST/SGOT 29 U/L (14-36); BLOOD UREA NITROGEN 14 mg/dL (7-21); CALCIUM 8.9 mg/dL (8.4-10.5); GFR NON-AFRICAN AMERICAN > 60
--- NOTE | 2018-09-16 10:21 | CARD ---
APPROVED REPORT Date of service: 09/15/2018 EKG Measurement Heart [id number] <Conclusion> Normal sinus rhythm Q in lll Normal ECG
--- NOTE | 2018-09-16 10:57 | CON ---
DATE: 09/15/2018 HISTORY OF PRESENT ILLNESS: The patient is a 67-year-old woman who presented with an allergic reaction with a swollen right side of her face and her lips. No respiratory distress was noted. The patient's cardiac past medical history includes a history of PTCA and stent of circumflex artery earlier this month. She suffers from hypertension and hypercholesterolemia. In addition, the patient presented last month with a Wenckebach. This resolved with stopping the Bystolic. Currently, the patient was on Zestril, as well as hydralazine and atorvastatin for hypercholesterolemia. SOCIAL HISTORY: The patient denies smoking. REVIEW OF SYSTEMS: A 14-point review of systems is reviewed in detail. Her facial swelling is much improved. She denies angina, denies shortness of breath. PHYSICAL EXAMINATION: VITAL SIGNS: Blood pressure is 148/80, the heart rate is in the 70s. NECK: Negative JVD. LUNGS: Without rales. HEART: Reveals S1, S2. EXTREMITIES: Without edema. DIAGNOSTICS: EKG shows normal sinus rhythm with no AV block with nonspecific ST-T changes. LABORATORY DATA: White count is 12.6, hemoglobin is 12.3. Chemistries: Troponins were elevated at 0.16. BUN and creatinine are unremarkable. IMPRESSION: 1. Allergic reaction to questionable foods or medications. 2. Non-ST elevation myocardial infarction. 3. Coronary artery disease. 4. Recent percutaneous transluminal coronary angioplasty and stent. 5. Hypertension. 6. Hypercholesterolemia. Given these findings, we will need to eliminate any new medications of certain foods. , lisinopril would make us change her hypertensive medications. We will add Norvasc to her regimen. If still elevated, we will need to add clonidine. Her elevated troponins may represent a non-STEMI. We will discuss with the patient about possible cardiac catheterization. Duc Jackson MD
--- NOTE | 2018-09-16 10:57 | US ---
HISTORY: Leg pain and swelling. Evaluate for DVT PHYSICIAN(S): Duc Pagan MD. TECHNIQUE: Duplex sonography and color-flow Doppler with graded compression were used to evaluate the deep venous systems of both lower extremities. FINDINGS: The visualized deep venous systems of both lower extremities are sonographically normal and compressible. Normal wave forms and augmentation are seen. There is no sonographic evidence for deep venous thrombosis in the visualized segments of both lower extremities. IMPRESSION: No sonographic evidence for deep venous thrombosis in the visualized segments of both lower extremities.
[2018-09-16] MEDS ORDERED: Phenylephrine 10 mg/ml Inj ONE (11:22)
[2018-09-16] MEDS ORDERED: Nitroglycerin 50mg in D5W 0 MG/0 ML BOTTLE IV ONE (11:22)
[2018-09-16] MEDS ORDERED: Iohexol 350mgl/ml 50 ML ONE (11:23)
[2018-09-16] MEDS ORDERED: Iodixanol 320 MG/ML 200 ML BOTTLE IV ONE (11:23)
[2018-09-16] MEDS ORDERED: Iodixanol 320 MG/ML 100 ML BOTTLE IV ONE (11:23)
[2018-09-16] MEDS ORDERED: Lidocaine 2% PF (10 ml) Amp ONE (11:24)
[2018-09-16] MEDS ORDERED: Midazolam 2 MG/2 ML VIAL ONE ×3 (11:48→12:03)
--- NOTE | 2018-09-16 13:20 | CARDCATH ---
PROCEDURE DATE: 09/16/2018 CARDIAC CATHETERIZATION HISTORY: The patient is a 67-year-old woman, who presented with elevated troponins as well as an allergic reaction to likely medications. The patient's past medical history is outlined in her admission note. PROCEDURE: Left heart catheterization with coronary arteriography and left ventriculogram. I performed moderate sedation, which included the presence of an independent trained observer that assisted in monitoring the patient's consciousness and physiologic status. After fentanyl and Versed, my intra service time was 30 minutes. The findings on catheterization revealed a left ventricle that contracted normally. Estimated ejection fraction of 65-70%. Her coronary anatomy revealed a left dominant circulation. The RCA revealed diffuse atherosclerosis with a 50% stenosis in the midportion. The left main artery is unremarkable. The LAD and diagonal vessels revealed diffuse atherosclerosis with a patent stent in the proximal/midportion. The circumflex artery revealed a patent stent in its mid to distal branch. No critical lesions were noted. Angio-Seal was used to close the right femoral artery site. In summary, the procedure revealed patent stents in the LAD and circumflex artery with a 50% stenosis in a nondominant RCA. LV function is normal. Given these findings, the patient's treatment should be continued aspirin and Plavix. The patient's allergic reaction might be due to her recently added lisinopril, which was started after stopping her beta-blockers, which caused AV cee block. Given these findings, we will discontinue her . We will continue her on her clonidine for better blood pressure control. Duc Jackson MD
--- NOTE | 2018-09-16 19:51 | CP.PCM.PN ---
<Papi Garcia - Last Filed: 09/16/18 20:42> Subjective - Date & Time of Evaluation Date of Evaluation: 09/16/18 Time of Evaluation: 06:00 - Subjective Subjective: Pt seen and examined. Pt denies chest pain, or trouble breathing Objective - Vital Signs/Intake and Output Vital Signs (last 24 hours): Temp Pulse Resp BP Pulse Ox 98 F 74 18 127/65 97 09/16/18 17:45 09/16/18 18:55 09/16/18 18:55 09/16/18 18:55 09/16/18 05:52 Intake and Output: 09/16/18 09/17/18 18:59 06:59 Intake Total 180 Balance 180 - Medications Medications: Current Medications Albuterol/Ipratropium (Duoneb 3 Mg/0.5 Mg (3 Ml) Ud) 3 ml IH Q2H PRN PRN Reason: Shortness of Breath Amlodipine Besylate (Norvasc) 10 mg PO DAILY [facility] Last Admin: 09/16/18 10:12 Dose: 10 mg Aspirin (Ecotrin) 81 mg PO DAILY [facility] Last Admin: 09/16/18 10:12 Dose: 81 mg Clonidine HCl (Catapres) 0.1 mg PO BID [facility] Last Admin: 09/16/18 17:56 Dose: 0.1 mg Clopidogrel Bisulfate (Plavix) 75 mg PO DAILY [facility] Last Admin: 09/16/18 10:12 Dose: 75 mg Diphenhydramine HCl (Benadryl) 50 mg IVP Q6H [facility] Last Admin: 09/16/18 17:56 Dose: 50 mg Diphenhydramine HCl (Benadryl Maximum Strength 1%) 1 ea TOP Q6H PRN PRN Reason: Itching / Pruritus Diphenhydramine HCl (Benadryl) 25 mg PO DAILY PRN PRN Reason: Allergy symptoms Famotidine (Pepcid) 20 mg PO 1000,2200 [facility] Methylprednisolone (Medrol) 8 mg PO TID [facility]; Taper Stop: 09/22/18 08:59 Last Admin: 09/16/18 17:56 Dose: 8 mg - Labs Labs: 09/16/18 07:00 09/16/18 07:00 APTT 28.2 Seconds (25.1-36.5) 09/15/18 14:00 - Constitutional Appears: Non-toxic, No Acute Distress - Head Exam Head Exam: ATRAUMATIC, NORMAL INSPECTION, NORMOCEPHALIC Additional comments: edema has improved - Eye Exam Eye Exam: EOMI - ENT Exam ENT Exam: Mucous Membranes Moist - Neck Exam Neck Exam: Full ROM, Normal Inspection - Respiratory Exam Respiratory Exam: Clear to Ausculation Bilateral, NORMAL BREATHING PATTERN. absent: Accessory Muscle Use, Wheezes, Respiratory Distress - Cardiovascular Exam Cardiovascular Exam: RRR, +S1, +S2. absent: Diastolic murmur, Murmur - GI/Abdominal Exam GI & Abdominal Exam: Soft, Normal Bowel Sounds - Extremities Exam Extremities Exam: Full ROM - Neurological Exam Neurological Exam: Alert - Psychiatric Exam Psychiatric exam: Normal Affect, Normal Mood - Skin Skin Exam: Dry, Intact, Warm Assessment and Plan - Assessment and Plan (Free Text) Assessment: 67 year old female with a past medical history significant for HTN, [place] (stent 2015, 2018), and HLD who presents with one day of facial swelling and intermittent chest pain. Plan: NSTEMI - history of CAD, s/p stent 2015, 2017 - EKG showed sinus tachycardia - Troponins: 0.01, 0.11, 0.16, 0.13 - cardiac cath: LAD and LCX stents patent from previous PCI, 50% stenosis in a nondominant RCA, normal LV function; - Cardio rec (Dr Jackson) continue ASA and Plavix - LE US: no evidence of DVT bilaterally HTN - Cardiology consulted, Dr. Jackson, rec- discontinue lisinopril, start Clonidine and norvasc - well controlled, continue to monitor Angioedema - CT soft tissue H/N showed no oropharngeal or laryngeal edema - Currently saturating well on room air - complement C4 negative - C1 inhibitor pending - C1q pending - C2 pending - medrol dose pack - duonebs PRN - Benadryl 25mg PO Daily PRN - Benadryl 50mg IVP Q6 Laura - benadryl 1% topical q6 PRN - Pepcid 20mg IVP daily Ppx - Pepcid - HHD - Full Code Pt seen, examined, assessment and plan discussed with Dr Miguel Angel Garcia PGY1, Internal Medicine Resident <Zachary Michelle - Last Filed: 09/18/18 14:47> Objective - Vital Signs/Intake and Output Vital Signs (last 24 hours): Temp Pulse Resp BP Pulse Ox 98.3 F 60 18 140/65 97 09/17/18 17:22 09/17/18 18:53 09/17/18 17:22 09/17/18 18:53 09/17/18 06:00 Intake and Output: 09/18/18 09/18/18 06:59 18:59 Intake Total 420 Balance 420 - Labs Labs: 09/17/18 06:30 09/17/18 06:30 APTT 28.2 Seconds (25.1-36.5) 09/15/18 14:00 Attending/Attestation - Attestation I have personally seen and examined this patient.: Yes I have fully participated in the care of the patient.: Yes I have reviewed all pertinent clinical information, including history, physical exam and plan: Yes Notes (Text): 09/18/18 14:46 Medical record note made by the resident after discussion with my direction and input after the patient was personally seen and examined by me. I have reviewed the chart and agree that the record accurately reflects by personal performance of the history, physical exam, data review, and medical decision-making, in the course for the patient. I have also personally directed the plan of care.
[2018-09-17] MEDS: DiphenhydrAMINE 50 mg/ml Inj IVP SCH ×4 (01:00→19:04)
[2018-09-17 06:48] VITALS: O2SAT 97
[2018-09-17 07:14] LABS: GRAN # 8.53 (1.4-6.5); GRAN % 77.4 % (50.0-68.0); HEMOGLOBIN 11.8 g/dL (12.0-16.0); LYMPH # 1.7 (1.2-3.4); LYMPH % 15.3 % (22.0-35.0); MEAN CELL VOLUME 79.7 fl (80.0-105.0); MEAN CORPUSCULAR HEMOGLOBIN 25.4 pg (25.0-35.0); MEAN CORPUSCULAR HGB CONC 31.9 g/dl (31.0-37.0); MEAN PLATELET VOLUME 9.5 fl (7.0-11.0); MONO # 0.8 (0.1-0.6); MONO % 7.3 % (1.0-6.0); RBC 4.64 10^6/uL (3.5-6.1); RED CELL DISTRIBUTION WIDTH 15.9 % (11.5-14.5)
[2018-09-17 07:50] LABS: ALBUMIN 3.2 g/dL (3.0-4.8); ALT/SGPT 34 U/L (7-56); AST/SGOT 21 U/L (14-36); BLOOD UREA NITROGEN 17 mg/dL (7-21); CALCIUM 8.9 mg/dL (8.4-10.5); GFR NON-AFRICAN AMERICAN > 60
--- NOTE | 2018-09-17 07:50 | PN ---
DATE: 09/17/2018 CARDIOLOGY FOLLOWUP SUBJECTIVE: The patient's allergic reactions are improved. She is stable post cardiac catheterization. PHYSICAL EXAMINATION: VITAL SIGNS: Blood pressure is 164/77, heart rate is in the 60s. NECK: Negative JVD. LUNGS: Without rales. HEART: Reveals S1, S2. EXTREMITIES: Without edema. Right groin site is stable. LABORATORY DATA: BUN and creatinine unremarkable. Hemoglobin is 12. IMPRESSION: 1. Patent stents noted. 2. Allergic reaction to possible lisinopril. 3. Hypertension. 4. Hypercholesterolemia. PLAN: Given these findings, we will discontinue her lisinopril. The patient's blood pressure will be treated with clonidine. We will continue her Norvasc. From a cardiac perspective, the patient can be discharged today. Her blood pressure will need to be controlled with adjustments in lifestyle as well as changing her medications. Duc Jackson MD
[2018-09-17 12:14] VITALS: RESP 18
[2018-09-17 17:23] VITALS: BP 140/65; PULSE 60; TEMP 98.3
--- NOTE | 2018-09-17 17:41 | CP.PCM.DIS ---
<Papi Garcia - Last Filed: 09/17/18 17:57> Provider - Provider Date of Admission: 09/15/18 05:24 Attending physician: Zachary Michelle MD Primary care physician: Alfonso Villa MD Time Spent in preparation of Discharge (in minutes): 40 Diagnosis - Discharge Diagnosis (1) NSTEMI (non-ST elevated myocardial infarction) Status: Acute Priority: High (2) Angioedema Status: Acute Priority: High (3) HTN (hypertension) Status: Chronic Priority: High Hospital Course - Lab Results Lab Results: Micro Results 09/16/18 05:00 Nose MRSA Culture (Admit) - Final MRSA NOT DETECTED Most Recent Lab Values WBC 11.0 10^3/uL (4.5-11.0) 09/17/18 06:30 RBC 4.64 10^6/uL (3.5-6.1) 09/17/18 06:30 Hgb 11.8 g/dL (12.0-16.0) L 09/17/18 06:30 Hct 37.0 % (36.0-48.0) 09/17/18 06:30 MCV 79.7 fl (80.0-105.0) L 09/17/18 06:30 MCH 25.4 pg (25.0-35.0) 09/17/18 06:30 MCHC 31.9 g/dl (31.0-37.0) 09/17/18 06:30 RDW 15.9 % (11.5-14.5) H 09/17/18 06:30 Plt Count 270 10^3/uL (120.0-450.0) 09/17/18 06:30 MPV 9.5 fl (7.0-11.0) 09/17/18 06:30 Gran % 77.4 % (50.0-68.0) H 09/17/18 06:30 Lymph % (Auto) 15.3 % (22.0-35.0) L 09/17/18 06:30 [place] % (Auto) 7.3 % (1.0-6.0) H 09/17/18 06:30 Eos % (Auto) 0.0 % (1.5-5.0) L 09/17/18 06:30 Baso % (Auto) 0.0 % (0.0-3.0) 09/17/18 06:30 Gran # 8.53 (1.4-6.5) H 09/17/18 06:30 Lymph # (Auto) 1.7 (1.2-3.4) 09/17/18 06:30 [place] # (Auto) 0.8 (0.1-0.6) H 09/17/18 06:30 Eos # (Auto) 0.0 (0.0-0.7) 09/17/18 06:30 Baso # (Auto) 0.00 K/mm3 (0.0-2.0) 09/17/18 06:30 APTT 28.2 Seconds (25.1-36.5) 09/15/18 14:00 D-Dimer, Quantitative 1348 ng/mlDDU (0-243) H 09/15/18 03:30 Sodium 139 mmol/L (132-148) 09/17/18 06:30 Potassium 3.9 mmol/L (3.6-5.0) 09/17/18 06:30 Chloride 107 mmol/L (98-107) 09/17/18 06:30 Carbon Dioxide 28 mmol/L (21-33) 09/17/18 06:30 Anion Gap 9 (10-20) L 09/17/18 06:30 BUN 17 mg/dL (7-21) 09/17/18 06:30 Creatinine 0.7 mg/dl (0.7-1.2) 09/17/18 06:30 Est GFR ( Amer) > 60 09/17/18 06:30 Est GFR (Non-Af Amer) > 60 09/17/18 06:30 POC Glucose (mg/dL) 118 mg/dL (65-110) H 09/16/18 07:48 Random Glucose 102 mg/dL (70-110) 09/17/18 06:30 Calcium 8.9 mg/dL (8.4-10.5) 09/17/18 06:30 Phosphorus 2.8 mg/dL (2.5-4.5) 09/17/18 06:30 Magnesium 2.2 mg/dL (1.7-2.2) 09/17/18 06:30 Total Bilirubin 0.5 mg/dL (0.2-1.3) 09/17/18 06:30 AST 21 U/L (14-36) 09/17/18 06:30 ALT 34 U/L (7-56) 09/17/18 06:30 Alkaline Phosphatase 97 U/L (38-126) 09/17/18 06:30 Troponin I 0.13 ng/mL H* 09/15/18 21:25 NT-Pro-B Natriuret Pep 152 pg/mL (0-450) 09/15/18 03:30 Total Protein 6.4 g/dL (5.8-8.3) 09/17/18 06:30 Albumin 3.2 g/dL (3.0-4.8) 09/17/18 06:30 Globulin 3.2 gm/dL 09/17/18 06:30 Albumin/Globulin Ratio 1.0 (1.1-1.8) L 09/17/18 06:30 Procalcitonin < 0.05 NG/ML (0.19-0.49) L 09/15/18 10:00 Complement C4 33.6 mg/dL (14.0-44.0) 09/15/18 10:00 - Hospital Course Hospital Course: Ms. Segovia is a 67 year old female with a past medical history significant for HTN, [place] (stent 2016, 2018), and HLD who presents with one day of facial swelling and intermittent chest pain. Patient reports that while she was resting earlier in the evening [employer] around 2000, her face suddenly began to become progressively more swollen. She had associated SOB at that time and then two hours later developed a non-itchy rash on her bilateral legs and shoulders. She denies any personal or family history of this, bug bites, starting any new medications, using any new products, or getting any new pets. She does endorse that she ate a grapefruit around 1000 yesterday morning and "thinks" she has had a much more minor presentation of these symptoms previously after eating a grapefruit in the past. Her chest pain is described as a sharp, substernal, non-radiating and intermittent and rated as a 4/10. She further denies any fevers, chills, headache, changes in her vision, dysphagia, tongue swelling, throat swelling, neck pain/stiffness, palpitations, cough, wheezing, sputum production, abdominal pain, N/V/D/C, changes in urine output, or any numbness/tingling/weakness of any extremity. Of note, she was recently seen for similar presentation without angioedema at on 09/12/18 and discharged with pepcid, benadryl and an eight day course of prednisone. This was attributed to eating grapefruit. 67 year old female with a past medical history significant for HTN, [place] (stent 2015, 2018), and HLD who presents with one day of facial swelling and intermittent chest pain. She was given Benadryl, Solumedrol, and Pepcid. CT soft tissue H/N resulted no oropharngeal or laryngeal edema. LE US resulted benign. EKG resulted sinus tachycardia. Serial troponins resulted 0.01, 0.11, 0.16, and 0.13. Cardiology was consulted and recommended to discontinue Lisinopril, and to begin Clonidine and Norvasc. Patient had cardiac cath performed which resulted stents in LAD and LCX, 50% stenosis in nondominant RCA; normal LV function. Cardiology, Dr. Jackson, recommended that patient be discharged on Clonidine and Norvasc for management of HTN, and to follow up outpatient as scheduled. Counseled on lifestyle modifications. Patient stable for discharge. Patient is stable for discharge to home as per Dr. Michelle. She was counseled to return to the emergency department if symptoms return or worsen. Patient is to follow up with primary medical doctor, Dr. Villa, within 3-5 days of discharge. Patient is to follow up with cardiology, Dr. Jackson, as scheduled on 09/18/2018. Patient was counseled on discontinuing Lisinopril and avoiding grapefruit juice. Patient is to begin use of Clonidine and Norvasc as prescribed and instructed in discharge instructions. Patient is to take Medrol dose pack as prescribed and instructed. Counseled patient on use of Benadyrl PRN for allergic symptoms. Counseled patient on side effects of medications, and on standing up slowly to prevent orthostatic hypotension. Counseled patient on adequate hydration with water and healthy lifestyle modifications. Patient is to take home medications as prescribed and instructed in discharge instructions. Reviewed all medications with patient, and she understands instructions. Patient understands and agrees with discharge plan. - Date & Time of H&P Date of H&P: 09/17/18 Time of H&P: 06:00 Discharge Exam - Head Exam Head Exam: ATRAUMATIC, NORMAL INSPECTION, NORMOCEPHALIC - Eye Exam Eye Exam: EOMI - ENT Exam ENT Exam: Mucous Membranes Moist - Respiratory Exam Respiratory Exam: NORMAL BREATHING PATTERN, UNREMARKABLE. absent: Accessory Muscle Use, Wheezes, Respiratory Distress, Stridor - Cardiovascular Exam Cardiovascular Exam: RRR, +S1, +S2. absent: Diastolic murmur, Systolic Murmur - GI/Abdominal Exam GI & Abdominal Exam: Normal Bowel Sounds, Unremarkable - Extremities Exam Extremities exam: full ROM, pedal pulses present - Neurological Exam Neurological exam: Alert, Oriented x3 - Psychiatric Exam Psychiatric exam: Normal Affect, Normal Mood - Skin Skin Exam: Dry, Intact, Warm Discharge Plan - Discharge Medications Prescriptions: RX: amLODIPine [Norvasc] 10 mg PO DAILY #30 tab RX: Aspirin [Ecotrin] 81 mg PO DAILY #30 tablet. RX: Atorvastatin [Lipitor] 40 mg PO DIN #30 tab RX: cloNIDine [Catapres] 0.2 mg PO BID #60 tab RX: Clopidogrel [Plavix] 75 mg PO DAILY #14 tab RX: DiphenhydrAMINE 1% [Benadryl Maximum Strength 1%] 1 ea TOP Q6H PRN #1 tube PRN Reason: Itching / Pruritus RX: Famotidine [Pepcid] 20 mg PO DAILY #14 tab Methylprednisolone [Medrol Dose Pack (21 tabs)] See Taper PO DAILY #21 mg - Follow Up Plan Condition: GOOD Disposition: HOME/ ROUTINE Instructions: Cardiac Catheterization, Angioedema (DC), Adverse Drug Reactions, Adult Additional Instructions: 1. please follow up with your primary care physician within 1 week 2. you are no longer prescribed Lisinopril, this was possibly what caused your allergic reaction 3. you are advised to avoid eating grapefruit, it is possible that you are allergic 4. your prescription for clonidine has been increased to 0.2mg BID 5. you have been given a prescription for Pepcid 6. you have been given a medrol dose pack, please take as directed 7. if your symptoms return or worsen, please go to the nearest emergency department Referrals: Alfonso Villa MD [Primary Care Provider] - <Zachary Michelle - Last Filed: 09/18/18 14:46> Provider - Provider Date of Admission: 09/15/18 05:24 Attending physician: Zachary Michelle MD Primary care physician: Alfonso Villa MD Hospital Course - Lab Results Lab Results: Micro Results 09/16/18 05:00 Nose MRSA Culture (Admit) - Final MRSA NOT DETECTED Most Recent Lab Values WBC 11.0 10^3/uL (4.5-11.0) 09/17/18 06:30 RBC 4.64 10^6/uL (3.5-6.1) 09/17/18 06:30 Hgb 11.8 g/dL (12.0-16.0) L 09/17/18 06:30 Hct 37.0 % (36.0-48.0) 09/17/18 06:30 MCV 79.7 fl (80.0-105.0) L 09/17/18 06:30 MCH 25.4 pg (25.0-35.0) 09/17/18 06:30 MCHC 31.9 g/dl (31.0-37.0) 09/17/18 06:30 RDW 15.9 % (11.5-14.5) H 09/17/18 06:30 Plt Count 270 10^3/uL (120.0-450.0) 09/17/18 06:30 MPV 9.5 fl (7.0-11.0) 09/17/18 06:30 Gran % 77.4 % (50.0-68.0) H 09/17/18 06:30 Lymph % (Auto) 15.3 % (22.0-35.0) L 09/17/18 06:30 [place] % (Auto) 7.3 % (1.0-6.0) H 09/17/18 06:30 Eos % (Auto) 0.0 % (1.5-5.0) L 09/17/18 06:30 Baso % (Auto) 0.0 % (0.0-3.0) 09/17/18 06:30 Gran # 8.53 (1.4-6.5) H 09/17/18 06:30 Lymph # (Auto) 1.7 (1.2-3.4) 09/17/18 06:30 [place] # (Auto) 0.8 (0.1-0.6) H 09/17/18 06:30 Eos # (Auto) 0.0 (0.0-0.7) 09/17/18 06:30 Baso # (Auto) 0.00 K/mm3 (0.0-2.0) 09/17/18 06:30 APTT 28.2 Seconds (25.1-36.5) 09/15/18 14:00 D-Dimer, Quantitative 1348 ng/mlDDU (0-243) H 09/15/18 03:30 Sodium 139 mmol/L (132-148) 09/17/18 06:30 Potassium 3.9 mmol/L (3.6-5.0) 09/17/18 06:30 Chloride 107 mmol/L (98-107) 09/17/18 06:30 Carbon Dioxide 28 mmol/L (21-33) 09/17/18 06:30 Anion Gap 9 (10-20) L 09/17/18 06:30 BUN 17 mg/dL (7-21) 09/17/18 06:30 Creatinine 0.7 mg/dl (0.7-1.2) 09/17/18 06:30 Est GFR ( Amer) > 60 09/17/18 06:30 Est GFR (Non-Af Amer) > 60 09/17/18 06:30 POC Glucose (mg/dL) 118 mg/dL (65-110) H 09/16/18 07:48 Random Glucose 102 mg/dL (70-110) 09/17/18 06:30 Calcium 8.9 mg/dL (8.4-10.5) 09/17/18 06:30 Phosphorus 2.8 mg/dL (2.5-4.5) 09/17/18 06:30 Magnesium 2.2 mg/dL (1.7-2.2) 09/17/18 06:30 Total Bilirubin 0.5 mg/dL (0.2-1.3) 09/17/18 06:30 AST 21 U/L (14-36) 09/17/18 06:30 ALT 34 U/L (7-56) 09/17/18 06:30 Alkaline Phosphatase 97 U/L (38-126) 09/17/18 06:30 Troponin I 0.13 ng/mL H* 09/15/18 21:25 NT-Pro-B Natriuret Pep 152 pg/mL (0-450) 09/15/18 03:30 Total Protein 6.4 g/dL (5.8-8.3) 09/17/18 06:30 Albumin 3.2 g/dL (3.0-4.8) 09/17/18 06:30 Globulin 3.2 gm/dL 09/17/18 06:30 Albumin/Globulin Ratio 1.0 (1.1-1.8) L 09/17/18 06:30 Procalcitonin < 0.05 NG/ML (0.19-0.49) L 09/15/18 10:00 Complement C4 33.6 mg/dL (14.0-44.0) 09/15/18 10:00 Attending/Attestation - Attestation I have personally seen and examined this patient.: Yes I have fully participated in the care of the patient.: Yes I have reviewed all pertinent clinical information, including history, physical exam and plan: Yes Notes (Text): 09/18/18 14:40 Medical record note made by the resident after discussion with my direction and input after the patient was personally seen and examined by me. I have reviewed the chart and agree that the record accurately reflects by personal performance of the history, physical exam, data review, and medical decision-making, in the course for the patient. I have also personally directed the plan of care. 67 year old female with past medical history of CAD s/p stent, hypertension who presented with angioedema/lips and chest tightness/dyspnea after eating grapefruits. Review of meds also show she was recently started on lisinopril which was discontinued. Patient was treated with IV steroids,Pepcid and benadryl. Patient has responded well.Swelling has resolved.She is on room air and is tolerating food. Ddimer was elevated but CT angio negative. Patient also had elevated troponin , Maximum troponin was 1.6.She was evaluated by cardiology and underwent cardiac catherization that showed 50% stenosis in nondominant RCA; normal LV function, no intervention was done.Patient was started on Clonidine for HTN , Blood pressure is better.She will be discharged home and will follow up with PMD and Cardiology. Management plan was discussed in detail with patient. Education was provided.
== END 2018-09-17 21:32 | disposition home or self-care (01) | DRG 282 ==
LOC: ED 03:15 → ERH 05:24 → 2RNO 16:09 → 2RSO 09-16 13:14
PROVIDERS: ADMIT Internal Medicine; ATTEND Internal Medicine
PROC: 4A023N7 Measurement of Cardiac Sampling and Pressure, Left Heart, Percutaneous Approach (ICD-10-PCS; principal; 2018-09-16)
PROC: B2151ZZ Fluoroscopy of Left Heart using Low Osmolar Contrast (ICD-10-PCS; 2018-09-16)
PROC: B2111ZZ Fluoroscopy of Multiple Coronary Arteries using Low Osmolar Contrast (ICD-10-PCS; 2018-09-16)
DX: I21.4 Non-ST elevation (NSTEMI) myocardial infarction (principal); T78.3XXA Angioneurotic edema, initial encounter; T46.4X5A Adverse effect of angiotensin-converting-enzyme inhibitors, initial encounter; I25.10 Atherosclerotic heart disease of native coronary artery without angina pectoris; I10 Essential (primary) hypertension; E11.9 Type 2 diabetes mellitus without complications; E78.00 Pure hypercholesterolemia, unspecified; Z95.5 Presence of coronary angioplasty implant and graft; Z79.02 Long term (current) use of antithrombotics/antiplatelets; Z79.82 Long term (current) use of aspirin

== ENCOUNTER 2019-01-02 05:47 | Inpatient (IN) | payer BC, MEDICARE ==
--- NOTE | 2019-01-02 06:02 | ED PDOC ---
Arrival/HPI - General Time Seen by Provider: 01/02/19 06:00 Historian: Patient - History of Present Illness Narrative History of Present Illness (Text): 01/02/19 06:01 Nancy Segovia is a 68 year old female, whose past medical history includes [place], CAD with cardiac stents, hypertension, and hyperlipidemia, who presents to the emergency department complaining of dyspnea on exertion. Patient states she has been unable to walk short distances without feeling short of breath. Patient reports associated chest discomfort. 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 Patient states she took Aspirin 81mg prior to arrival. The patient denies any fever, chills, abdominal pain, nausea, vomiting, diarrhea, urinary symptoms, back pain, neck pain, headache, dizziness, or any other complaints. PMD: Dr. Villa Histologist: Dr. Jackson Symptom Onset: Gradual Symptom Course: Unchanged Activities at Onset: Light Context: Home Past Medical History - Provider Review Nursing Documentation Reviewed: Yes - Infectious Disease Hx of Infectious Diseases: None - Cardiac Hx Cardiac Disorders: Yes Hx Hypertension: Yes Hx Pacemaker: No - Pulmonary Hx Respiratory Disorders: Yes Other/Comment: H/O OF CARBON MONOXIDE POISONING - Neurological Hx Neurological Disorder: Yes Hx Dizziness: Yes (VERTIGO) - HEENT Hx HEENT Disorder: No - Renal Hx Renal Disorder: Yes - Endocrine/Metabolic Hx Diabetes Mellitus Type 2: Yes - Hematological/Oncological Hx Blood Disorders: No - Integumentary Hx Dermatological Disorder: No - Musculoskeletal/Rheumatological Hx Arthritis: Yes (OA) Hx Fractures: Yes (FX OF PATELLA) - Gastrointestinal Hx Diverticulitis: Yes - Genitourinary/Gynecological Hx Genitourinary Disorders: No - Psychiatric Hx Anxiety: Yes Hx Substance Use: No - Surgical History Hx Coronary Stent: Yes (X3) - Anesthesia Hx Anesthesia: Yes Hx Anesthesia Reactions: No Hx Malignant Hyperthermia: No - Suicidal Assessment Feels Threatened In Home Enviroment: No Family/Social History - Physician Review Nursing Documentation Reviewed: Yes Family/Social History: Unknown Family HX Smoking Status: Never Smoked Hx Alcohol Use: No Hx Substance Use: No Allergies/Home Meds Allergies/Adverse Reactions: Allergies grapefruit Adverse Reaction (Severe, Verified 01/02/19 05:57) ANGIOEDEMA lisinopril Adverse Reaction (Verified 01/02/19 05:57) SHORTNESS OF BREATH nebivolol [From Bystolic] Adverse Reaction (Verified 01/02/19 05:57) SHORTNESS OF BREATH Home Medications: Home Meds Medication Instructions Recorded Confirmed Azilsartan Medoxomil [Edarbi] 1 mg PO DAILY 01/02/19 01/02/19 Review of Systems - Physician Review All systems were reviewed & negative as marked: Yes - Review of Systems Constitutional: Normal. absent: Fevers Eyes: Normal ENT: Normal Respiratory: absent: Cough Cardiovascular: Chest Pain, BILLS Gastrointestinal: Normal. absent: Abdominal Pain, Diarrhea, Nausea, Vomiting Genitourinary Female: Normal. absent: Dysuria, Frequency, Hematuria, Urine Output Changes Musculoskeletal: Normal. absent: Back Pain, Neck Pain Skin: Normal. absent: Rash Neurological: Normal. absent: Headache, Dizziness Endocrine: Normal Hemo/Lymphatic: Normal Psychiatric: Normal Physical Exam Vital Signs Reviewed: Yes Temperature: Afebrile Blood Pressure: Normal Pulse: Regular Respiratory Rate: Normal Appearance: Positive for: Well-Appearing, Non-Toxic, Comfortable Pain Distress: None Mental Status: Positive for: Alert and Oriented X 3 - Systems Exam Head: Present: Atraumatic, Normocephalic Pupils: Present: PERRL Extroacular Muscles: Present: EOMI Conjunctiva: Present: Normal Mouth: Present: Moist Mucous Membranes Neck: Present: Normal Range of Motion Respiratory/Chest: Present: Clear to Auscultation, Good Air Exchange. No: Respiratory Distress, Accessory Muscle Use Cardiovascular: Present: Regular Rate and Rhythm, Normal S1, S2. No: Murmurs Abdomen: No: Tenderness, Distention, Peritoneal Signs Back: Present: Normal Inspection Upper Extremity: Present: Normal Inspection. No: Cyanosis, Edema Lower Extremity: Present: Normal Inspection. No: Edema Neurological: Present: GCS=15, CN II-XII Intact, Speech Normal Skin: Present: Warm, Dry, Normal Color. No: Rashes Psychiatric: Present: Alert, Oriented x 3, Normal Insight, Normal Concentration Medical Decision Making ED Course and Treatment: 01/02/19 06:01 Impression: 68 year old female complaining of dyspnea on exertion and chest discomfort. Plan: -- EKG -- CXR -- Labs, cardiac enzymes, BNP -- Aspirin -- Nitroglycerin -- Reassess and disposition Prior Visits: Notes and results from previous visits were reviewed. Progress Notes: Reviewed EKG, sinus bradycardia at 49 bpm. 1st degree AV block. Non-specific ST/T wave changes. - EKG Interpretation Interpreted by ED Physician: Yes Type: 12 lead EKG - Transfer of Care Patient signed out to Dr:: trever almanza dispo - Scribe Statement The provider has reviewed the documentation as recorded by the Scribe Dania Washington Provider Scribe Attestation: All medical record entries made by the Scribe were at my direction and personally dictated by me. I have reviewed the chart and agree that the record accurately reflects my personal performance of the history, physical exam, medical decision making, and the department course for this patient. I have also personally directed, reviewed, and agree with the discharge instructions and disposition. Disposition/Present on Arrival - Present on Arrival Any Indicators Present on Arrival: No History of DVT/PE: No History of Uncontrolled Diabetes: No Urinary Catheter: No History Surgical Site Infection Following: None - Disposition Have Diagnosis and Disposition been Completed?: Yes Diagnosis: Hypertensive emergency Disposition: HOSPITALIZED Disposition Time: 07:00 Patient Problems: Current Active Problems Problem Status Onset Hypertensive emergency Acute Condition: IMPROVED
[2019-01-02] MEDS ORDERED: Aspirin 325 mg EC Tablets PO STA (06:06)
[2019-01-02] MEDS ORDERED: Nitroglycerin 2% Ointment Foilpak UD TOP STA (06:06)
[2019-01-02 06:24] LABS: BASO # 0.04 K/mm3 (0.0-2.0); BASO % 0.5 % (0.0-3.0); EOS # 0.3 (0.0-0.7); EOS % 4.2 % (1.5-5.0); HEMOGLOBIN 13.3 g/dL (12.0-16.0); LYMPH # 2.1 (1.2-3.4); LYMPH % 28.4 % (22.0-35.0); MEAN CELL VOLUME 79.2 fl (80.0-105.0); MEAN CORPUSCULAR HEMOGLOBIN 25.8 pg (25.0-35.0); MEAN CORPUSCULAR HGB CONC 32.6 g/dl (31.0-37.0); MONO # 0.5 (0.1-0.6); MONO % 6.6 % (1.0-6.0); RBC 5.15 10^6/uL (3.5-6.1); RED CELL DISTRIBUTION WIDTH 16.4 % (11.5-14.5); WHITE BLOOD COUNT 7.5 10^3/uL (4.5-11.0)
[2019-01-02] MEDS ORDERED: EnalaprilAT 1.25 mg/ml Inj IVP ONE (06:46)
[2019-01-02 06:51] LABS: ALB/GLOB RATIO 1.1 (1.1-1.8); ALT/SGPT 20 U/L (7-56); AST/SGOT 27 U/L (14-36); BLOOD UREA NITROGEN 11 mg/dL (7-21); CALCIUM 9.2 mg/dL (8.4-10.5); GFR NON-AFRICAN AMERICAN > 60
--- NOTE | 2019-01-02 06:56 | ED PDOC ---
Physical Exam Vital Signs Temp Pulse Resp BP Pulse Ox 01/02/19 06:39 40 L 18 179/74 H 99 01/02/19 06:27 41 L 18 195/77 H 97 01/02/19 06:03 98.0 F 45 L 18 201/82 H 100 Medical Decision Making ED Course and Treatment: 01/02/19 06:[address] Rossi with patient pending reevaluation and troponin. 01/02/19 07:40 Reevaluation of vital signs reveal bradycardia to 30s-40s with SBP 190s. BNP elevated to 1600 with negative troponin. CXR reveals mild vascular congestion. Hydralazine given with blood pressure improved to 162/85 and HR 46. Spoke to Dr. Mcgarry(hospitalist) who accepts the patient onto his service and requests Dr. Jackson(cardiology) as consult. 01/02/19 08:[address] Jackson who is aware of patient's clinical condition and will see patient once on the floor. - Lab Interpretations Microbiology Results: 01/02/19 06:00 01/02/19 06:20 Lab Results 01/02/19 06:20: Sodium 142, Potassium 3.9, Chloride 108 H, Carbon Dioxide 26, Anion Gap 11, BUN 11, Creatinine 0.9, Est GFR ( Amer) > 60, Est GFR (Non- Af Amer) > 60, Random Glucose 101, Calcium 9.2, Magnesium 2.0, Total Bilirubin 0.5, AST 27, ALT 20, Alkaline Phosphatase 123, Lactate Dehydrogenase 450, Total Creatine Kinase 43, Troponin I < 0.01 D, NT-Pro-B Natriuret Pep 1620 H, Total Protein 7.5, Albumin 4.0, Globulin 3.5, Albumin/Globulin Ratio 1.1 01/02/19 06:00: WBC 7.5, RBC 5.15, Hgb 13.3, Hct 40.8, MCV 79.2 L, MCH 25.8, MCHC 32.6, RDW 16.4 H, Plt Count 228, MPV 10.0, Neut % (Auto) 60.3, Lymph % (Auto) 28.4, Ness % (Auto) 6.6 H, Eos % (Auto) 4.2, Baso % (Auto) 0.5, Lymph # (Auto) 2.1, Ness # (Auto) 0.5, Eos # (Auto) 0.3, Baso # (Auto) 0.04, Absolute Neuts (auto) 4.54 Lab Results: Total Bilirubin 0.5 mg/dL (0.2-1.3) 01/02/19 06:20 AST 27 U/L (14-36) 01/02/19 06:20 ALT 20 U/L (7-56) 01/02/19 06:20 Alkaline Phosphatase 123 U/L (38-126) 01/02/19 06:20 Total Protein 7.5 g/dL (5.8-8.3) 01/02/19 06:20 Albumin 4.0 g/dL (3.0-4.8) 01/02/19 06:20 Globulin 3.5 gm/dL 01/02/19 06:20 Albumin/Globulin Ratio 1.1 (1.1-1.8) 01/02/19 06:20 I have reviewed the lab results: Yes - RAD Interpretation Radiology Orders: 01/02/19 06:01 CHEST PORTABLE [RAD] Stat - EKG Interpretation EKG Interpretation (Text): 01/02/19 08:28 Sinus bradycardia at 49bpm 1st degree AV block No ST elevations, no T wave changes - Medication Orders Current Medication Orders: Enalaprilat (Vasotec Iv) 1.25 mg IVP ONCE ONE Stop: 01/02/19 06:47 Discontinued Medications Aspirin (Ecotrin) 325 mg PO STAT STA Stop: 01/02/19 06:07 Last Admin: 01/02/19 06:16 Dose: Not Given Non-Admin Reason: held as per er md. 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 (Nitro-Bid 2% Oint) 1 ea TOP ONCE STA Stop: 01/02/19 06:07 Last Admin: 01/02/19 06:06 Dose: 1 ea 01/02/19 08:29 Acetaminophen (Tylenol 325mg Tab) 650 mg PO Q4 PRN PRN Reason: Pain, Mild (1-3) Amlodipine Besylate (Norvasc) 10 mg PO DAILY SCOTT Aspirin (Ecotrin) 81 mg PO DAILY SCOTT Atorvastatin Calcium (Lipitor) 40 mg PO DIN SCOTT Clonidine HCl (Catapres) 0.2 mg PO BID SCOTT Clopidogrel Bisulfate (Plavix) 75 mg PO DAILY SCOTT Famotidine (Pepcid) 20 mg PO 1000,2200 SCOTT Furosemide (Lasix) 20 mg IVP DAILY SCOTT Hydralazine HCl (Apresoline) 10 mg IVP Q6 PRN PRN Reason: SBP > 140 Hydralazine HCl (Apresoline) 25 mg PO BID SCOTT Discontinued Medications Aspirin (Ecotrin) 325 mg PO STAT STA Stop: 01/02/19 06:07 Last Admin: 01/02/19 06:16 Dose: Not Given Non-Admin Reason: held as per er md. 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 Hydralazine HCl (Apresoline) 10 mg IVP ONCE ONE Stop: 01/02/19 07:16 Last Admin: 01/02/19 07:24 Dose: 10 mg IVP Administration Document 01/02/19 07:24 BB (Rec: 01/02/19 07:37 [id number] Charges for Administration # of IVP Administrations 1 JAN Pulse and Blood Pressure Document 01/02/19 07:24 BB (Rec: 01/02/19 07:37 [id number] Blood Pressure Blood Pressure (100/60-150/90 mm Hg) 198/72 Nitroglycerin (Nitro-Bid 2% Oint) 1 ea TOP ONCE STA Stop: 01/02/19 06:07 Last Admin: 01/02/19 06:06 Dose: 1 ea Disposition/Present on Arrival - Present on Arrival Any Indicators Present on Arrival: No History of DVT/PE: No History of Uncontrolled Diabetes: No Urinary Catheter: No History of Decub. Ulcer: No History Surgical Site Infection Following: None - Disposition Have Diagnosis and Disposition been Completed?: Yes Diagnosis: Hypertensive emergency Disposition: HOSPITALIZED Disposition Time: 07:45 Patient Plan: Admission, Telemetry Patient Problems: Current Active Problems Problem Status Onset Hypertensive emergency Acute Condition: IMPROVED
[2019-01-02 07:01] LABS: B-TYPE NATRIURETIC PEPTIDE 1620 pg/mL (0-450); TROPONIN I < 0.01 ng/mL
[2019-01-02 09:19] LABS: FREE T4 1.26 ng/dL (0.78-2.19)
--- NOTE | 2019-01-02 09:32 | RAD ---
Date of service: 01/02/2019 HISTORY: sob COMPARISON: 09/15/2018 FINDINGS: LUNGS: No active pulmonary disease. PLEURA: No significant pleural effusion identified, no pneumothorax apparent. CARDIOVASCULAR: No aortic atherosclerotic calcification present. Mild cardiomegaly no pulmonary vascular congestion. OSSEOUS STRUCTURES: No significant abnormalities. VISUALIZED UPPER ABDOMEN: Normal. OTHER FINDINGS: None. IMPRESSION: No active disease.
--- NOTE | 2019-01-02 12:37 | CP.PCM.HP ---
<Tyrell Pichardo - Last Filed: 01/02/19 14:45> History of Present Illness - History of Present Illness History of Present Illness: Tyrell Pichardo PGY2 IM H&P Note for Dr. Munoz cc: chest tightness and shortness of breath Ms. Segovia is a 68 year old female with a PMH of CAD s/p 3 stents (1 FRIEDA in LAD+2 in LCx in 08/[address] Jackson), JASON-inhibitor induced angioedema, HLD, HTN and second degree heart block who presented to the ED for shortness of breath and associated chest tightness. The patient states that she is currently in the third phase of cardiac rehab w/ Dr. Jackson, and that she tolerated her exercise well. However, her tolerance to activity in daily life has been decreasing and she gets short of breath walking one block or going up a single flight of stairs. She was scheduled to see Dr. Jackson yesterday but could not, and her chest pain began since then and returned this AM. She states that it is mainly epigastric and radiating to the right chest. It is not associated with food, position or time of day, and also not improved/worsened with any meds. She does state she has been sleeping on 3 pillows at home. She otherwise denies cough, n/v/d, fevers/chills, abdominal pain, dysuria. 12-pt ROS was reviewed and is otherwise unremarkable. PMH: as above PSH: Knee arthroscopy (2014) Meds: as per MAR Allergies: Grapefruit, Lisinopril (angioedema), BB (heart block) Pharmacy: [facility] Social History: Denies any tobacco, alcohol or illicit drug use Family History: Mom and GM (heart disease requiring pacemaker) Present on Admission - Present on Admission Any Indicators Present on Admission: No Review of Systems - Review of Systems All systems: reviewed and no additional remarkable complaints except (as per HPI) Past Patient History - Infectious Disease Hx of Infectious Diseases: None - Past Medical History & Family History Past Medical History?: Yes - Past Social History Smoking Status: Never Smoked Alcohol: None Drugs: Denies Home Situation {Lives}: With Family - CARDIAC Hx Cardiac Disorders: Yes Hx Hypertension: Yes Hx Pacemaker: No - PULMONARY Hx Respiratory Disorders: Yes Other/Comment: H/O OF CARBON MONOXIDE POISONING - NEUROLOGICAL Hx Neurological Disorder: Yes Hx Dizziness: Yes (VERTIGO) - HEENT Hx HEENT Problems: No - RENAL Hx Chronic Kidney Disease: Yes - ENDOCRINE/METABOLIC Hx Diabetes Mellitus Type 2: Yes - HEMATOLOGICAL/ONCOLOGICAL Hx Blood Disorders: No - INTEGUMENTARY Hx Dermatological Problems: No - MUSCULOSKELETAL/RHEUMATOLOGICAL Hx Arthritis: Yes (OA) Hx Fractures: Yes (FX OF PATELLA) - GASTROINTESTINAL Hx Diverticulitis: Yes - GENITOURINARY/GYNECOLOGICAL Hx Genitourinary Disorders: No - PSYCHIATRIC Hx Anxiety: Yes Hx Substance Use: No - SURGICAL HISTORY Hx Coronary Stent: Yes (X3) - ANESTHESIA Hx Anesthesia: Yes Hx Anesthesia Reactions: No Hx Malignant Hyperthermia: No Meds Allergies/Adverse Reactions: Allergies Allergy/AdvReac Type Severity Reaction Status Date / Time grapefruit AdvReac Severe ANGIOEDEMA Verified 01/02/19 05:57 lisinopril AdvReac SHORTNESS Verified 01/02/19 05:57 OF BREATH nebivolol [From Bystolic] AdvReac SHORTNESS Verified 01/02/19 05:57 OF BREATH Physical Exam - Constitutional Appears: Well, Non-toxic, No Acute Distress - Head Exam Head Exam: ATRAUMATIC, NORMAL INSPECTION, NORMOCEPHALIC - Eye Exam Eye Exam: EOMI, Normal appearance, PERRL Pupil Exam: NORMAL ACCOMODATION, PERRL - ENT Exam ENT Exam: Mucous Membranes Moist, Normal Exam - Neck Exam Neck exam: Positive for: Normal Inspection - Respiratory Exam Respiratory Exam: Clear to Auscultation Bilateral, NORMAL BREATHING PATTERN. absent: Rales, Rhonchi, Wheezes, Respiratory Distress, Stridor - Cardiovascular Exam Cardiovascular Exam: RRR, +S1, +S2. absent: Systolic Murmur - GI/Abdominal Exam GI & Abdominal Exam: Normal Bowel Sounds, Soft. absent: Distended, Tenderness - Extremities Exam Extremities exam: Positive for: full ROM, normal inspection. Negative for: calf tenderness, pedal edema, tenderness - Back Exam Back exam: NORMAL INSPECTION. absent: CVA tenderness (L), CVA tenderness (R) - Neurological Exam Neurological exam: Alert, CN II-XII Intact, Normal Gait, Oriented x3, Reflexes Normal - Psychiatric Exam Psychiatric exam: Normal Affect, Normal Mood - Skin Skin Exam: Dry, Intact, Normal Color, Warm Results - Vital Signs Recent Vital Signs: Last Vital Signs Temp 98.0 F 01/02/19 06:03 Pulse 44 L 01/02/19 10:51 Resp 18 01/02/19 10:51 BP 124/62 01/02/19 11:48 Pulse Ox 100 01/02/19 10:51 - Labs Result Diagrams: 01/02/19 06:00 01/02/19 06:20 Labs: Laboratory Results - last 24 hr 01/02/19 01/02/19 01/02/19 06:00 06:20 06:20 WBC 7.5 RBC 5.15 Hgb 13.3 Hct 40.8 MCV 79.2 L MCH 25.8 MCHC 32.6 RDW 16.4 H Plt Count 228 MPV 10.0 Neut % (Auto) 60.3 Lymph % (Auto) 28.4 Taney % (Auto) 6.6 H Eos % (Auto) 4.2 Baso % (Auto) 0.5 Lymph # (Auto) 2.1 Taney # (Auto) 0.5 Eos # (Auto) 0.3 Baso # (Auto) 0.04 Absolute Neuts (auto) 4.54 Sodium 142 Potassium 3.9 Chloride 108 H Carbon Dioxide 26 Anion Gap 11 BUN 11 Creatinine 0.9 Est GFR ( Amer) > 60 Est GFR (Non-Af Amer) > 60 Random Glucose 101 Calcium 9.2 Magnesium 2.0 Total Bilirubin 0.5 AST 27 ALT 20 Alkaline Phosphatase 123 Lactate Dehydrogenase 450 Total Creatine Kinase 43 Troponin I < 0.01 D NT-Pro-B Natriuret Pep 1620 H Total Protein 7.5 Albumin 4.0 Globulin 3.5 Albumin/Globulin Ratio 1.1 Free T4 1.26 TSH 3rd Generation 3.02 Assessment & Plan - Assessment and Plan (Free Text) Assessment: 68 year old female with a PMH of CAD s/p 3 stents (1 FRIEDA in LAD+2 in LCx in 08/[address] Jackson), JASON-inhibitor induced angioedema, HLD, HTN and second degree heart block who presented to the ED for shortness of breath and associated chest tightness. Patient is a high risk for cardiac disease, and so will be monitored to r/o ACS. Plan: Hx CAD, r/o ACS - admit to telemetry for obs - troponin q6 - cardio consulted - asa/plavix daily - cannot continue ACEi or BB due to prior adverse effects - BNP elevated, will start HCTZ per Cardio - Last echo 08/2018 reviewed; no systolic or diastolic dysfunction noted - PT eval pending HTN - cont norvasc, hydralazine - hydralazine prn - monitor VS - maintain SBP 120-130's HLD - cont Lipitor Bradycardia - holding clonidine at this time - BB also held - monitor for symptomatic bradycardia PPX: Pepcid ASA/Plavix HHD Patient was seen, examined and discussed with Dr. Munoz <No Munoz - Last Filed: 01/02/19 19:05> Results - Vital Signs Recent Vital Signs: Last Vital Signs Temp 98.8 F 01/02/19 17:00 Pulse 48 L 01/02/19 17:40 Resp 19 01/02/19 17:00 BP 163/68 H 01/02/19 17:40 Pulse Ox 100 01/02/19 14:10 - Labs Result Diagrams: 01/02/19 06:00 01/02/19 06:20 Labs: Laboratory Results - last 24 hr 01/02/19 01/02/19 01/02/19 06:00 06:20 06:20 WBC 7.5 RBC 5.15 Hgb 13.3 Hct 40.8 MCV 79.2 L MCH 25.8 MCHC 32.6 RDW 16.4 H Plt Count 228 MPV 10.0 Neut % (Auto) 60.3 Lymph % (Auto) 28.4 Taney % (Auto) 6.6 H Eos % (Auto) 4.2 Baso % (Auto) 0.5 Lymph # (Auto) 2.1 Taney # (Auto) 0.5 Eos # (Auto) 0.3 Baso # (Auto) 0.04 Absolute Neuts (auto) 4.54 Sodium 142 Potassium 3.9 Chloride 108 H Carbon Dioxide 26 Anion Gap 11 BUN 11 Creatinine 0.9 Est GFR ( Amer) > 60 Est GFR (Non-Af Amer) > 60 Random Glucose 101 Calcium 9.2 Magnesium 2.0 Total Bilirubin 0.5 AST 27 ALT 20 Alkaline Phosphatase 123 Lactate Dehydrogenase 450 Total Creatine Kinase 43 Troponin I < 0.01 D NT-Pro-B Natriuret Pep 1620 H Total Protein 7.5 Albumin 4.0 Globulin 3.5 Albumin/Globulin Ratio 1.1 Free T4 1.26 TSH 3rd Generation 3.02 01/02/19 12:06 WBC RBC Hgb Hct MCV MCH MCHC RDW Plt Count MPV Neut % (Auto) Lymph % (Auto) Taney % (Auto) Eos % (Auto) Baso % (Auto) Lymph # (Auto) Taney # (Auto) Eos # (Auto) Baso # (Auto) Absolute Neuts (auto) Sodium Potassium Chloride Carbon Dioxide Anion Gap BUN Creatinine Est GFR ( Amer) Est GFR (Non-Af Amer) Random Glucose Calcium Magnesium Total Bilirubin AST ALT Alkaline Phosphatase Lactate Dehydrogenase Total Creatine Kinase Troponin I < 0.01 NT-Pro-B Natriuret Pep Total Protein Albumin Globulin Albumin/Globulin Ratio Free T4 TSH 3rd Generation Attending/Attestation - Attestation I have personally seen and examined this patient.: Yes I have fully participated in the care of the patient.: Yes I have reviewed all pertinent clinical information: Yes Notes (Text): 01/02/19 19:02 68 year old female with past medical history of CAD s/p stents, hypertension, dyslipidemia and JASON-I induced angioedema who presents with complaint of chest pain and shortness of breath. Found to have hypertensive urgency and marked bradycardia. BP improved with hydralazine and HCTZ. Clonidine is held for now. Patient is not on BB. Cardiology evaluation was appreciated. Continue with aspirin, plavix and statin. Will obtain serial cardiac enzymes and monitor on telemetry unit. No Munoz MD Hospitalist.
--- NOTE | 2019-01-02 13:43 | CON ---
DATE OF CONSULTATION: 01/02/2019 CARDIOLOGY CONSULTATION HISTORY: The patient is a 68-year-old woman, who presents with hypertensive emergency. Her blood pressure is greater than 200. She is found to be also bradycardic The patient was given intravenous medications with an excellent result. Currently, her blood pressure is 136/80. PAST MEDICAL HISTORY: Notable for PTCA and stent in the past. IN ADDITION, SHE HAS DOCUMENTED A QUESTIONABLE ALLERGY IS LISINOPRIL. She also suffers from hypercholesterolemia. Currently, the patient is comfortable, in no acute distress. REVIEW OF SYSTEMS: Review of systems are all negative. PHYSICAL EXAMINATION: VITAL SIGNS: Blood pressure is 136/80, the heart rate is in the 40s, sinus bradycardia. NECK: Negative JVD. LUNGS: Without rales. CARDIAC: Heart rate S1, S2. EXTREMITIES: Without edema. LABORATORY DATA: EKG shows sinus bradycardia with no acute changes. Hemoglobin is 13.3. Chemistries, BUN and creatinine are unremarkable. The troponin is negative x1. IMPRESSION: 1. Hypertensive emergency. 2. Stable angina. 3. Coronary artery disease. 4. History of percutaneous transluminal coronary angioplasty and stent. 5. Hypercholesterolemia. 6. Sinus bradycardia. PLAN: Given these findings, we will change her medical regimen to increase her Norvasc. Her p.o. hydralazine has been ordered. However, I do not think this would be a reasonable long-term solution. We will admit to telemetry and monitor this. Duc Jackson MD
--- NOTE | 2019-01-02 15:18 | CARD ---
APPROVED REPORT Date of service: 01/02/2019 EKG Measurement Heart [id number] <Conclusion> Marked sinus bradycardia with 1st degree AV block Possible Inferior infarct, age undetermined Abnormal ECG
[2019-01-02] MEDS ORDERED: Influenza Vaccine 60 mcg/0.5 mL SYR (4YR UP) IM ONE (23:18)
[2019-01-02] MEDS ORDERED: Pneumococcal 23-Valent Vaccine IM ONE (23:18)
--- NOTE | 2019-01-03 07:39 | CP.PCM.PN ---
<Melvina Cook - Last Filed: 01/03/19 16:58> Subjective - Date & Time of Evaluation Date of Evaluation: 01/03/19 Time of Evaluation: 07:39 - Subjective Subjective: PGY1 Progress Note for Dr. Munoz Patient seen and evaluated at bedside. Patient had no acute overnight events. Today, Patient complains of headache. Patient states she came into the ED because she has been unable to walk outside for more than 1 block before she begins feeling SOB and chest tightness. ROS unremarkable for headache, fever, chest pain, shortness of breath, increase in weakness, nausea, vomiting, constipation, diarrhea, dysuria, hematuria. Objective - Vital Signs/Intake and Output Vital Signs (last 24 hours): Temp Pulse Resp BP Pulse Ox 98.2 F 46 L 20 171/63 H 97 01/03/19 06:00 01/03/19 06:07 01/03/19 06:00 01/03/19 06:07 01/03/19 06:00 Intake and Output: 01/03/19 01/03/19 06:59 18:59 Intake Total 360 Balance 360 - Medications Medications: Current Medications Acetaminophen (Tylenol 325mg Tab) 650 mg PO Q4 PRN PRN Reason: Pain, Mild (1-3) Last Admin: 01/03/19 06:10 Dose: 650 mg Amlodipine Besylate (Norvasc) 10 mg PO DAILY [facility] Last Admin: 01/02/19 10:08 Dose: 10 mg Aspirin (Ecotrin) 81 mg PO DAILY [facility] Last Admin: 01/02/19 10:08 Dose: 81 mg Atorvastatin Calcium (Lipitor) 40 mg PO DIN [facility] Last Admin: 01/02/19 18:03 Dose: 40 mg Clonidine HCl (Catapres) 0.2 mg PO BID [facility] Clopidogrel Bisulfate (Plavix) 75 mg PO DAILY [facility] Last Admin: 01/02/19 10:09 Dose: 75 mg Famotidine (Pepcid) 20 mg PO 1000,2200 [facility] Last Admin: 01/02/19 22:31 Dose: 20 mg Hydralazine HCl (Apresoline) 10 mg IVP Q6 PRN PRN Reason: SBP > 140 Last Admin: 01/03/19 06:07 Dose: 10 mg Hydralazine HCl (Apresoline) 25 mg PO BID [facility] Last Admin: 01/02/19 17:40 Dose: 25 mg - Labs Labs: 01/02/19 06:00 01/02/19 06:20 - Additional Findings Additional findings: - Constitutional Appears: Well, Non-toxic, No Acute Distress - Head Exam Head Exam: ATRAUMATIC, NORMAL INSPECTION, NORMOCEPHALIC - Eye Exam Eye Exam: EOMI, Normal appearance, PERRL Pupil Exam: NORMAL ACCOMODATION, PERRL - ENT Exam ENT Exam: Mucous Membranes Moist, Normal Exam - Neck Exam Neck exam: Positive for: Normal Inspection - Respiratory Exam Respiratory Exam: Clear to Auscultation Bilateral, NORMAL BREATHING PATTERN. absent: Rales, Rhonchi, Wheezes, Respiratory Distress, Stridor - Cardiovascular Exam Cardiovascular Exam: RRR, +S1, +S2. absent: Systolic Murmur - GI/Abdominal Exam GI & Abdominal Exam: Normal Bowel Sounds, Soft. absent: Distended, Tenderness - Extremities Exam Extremities exam: Positive for: full ROM, normal inspection. Negative for: calf tenderness, pedal edema, tenderness - Neurological Exam Neurological exam: Alert, CN II-XII Intact, Normal Gait, Oriented x3, Reflexes Normal - Psychiatric Exam Psychiatric exam: Normal Affect, Normal Mood - Skin Skin Exam: Dry, Intact, Normal Color, Warm Assessment and Plan - Assessment and Plan (Free Text) Assessment: 68 year old female with a PMH of CAD s/p 3 stents (1 FRIEDA in LAD+2 in LCx in 08/[address] Jackson), JASON-inhibitor induced angioedema, HLD, HTN and second degree heart block who presented to the ED for shortness of breath and associated chest tightness. Patient is a high risk for cardiac disease, and so will be monitored to r/o ACS. Patient's blood pressure was consistent with hypertensive urgency, BP medications are being optimized. Nephrology (Dr. Bernal) consulted; recommendation appreciated. Plan: Hx CAD, r/o ACS - Admit to telemetry for observation - Troponin q6 negative x3 - Cardiology consulted (Dr. Jackson); recommendations appreciated - Continue ASA/plavix daily - Discontinue ACEi or BB due to prior adverse effects - BNP elevated, will start HCTZ per Cardio - Last echo 08/2018 reviewed; no systolic or diastolic dysfunction noted - PT eval pending Stable Angina - Cardiology consulted (Dr. Jackson); recommendations appreciated - Start: Imdur 60mg PO daily: per cardiology recommendations Hypertensive Urgency - Continue Norvasc 10mg PO daily - Continue Hydralazine 25mg PO BID - Hydralazine 10mg IVP Q6 PRN - Start: Procardia 10mg PO TID: per cardiology recommendations - monitor VS - Maintain SBP 120-130's - Cardiology consulted; recommendations appreciated - Nephrology consulted (Dr. Bernal); recommendations appreciated Headache possibly due to sinusitis - CT head without contrast obtained 01/03: No evidence of acute intracranial hemorrhage intracranial collection mass effect or midline shift (see radiology report) Air-fluid level is again noted at the left maxillary sinus; possible sinusitis (see radiology report) - Tylenol PRN HLD - Continue Lipitor Sinus Bradycardia - Holding clonidine at this time - Beta annette held at this time - Monitor for symptomatic bradycardia PPX: - Continue Pepcid - Continue ASA/Plavix - HHD Patient was seen and case discussed in detail with Dr. Alexander Cook PGY1 <No Munoz - Last Filed: 01/03/19 17:39> Objective - Vital Signs/Intake and Output Vital Signs (last 24 hours): Temp Pulse Resp BP Pulse Ox 98.1 F 48 L 18 163/59 H 97 01/03/19 12:00 01/03/19 17:21 01/03/19 12:00 01/03/19 17:21 01/03/19 06:00 Intake and Output: 01/03/19 01/03/19 06:59 18:59 Intake Total 360 Balance 360 - Medications Medications: Current Medications Acetaminophen (Tylenol 325mg Tab) 650 mg PO Q4 PRN PRN Reason: Pain, Mild (1-3) Last Admin: 01/03/19 06:10 Dose: 650 mg Amlodipine Besylate (Norvasc) 10 mg PO DAILY [facility] Last Admin: 01/03/19 09:47 Dose: 10 mg Aspirin (Ecotrin) 81 mg PO DAILY [facility] Last Admin: 01/03/19 09:45 Dose: 81 mg Atorvastatin Calcium (Lipitor) 40 mg PO DIN [facility] Last Admin: 01/03/19 17:20 Dose: 40 mg Clonidine HCl (Catapres) 0.2 mg PO BID [facility] Clopidogrel Bisulfate (Plavix) 75 mg PO DAILY [facility] Last Admin: 01/03/19 09:45 Dose: 75 mg Famotidine (Pepcid) 20 mg PO 1000,2200 [facility] Last Admin: 01/03/19 09:46 Dose: 20 mg Hydralazine HCl (Apresoline) 10 mg IVP Q6 PRN PRN Reason: SBP > 140 Last Admin: 01/03/19 12:27 Dose: 10 mg Hydralazine HCl (Apresoline) 25 mg PO BID [facility] Last Admin: 01/03/19 17:21 Dose: 25 mg Isosorbide Mononitrate (Imdur) 60 mg PO DAILY [facility] Last Admin: 01/03/19 17:20 Dose: 60 mg Nifedipine (Procardia) 10 mg PO TID [facility] Last Admin: 01/03/19 17:21 Dose: 10 mg - Labs Labs: 01/02/19 06:00 01/03/19 07:30 Attending/Attestation - Attestation I have personally seen and examined this patient.: Yes I have fully participated in the care of the patient.: Yes I have reviewed all pertinent clinical information, including history, physical exam and plan: Yes Notes (Text): 01/03/19 17:34 68 year old female with past medical history of CAD s/p stents, hypertension, dyslipidemia and JASON-I induced angioedema who presented with complaint of chest pain and shortness of breath. Found to have hypertensive urgency and marked bradycardia. She was started on hydralazine and HCTZ today and imdur and p rocardia today. Clonidine is on hold. Patient is not on BB. Cardiology is following. Continue with aspirin, plavix and statin. Serial cardiac enzymes were negative. CT head is negative for acute findings as well. PT evaluation was requested. No Munoz MD Hospitalist.
[2019-01-03 08:28] LABS: ALB/GLOB RATIO 1.1 (1.1-1.8); ALBUMIN 3.9 g/dL (3.0-4.8); ALT/SGPT 10 U/L (7-56); AST/SGOT 21 U/L (14-36); BLOOD UREA NITROGEN 13 mg/dL (7-21); CALCIUM 9.3 mg/dL (8.4-10.5); GFR NON-AFRICAN AMERICAN > 60
--- NOTE | 2019-01-03 11:03 | CP.PCM.APN ---
Subjective - Date & Time of Evaluation Date of Evaluation: 01/03/19 Time of Evaluation: 10:58 - Subjective Subjective: pt seenand examined at bedside pt states BILLS is a littel better , pt was able to walk to bathroom Review of Systems - Constitutional Constitutional: As Per HPI Objective - Vital Signs/Intake and Output Vital Signs (last 24 hours): Temp Pulse Resp BP Pulse Ox 98.2 F 47 L 20 157/57 H 97 01/03/19 06:00 01/03/19 09:46 01/03/19 06:00 01/03/19 09:47 01/03/19 06:00 Intake and Output: 01/03/19 01/03/19 06:59 18:59 Intake Total 360 Balance 360 - Medications Medications: Current Medications Acetaminophen (Tylenol 325mg Tab) 650 mg PO Q4 PRN PRN Reason: Pain, Mild (1-3) Last Admin: 01/03/19 06:10 Dose: 650 mg Amlodipine Besylate (Norvasc) 10 mg PO DAILY [facility] Last Admin: 01/03/19 09:47 Dose: 10 mg Aspirin (Ecotrin) 81 mg PO DAILY [facility] Last Admin: 01/03/19 09:45 Dose: 81 mg Atorvastatin Calcium (Lipitor) 40 mg PO DIN [facility] Last Admin: 01/02/19 18:03 Dose: 40 mg Clonidine HCl (Catapres) 0.2 mg PO BID [facility] Clopidogrel Bisulfate (Plavix) 75 mg PO DAILY [facility] Last Admin: 01/03/19 09:45 Dose: 75 mg Famotidine (Pepcid) 20 mg PO 1000,2200 [facility] Last Admin: 01/03/19 09:46 Dose: 20 mg Hydralazine HCl (Apresoline) 10 mg IVP Q6 PRN PRN Reason: SBP > 140 Last Admin: 01/03/19 06:07 Dose: 10 mg Hydralazine HCl (Apresoline) 25 mg PO BID [facility] Last Admin: 01/03/19 09:46 Dose: 25 mg - Labs Labs: 01/02/19 06:00 01/03/19 07:30 - Constitutional Appears: Non-toxic - Head Exam Head Exam: NORMAL INSPECTION - Respiratory Exam Respiratory Exam: Clear to Ausculation Bilateral, NORMAL BREATHING PATTERN - Cardiovascular Exam Cardiovascular Exam: +S1, +S2 - GI/Abdominal Exam GI & Abdominal Exam: Soft, Normal Bowel Sounds - Extremities Exam Extremities Exam: Full ROM - Neurological Exam Neurological Exam: Alert, Awake - Psychiatric Exam Psychiatric exam: Normal Affect - Skin Skin Exam: Dry, Intact Assessment and Plan - Assessment and Plan (Free Text) Plan: ITS Impressions Chest X-Ray 01/02/19 06:01 IMPRESSION: No active disease. Medication Orders 01/02/19 06:06 Aspirin [Ecotrin] 325 mg PO STAT STA Nitroglycerin 2% [Nitro-Bid 2% Oint] 1 ea TOP ONCE STA 01/02/19 06:12 Aspirin 325 mg .ROUTE .STK-MED ONE 01/02/19 07:15 hydrALAZINE [Apresoline] 10 mg IVP ONCE ONE 01/02/19 08:18 hydrALAZINE [Apresoline] 10 mg IVP Q6 PRN 01/02/19 08:23 Acetaminophen [Tylenol 325mg tab] 650 mg PO Q4 PRN 01/02/19 10:00 Aspirin [Ecotrin] 81 mg PO DAILY Clopidogrel [Plavix] 75 mg PO DAILY Famotidine [Pepcid] 20 mg PO 1000,2200 Furosemide [Lasix] 20 mg IVP DAILY amLODIPine [Norvasc] 10 mg PO DAILY cloNIDine [Catapres] 0.2 mg PO BID hydrALAZINE [Apresoline] 25 mg PO BID 01/02/19 12:42 hydroCHLOROthiazide [Microzide] 12.5 mg PO STAT STA 01/02/19 17:00 Atorvastatin [Lipitor] 40 mg PO DIN 01/02/19 23:18 Influenza Vaccine 60 mcg/0.5mL [Flucelvax Quad 5039-0507 Syr] 60 mcg IM .ONCE ONE Pneumococcal Vaccine Polyval [Pneumovax 23 Vaccine] 0.5 ml IM .ONCE ONE 01/03/19 10:31 Ibuprofen [Motrin Tab] 600 mg PO STAT STA 68 yr old female with pmh sig for dm, htn, hld, cad with stents who was admitted with BILLS and is now being evaluated and treated for hypertensive urgency in the setting of sinus bradycardia with cardiology consultation for optimization of therapy. will continue to follow clinical course. magen sims BPCI/TIC - BPCIA/TIC Educated pt/family on BPCIA/CIR/Med to Bed Programs: N/A Flyers given, including [facility] Beneficiary letter: N/A Pt/family verbalized understanding & agreed to program: N/A
--- NOTE | 2019-01-03 15:04 | CT ---
Date of service: 01/03/2019 PROCEDURE: CT HEAD WITHOUT CONTRAST. HISTORY: headache COMPARISON: Comparison is made with 09/11/2018 TECHNIQUE: Axial computed tomography images were obtained through the head/brain without intravenous contrast. Radiation dose: Total exam DLP = 890.22 mGy-cm. This CT exam was performed using one or more of the following dose reduction techniques: Automated exposure control, adjustment of the mA and/or kV according to patient size, and/or use of iterative reconstruction technique. FINDINGS: HEMORRHAGE: No intracranial hemorrhage. BRAIN: No mass effect or edema. No atrophy or chronic microvascular ischemic changes. VENTRICLES: Unremarkable. No hydrocephalus. CALVARIUM: Unremarkable. PARANASAL SINUSES: Again noted is air-fluid level at the left sphenoid sinus suggestive of mild sinusitis. MASTOID AIR CELLS: Unremarkable as visualized. No inflammatory changes. OTHER FINDINGS: None. IMPRESSION: No evidence of acute intracranial hemorrhage intracranial collection mass effect or midline shift. Air-fluid level is again noted at the left maxillary sinus. Correlate clinically for possible sinusitis.
--- NOTE | 2019-01-03 16:56 | PN ---
DATE: 01/03/2019 CARDIOLOGY FOLLOWUP SUBJECTIVE: The patient's blood pressure remains uncontrolled. She also remains in the sinus bradycardia in the 40s, off of her Catapres. OBJECTIVE: VITAL SIGNS: Blood pressure is 194/72, heart rate is in the 46, sinus carlito. NECK: Negative JVD. LUNGS: Without rales. HEART: S1 and S2. EXTREMITIES: Without edema. IMPRESSION: 1. Accelerated hypertension. 2. HISTORY OF ALLERGY TO LISINOPRIL. 3. Persistent sinus bradycardia with no evidence for hypothyroid. 4. Stable angina. 5. Coronary artery disease. PLAN: Given these findings, we will give the patient a sublingual nitroglycerin and start the patient on 10 of Procardia p.o. t.i.d., realizing the patient is already on Norvasc. We will add Imdur to help lower her blood pressure. Duc Jackson MD
[2019-01-03 22:32] LABS: HEMOGLOBIN 12.5 g/dL (12.0-16.0); MEAN CELL VOLUME 77.6 fl (80.0-105.0); MEAN CORPUSCULAR HEMOGLOBIN 25.2 pg (25.0-35.0); MEAN CORPUSCULAR HGB CONC 32.5 g/dl (31.0-37.0); MEAN PLATELET VOLUME 10.1 fl (7.0-11.0); RBC 4.96 10^6/uL (3.5-6.1); RED CELL DISTRIBUTION WIDTH 16.3 % (11.5-14.5); WHITE BLOOD COUNT 8.6 10^3/uL (4.5-11.0)
--- NOTE | 2019-01-03 22:47 | PCM.RRT ---
<Jc Madrigal - Last Filed: 01/03/19 22:43> CREDIT REPORTER Nurse Assessment - Situation Date: 01/03/19 Time CREDIT REPORTER was called: 22:03 CREDIT REPORTER Responder Arrival Time: 22:05 CREDIT REPORTER Location:: [address] [place] [address] Room Number: 275-02 CREDIT REPORTER Reason for Call: Chest Pain CREDIT REPORTER Called By: RN - IV IV Inserted during CREDIT REPORTER?: No - Respiratory Oxygen Delivery Method: Non Rebreather @% Oxygen Flow Rate: 100 Received Nebulizer Treatments:: No Was the Patient Ventilated with Bag/Mask 100% O2?: No Secretions Suctioned?: No Was the Patient Intubated?: No Was the Patient Placed on a Ventilator?: No - Medication Medications Administered During CREDIT REPORTER: 0.4mg Nitroglycerin SL 2220 B/P-146/57. 0.4mg Nitroglycerin SL 2225 B/P-138/60. 0.4mg Nitroglycerin SL 2230 B/P- 129/55. 0.5mg IVP Ativan - Diagnostic Test Ordered EKG: Yes Chest X-Ray: Yes CT Scan: No - Stat Labs Ordered CREDIT REPORTER Stat Labs Ordered: CBC, TROPONIN CREDIT REPORTER Other Labs Ordered: CMP, MG, PHOS CPR started during CREDIT REPORTER?: No - Vital Signs Vital Sign: Rapid Response Vital Sign Blood Pressure 146/57 Pulse Rate 55 Temperature 98.5 F Oxygen Saturation 99 - Finger Stick Blood Glucose Finger Stick Blood Glucose: 105 - Time CREDIT REPORTER Ended Time CREDIT REPORTER Ended: 22:23 - Vital Signs at end of CREDIT REPORTER Vital Signs at end of CREDIT REPORTER: Rapid Response End Vital Sign Blood Pressure 138/60 Pulse Rate 50 O2 Sat by Pulse Oximetry 99 I.Reason for CREDIT REPORTER - A) Acute Change in Patient: (Select all that apply): Chest Pain Subjective: Patient is a 68 yo F with PMH of CAD s/p 3 stents (1 FRIEDA in LAD+2 in LCx in 08/[address] Jackson), JASON-inhibitor induced angioedema, HLD, HTN and second degree heart block is admitted for evaluation and treatment to rule out acute coronary syndrome in the setting of dyspnea on exertion and chest tightness. Rapid response was called due to chest pain. Patient states that she felt as if an elephant was sitting on her chest. Vitals were reviewed and was notable for bradycardia and hypoxia. Patient was placed on non-rebreather with appropriate response in O2 sat into 90's. EKG showed sinus bradycardia with first degree AV block, which was consistent with EKG on admission. Patient was given a dose of sublingual nitroglycerin with improvement of her symptoms. - Respiratory Oxygen Delivery Method: Non Rebreather @% Oxygen Flow Rate: 100 - Constitutional Appears: In Acute Distress - Head Head Exam: NORMAL INSPECTION - Eyes Eye Exam: Normal appearance - Respiratory Exam Respiratory Exam: Clear to Ausculation Bilateral. absent: Rales, Rhonchi, Wheezes - Cardiovascular Exam Cardiovascular Exam: Bradycardia, +S1, +S2. absent: Gallop, Rubs, Murmur - GI/Abdominal Exam GI & Abdominal Exam: Soft. absent: Tenderness - Neurological Exam Neurological Exam: Alert, Awake, Oriented x3 Plan - Assessment of Findings&Treatment Plan 68 yo F with chest pain, which improved with sublingual nitrogen. - CBC, CMP - Troponin - Repeat EKG - CXR - Sublingual Nitroglycerin, max 3 doses Patient seen and discussed in detail with Dr. Amado. Phillip Madrigal, DO PGY2 <Deepika Amado - Last Filed: 01/03/19 23:00> CREDIT REPORTER Nurse Assessment - Vital Signs Vital Sign: Rapid Response Vital Sign Blood Pressure 146/57 Pulse Rate 55 Temperature 98.5 F Oxygen Saturation 99 - Vital Signs at end of CREDIT REPORTER Vital Signs at end of CREDIT REPORTER: Rapid Response End Vital Sign Blood Pressure 138/60 Pulse Rate 50 O2 Sat by Pulse Oximetry 99 Attending/Attestation - Attestation I have personally seen and examined this patient.: Yes I have fully participated in the care of the patient.: Yes I have reviewed all pertinent clinical information, including history, physical exam and plan: Yes Notes (Text): 01/03/19 23:00 Agree with documentation of event.
[2019-01-03 22:49] LABS: ALB/GLOB RATIO 1.2 (1.1-1.8); ALT/SGPT 14 U/L (7-56); AST/SGOT 23 U/L (14-36); BLOOD UREA NITROGEN 20 mg/dL (7-21); CALCIUM 9.6 mg/dL (8.4-10.5); GFR NON-AFRICAN AMERICAN 49
[2019-01-03 22:53] LABS: TROPONIN I < 0.01 ng/mL
[2019-01-03] MEDS ORDERED: Potassium Chloride 20 mEq ER Tab PO STA (23:22)
[2019-01-04 08:33] LABS: BASO # 0.05 K/mm3 (0.0-2.0); BASO % 0.5 % (0.0-3.0); EOS # 0.3 (0.0-0.7); EOS % 3.1 % (1.5-5.0); LYMPH # 2.3 (1.2-3.4); LYMPH % 22.9 % (22.0-35.0); MEAN CELL VOLUME 78.5 fl (80.0-105.0); MEAN CORPUSCULAR HEMOGLOBIN 25.4 pg (25.0-35.0); MEAN CORPUSCULAR HGB CONC 32.4 g/dl (31.0-37.0); MEAN PLATELET VOLUME 10.3 fl (7.0-11.0); MONO # 0.9 (0.1-0.6); MONO % 9.2 % (1.0-6.0); RBC 5.11 10^6/uL (3.5-6.1); RED CELL DISTRIBUTION WIDTH 16.6 % (11.5-14.5); WHITE BLOOD COUNT 10.1 10^3/uL (4.5-11.0)
[2019-01-04] MEDS ORDERED: Apap-Butalbital-Caffeine 325-50-40mg Tab PO ONE (08:58)
[2019-01-04 09:16] LABS: ALB/GLOB RATIO 1.1 (1.1-1.8); ALT/SGPT 20 U/L (7-56); AST/SGOT 23 U/L (14-36); BLOOD UREA NITROGEN 19 mg/dL (7-21); CALCIUM 9.5 mg/dL (8.4-10.5); GFR NON-AFRICAN AMERICAN > 60
--- NOTE | 2019-01-04 10:05 | RAD ---
Date of service: 01/03/2019 HISTORY: chest pain COMPARISON: Comparison chest 01/02/2019 FINDINGS: LUNGS: Poor inspiration with low lung volumes, crowded bronchovascular markings and mild bibasilar atelectasis. PLEURA: No significant pleural effusion identified, no pneumothorax apparent. CARDIOVASCULAR: Mild aortic atherosclerotic calcification present. Heart remains mildly enlarged. No pulmonary vascular congestion. OSSEOUS STRUCTURES: No significant abnormalities. VISUALIZED UPPER ABDOMEN: Normal. OTHER FINDINGS: None. IMPRESSION: Poor inspiration with low lung volumes, crowded bronchovascular markings and mild bibasilar atelectasis.
--- NOTE | 2019-01-04 14:31 | CP.PCM.PN ---
<Selam Diallo - Last Filed: 01/04/19 14:27> Subjective - Date & Time of Evaluation Date of Evaluation: 01/04/19 Time of Evaluation: 14:27 - Subjective Subjective: Selam Diallo, PGY-1, Internal Medicine Progress Note for Dr. Munoz Patient seen and evaluated at bedside. Overnight, rapid response was called on patient for headache, pressure like chest pain and shortness of breath. EKG showed marked sinus bradycardia with first degree AV block and troponinx1 was negative. Patient was given nitroglycerin with no resolution of symptoms. Patient was given ativan with resolution of symptoms. Patient, this morning, reports headache, groin pain, chest pain, nausea, and shortness of breath. Patient denies cough, sputum production, abdominal pain, diarrhea, dysuria, and hematuria. 12-point ROS was unremarkable except for what was mentioned above. Objective - Vital Signs/Intake and Output Vital Signs (last 24 hours): Temp Pulse Resp BP Pulse Ox 98.2 F 47 L 18 174/67 H 96 01/04/19 06:00 01/04/19 12:46 01/04/19 06:00 01/04/19 12:46 01/04/19 06:00 Intake and Output: 01/04/19 01/04/19 06:59 18:59 Intake Total 2020 Output Total 0 Balance 2020 - Medications Medications: Current Medications Acetaminophen (Tylenol 325mg Tab) 650 mg PO Q4 PRN PRN Reason: Pain, Mild (1-3) Last Admin: 01/04/19 06:17 Dose: 650 mg Amlodipine Besylate (Norvasc) 10 mg PO DAILY [facility] Last Admin: 01/04/19 10:33 Dose: 10 mg Aspirin (Ecotrin) 81 mg PO DAILY [facility] Last Admin: 01/04/19 10:32 Dose: 81 mg Atorvastatin Calcium (Lipitor) 40 mg PO DIN [facility] Last Admin: 01/03/19 17:20 Dose: 40 mg Clopidogrel Bisulfate (Plavix) 75 mg PO DAILY [facility] Last Admin: 01/04/19 10:32 Dose: 75 mg Famotidine (Pepcid) 20 mg PO 1000,2200 [facility] Last Admin: 01/04/19 10:33 Dose: 20 mg Hydralazine HCl (Apresoline) 10 mg IVP Q6 PRN PRN Reason: SBP > 140 Last Admin: 01/04/19 12:46 Dose: 10 mg Hydralazine HCl (Apresoline) 25 mg PO BID [facility] Last Admin: 01/04/19 10:32 Dose: 25 mg Isosorbide Mononitrate (Imdur) 60 mg PO DAILY [facility] Last Admin: 01/04/19 10:32 Dose: 60 mg Nifedipine (Procardia) 10 mg PO TID [facility] Last Admin: 01/04/19 11:00 Dose: 10 mg - Labs Labs: 01/04/19 08:26 01/04/19 08:26 - Constitutional Appears: Well, Non-toxic, No Acute Distress - Head Exam Head Exam: ATRAUMATIC, NORMAL INSPECTION, NORMOCEPHALIC - Eye Exam Eye Exam: EOMI Pupil Exam: PERRL - Neck Exam Neck Exam: Full ROM - Respiratory Exam Respiratory Exam: Clear to Ausculation Bilateral, NORMAL BREATHING PATTERN - Cardiovascular Exam Cardiovascular Exam: Bradycardia, REGULAR RHYTHM - GI/Abdominal Exam GI & Abdominal Exam: Soft, Normal Bowel Sounds. absent: Tenderness - Extremities Exam Extremities Exam: Full ROM - Neurological Exam Neurological Exam: Alert, Awake, CN II-XII Intact, Oriented x3 - Skin Skin Exam: Dry, Intact, Normal Color Assessment and Plan - Assessment and Plan (Free Text) Assessment: 68 year old female with past medical history of CAD status post 3 stents (1 FRIEDA in LAD+2 in LCx in 08/[address] Jackson), JASON-inhibitor induced angioedema, hyperlipidemia, hypertension, and second degree heart block presents with shortness of breath and chest tightness. Patient was admitted for ACS rule out. Plan: Rule out ACS -Patient has significant cardiac history with 3 stents placed in 08/2018 -EKG 01/04: sinus bradycardia with 1st degree AV block -Troponinx4: negative -Continue with aspirin, lipitor, plavix, isosorbide mononitrate -Continue with HHD diet -As per Dr. Jackson, Cardiology, patient for possible cardiac catherization on Sunday. Hypertensive urgency -Blood pressure: 174/67. Initially presented with BP of 187/74. -Continue with scheduled nifedipine, amlodipine, and hydralazine as per Dr. Jackson -Hydralazine 10 mg Q6PRN for BP>160/110 -Blood pressure continues to be elevated after multiple days of therapy. Achieve BP of <140/90 in 24-48 hours. -Cardiology and Nephrology consulted for medication management and improved blood pressure control. Hyperlipidemia -Continue with lipitor 40 mg daily Sinus Bradycardia -Avoid beta annette, nondihydropyridine calcium channel blockers, and clonidine Tension Headache vs. Sinusitis -CT of head without contrast on 01/03: air fluid level noted in left maxillary sinus, possible sinusitis -Given one dose of fioricet with resolution of symptoms. -Continue with tylenol for headache as needed GI prophylaxis: pepcid 20 mg BID DVT prophylaxis: SCD <No Munoz A - Last Filed: 01/04/19 15:27> Objective - Vital Signs/Intake and Output Vital Signs (last 24 hours): Temp Pulse Resp BP Pulse Ox 98.3 F 47 L 19 174/67 H 96 01/04/19 12:00 01/04/19 12:46 01/04/19 12:00 01/04/19 12:46 01/04/19 06:00 Intake and Output: 01/04/19 01/04/19 06:59 18:59 Intake Total 2020 Output Total 0 Balance 2020 - Medications Medications: Current Medications Acetaminophen (Tylenol 325mg Tab) 650 mg PO Q4 PRN PRN Reason: Pain, Mild (1-3) Last Admin: 01/04/19 06:17 Dose: 650 mg Amlodipine Besylate (Norvasc) 10 mg PO DAILY [facility] Last Admin: 01/04/19 10:33 Dose: 10 mg Aspirin (Ecotrin) 81 mg PO DAILY [facility] Last Admin: 01/04/19 10:32 Dose: 81 mg Atorvastatin Calcium (Lipitor) 40 mg PO DIN [facility] Last Admin: 01/03/19 17:20 Dose: 40 mg Clopidogrel Bisulfate (Plavix) 75 mg PO DAILY [facility] Last Admin: 01/04/19 10:32 Dose: 75 mg Famotidine (Pepcid) 20 mg PO 1000,2200 [facility] Last Admin: 01/04/19 10:33 Dose: 20 mg Hydralazine HCl (Apresoline) 10 mg IVP Q6 PRN PRN Reason: SBP > 140 Last Admin: 01/04/19 12:46 Dose: 10 mg Hydralazine HCl (Apresoline) 25 mg PO BID [facility] Last Admin: 01/04/19 10:32 Dose: 25 mg Isosorbide Mononitrate (Imdur) 60 mg PO DAILY [facility] Last Admin: 01/04/19 10:32 Dose: 60 mg Nifedipine (Procardia) 10 mg PO TID [facility] Last Admin: 01/04/19 11:00 Dose: 10 mg - Labs Labs: 01/04/19 08:26 01/04/19 08:26 Attending/Attestation - Attestation I have personally seen and examined this patient.: Yes I have fully participated in the care of the patient.: Yes I have reviewed all pertinent clinical information, including history, physical exam and plan: Yes Notes (Text): 01/04/19 15:26 68 year old female with past medical history of CAD s/p stents, hypertension, dyslipidemia and JASON-I induced angioedema who presented with complaint of chest pain and shortness of breath. Found to have hypertensive urgency and marked bradycardia. She was started on hydralazine, HCTZ and procardia. Her blood pressure improved. She was also started on imdur. Clonidine is on hold. Patient is not on BB. Continue with aspirin, plavix and statin. Serial cardiac enzymes were negative. However last night had chest pain again. Cardiology is following and plans for cardiac cath on Sunday. PT evaluation was appreciated; recommended SAR. No Munoz MD Hospitalist.
--- NOTE | 2019-01-04 14:48 | PN ---
DATE: 01/04/2019 SUBJECTIVE: The patient had an episode of chest pain last night, consistent with angina. PHYSICAL EXAMINATION: VITAL SIGNS: Stable. NECK: Negative JVD. LUNGS: Without rales. HEART: S1, S2. EXTREMITIES: Without edema. LABORATORY DATA: Troponins were negative. EKG shows no changes. IMPRESSION: 1. Accelerated hypertension, which is better on Procardia. 2. Repeat episode of angina. 3. History of multivessel coronary artery disease. 4. Sinus bradycardia. PLAN: Given these findings, we will continue the patient on Procardia. We will schedule the patient for cardiac catheterization on Sunday. I discussed this with the patient in detail. She agrees. Duc Jackson MD
[2019-01-04] MEDS: Morphine 2 mg/ml ISec IVP PRN (18:33)
--- NOTE | 2019-01-04 20:08 | CARD ---
APPROVED REPORT Date of service: 01/04/2019 EKG Measurement Heart [id number] <Conclusion> Marked sinus bradycardia with 1st degree AV block Abnormal ECG
--- NOTE | 2019-01-04 20:13 | CARD ---
APPROVED REPORT Date of service: 01/03/2019 EKG Measurement Heart [id number] <Conclusion> Sinus bradycardia with 1st degree AV block Possible Left atrial enlargement Borderline ECG
[2019-01-05 07:36] LABS: BASO # 0.03 K/mm3 (0.0-2.0); BASO % 0.3 % (0.0-3.0); EOS # 0.4 (0.0-0.7); EOS % 4.3 % (1.5-5.0); HEMOGLOBIN 12.2 g/dL (12.0-16.0); LYMPH # 2.2 (1.2-3.4); LYMPH % 23.1 % (22.0-35.0); MEAN CELL VOLUME 78.5 fl (80.0-105.0); MEAN CORPUSCULAR HGB CONC 31.9 g/dl (31.0-37.0); MEAN PLATELET VOLUME 10.3 fl (7.0-11.0); MONO # 0.9 (0.1-0.6); MONO % 9.5 % (1.0-6.0); RBC 4.88 10^6/uL (3.5-6.1); RED CELL DISTRIBUTION WIDTH 16.7 % (11.5-14.5); WHITE BLOOD COUNT 9.5 10^3/uL (4.5-11.0)
[2019-01-05 08:29] LABS: ALB/GLOB RATIO 1.1 (1.1-1.8); ALBUMIN 3.8 g/dL (3.0-4.8); ALT/SGPT 10 U/L (7-56); AST/SGOT 18 U/L (14-36); BLOOD UREA NITROGEN 15 mg/dL (7-21); CALCIUM 9.2 mg/dL (8.4-10.5); GFR NON-AFRICAN AMERICAN > 60
--- NOTE | 2019-01-05 12:39 | CP.PCM.PN ---
<Selam Diallo - Last Filed: 01/05/19 13:18> Subjective - Date & Time of Evaluation Date of Evaluation: 01/05/19 Time of Evaluation: 12:34 - Subjective Subjective: Selam Diallo, PGY-1, Internal Medicine Progress Note for Dr. Munoz Patient seen and evaluated at bedside. Yesterday, patient complained of chest pain with elephant on chest like sensation. EKG showed marked sinus bradycardia with first degree AV block and second degree AV block and troponinx1 was negative. Patient continued to complain of chest pain and after a dose of morphine, pain resolved. Patient, this morning, reports improved headache, chest pain, nausea, and shortness of breath. Patient has continued groin pain. Patient denies cough, sputum production, abdominal pain, diarrhea, dysuria, and hematuria. 12-point ROS was unremarkable except for what was mentioned above. Objective - Vital Signs/Intake and Output Vital Signs (last 24 hours): Temp Pulse Resp BP Pulse Ox 98.7 F 49 L 18 174/66 H 98 01/05/19 06:00 01/05/19 10:33 01/05/19 06:00 01/05/19 10:33 01/05/19 06:00 Intake and Output: 01/05/19 01/05/19 06:59 18:59 Intake Total 600 Output Total 0 Balance 600 - Medications Medications: Current Medications Acetaminophen (Tylenol 325mg Tab) 650 mg PO Q4 PRN PRN Reason: Pain, Mild (1-3) Last Admin: 01/04/19 06:17 Dose: 650 mg Amlodipine Besylate (Norvasc) 10 mg PO DAILY [facility] Last Admin: 01/05/19 10:32 Dose: 10 mg Aspirin (Ecotrin) 81 mg PO DAILY [facility] Last Admin: 01/05/19 10:32 Dose: 81 mg Atorvastatin Calcium (Lipitor) 40 mg PO DIN [facility] Last Admin: 01/04/19 18:22 Dose: 40 mg Clopidogrel Bisulfate (Plavix) 75 mg PO DAILY [facility] Last Admin: 01/05/19 10:33 Dose: 75 mg Famotidine (Pepcid) 20 mg PO 1000,2200 [facility] Last Admin: 01/05/19 10:32 Dose: 20 mg Hydralazine HCl (Apresoline) 10 mg IVP Q6 PRN PRN Reason: SBP > 140 Last Admin: 01/04/19 12:46 Dose: 10 mg Hydralazine HCl (Apresoline) 25 mg PO BID [facility] Last Admin: 01/05/19 10:23 Dose: 25 mg Isosorbide Mononitrate (Imdur) 60 mg PO DAILY [facility] Last Admin: 01/05/19 10:32 Dose: 60 mg Morphine Sulfate (Morphine) 1 mg IVP Q6H PRN PRN Reason: Pain, severe (8-10) Last Admin: 01/04/19 18:33 Dose: 1 mg Nifedipine (Procardia) 10 mg PO TID [facility] Last Admin: 01/05/19 10:33 Dose: 10 mg - Labs Labs: 01/05/19 06:50 01/05/19 06:50 - Constitutional Appears: Well, Non-toxic, No Acute Distress - Head Exam Head Exam: ATRAUMATIC, NORMAL INSPECTION, NORMOCEPHALIC - Eye Exam Eye Exam: EOMI Pupil Exam: PERRL - Neck Exam Neck Exam: Full ROM - Respiratory Exam Respiratory Exam: Clear to Ausculation Bilateral, NORMAL BREATHING PATTERN - Cardiovascular Exam Cardiovascular Exam: Bradycardia, REGULAR RHYTHM - GI/Abdominal Exam GI & Abdominal Exam: Soft, Normal Bowel Sounds. absent: Tenderness - Extremities Exam Extremities Exam: Full ROM, tenderness at right groin. no hematoma or mass present. pulses +2/4 throughout - Neurological Exam Neurological Exam: Alert, Awake, CN II-XII Intact, Oriented x3 - Skin Skin Exam: Dry, Intact, Normal Color Assessment and Plan - Assessment and Plan (Free Text) Assessment: 68 year old female with past medical history of CAD status post 3 stents (1 FRIEDA in LAD+2 in LCx in 08/[address] Jackson), JASON-inhibitor induced angioedema, hyperlipidemia, hypertension, and second degree heart block presents with shortness of breath and chest tightness. Patient was admitted for ACS rule out. Plan: Rule out ACS -Patient has significant cardiac history with 3 stents placed in 08/2018 -EKG 01/04: sinus bradycardia with 1st degree AV block and 2nd degree AV block -Troponinx5: negative -Continue with aspirin, lipitor, plavix, isosorbide mononitrate -Continue with HHD diet -Started morphine 1 mg Q6PRN with improvement of symptoms -As per Dr. Jackson, Cardiology, patient for cardiac catheterization on Sunday. Right Groin Pain -Arterial duplex for further evaluation of the right lower extremity since patient last had catherization in 08/2018 -Follow up results of Hip/Pelvis X ray -PT/DP pulses +2/4 -Continue to monitor. Patient is scheduled for catheterization tomorrow. Consider access through upper extremity due to continued complaints of pain in groin. Hypertensive urgency -Blood pressure: 174/66. Initially presented with BP of 187/74. -Continue with scheduled amlodipine, and hydralazine as per Dr. Jackson. Nifedipine stopped as per Dr. Bernal. One dose of losartan 100 mg was given as per Dr. Bernal. Will start losartan SCOTT as per Dr. Bernal -Hydralazine 10 mg Q6PRN for BP>160/110 -Blood pressure continues to be elevated after multiple days of therapy. Achieve BP of <140/90 in the next 24 hours. -Cardiology and Nephrology consulted for medication management and improved bl ood pressure control. Hyperlipidemia -Continue with lipitor 40 mg daily Sinus Bradycardia -Confirmed with EKG -Avoid beta annette, nondihydropyridine calcium channel blockers, and clonidine Tension Headache vs. Sinusitis -CT of head without contrast on 01/03: air fluid level noted in left maxillary sinus, possible sinusitis -Continue with tylenol for headache as needed -Started morphine 1 mg Q6PRN with resolution of symptoms. GI prophylaxis: pepcid 20 mg BID DVT prophylaxis: SCD <No Munoz - Last Filed: 01/05/19 14:44> Objective - Vital Signs/Intake and Output Vital Signs (last 24 hours): Temp Pulse Resp BP Pulse Ox 97.8 F 50 L 18 152/63 H 98 01/05/19 12:00 01/05/19 12:00 01/05/19 12:00 01/05/19 12:00 01/05/19 06:00 Intake and Output: 01/05/19 01/05/19 06:59 18:59 Intake Total 600 Output Total 0 Balance 600 - Medications Medications: Current Medications Acetaminophen (Tylenol 325mg Tab) 650 mg PO Q4 PRN PRN Reason: Pain, Mild (1-3) Last Admin: 01/04/19 06:17 Dose: 650 mg Amlodipine Besylate (Norvasc) 10 mg PO DAILY [facility] Last Admin: 01/05/19 10:32 Dose: 10 mg Aspirin (Ecotrin) 81 mg PO DAILY [facility] Last Admin: 01/05/19 10:32 Dose: 81 mg Atorvastatin Calcium (Lipitor) 40 mg PO DIN [facility] Last Admin: 01/04/19 18:22 Dose: 40 mg Clopidogrel Bisulfate (Plavix) 75 mg PO DAILY [facility] Last Admin: 01/05/19 10:33 Dose: 75 mg Famotidine (Pepcid) 20 mg PO 1000,2200 [facility] Last Admin: 01/05/19 10:32 Dose: 20 mg Hydralazine HCl (Apresoline) 10 mg IVP Q6 PRN PRN Reason: SBP > 140 Last Admin: 01/04/19 12:46 Dose: 10 mg Hydralazine HCl (Apresoline) 25 mg PO BID [facility] Last Admin: 01/05/19 10:23 Dose: 25 mg Isosorbide Mononitrate (Imdur) 60 mg PO DAILY [facility] Last Admin: 01/05/19 10:32 Dose: 60 mg Morphine Sulfate (Morphine) 1 mg IVP Q6H PRN PRN Reason: Pain, severe (8-10) Last Admin: 01/04/19 18:33 Dose: 1 mg Nifedipine (Procardia) 10 mg PO TID [facility] Last Admin: 01/05/19 10:33 Dose: 10 mg - Labs Labs: 01/05/19 06:50 01/05/19 06:50 Attending/Attestation - Attestation I have personally seen and examined this patient.: Yes I have fully participated in the care of the patient.: Yes I have reviewed all pertinent clinical information, including history, physical exam and plan: Yes Notes (Text): 01/05/19 14:35 68 year old female with past medical history of CAD s/p stents, hypertension, dyslipidemia and JASON-I induced angioedema who presented with complaint of chest pain and shortness of breath. Found to have hypertensive urgency and marked bradycardia. She was started on hydralazine, HCTZ and procardia. She was also started on imdur. Clonidine is on hold. Patient is not on BB. She is on aspirin, plavix and statin. Serial cardiac enzymes were negative. However due to angina symptoms plan is for cardiac cath tomorrow per cardiology. Patient also complains of right groin pain. Xray was negative. Arterial duplex is ordered. Patient noted to have heart block on monitor. Atropine given. Patient will be transferred to ICU. No Munoz MD Hospitalist.
--- NOTE | 2019-01-05 13:31 | PN ---
DATE: 01/05/[address] Duc Jackson. SUBJECTIVE: The patient reports right groin discomfort. She denies chest pain. Monitor revealed sinus tachyarrhythmias with 2:1 block. The patient denies any dizziness. PHYSICAL EXAMINATION: VITAL SIGNS: Blood pressure 130/52, heart rate 48, temperature 98.7, and respiration 18. HEENT: Normocephalic. CHEST: Clear. HEART: S1 and S2 regular. EXTREMITIES: No palpable right groin hematoma or aneurysm. LABORATORY DATA: Today's SMA-7 is within normal limits except for chloride of 109 and glucose 115. Three sets of troponin are negative. ProBNP 1620. Today's hemoglobin and hematocrit, white count, and platelet count are within normal limits. Yesterday's EKG revealed sinuses with 2:1 AV block. Heart rate is 48. Cardiac catheterization in 08/2018 which revealed LAD and diagonal vessels revealed diffuse disease with patent stent in the proximal/mid portion. Circumflex artery revealed patent stent in the mid to distal branch. No critical lesions were noted. ASSESSMENT: 1. Hypertensive emergency. 2. Angina pectoris. 3. Coronary artery disease with history of chronic stenting. Cardiac catheterization few months ago revealed patent stents with diffuse left anterior descending artery disease. 4. High-grade atrioventricular block with 2:1 conduction. RECOMMENDATIONS: Continue current IV hydralazine p.r.n. Continue aspirin 81 mg once a day, Lipitor 40 mg once a day, Norvasc 10 mg once a day, Plavix 75 mg once a day, and Procardia 10 mg three times a day. The patient is scheduled for cardiac catheterization tomorrow. In the meantime, the patient will be monitored in telemetry, and I will discuss with Dr. Jackson the need for any EP evaluation. Follow on her cardiac catheterization. 2 hours later I was shown rhythm strip with AV dissociation HR 48 BPM I discussed it with PGY, requested 0.5 mg of IV Atropine and ICU evaluation Mingo Morton MD [facility]
--- NOTE | 2019-01-05 13:54 | RAD ---
Date of service: 01/05/2019 PROCEDURE: Pelvis right hip HISTORY: Right groin/hip pain COMPARISON: TECHNIQUE: AP view of the pelvis and AP/frogleg lateral views right hip performed. FINDINGS: No evidence of acute displaced fracture nor dislocation. The osseous structures appear intact. Both femoral heads are appropriately located within the respective acetabula. Minimal spurring of the superolateral margins of both acetabular roofs. There also appears to be some mild joint space narrowing. Hip Mild degenerative spondylosis of the lumbosacral spine IMPRESSION: No definitive evidence of acute displaced fracture nor dislocation. If symptoms persist or occult fracture suspected clinically consider follow-up CT scan of the pelvis/
--- NOTE | 2019-01-05 17:56 | PN ---
DATE: 01/05/2019 SUBJECTIVE: The patient continues to complain of right groin pain. Case was discussed with the certified ophthalmic medical technician and I recommended that the patient should undergo an arterial duplex scan of the right groin prior to her cardiac catheterization. Mingo Morton MD
--- NOTE | 2019-01-05 17:59 | CP.PCM.CON ---
History of Present Illness - History of Present Illness History of Present Illness: ICU Consult 68 F with a PMH of CAD s/p 3 stents, JASON-inhibitor induced angioedema, HLD, HTN and second degree heart block whois admitted for shortness of breath and chest discomfort. Initially found to be in HTN emergency and tx and stabilized however remains in heart block. Scheduled for cardiac cath tomorrow 01/06 however went from 2nd degree a=v block to complete. HR has remained in 42-48 range. BP has been stable. Patient denies cough, sputum production, abdominal pain, diarrhea, dysuria, and hematuria. 12-point ROS was unremarkable except for what was mentioned above. PMH: as above PSH: Knee arthroscopy (2014) Meds: as per [facility] Allergies: Lisinopril (angioedema) Social History: Denies any tobacco, alcohol or illicit drug use Family History: Mom aheart disease/ PPM Past Patient History - Infectious Disease Hx of Infectious Diseases: None - Past Medical History & Family History Past Medical History?: Yes - Past Social History Smoking Status: Never Smoked - CARDIAC Hx Cardiac Disorders: Yes Hx Hypertension: Yes Hx Pacemaker: No - PULMONARY Hx Respiratory Disorders: Yes Other/Comment: H/O OF CARBON MONOXIDE POISONING - NEUROLOGICAL Hx Neurological Disorder: Yes Hx Dizziness: Yes (VERTIGO) - HEENT Hx HEENT Problems: No - RENAL Hx Chronic Kidney Disease: Yes - ENDOCRINE/METABOLIC Hx Diabetes Mellitus Type 2: Yes - HEMATOLOGICAL/ONCOLOGICAL Hx Blood Disorders: No - INTEGUMENTARY Hx Dermatological Problems: No - MUSCULOSKELETAL/RHEUMATOLOGICAL Hx Arthritis: Yes (OA) Hx Fractures: Yes (FX OF PATELLA) - GASTROINTESTINAL Hx Diverticulitis: Yes - GENITOURINARY/GYNECOLOGICAL Hx Genitourinary Disorders: No - PSYCHIATRIC Hx Anxiety: Yes Hx Substance Use: No - SURGICAL HISTORY Hx Coronary Stent: Yes (X3) - ANESTHESIA Hx Anesthesia: Yes Hx Anesthesia Reactions: No Hx Malignant Hyperthermia: No Meds Allergies/Adverse Reactions: Allergies Allergy/AdvReac Type Severity Reaction Status Date / Time grapefruit AdvReac Severe ANGIOEDEMA Verified 01/02/19 05:57 lisinopril AdvReac SHORTNESS Verified 01/02/19 05:57 OF BREATH nebivolol [From Bystolic] AdvReac SHORTNESS Verified 01/02/19 05:57 OF BREATH - Medications Medications: Current Medications Acetaminophen (Tylenol 325mg Tab) 650 mg PO Q4 PRN PRN Reason: Pain, Mild (1-3) Last Admin: 01/04/19 06:17 Dose: 650 mg Amlodipine Besylate (Norvasc) 10 mg PO DAILY [facility] Last Admin: 01/05/19 10:32 Dose: 10 mg Aspirin (Ecotrin) 81 mg PO DAILY [facility] Last Admin: 01/05/19 10:32 Dose: 81 mg Atorvastatin Calcium (Lipitor) 40 mg PO DIN [facility] Last Admin: 01/04/19 18:22 Dose: 40 mg Clopidogrel Bisulfate (Plavix) 75 mg PO DAILY [facility] Last Admin: 01/05/19 10:33 Dose: 75 mg Famotidine (Pepcid) 20 mg PO 1000,2200 [facility] Last Admin: 01/05/19 10:32 Dose: 20 mg Hydralazine HCl (Apresoline) 10 mg IVP Q6 PRN PRN Reason: SBP > 140 Last Admin: 01/04/19 12:46 Dose: 10 mg Hydralazine HCl (Apresoline) 25 mg PO BID [facility] Last Admin: 01/05/19 10:23 Dose: 25 mg Isosorbide Mononitrate (Imdur) 60 mg PO DAILY [facility] Last Admin: 01/05/19 10:32 Dose: 60 mg Losartan Potassium (Cozaar) 100 mg PO DAILY [facility] Morphine Sulfate (Morphine) 1 mg IVP Q6H PRN PRN Reason: Pain, severe (8-10) Last Admin: 01/04/19 18:33 Dose: 1 mg Nifedipine (Procardia) 10 mg PO TID [facility] Last Admin: 01/05/19 10:33 Dose: 10 mg Physical Exam - Constitutional Appears: Well, Non-toxic, No Acute Distress - Head Exam Head Exam: ATRAUMATIC, NORMAL INSPECTION, NORMOCEPHALIC - Neck Exam Neck exam: Positive for: Normal Inspection - Respiratory Exam Respiratory Exam: Clear to Auscultation Bilateral, NORMAL BREATHING PATTERN - Cardiovascular Exam Cardiovascular Exam: Bradycardia, Irregular Rhythm, +S1, +S2. absent: JVD - GI/Abdominal Exam GI & Abdominal Exam: Normal Bowel Sounds, Soft. absent: Tenderness - Extremities Exam Extremities exam: Negative for: calf tenderness - Neurological Exam Neurological exam: Alert, Oriented x3 Results - Vital Signs Recent Vital Signs: Last Vital Signs Temp 97.8 F 01/05/19 12:00 Pulse 47 L 01/05/19 13:15 Resp 18 01/05/19 12:00 BP 152/63 H 01/05/19 12:00 Pulse Ox 98 01/05/19 06:00 - Labs Result Diagrams: 01/05/19 06:50 01/05/19 06:50 Labs: Laboratory Results - last 24 hr 01/05/19 01/05/19 06:50 06:50 WBC 9.5 RBC 4.88 Hgb 12.2 Hct 38.3 MCV 78.5 L MCH 25.0 MCHC 31.9 RDW 16.7 H Plt Count 242 MPV 10.3 Neut % (Auto) 62.8 Lymph % (Auto) 23.1 Whiteside % (Auto) 9.5 H Eos % (Auto) 4.3 Baso % (Auto) 0.3 Lymph # (Auto) 2.2 Whiteside # (Auto) 0.9 H Eos # (Auto) 0.4 Baso # (Auto) 0.03 Absolute Neuts (auto) 5.94 Sodium 140 Potassium 3.8 Chloride 109 H Carbon Dioxide 24 Anion Gap 11 BUN 15 Creatinine 0.8 Est GFR ( Amer) > 60 Est GFR (Non-Af Amer) > 60 Random Glucose 115 H Calcium 9.2 Total Bilirubin 0.8 AST 18 ALT 10 Alkaline Phosphatase 111 Total Protein 7.3 Albumin 3.8 Globulin 3.4 Albumin/Globulin Ratio 1.1 Assessment & Plan - Assessment and Plan (Free Text) Assessment: 68F with CAD s/p 3 stents, angioedema from JASON-I, HTN admitted with htn emergency now stable however developing worsening heart block now in complete a- v dissociation. During my exam she was not complaining of chest pain or lightheadedness or any symptoms of bradycardia however according to nursing, she had CP this am and has had it every day. Will transfer to ICU to closely monitor given atropine 0.5 by cardio prior to my exam cont to monitor HR closely with pacer pads placed on (not currently pacing) cath tomorrow as per card NPO after midnight cont antihypertensives as per cardio with IV hydralizine PRN Sawyer Ivan MD MICU Attending
--- NOTE | 2019-01-05 23:13 | CON ---
DATE: 01/05/2019 REASON FOR CONSULTATION: Hypertensive emergency, shortness of breath. HISTORY OF PRESENT ILLNESS: A 68-year-old lady, previously unknown to me, patient was admitted on 01/02/2019 because of hypertensive emergency. Patient has a history of difficult to control hypertension. She reports that she has been on multiple medications, has had adverse effects to multiple medications. She reports that she had angioedema with lisinopril. She also reports that she had shortness of breath with a beta annette. She was on Edarbi started by Dr. Pantoja, but she stopped the Edarbi on the because she was not feeling good on it, she was still having some dizziness. She came to the Emergency Room on the . Her pressure was 163/68. Subsequently, it also went as high as 194/72. She was having dizziness, lightheadedness, headaches. She was evaluated by Cardiology. Her beta annette was stopped. She was started on Procardia 10 mg, it was nifedipine 10 mg t.i.d. She was also started on isosorbide 60 mg daily. She was also started on amlodipine 5 mg initially, which was increased to 10 mg daily. Blood pressure still remains high. PAST MEDICAL/SURGICAL HISTORY: Severe uncontrolled hypertension, CAD, PTCA and stent, hyperlipidemia, JASON inhibitor-induced angioedema, second-degree heart block. FAMILY HISTORY: Heart disease in mom, pacemaker in mom. SOCIAL HISTORY: No smoking. No alcohol use. No IV drug abuse. ALLERGIES: LISINOPRIL. MEDICATIONS AT HOME: Edarbi, Bystolic, but she had stopped everything prior to coming in. REVIEW OF SYSTEMS: All systems are reviewed, pertinent positives as mentioned in history of present illness, rest unremarkable. PHYSICAL EXAMINATION GENERAL: Obese, elderly lady sitting in bed. VITAL SIGNS: Blood pressure 174/66, heart rate 49, respiratory rate 18, temperature 97.8. HEENT: Normocephalic and atraumatic. Positive pallor. No icterus. NECK: Supple. No JVD. LUNGS: Bilaterally equal entry, bilaterally equal expansion, scattered rhonchi. CARDIAC: S1 and S2, regular rate rhythm. No murmur, no rub. ABDOMEN: Obese, distended, soft, nontender. Bowel sounds present. EXTREMITIES: No lower extremity edema. INTAKE AND OUTPUT: 600/not charted. LABORATORY DATA: WBC 9.5, hemoglobin 12, hematocrit 38, platelets 242. Sodium 140, potassium 3.8, chloride 109, CO2 of 24, BUN 15, creatinine 0.8, glucose 115. Calcium 9.2. Phosphorous not checked. AST 18, ALT 10, albumin 3.8. Abdominal ultrasound done in 05/2017 showed right kidney to be 8.8 cm and left kidney to be 9.6 cm with normal echogenicity. CURRENT MEDICATIONS: Isosorbide 60 mg, Lipitor 40 mg, amlodipine 10 mg, Pepcid 20 mg b.i.d., Plavix 75 mg, nifedipine 10 mg t.i.d., Tylenol, aspirin, alprazolam 0.25 mg t.i.d. ASSESSMENT: 1. Severe, uncontrolled hypertension, ? secondary causes. 2. Coronary artery disease, history of percutaneous transluminal coronary angioplasty and stent. 3. Second degree heart block. 4. Bradycardia. 5. Hypokalemia, resolved. PLAN: 1. Since patient was on Edarbi as outpatient and was not having any allergic reactions, we will start her on losartan 100 mg daily. 2. Discontinue nifedipine since the patient is on amlodipine and is bradycardic, so amlodipine is preferred. 3. Continue hydralazine. 4. Continue isosorbide. 5. Renal ultrasound for size and symmetry. 6. Patient is complaining of right groin pain. Check x-ray of the right hip. Thank you for the courtesy of this consultation. We will follow this patient closely with you. Bethany Bernal MD
[2019-01-06 06:23] LABS: BASO # 0.05 K/mm3 (0.0-2.0); BASO % 0.6 % (0.0-3.0); EOS # 0.4 (0.0-0.7); EOS % 5.2 % (1.5-5.0); HEMOGLOBIN 12.1 g/dL (12.0-16.0); LYMPH # 2.5 (1.2-3.4); LYMPH % 29.8 % (22.0-35.0); MEAN CELL VOLUME 78.8 fl (80.0-105.0); MEAN CORPUSCULAR HEMOGLOBIN 25.1 pg (25.0-35.0); MEAN CORPUSCULAR HGB CONC 31.8 g/dl (31.0-37.0); MEAN PLATELET VOLUME 10.7 fl (7.0-11.0); MONO # 0.7 (0.1-0.6); MONO % 8.2 % (1.0-6.0); RBC 4.82 10^6/uL (3.5-6.1); RED CELL DISTRIBUTION WIDTH 16.5 % (11.5-14.5); WHITE BLOOD COUNT 8.3 10^3/uL (4.5-11.0)
[2019-01-06 06:49] LABS: ALB/GLOB RATIO 1.1 (1.1-1.8); ALBUMIN 3.9 g/dL (3.0-4.8); ALT/SGPT 17 U/L (7-56); AST/SGOT 23 U/L (14-36); BLOOD UREA NITROGEN 16 mg/dL (7-21); CALCIUM 9.4 mg/dL (8.4-10.5); GFR NON-AFRICAN AMERICAN > 60
[2019-01-06] MEDS ORDERED: Phenylephrine 10 mg/ml Inj ONE (07:04)
[2019-01-06] MEDS ORDERED: Iohexol 350mgl/ml 50 ML ONE (07:04)
[2019-01-06] MEDS ORDERED: Iodixanol 320 MG/ML 100 ML BOTTLE IV ONE (07:04)
[2019-01-06] MEDS ORDERED: Nitroglycerin 50mg in D5W 0 MG/0 ML BOTTLE IV ONE (07:04)
[2019-01-06] MEDS ORDERED: Lidocaine 2% Inj (20ml) ONE (07:04)
[2019-01-06] MEDS ORDERED: Iodixanol 320 MG/ML 200 ML BOTTLE IV ONE (07:04)
[2019-01-06] MEDS ORDERED: Midazolam 2 MG/2 ML VIAL ONE ×2 (08:08→08:10)
[2019-01-06] MEDS ORDERED: Sodium Chloride 0.9% 1,000 ML IV SCH ×2 (08:51)
--- NOTE | 2019-01-06 12:24 | CP.CCUPN ---
<Gee Avendano - Last Filed: 01/06/19 14:58> CCU Subjective - Physician Review Subjective (Free Text): 01/06/19 14:58 Gee Avendano, PGY-1 ICU Progress Note for Dr. Ivan: Pt was seen and examined this AM at bedside with ICU team. Pt went for cardiac cath and states that she is feeling tired still from the medication that they gave her prior to cath procedure. Pt denies any chest pain, palpitations, SOB, cough, numbness, tingling, weakness, abd pain, n/v, c/d or dysuria. Pt admits to soreness at the groin where access was gained for the cath. CCU Objective - Vital Signs / Intake & Output Vital Signs (Last 4 hours): Vital Signs Pulse Resp BP Pulse Ox 01/06/19 11:15 44 L 15 147/83 96 01/06/19 11:05 43 L 17 136/49 L 98 01/06/19 11:00 44 L 17 136/49 L 98 01/06/19 10:45 44 L 16 142/51 L 98 01/06/19 10:35 43 L 15 145/46 L 97 01/06/19 10:30 43 L 15 145/46 L 98 01/06/19 10:20 43 L 15 141/51 L 97 01/06/19 10:15 45 L 16 141/51 L 98 01/06/19 10:05 46 L 17 141/76 97 01/06/19 10:00 45 L 15 141/76 97 01/06/19 09:50 45 L 15 136/49 L 96 01/06/19 09:45 45 L 15 136/49 L 96 01/06/19 09:36 46 L 142/53 L 01/06/19 09:35 46 L 14 142/53 L 95 01/06/19 09:31 46 L 14 142/53 L 95 01/06/19 09:30 47 L 17 97 01/06/19 09:20 46 L 16 135/50 L 94 L 01/06/19 09:15 46 L 16 135/50 L 94 L 01/06/19 09:05 47 L 17 143/48 L 95 01/06/19 09:00 47 L 17 143/48 L 95 02/18/19 08:50 48 L 16 167/52 H 95 01/06/19 08:47 48 L 14 167/52 H 95 01/06/19 08:45 93 L Intake and Output (Last 8hrs): Intake & Output 01/05/19 01/06/19 01/06/19 22:59 06:59 14:59 Intake Total 460 Output Total 150 Balance 310 Weight 189 lb 1.6 oz Intake: IV 360 Left Forearm 360 Oral 100 Output: Urine 150 Urine, Voided 150 Other: # Bowel Movements 0 - Physical Exam Head: Positive for: Atraumatic, Normocephalic Pupils: Positive for: PERRL Extroacular Muscles: Positive for: EOMI Conjunctiva: Positive for: Normal Mouth: Positive for: Moist Mucous Membranes Neck: Positive for: Normal Range of Motion Respiratory/Chest: Positive for: Clear to Auscultation, Good Air Exchange. Negative for: Respiratory Distress, Accessory Muscle Use Cardiovascular: Positive for: Regular Rate and Rhythm, Normal S1, S2. Negative for: Murmurs Abdomen: Positive for: Normal Bowel Sounds. Negative for: Tenderness, Distention, Peritoneal Signs Back: Positive for: Normal Inspection Upper Extremity: Positive for: Normal Inspection. Negative for: Cyanosis, Edema Lower Extremity: Positive for: Normal Inspection, Other (Pt has dressing over groin, where access was gained. Dressing is clean, dry and intact with no noted hematoma under the dressing.). Negative for: Edema Neurological: Positive for: GCS=15, CN II-XII Intact, Speech Normal Skin: Positive for: Warm, Dry, Normal Color. Negative for: Rashes Psychiatric: Positive for: Alert, Oriented x 3, Normal Insight, Normal Concentration - Medications Active Medications: Active Medications Generic Name Dose Route Start Last Admin Trade Name Freq PRN Reason Stop Dose Admin Acetaminophen 650 mg 01/02/19 08:23 01/04/19 06:17 Tylenol 325mg Tab PO 650 mg Q4 PRN Administration Pain, Mild (1-3) Amlodipine Besylate 10 mg 01/02/19 10:00 01/06/19 09:36 Norvasc PO 10 mg DAILY [facility] Administration Aspirin 81 mg 01/02/19 10:00 01/06/19 09:37 Ecotrin PO Not Given DAILY [facility] Atorvastatin Calcium 40 mg 01/02/19 17:00 01/05/19 18:31 Lipitor PO 40 mg DIN [facility] Administration Clopidogrel Bisulfate 75 mg 01/02/19 10:00 01/06/19 09:37 Plavix PO Not Given DAILY [facility] Famotidine 20 mg 01/02/19 10:00 01/06/19 09:37 Pepcid PO 20 mg 1000,2200 [facility] Administration Hydralazine HCl 10 mg 01/02/19 08:18 01/06/19 07:05 Apresoline IVP 10 mg Q6 PRN Administration SBP > 140 Hydralazine HCl 25 mg 01/02/19 10:00 01/06/19 09:36 Apresoline PO 25 mg BID [facility] Administration Sodium Chloride 1,000 mls @ 100 mls/hr 01/06/19 08:51 01/06/19 09:41 Sodium Chloride 0.9% IV 01/06/19 15:00 100 mls/hr .Q10H [facility] Administration Isosorbide Mononitrate 60 mg 01/04/19 05:50 01/06/19 10:00 Imdur PO Not Given DAILY [facility] Losartan Potassium 100 mg 01/06/19 10:00 01/06/19 09:36 Cozaar PO 100 mg DAILY [facility] Administration Morphine Sulfate 1 mg 01/04/19 18:24 01/04/19 18:33 Morphine IVP 1 mg Q6H PRN Administration Pain, severe (8-10) Nifedipine 10 mg 01/03/19 12:44 01/05/19 10:33 Procardia PO 10 mg TID [facility] Administration - Patient Studies Lab Studies: Lab Studies 01/06/19 01/06/19 Range/Units 05:45 05:45 WBC 8.3 (4.5-11.0) 10^3/uL RBC 4.82 (3.5-6.1) 10^6/uL Hgb 12.1 (12.0-16.0) g/dL Hct 38.0 (36.0-48.0) % MCV 78.8 L (80.0-105.0) fl MCH 25.1 (25.0-35.0) pg MCHC 31.8 (31.0-37.0) g/dl RDW 16.5 H (11.5-14.5) % Plt Count 246 (120.0-450.0) 10^3/uL MPV 10.7 (7.0-11.0) fl Neut % (Auto) 56.2 (50.0-68.0) % Lymph % (Auto) 29.8 (22.0-35.0) % Dillon % (Auto) 8.2 H (1.0-6.0) % Eos % (Auto) 5.2 H (1.5-5.0) % Baso % (Auto) 0.6 (0.0-3.0) % Lymph # (Auto) 2.5 (1.2-3.4) Dillon # (Auto) 0.7 H (0.1-0.6) Eos # (Auto) 0.4 (0.0-0.7) Baso # (Auto) 0.05 (0.0-2.0) K/mm3 Absolute Neuts (auto) 4.67 (1.4-6.5) Sodium 141 (132-148) mmol/L Potassium 4.3 (3.6-5.0) mmol/L Chloride 108 H (98-107) mmol/L Carbon Dioxide 25 (21-33) mmol/L Anion Gap 12 (10-20) BUN 16 (7-21) mg/dL Creatinine 0.9 (0.7-1.2) mg/dl Est GFR ( Amer) > 60 Est GFR (Non-Af Amer) > 60 Random Glucose 98 (70-110) mg/dL Calcium 9.4 (8.4-10.5) mg/dL Total Bilirubin 1.0 (0.2-1.3) mg/dL AST 23 (14-36) U/L ALT 17 (7-56) U/L Alkaline Phosphatase 113 (38-126) U/L Total Protein 7.3 (5.8-8.3) g/dL Albumin 3.9 (3.0-4.8) g/dL Globulin 3.4 gm/dL Albumin/Globulin Ratio 1.1 (1.1-1.8) Laboratory Results - last 24 hr 01/06/19 01/06/19 05:45 05:45 WBC 8.3 RBC 4.82 Hgb 12.1 Hct 38.0 MCV 78.8 L MCH 25.1 MCHC 31.8 RDW 16.5 H Plt Count 246 MPV 10.7 Neut % (Auto) 56.2 Lymph % (Auto) 29.8 Dillon % (Auto) 8.2 H Eos % (Auto) 5.2 H Baso % (Auto) 0.6 Lymph # (Auto) 2.5 Dillon # (Auto) 0.7 H Eos # (Auto) 0.4 Baso # (Auto) 0.05 Absolute Neuts (auto) 4.67 Sodium 141 Potassium 4.3 Chloride 108 H Carbon Dioxide 25 Anion Gap 12 BUN 16 Creatinine 0.9 Est GFR ( Amer) > 60 Est GFR (Non-Af Amer) > 60 Random Glucose 98 Calcium 9.4 Total Bilirubin 1.0 AST 23 ALT 17 Alkaline Phosphatase 113 Total Protein 7.3 Albumin 3.9 Globulin 3.4 Albumin/Globulin Ratio 1.1 Radiology Impressions: Radiology Impressions Hip/Pelvis X-Ray 01/05/19 12:23 IMPRESSION: No definitive evidence of acute displaced fracture nor dislocation. If symptoms persist or occult fracture suspected clinically consider follow-up CT scan of the pelvis/ EKG/Cardiology Studies: Cardiology / EKG Studies 01/06/19 08:50 ELECTROCARDIOGRAM Urgent Comment: 12 lead EKG upon arrival in unit Reason For Exam: post ptca 01/06/19 09:00 ELECTROCARDIOGRAM DAILY Comment: Reason For Exam: chest pain 01/06/19 11:06 EKG [ELECTROCARDIOGRAM] Stat Comment: Reason For Exam: arrytmia 01/07/19 09:00 ELECTROCARDIOGRAM DAILY Comment: Reason For Exam: chest pain Review of Systems - Review of Systems Review of Systems: 12 point ROS reviewed and negative except noted in HPI above. Critical Care Progress Note - Nutrition Nutrition: Nutrition Category Date Time Status Heart Healthy Diet [DIET] Diets 01/06/19 Lunch Active Assessment/Plan - Assessment and Plan (Free Text) Assessment: Pt is a 68yo F with pmhx of CAD s/p 3 stents, angioedema from JASON-I, HTN admitted with HTNsive emergency now stable however developing worsening heart block now in complete a-v dissociation. Pt was observed overnight in the ICU and went for cardiac cath earlier this AM. Plan: Neuro: - Aox3 Cardio: - 3rd degree heart block now s/p cath: - Pt had cath earlier this AM, which was negative for blockage - f/u with official report - Per cardio, possible pacemaker placement - Cont Asa, must becareful with the use of AV cee blockers as pt is already in heart block - Pt has pacer pads on, currently on standby - EKG in AM Pulm: - Maintain O2 sat >92% GI: - Heart healthy diet Endo: - Maintain Euglycemia Nephro: - Maintain euvolemia Dispo: Pt is noted to have 1 degree block on EKG after cath, pt is currently sta ble for transfer to [facility] Case seen and discussed with Dr. Moncho Avendano, PGY-1 <Sawyer Ivan - Last Filed: 01/06/19 16:37> CCU Objective - Vital Signs / Intake & Output Vital Signs (Last 4 hours): Vital Signs Pulse Resp BP Pulse Ox 01/06/19 13:35 49 L 20 101/41 L 92 L Intake and Output (Last 8hrs): Intake & Output 01/06/19 01/06/19 01/06/19 06:59 14:59 22:59 Intake Total 460 Output Total 150 Balance 310 Weight 85.774 kg Intake: IV 360 Left Forearm 360 Oral 100 Output: Urine 150 Urine, Voided 150 Other: # Bowel Movements 0 - Medications Active Medications: Active Medications Generic Name Dose Route Start Last Admin Trade Name Freq PRN Reason Stop Dose Admin Acetaminophen 650 mg 01/02/19 08:23 01/04/19 06:17 Tylenol 325mg Tab PO 650 mg Q4 PRN Administration Pain, Mild (1-3) Amlodipine Besylate 10 mg 01/02/19 10:00 01/06/19 09:36 Norvasc PO 10 mg DAILY [facility] Administration Aspirin 81 mg 01/02/19 10:00 01/06/19 09:37 Ecotrin PO Not Given DAILY [facility] Atorvastatin Calcium 40 mg 01/02/19 17:00 01/05/19 18:31 Lipitor PO 40 mg DIN [facility] Administration Clopidogrel Bisulfate 75 mg 01/02/19 10:00 01/06/19 09:37 Plavix PO Not Given DAILY [facility] Famotidine 20 mg 01/02/19 10:00 01/06/19 09:37 Pepcid PO 20 mg 1000,2200 [facility] Administration Hydralazine HCl 10 mg 01/02/19 08:18 01/06/19 07:05 Apresoline IVP 10 mg Q6 PRN Administration SBP > 140 Hydralazine HCl 25 mg 01/02/19 10:00 02/18/19 09:36 Apresoline PO 25 mg BID [facility] Administration Isosorbide Mononitrate 60 mg 01/04/19 05:50 01/06/19 10:00 Imdur PO Not Given DAILY [facility] Losartan Potassium 100 mg 01/06/19 10:00 01/06/19 09:36 Cozaar PO 100 mg DAILY [facility] Administration Morphine Sulfate 1 mg 01/04/19 18:24 01/04/19 18:33 Morphine IVP 1 mg Q6H PRN Administration Pain, severe (8-10) Nifedipine 10 mg 01/03/19 12:44 01/05/19 10:33 Procardia PO 10 mg TID [facility] Administration - Patient Studies Lab Studies: Lab Studies 01/06/19 01/06/19 Range/Units 05:45 05:45 WBC 8.3 (4.5-11.0) 10^3/uL RBC 4.82 (3.5-6.1) 10^6/uL Hgb 12.1 (12.0-16.0) g/dL Hct 38.0 (36.0-48.0) % MCV 78.8 L (80.0-105.0) fl MCH 25.1 (25.0-35.0) pg MCHC 31.8 (31.0-37.0) g/dl RDW 16.5 H (11.5-14.5) % Plt Count 246 (120.0-450.0) 10^3/uL MPV 10.7 (7.0-11.0) fl Neut % (Auto) 56.2 (50.0-68.0) % Lymph % (Auto) 29.8 (22.0-35.0) % Dillon % (Auto) 8.2 H (1.0-6.0) % Eos % (Auto) 5.2 H (1.5-5.0) % Baso % (Auto) 0.6 (0.0-3.0) % Lymph # (Auto) 2.5 (1.2-3.4) Dillon # (Auto) 0.7 H (0.1-0.6) Eos # (Auto) 0.4 (0.0-0.7) Baso # (Auto) 0.05 (0.0-2.0) K/mm3 Absolute Neuts (auto) 4.67 (1.4-6.5) Sodium 141 (132-148) mmol/L Potassium 4.3 (3.6-5.0) mmol/L Chloride 108 H (98-107) mmol/L Carbon Dioxide 25 (21-33) mmol/L Anion Gap 12 (10-20) BUN 16 (7-21) mg/dL Creatinine 0.9 (0.7-1.2) mg/dl Est GFR ( Amer) > 60 Est GFR (Non-Af Amer) > 60 Random Glucose 98 (70-110) mg/dL Calcium 9.4 (8.4-10.5) mg/dL Total Bilirubin 1.0 (0.2-1.3) mg/dL AST 23 (14-36) U/L ALT 17 (7-56) U/L Alkaline Phosphatase 113 (38-126) U/L Total Protein 7.3 (5.8-8.3) g/dL Albumin 3.9 (3.0-4.8) g/dL Globulin 3.4 gm/dL Albumin/Globulin Ratio 1.1 (1.1-1.8) Laboratory Results - last 24 hr 01/06/19 01/06/19 05:45 05:45 WBC 8.3 RBC 4.82 Hgb 12.1 Hct 38.0 MCV 78.8 L MCH 25.1 MCHC 31.8 RDW 16.5 H Plt Count 246 MPV 10.7 Neut % (Auto) 56.2 Lymph % (Auto) 29.8 Dillon % (Auto) 8.2 H Eos % (Auto) 5.2 H Baso % (Auto) 0.6 Lymph # (Auto) 2.5 Dillon # (Auto) 0.7 H Eos # (Auto) 0.4 Baso # (Auto) 0.05 Absolute Neuts (auto) 4.67 Sodium 141 Potassium 4.3 Chloride 108 H Carbon Dioxide 25 Anion Gap 12 BUN 16 Creatinine 0.9 Est GFR ( Amer) > 60 Est GFR (Non-Af Amer) > 60 Random Glucose 98 Calcium 9.4 Total Bilirubin 1.0 AST 23 ALT 17 Alkaline Phosphatase 113 Total Protein 7.3 Albumin 3.9 Globulin 3.4 Albumin/Globulin Ratio 1.1 EKG/Cardiology Studies: Cardiology / EKG Studies 01/06/19 11:06 EKG [ELECTROCARDIOGRAM] Stat Comment: Reason For Exam: arrytmia 01/07/19 09:00 ELECTROCARDIOGRAM DAILY Comment: Reason For Exam: chest pain Critical Care Progress Note - Nutrition Nutrition: Nutrition Category Date Time Status Heart Healthy Diet [DIET] Diets 01/06/19 Lunch Active Addendum Addendum: 01/06/19 16:36 ICU Attending Addendum Patient seen and examined. Case reviewed on round with housestaff. Agree with resident note above with the following additions/exceptions 68F with CAD s/p 3 stents, angioedema from JASON-I, HTN admitted with htn emergency now stable however developing worsening heart block now in complete a- v dissociation. no acute events overnight cath this AM - no occlusions; no interventions remains asymtpotmatic cardio considering PPM eventually stable for transfer out of ICU Rest of care as above in housestaff note Sawyer Ivan MD Pulmonary Critical Care Attending --
--- NOTE | 2019-01-06 13:35 | CP.PCM.PN ---
<Selam Diallo - Last Filed: 01/06/19 13:24> Subjective - Date & Time of Evaluation Date of Evaluation: 01/06/19 Time of Evaluation: 13:24 - Subjective Subjective: Selam Diallo, PGY-1, Internal Medicine Progress Note for Dr. Munoz Patient seen and evaluated at bedside. Patient had no acute events overnight. Yesterday, patient was found to be in 3rd degree heart block and transferred to the ICU with pacers. Patient had cardiac catheterization this morning. This morning, patient has no chest pain, shortness of breath, nausea, vomiting, constipation, diarrhea, dysuria, hematuria. Patient was somnolent at bedside status post procedure so 12-point ROS is not reliable at this time. Objective - Vital Signs/Intake and Output Vital Signs (last 24 hours): Temp Pulse Resp BP Pulse Ox 98 F 44 L 15 147/83 96 01/06/19 12:00 01/06/19 11:15 01/06/19 11:15 01/06/19 11:15 01/06/19 11:15 Intake and Output: 01/06/19 01/06/19 06:59 18:59 Intake Total 460 Output Total 150 Balance 310 - Medications Medications: Current Medications Acetaminophen (Tylenol 325mg Tab) 650 mg PO Q4 PRN PRN Reason: Pain, Mild (1-3) Last Admin: 01/04/19 06:17 Dose: 650 mg Amlodipine Besylate (Norvasc) 10 mg PO DAILY [facility] Last Admin: 01/06/19 09:36 Dose: 10 mg Aspirin (Ecotrin) 81 mg PO DAILY [facility] Last Admin: 01/06/19 09:37 Dose: Not Given Atorvastatin Calcium (Lipitor) 40 mg PO DIN [facility] Last Admin: 01/05/19 18:31 Dose: 40 mg Clopidogrel Bisulfate (Plavix) 75 mg PO DAILY [facility] Last Admin: 01/06/19 09:37 Dose: Not Given Famotidine (Pepcid) 20 mg PO 1000,2200 [facility] Last Admin: 01/06/19 09:37 Dose: 20 mg Hydralazine HCl (Apresoline) 10 mg IVP Q6 PRN PRN Reason: SBP > 140 Last Admin: 01/06/19 07:05 Dose: 10 mg Hydralazine HCl (Apresoline) 25 mg PO BID [facility] Last Admin: 02/18/19 09:36 Dose: 25 mg Sodium Chloride (Sodium Chloride 0.9%) 1,000 mls @ 100 mls/hr IV .Q10H [facility] Stop: 01/06/19 15:00 Last Admin: 01/06/19 09:41 Dose: 100 mls/hr Isosorbide Mononitrate (Imdur) 60 mg PO DAILY [facility] Last Admin: 01/06/19 10:00 Dose: Not Given Losartan Potassium (Cozaar) 100 mg PO DAILY [facility] Last Admin: 01/06/19 09:36 Dose: 100 mg Morphine Sulfate (Morphine) 1 mg IVP Q6H PRN PRN Reason: Pain, severe (8-10) Last Admin: 01/04/19 18:33 Dose: 1 mg Nifedipine (Procardia) 10 mg PO TID [facility] Last Admin: 01/05/19 10:33 Dose: 10 mg - Labs Labs: 01/06/19 05:45 01/06/19 05:45 - Constitutional Appears: Well, Non-toxic, No Acute Distress - Head Exam Head Exam: ATRAUMATIC, NORMAL INSPECTION, NORMOCEPHALIC - Eye Exam Eye Exam: EOMI Pupil Exam: PERRL - Neck Exam Neck Exam: Full ROM - Respiratory Exam Respiratory Exam: Clear to Ausculation Bilateral, NORMAL BREATHING PATTERN - Cardiovascular Exam Cardiovascular Exam: Bradycardia, irregular rhythm - GI/Abdominal Exam GI & Abdominal Exam: Soft, Normal Bowel Sounds. absent: Tenderness - Extremities Exam Extremities Exam: Full ROM, tenderness at right groin. no hematoma or mass present. pulses +2/4 throughout. bandage on right thigh for recent catheter int ervention - Neurological Exam Neurological Exam: Alert, Awake, CN II-XII Intact, Oriented x3 - Skin Skin Exam: Dry, Intact, Normal Color Assessment and Plan - Assessment and Plan (Free Text) Assessment: 68 year old female with past medical history of CAD status post 3 stents (1 FRIEDA in LAD+2 in LCx in 08/[address] Jackson), JASON-inhibitor induced angioedema, hyperlipidemia, hypertension, and second degree heart block presents with shortness of breath and chest tightness. Patient was admitted for ACS rule out. Patient was found to have complete heart block yesterday and pacer pads were placed with pacer on standby. Patient is status post cardiac catherization with RCA lesion, patent stents, and left renal artery stenosis. Plan: Rule out ACS -Patient has significant cardiac history with 3 stents placed in 08/2018 -EKG 01/06: 1st degree AV block with frequent PVCs and HR: 99 -Troponinx5: negative -Continue with aspirin, lipitor, plavix, isosorbide mononitrate -Continue with HHD diet -Continue morphine 1 mg Q6PRN -Patient is status post cardiac catherization today. Patient was found to have RCA lesion and left renal artery stenosis. No stents were placed, however, stents may be placed in the future. -As per Dr. Jackson, Cardiology, patient for cardiac catheterization on Sunday. Right Groin Pain -Follow up arterial duplex results for further evaluation of the right lower ext remity -Hip/Pelvis X ray: negative for fracture -PT/DP pulses +2/4 -Continue to monitor. -Access was through right groin for cardiac catherization today Hypertensive urgency -Blood pressure: 147/83. Initially presented with BP of 187/74. -Patient currently has renal artery stenosis of left side. If patient's hypertension remains uncontrolled, stenting the artery would be considered. -Continue with scheduled amlodipine, and hydralazine as per Dr. Jackson. Nifedipine stopped as per Dr. Bernal. Continue losartan 100 mg daily as per Dr. Bernal -Hydralazine 10 mg Q6PRN for BP>160/110 -Blood pressure continues to be elevated after multiple days of therapy. -Cardiology and Nephrology consulted for medication management and improved blood pressure control. Hyperlipidemia -Continue with lipitor 40 mg daily Third Degree Heart Block -Found on silverlight developer yesterday. Pacer pads were placed and pacer is on standby -EKG 01/06: 1st degree AV block with frequent PVCs and HR: 99. Patient is in and out of complete heart block. -Avoid beta annette, nondihydropyridine calcium channel blockers, and clonidine. These medications may be started if pacemaker is placed and patient's heart is being paced appropriately. -Dr. Meek, Electrophysiology, consulted for recommendations for pacemaker placement Tension Headache vs. Sinusitis -CT of head without contrast on 01/03: air fluid level noted in left maxillary sinus, possible sinusitis -Continue with tylenol for headache as needed -Continue morphine 1 mg Q6PRN GI prophylaxis: pepcid 20 mg BID DVT prophylaxis: SCD <No Munoz - Last Filed: 01/06/19 14:56> Objective - Vital Signs/Intake and Output Vital Signs (last 24 hours): Temp Pulse Resp BP Pulse Ox 98 F 49 L 20 101/41 L 92 L 01/06/19 12:00 01/06/19 13:35 01/06/19 13:35 01/06/19 13:35 01/06/19 13:35 Intake and Output: 01/06/19 01/06/19 06:59 18:59 Intake Total 460 Output Total 150 Balance 310 - Medications Medications: Current Medications Acetaminophen (Tylenol 325mg Tab) 650 mg PO Q4 PRN PRN Reason: Pain, Mild (1-3) Last Admin: 01/04/19 06:17 Dose: 650 mg Amlodipine Besylate (Norvasc) 10 mg PO DAILY [facility] Last Admin: 01/06/19 09:36 Dose: 10 mg Aspirin (Ecotrin) 81 mg PO DAILY [facility] Last Admin: 01/06/19 09:37 Dose: Not Given Atorvastatin Calcium (Lipitor) 40 mg PO DIN [facility] Last Admin: 01/05/19 18:31 Dose: 40 mg Clopidogrel Bisulfate (Plavix) 75 mg PO DAILY [facility] Last Admin: 01/06/19 09:37 Dose: Not Given Famotidine (Pepcid) 20 mg PO 1000,2200 [facility] Last Admin: 01/06/19 09:37 Dose: 20 mg Hydralazine HCl (Apresoline) 10 mg IVP Q6 PRN PRN Reason: SBP > 140 Last Admin: 01/06/19 07:05 Dose: 10 mg Hydralazine HCl (Apresoline) 25 mg PO BID [facility] Last Admin: 01/06/19 09:36 Dose: 25 mg Sodium Chloride (Sodium Chloride 0.9%) 1,000 mls @ 100 mls/hr IV .Q10H [facility] Stop: 01/06/19 15:00 Last Admin: 01/06/19 09:41 Dose: 100 mls/hr Isosorbide Mononitrate (Imdur) 60 mg PO DAILY [facility] Last Admin: 01/06/19 10:00 Dose: Not Given Losartan Potassium (Cozaar) 100 mg PO DAILY [facility] Last Admin: 01/06/19 09:36 Dose: 100 mg Morphine Sulfate (Morphine) 1 mg IVP Q6H PRN PRN Reason: Pain, severe (8-10) Last Admin: 01/04/19 18:33 Dose: 1 mg Nifedipine (Procardia) 10 mg PO TID [facility] Last Admin: 01/05/19 10:33 Dose: 10 mg - Labs Labs: 01/06/19 05:45 01/06/19 05:45 Attending/Attestation - Attestation I have personally seen and examined this patient.: Yes I have fully participated in the care of the patient.: Yes I have reviewed all pertinent clinical information, including history, physical exam and plan: Yes Notes (Text): 01/06/19 14:54 68 year old female with past medical history of CAD s/p stents, hypertension, dyslipidemia and JASON-I induced angioedema who presented with complaint of chest pain and shortness of breath. Found to have hypertensive urgency and marked bradycardia. She was transferred to ICU yesterday after being found to have heart block. She is on hydralazine, losartan and HCTZ. She was also started on imdur. Clonidine is on hold. Patient is not on BB. She is on aspirin, plavix and statin. Patient is s/p cardiac cath today with findings of left renal artery stenosis and RCA lesion. Cardiology and nephrology are following. EPS evaluation is also requested. No Munoz MD Hospitalist.
--- NOTE | 2019-01-06 16:15 | CARDCATH ---
PROCEDURE DATE: 01/06/2019 HISTORY: The patient is a 68-year-old woman with multiple cardiac risk factors, who presents with an accelerated hypertension. Her hypertension treatment has been complicated by persistent bradycardia, occasional AV block WELL AN ALLERGY TO LISINOPRIL IN THE PAST. During the entire course of her hospitalization, the patient complained of recurrent chest pain. The patient has had PTCA in the past. Because of this, cardiac catheterization was recommended. PROCEDURE: Left heart catheterization with coronary arteriography, left ventriculogram, supra-aortic valvular injection, and selective renal arteriograms were performed. There were no complications. I performed moderate sedation, which included the presence of an independent trained observer that assisted in monitoring the patient's level of consciousness and physiologic status. After administration of Versed and fentanyl, my intra-service time was 30 minutes. The findings on catheterization revealed a left ventricle that contracted normally. Estimated ejection fraction was 70-80%. Supra-aortic valvular injection revealed no aortic insufficiency. The patient had a codominant circulation. The RCA revealed a 60-70% stenosis in the midportion with a 70% stenosis at the ostium of an RV branch. The left main artery was unremarkable. The LAD revealed a patent stent in its midportion. In the proximal portion of the LAD, there is a 50% stenosis noted. The circumflex artery revealed a patent stent in the large obtuse marginal branch. There is a 40-50% stenosis in the midportion of the circumflex artery. Selective renal arteriogram revealed an 80% stenoses in the large inferior branch of the renal artery at its ostium. The superior branch, which is a small vessel revealed an 80% stenosis. The right renal artery revealed a 50% stenosis at its ostium. Angio-Seal was used to close the right femoral artery site. The patient tolerated the procedure well. In summary, the procedure revealed single-vessel CAD with a 60% stenosis in the midportion of a codominant RCA and a 70% stenosis in the ostium of an RV branch. Patent stents in the mid LAD and obtuse marginal branches were noted. Diffuse atherosclerosis was also noted new. Normal LV function. No aortic insufficiency. Renal artery stenosis of the left renal arteries with a 50% stenosis in the right renal artery. Given these findings, we will continue the patient on medical therapy. She was started on an ARB this weekend, SO FAR NO ALLERGIES HAS BEEN REPORTED. We will continue her present medications at this time. We will consider angioplasty of the right coronary artery and/or PCI of the renal artery if medical therapy fails. Duc Jackson MD
--- NOTE | 2019-01-06 19:02 | PN ---
DATE: 01/06/2019 SUBJECTIVE: The patient is seen lying in bed in the ICU. She had underwent cardiac cath this morning. Cardiac cath did not show any new blockages. Stents were found to be patent. She is currently lying in bed. She is still groggy. PHYSICAL EXAMINATION: GENERAL: Elderly lady lying in bed. VITAL SIGNS: Blood pressure 133/46, heart rate 45, respiratory rate 16, and temperature 98. HEENT: Normocephalic and atraumatic. Positive pallor. NECK: Supple. No JVD. LUNGS: Bilateral equal air entry, bilateral equal expansion. CARDIAC: S1 and S2, regular rate and rhythm. No murmur. No rub. ABDOMEN: Obese, distended, soft, and nontender. Bowel sounds present. EXTREMITIES: No lower extremity edema. INTAKE AND OUTPUT: Not charted. LABORATORY DATA: WBC 8, hemoglobin 12, hematocrit 38, and platelets 246. Sodium 141, potassium 4.3, chloride 108, CO2 of 25, BUN 16, creatinine 0.9, glucose 98, and calcium 9.4. AST 23, ALT 17, and albumin 3.9. CURRENT MEDICATIONS: Apresoline 25 b.i.d., losartan 100, Ecotrin, Imdur 60 not given this morning, Lipitor 40, amlodipine 10, Pepcid 20, Plavix 75, and Tylenol. ASSESSMENT: 1. Status post hypertensive emergency, blood pressure much better controlled now. 2. Status post chest pain, shortness of breath, likely secondary to hypertensive emergency. 3. Shortness of breath? secondary to beta-annette, now off. 4. Coronary artery disease, history of percutaneous transluminal coronary angioplasty and stent. 5. Angioedema secondary to lisinopril. PLAN: 1. Currently, blood pressure is exquisitely controlled. Continue losartan 100, amlodipine 10, and hydralazine 25 b.i.d. 2. Continue to monitor. 3. Management of CAD as per Cardiology. Bethany Bernal MD
[2019-01-06] MEDS: Morphine 2 mg/ml ISec IVP PRN (21:56)
[2019-01-07 08:38] LABS: HEMOGLOBIN 13.5 g/dL (12.0-16.0); MEAN CELL VOLUME 79.2 fl (80.0-105.0); MEAN CORPUSCULAR HEMOGLOBIN 25.6 pg (25.0-35.0); MEAN CORPUSCULAR HGB CONC 32.3 g/dl (31.0-37.0); MEAN PLATELET VOLUME 9.8 fl (7.0-11.0); RBC 5.28 10^6/uL (3.5-6.1); RED CELL DISTRIBUTION WIDTH 16.5 % (11.5-14.5); WHITE BLOOD COUNT 14.8 10^3/uL (4.5-11.0)
[2019-01-07 08:46] LABS: BLOOD UREA NITROGEN 18 mg/dL (7-21); CALCIUM 9.3 mg/dL (8.4-10.5); GFR NON-AFRICAN AMERICAN > 60
--- NOTE | 2019-01-07 10:36 | US ---
Date of service: 01/06/2019 PROCEDURE: Ultrasound of the Kidneys HISTORY: htn COMPARISON: None available. TECHNIQUE: Sonogram of the kidneys. FINDINGS: RIGHT KIDNEY: Measures: 10.5 cm. Normal in size, contour and echogenicity. No stone, solid mass lesion or hydronephrosis visualized. LEFT KIDNEY: Measures: 10.2 cm. Normal in size, contour and echogenicity. No stone, solid mass lesion or hydronephrosis visualized. OTHER FINDINGS: None. IMPRESSION: Unremarkable renal sonogram. The preliminary findings for this examination were reported by [facility] at 7:41 p.m. on 01/06/2019. There is concurrence of this report with the preliminary findings.
--- NOTE | 2019-01-07 13:34 | CP.PCM.PN ---
<Selam Diallo - Last Filed: 01/07/19 13:21> Subjective - Date & Time of Evaluation Date of Evaluation: 01/07/19 Time of Evaluation: 13:21 - Subjective Subjective: Selam Diallo, PGY-1, Internal Medicine Progress Note for Dr. Munoz Patient seen and evaluated at bedside. Patient had no acute events overnight. Today, patient reports improved chest pain and denies any other symptoms including shortness of breath, nausea, vomiting, constipation, diarrhea, dysuria, hematuria, headache, groin pain. 12-point ROS was unremarkable except for what was mentioned above. Objective - Vital Signs/Intake and Output Vital Signs (last 24 hours): Temp Pulse Resp BP Pulse Ox 98.9 F 48 L 17 196/64 H 95 01/07/19 00:00 01/07/19 10:38 01/07/19 02:00 01/07/19 10:38 01/07/19 02:00 - Medications Medications: Current Medications Acetaminophen (Tylenol 325mg Tab) 650 mg PO Q4 PRN PRN Reason: Pain, Mild (1-3) Last Admin: 01/04/19 06:17 Dose: 650 mg Amlodipine Besylate (Norvasc) 10 mg PO DAILY [facility] Last Admin: 01/07/19 10:37 Dose: 10 mg Aspirin (Ecotrin) 81 mg PO DAILY [facility] Last Admin: 01/07/19 10:37 Dose: 81 mg Atorvastatin Calcium (Lipitor) 40 mg PO DIN [facility] Last Admin: 01/06/19 17:34 Dose: 40 mg Clopidogrel Bisulfate (Plavix) 75 mg PO DAILY [facility] Last Admin: 01/07/19 10:36 Dose: 75 mg Famotidine (Pepcid) 20 mg PO 1000,2200 [facility] Last Admin: 01/07/19 10:37 Dose: 20 mg Hydralazine HCl (Apresoline) 10 mg IVP Q6 PRN PRN Reason: SBP > 140 Last Admin: 01/06/19 07:05 Dose: 10 mg Hydralazine HCl (Apresoline) 25 mg PO BID [facility] Last Admin: 01/07/19 10:38 Dose: 25 mg Isosorbide Mononitrate (Imdur) 60 mg PO DAILY [facility] Last Admin: 01/07/19 10:36 Dose: 60 mg Losartan Potassium (Cozaar) 100 mg PO DAILY [facility] Last Admin: 01/07/19 10:37 Dose: 100 mg Morphine Sulfate (Morphine) 1 mg IVP Q6H PRN PRN Reason: Pain, severe (8-10) Last Admin: 01/06/19 21:56 Dose: 1 mg Nifedipine (Procardia) 10 mg PO TID [facility] Last Admin: 01/05/19 10:33 Dose: 10 mg - Labs Labs: 01/07/19 08:25 01/07/19 08:25 - Constitutional Appears: Well, Non-toxic, No Acute Distress - Head Exam Head Exam: ATRAUMATIC, NORMAL INSPECTION, NORMOCEPHALIC - Eye Exam Eye Exam: EOMI Pupil Exam: PERRL - Neck Exam Neck Exam: Full ROM - Respiratory Exam Respiratory Exam: Clear to Ausculation Bilateral, NORMAL BREATHING PATTERN - Cardiovascular Exam Cardiovascular Exam: Bradycardia, regular rhythm - GI/Abdominal Exam GI & Abdominal Exam: Soft, Normal Bowel Sounds. absent: Tenderness - Extremities Exam Extremities Exam: Full ROM, tenderness at right groin. no hematoma or mass present. pulses +2/4 throughout. bandage on right thigh for recent catheter intervention - Neurological Exam Neurological Exam: Alert, Awake, CN II-XII Intact, Oriented x3 - Skin Skin Exam: Dry, Intact, Normal Color Assessment and Plan - Assessment and Plan (Free Text) Assessment: 68 year old female with past medical history of CAD status post 3 stents (1 FRIEDA in LAD+2 in LCx in 08/[address] Jackson), JASON-inhibitor induced angioedema, hyperlipidemia, hypertension, and second degree heart block presents with shortness of breath and chest tightness. Patient was admitted for ACS rule out. Patient was found to have complete heart block yesterday and pacer pads were placed with pacer on standby. Patient is status post cardiac catherization with RCA lesion, patent stents, and left renal artery stenosis. Plan: Rule out ACS -Patient has significant cardiac history with 3 stents placed in 08/2018 -EKG 01/06: 1st degree AV block with frequent PVCs and HR: 99 -Troponinx5: negative -Continue with aspirin, lipitor, plavix, isosorbide mononitrate -Continue with HHD diet -Continue morphine 1 mg Q6PRN -Patient is status post cardiac catherization today. Patient was found to have RCA lesion with 60-70% stenosis and 70% stenosis at the ostium of an RV branch. In proximal LAD, there was a 50% stenosis. Circumflex artery had a 40-50% stenosis in midportion. Left renal artery stenosis is 80% at large inferior branch. Superior branch, which is a small vessel revealed 80% stenosis. Right renal artery had 50% stenosis at its ostium. No stents were placed, however, stents may be placed in the future. -As per Dr. Jackson, Cardiology, patient for cardiac catheterization on Sunday. Right Groin Pain -Hip/Pelvis X ray: negative for fracture -PT/DP pulses +2/4 -Continue to monitor. -Access was through right groin for cardiac catherization today Hypertensive urgency -Initially presented with BP of 187/74. -Upon catheterization, Left renal artery stenosis is 80% at large inferior branch. Superior branch, which is a small vessel revealed 80% stenosis. Right renal artery had 50% stenosis at its ostium. If patient's hypertension remains uncontrolled, stenting the artery would be considered. -Renal ultrasound 01/06: unremarkable renal sonogram -Continue with scheduled amlodipine, and hydralazine as per Dr. Jackson. Nifedipine stopped as per Dr. Bernal. Continue losartan 100 mg daily as per Dr. Bernal -Hydralazine 10 mg Q6PRN for BP>160/110 -Blood pressure continues to be elevated after multiple days of therapy. -Cardiology and Nephrology consulted for medication management and improved blood pressure control. Hyperlipidemia -Continue with lipitor 40 mg daily Third Degree Heart Block -Found on ekg monitor tech yesterday. Pacer pads were placed and pacer is on standby -EKG 01/06: 1st degree AV block with frequent PVCs and HR: 99. Patient is in and out of complete heart block. -Avoid beta annette, nondihydropyridine calcium channel blockers, and clonidine. These medications may be started if pacemaker is placed and patient's heart is being paced appropriately. -Dr. Meek, Electrophysiology, consulted for recommendations for pacemaker placement Tension Headache vs. Sinusitis -CT of head without contrast on 01/03: air fluid level noted in left maxillary sinus, possible sinusitis -Continue with tylenol for headache as needed -Continue morphine 1 mg Q6PRN GI prophylaxis: pepcid 20 mg BID DVT prophylaxis: SCD <No Munoz - Last Filed: 01/07/19 19:06> Objective - Vital Signs/Intake and Output Vital Signs (last 24 hours): Temp Pulse Resp BP Pulse Ox 98.9 F 91 H 56 H 107/82 87 L 01/07/19 00:00 01/07/19 17:47 01/07/19 17:30 01/07/19 17:47 01/07/19 17:30 - Medications Medications: Current Medications Acetaminophen (Tylenol 325mg Tab) 650 mg PO Q4 PRN PRN Reason: Pain, Mild (1-3) Last Admin: 01/04/19 06:17 Dose: 650 mg Amlodipine Besylate (Norvasc) 10 mg PO DAILY [facility] Last Admin: 01/07/19 10:37 Dose: 10 mg Aspirin (Ecotrin) 81 mg PO DAILY [facility] Last Admin: 01/07/19 10:37 Dose: 81 mg Atorvastatin Calcium (Lipitor) 40 mg PO DIN [facility] Last Admin: 01/07/19 17:47 Dose: 40 mg Clopidogrel Bisulfate (Plavix) 75 mg PO DAILY [facility] Last Admin: 01/07/19 10:36 Dose: 75 mg Famotidine (Pepcid) 20 mg PO 1000,2200 [facility] Last Admin: 01/07/19 10:37 Dose: 20 mg Hydralazine HCl (Apresoline) 10 mg IVP Q6 PRN PRN Reason: SBP > 140 Last Admin: 01/06/19 07:05 Dose: 10 mg Hydralazine HCl (Apresoline) 25 mg PO BID [facility] Last Admin: 01/07/19 17:47 Dose: 25 mg Isosorbide Mononitrate (Imdur) 60 mg PO DAILY [facility] Last Admin: 01/07/19 10:36 Dose: 60 mg Losartan Potassium (Cozaar) 100 mg PO DAILY [facility] Last Admin: 01/07/19 10:37 Dose: 100 mg Morphine Sulfate (Morphine) 1 mg IVP Q6H PRN PRN Reason: Pain, severe (8-10) Last Admin: 01/06/19 21:56 Dose: 1 mg Nifedipine (Procardia) 10 mg PO TID [facility] Last Admin: 01/05/19 10:33 Dose: 10 mg - Labs Labs: 01/07/19 08:25 01/07/19 08:25 Attending/Attestation - Attestation I have personally seen and examined this patient.: Yes I have fully participated in the care of the patient.: Yes I have reviewed all pertinent clinical information, including history, physical exam and plan: Yes Notes (Text): 01/07/19 19:04 68 year old female with past medical history of CAD s/p stents, hypertension, dyslipidemia and JASON-I induced angioedema who presented with complaint of chest pain and shortness of breath. Found to have hypertensive urgency and marked bradycardia. She was transferred to ICU after being found to have heart block. She is on hydralazine and HCTZ. Although she has allergy to JASON-I (angioedema) she has been on ARB as outpatient so losartan has been started as per nephrology. She was also started on imdur. Clonidine is on hold. Patient is not on BB. She is on aspirin, plavix and statin. Patient is s/p cardiac cath yesterday with findings of renal artery stenosis and RCA lesion. Renal ultrasoud is negative. Cardiology and nephrology are following. EPS evaluation was also requested for possible pacemaker placement. No Munoz MD Hospitalist.
--- NOTE | 2019-01-07 19:06 | PN ---
DATE: 01/07/2019 SUBJECTIVE: The patient is currently seen in ICU, bed 5. She remains bradycardic and is being evaluated for possible pacemaker placement. She is status post negative cardiac catheterization. There were no new blockages seen. Her stents were found to be patent. Of note, the patient did have 50% narrowing of her right renal artery which is felt to be less than 60%, which is a significant number. PHYSICAL EXAMINATION INTAKE AND OUTPUT: Intake is 1090, output is 470. VITAL SIGNS: Current blood pressure is 151/63 with a heart rate of 45. Respiratory rate is 14 with a temperature of 98.9. HEENT: Shows her to be normocephalic, atraumatic. Conjunctivae are pink. Sclerae are nonicteric. NECK: Supple. No neck vein distention. CHEST: Clear to auscultation and percussion. No rales, rhonchi or wheezing. CARDIOVASCULAR: Shows a regular rate and rhythm with /MR/TR/pulmonic insufficiency. No S3. No S4. No rub. ABDOMEN: Soft. Bowel sounds normal. Mild obesity. No rebound. No guarding. No masses. EXTREMITIES: Show no lower extremity cyanosis, clubbing or edema. LABORATORY DATA AND IMAGING: CBC, white blood cell count today 14.8, hemoglobin 13.5 with a platelet count of 260,000. Chemistry showed normal electrolytes. BUN 18 with a creatinine of 0.9. Glucose is 89 with a calcium of 9.3. Liver enzymes are normal. Albumin is 3.9. Urine from admission were unremarkable. Microbiology, all cultures are negative to date. MEDICATIONS: Medication list reviewed. The patient is currently on hydralazine, losartan, Ecotrin, Imdur, Lipitor, morphine, Norvasc, Pepcid, Plavix, and Tylenol p.r.n. ASSESSMENT: Status post hypertensive urgency. Blood pressure is now well controlled on present medical therapy. The patient appears to be tolerating angiotensin receptor annette well after having had a reaction to JASON inhibitors. Status post chest pain, shortness of breath. Cardiac catheterization results as noted above. 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 The patient is again tolerating angiotensin receptor annette well. Hyperlipidemia, controlled with diet and statin therapy. Significant bradycardia. The patient is being evaluated by Cardiology for possible placement of a permanent pacemaker. She is not receiving digoxin and she does not receive beta-annette therapy. Valvular heart disease as noted above. Aortic stenosis/mitral regurgitation/tricuspid regurgitation/pulmonic insufficiency, all appeared to be stable. PLAN: 1. Continue to monitor the patient in the ICU in light of her bradycardia. 2. Decision tomorrow is to whether or not the patient will receive a permanent pacemaker. 3. From a renal standpoint, no intervention on behalf of her renal artery stenosis of her right kidney artery which is 50% only. 4. Continue present blood pressure medication. 5. Continue to monitor closely in a monitored setting until her bradycardia is successfully . Austin Pagan MD
--- NOTE | 2019-01-07 22:49 | CARD ---
APPROVED REPORT Date of service: 01/07/2019 EKG Measurement Heart [id number] [place] [id number] <Conclusion> Sinus rhythm with 2nd degree AV block with 2:1 AV conduction Nonspecific T wave abnormality Prolonged QT CCR Abnormal ECG
--- NOTE | 2019-01-07 23:04 | PN ---
DATE: 01/07/2019 CARDIOLOGY FOLLOWUP SUBJECTIVE: The patient is comfortable. Heart rate remains in the 40s, sinus bradycardia. PHYSICAL EXAMINATION: NECK: Negative JVD. LUNGS: Without rales. HEART: S1, S2. EXTREMITIES: Without edema. LABORATORY DATA: BUN and creatinine unremarkable. Hemoglobin is 13. IMPRESSION: 1. Accelerated hypertension. 2. Persistent bradycardia. 3. Stable angina. 4. Patent stents in the left anterior descending and obtuse marginal. 5. Critical disease of the right ventricular branch as well as 60% in a codominant right coronary artery. PLAN: Given these findings, we will continue medical therapy. We will discuss with the patient the possibility of a pacemaker which will then allow us an array of medications to help control her blood pressure. The patient cannot take an JASON inhibitor due to her allergy. Duc Jackson MD
[2019-01-08] MEDS: Morphine 2 mg/ml ISec IVP PRN ×2 (02:20→20:36)
[2019-01-08 06:56] LABS: HEMOGLOBIN 12.2 g/dL (12.0-16.0); MEAN CELL VOLUME 78.6 fl (80.0-105.0); MEAN CORPUSCULAR HEMOGLOBIN 25.1 pg (25.0-35.0); MEAN CORPUSCULAR HGB CONC 31.9 g/dl (31.0-37.0); MEAN PLATELET VOLUME 10.5 fl (7.0-11.0); RBC 4.87 10^6/uL (3.5-6.1); RED CELL DISTRIBUTION WIDTH 16.4 % (11.5-14.5); WHITE BLOOD COUNT 11.1 10^3/uL (4.5-11.0)
[2019-01-08 07:21] LABS: ALB/GLOB RATIO 1.1 (1.1-1.8); ALBUMIN 3.6 g/dL (3.0-4.8); ALT/SGPT 18 U/L (7-56); AST/SGOT 31 U/L (14-36); BLOOD UREA NITROGEN 21 mg/dL (7-21); CALCIUM 9.1 mg/dL (8.4-10.5); GFR NON-AFRICAN AMERICAN 55
--- NOTE | 2019-01-08 10:34 | CARD ---
APPROVED REPORT Date of service: 01/06/2019 EKG Measurement Heart [id number] [place] [id number] <Conclusion> Sinus bradycardia with 1st degree AV block Baseline artifact precludes proper assessment Possible Inferior infarct, age undetermined Abnormal ECG
--- NOTE | 2019-01-08 11:59 | CP.PCM.PCO ---
Physician Communication Note - Physician Communication Note Physician Communication Note: PPM today
[2019-01-08] MEDS ORDERED: Lidocaine 2% Inj (20ml) ONE (13:16)
[2019-01-08] MEDS ORDERED: Midazolam 2 MG/2 ML VIAL ONE ×2 (14:09→15:12)
--- NOTE | 2019-01-08 14:32 | CP.PCM.PN ---
<Selam Diallo - Last Filed: 01/08/19 14:27> Subjective - Date & Time of Evaluation Date of Evaluation: 01/08/19 Time of Evaluation: 14:27 - Subjective Subjective: Selam Diallo, PGY-1, Internal Medicine Progress Note for Dr. Munoz Patient seen and evaluated at bedside. Patient had no acute events overnight. Today, patient reports dizziness that started overnight and denies any other symptoms including shortness of breath, chest pain, nausea, vomiting, constipation, diarrhea, dysuria, hematuria, headache, groin pain. 12-point ROS was unremarkable except for what was mentioned above. Objective - Vital Signs/Intake and Output Vital Signs (last 24 hours): Temp Pulse Resp BP Pulse Ox 98.6 F 43 L 39 H 140/48 L 87 L 01/08/19 08:25 01/08/19 12:00 01/08/19 11:00 01/08/19 11:00 01/07/19 17:30 Intake and Output: 01/08/19 01/08/19 06:59 18:59 Intake Total 240 Balance 240 - Medications Medications: Current Medications Acetaminophen (Tylenol 325mg Tab) 650 mg PO Q4 PRN PRN Reason: Pain, Mild (1-3) Last Admin: 01/04/19 06:17 Dose: 650 mg Amlodipine Besylate (Norvasc) 10 mg PO DAILY [facility] Last Admin: 01/07/19 10:37 Dose: 10 mg Aspirin (Ecotrin) 81 mg PO DAILY [facility] Last Admin: 01/08/19 06:09 Dose: 81 mg Atorvastatin Calcium (Lipitor) 40 mg PO DIN [facility] Last Admin: 01/07/19 17:47 Dose: 40 mg Clopidogrel Bisulfate (Plavix) 75 mg PO DAILY [facility] Last Admin: 01/07/19 10:36 Dose: 75 mg Famotidine (Pepcid) 20 mg PO 1000,2200 [facility] Last Admin: 01/07/19 21:20 Dose: 20 mg Hydralazine HCl (Apresoline) 10 mg IVP Q6 PRN PRN Reason: SBP > 140 Last Admin: 01/06/19 07:05 Dose: 10 mg Hydralazine HCl (Apresoline) 25 mg PO BID [facility] Last Admin: 01/08/19 11:09 Dose: Not Given Isosorbide Mononitrate (Imdur) 60 mg PO DAILY [facility] Last Admin: 01/07/19 10:36 Dose: 60 mg Losartan Potassium (Cozaar) 100 mg PO DAILY [facility] Last Admin: 01/07/19 10:37 Dose: 100 mg Morphine Sulfate (Morphine) 1 mg IVP Q6H PRN PRN Reason: Pain, severe (8-10) Last Admin: 01/08/19 02:20 Dose: 1 mg Nifedipine (Procardia) 10 mg PO TID [facility] Last Admin: 01/05/19 10:33 Dose: 10 mg - Labs Labs: 01/08/19 05:30 01/08/19 05:30 - Constitutional Appears: Well, Non-toxic, No Acute Distress - Head Exam Head Exam: ATRAUMATIC, NORMAL INSPECTION, NORMOCEPHALIC - Eye Exam Eye Exam: EOMI Pupil Exam: PERRL - Neck Exam Neck Exam: Full ROM - Respiratory Exam Respiratory Exam: Clear to Ausculation Bilateral, NORMAL BREATHING PATTERN - Cardiovascular Exam Cardiovascular Exam: Bradycardia, regular rhythm - GI/Abdominal Exam GI & Abdominal Exam: Soft, Normal Bowel Sounds. absent: Tenderness - Extremities Exam Extremities Exam: Full ROM, tenderness at right groin. no hematoma or mass present. pulses +2/4 throughout. bandage on right thigh for recent catheter intervention - Neurological Exam Neurological Exam: Alert, Awake, CN II-XII Intact, Oriented x3 - Skin Skin Exam: Dry, Intact, Normal Color Assessment and Plan - Assessment and Plan (Free Text) Assessment: 68 year old female with past medical history of CAD status post 3 stents (1 FRIEDA in LAD+2 in LCx in 08/[address] Jackson), JASON-inhibitor induced angioedema, hyperlipidemia, hypertension, and second degree heart block presents with shortness of breath and chest tightness. Patient was admitted for ACS rule out. Patient was found to have complete heart block yesterday and pacer pads were placed with pacer on standby. Patient is status post cardiac catherization with RCA lesion, patent stents, and left renal artery stenosis. Plan: Rule out ACS -Patient has significant cardiac history with 3 stents placed in 08/2018 -EKG 01/06: 1st degree AV block with frequent PVCs and HR: 99 -Troponinx5: negative -Continue with aspirin, lipitor, plavix, isosorbide mononitrate -Continue with HHD diet -Continue morphine 1 mg Q6PRN -Patient is status post cardiac catherization. Patient was found to have RCA lesion with 60-70% stenosis and 70% stenosis at the ostium of an RV branch. In p roximal LAD, there was a 50% stenosis. Circumflex artery had a 40-50% stenosis in midportion. Left renal artery stenosis is 80% at large inferior branch. Superior branch, which is a small vessel revealed 80% stenosis. Right renal artery had 50% stenosis at its ostium. No stents were placed, however, stents may be placed in the future. Right Groin Pain -Hip/Pelvis X ray: negative for fracture -PT/DP pulses +2/4 -Continue to monitor. -Access was through right groin for cardiac catherization Hypertensive urgency -Initially presented with BP of 187/74. -Upon catheterization, Left renal artery stenosis is 80% at large inferior branch. Superior branch, which is a small vessel revealed 80% stenosis. Right renal artery had 50% stenosis at its ostium. If patient's hypertension remains uncontrolled, stenting the artery would be considered. -Renal ultrasound 01/06: unremarkable renal sonogram -Continue with scheduled amlodipine, and hydralazine as per Dr. Jackson. Nifedipine stopped as per Dr. Bernal. Continue losartan 100 mg daily as per Dr. Bernal -Hydralazine 10 mg Q6PRN for BP>160/110 -Blood pressure continues to be elevated after multiple days of therapy. -Cardiology and Nephrology consulted for medication management and improved blood pressure control. Hyperlipidemia -Continue with lipitor 40 mg daily Third Degree Heart Block -Found on desk monitor. Pacer pads were placed and pacer is on standby -EKG 01/06: 1st degree AV block with frequent PVCs and HR: 99. Patient is in and out of complete heart block. -Avoid beta annette, nondihydropyridine calcium channel blockers, and clonidine. These medications may be started when pacemaker is placed and patient's heart is being paced appropriately. -Pacemaker to be placed today. Will follow up EKG and CXR -Dr. Meek, Electrophysiology, consulted for recommendations for pacemaker placement Tension Headache vs. Sinusitis -CT of head without contrast on 01/03: air fluid level noted in left maxillary sinus, possible sinusitis -Continue with tylenol for headache as needed -Continue morphine 1 mg Q6PRN GI prophylaxis: pepcid 20 mg BID DVT prophylaxis: SCD <AlexanderNo Maribel - Last Filed: 01/08/19 18:03> Objective - Vital Signs/Intake and Output Vital Signs (last 24 hours): Temp Pulse Resp BP Pulse Ox 98.6 F 81 17 143/58 L 94 L 01/08/19 08:25 01/08/19 17:30 01/08/19 17:30 01/08/19 17:30 01/08/19 17:30 Intake and Output: 01/08/19 01/08/19 06:59 18:59 Intake Total 240 Balance 240 - Medications Medications: Current Medications Acetaminophen (Tylenol 325mg Tab) 650 mg PO Q4 PRN PRN Reason: Pain, Mild (1-3) Last Admin: 01/04/19 06:17 Dose: 650 mg Amlodipine Besylate (Norvasc) 10 mg PO DAILY [facility] Last Admin: 01/08/19 16:55 Dose: 10 mg Aspirin (Ecotrin) 81 mg PO DAILY [facility] Last Admin: 01/08/19 16:55 Dose: 81 mg Atorvastatin Calcium (Lipitor) 40 mg PO DIN [facility] Last Admin: 01/08/19 16:55 Dose: 40 mg Clopidogrel Bisulfate (Plavix) 75 mg PO DAILY [facility] Last Admin: 01/08/19 16:55 Dose: 75 mg Famotidine (Pepcid) 20 mg PO 1000,2200 [facility] Last Admin: 01/08/19 16:54 Dose: 20 mg Hydralazine HCl (Apresoline) 10 mg IVP Q6 PRN PRN Reason: SBP > 140 Last Admin: 01/06/19 07:05 Dose: 10 mg Hydralazine HCl (Apresoline) 25 mg PO BID [facility] Last Admin: 01/08/19 17:03 Dose: Not Given Isosorbide Mononitrate (Imdur) 60 mg PO DAILY [facility] Last Admin: 01/08/19 16:55 Dose: 60 mg Losartan Potassium (Cozaar) 100 mg PO DAILY [facility] Last Admin: 01/08/19 16:55 Dose: 100 mg Morphine Sulfate (Morphine) 1 mg IVP Q6H PRN PRN Reason: Pain, severe (8-10) Last Admin: 01/08/19 02:20 Dose: 1 mg Nifedipine (Procardia) 10 mg PO TID [facility] Last Admin: 01/05/19 10:33 Dose: 10 mg - Labs Labs: 01/08/19 05:30 01/08/19 05:30 Attending/Attestation - Attestation I have personally seen and examined this patient.: Yes I have fully participated in the care of the patient.: Yes I have reviewed all pertinent clinical information, including history, physical exam and plan: Yes Notes (Text): 01/08/19 18:01 68 year old female with past medical history of CAD s/p stents, hypertension, dyslipidemia and JASON-I induced angioedema who presented with complaint of chest pain and shortness of breath. Found to have hypertensive urgency and marked bradycardia. She was transferred to ICU after being found to have heart block. She is on hydralazine and HCTZ. Although she has allergy to JASON-I (angioedema) she has been on ARB as outpatient so losartan has been started as per nephrology. She was also started on imdur. Clonidine is on hold. Patient is not on BB. She is on aspirin, plavix and statin. Patient is s/p cardiac cath with findings of renal artery stenosis and RCA lesion. Renal ultrasound was negative. Cardiology and nephrology are following. Patient was also seen by EPS today and plan is for pacemaker placement this afternoon. PT also recommended MARÍA however patient requested TCU. Will follow up with CMx/Sw. No Munoz MD Hospitalist.
[2019-01-08] MEDS ORDERED: Liquid Adhesive TOP ONE (15:40)
--- NOTE | 2019-01-08 17:42 | CON ---
DATE: 01/08/2019 HISTORY OF PRESENT ILLNESS: Ms. Nancy Segovia is a 68-year-old female with past medical history significant for coronary artery disease, history of percutaneous intervention x3, JASON inhibitor-induced angioedema, hyperlipidemia, hypertension, who presents with hypertensive urgency, shortness of breath, dizziness for a matter of 2 to 3 weeks. Symptoms became progressive, the patient was found to be in complete heart block with heart rate in the 40s. The patient was admitted to the CCU seen by the cushion sewer as well as Dr. Duc Jackson, her primary dry roaster. With her significant history of coronary artery disease did undergo cardiac catheterization, results of this will be dictated further on during this consultation. Currently, the patient continues to be in 2:1 heart block with heart rates in the 40s. She has dizziness, lightheadedness, occasional headache. The patient had been taking part in cardiac rehab. The patient is baseline rested in terms of is abled to mount more of a reasonable chronotropic response with exercise. However, baseline symptoms of dizziness, lightheadedness, and headache and mild effort intolerant are concerning at this point. The patient has required intermittent transcutaneous pacing from time to time. At this time, the patient's blood pressure remains stable and has not required external transcutaneous pacing. The patient denies cough, sputum production, abdominal pain, diarrhea, dysuria, or hematuria. PAST MEDICAL HISTORY: As mentioned in the history of present illness. PAST SURGICAL HISTORY: Significant for knee arthroscopy in 2015 as well as repeat cardiac catheterizations with percutaneous interventions. MEDICATIONS: Have been reviewed. The patient is currently not on any rate slowing agent. SOCIAL HISTORY: Negative for tobacco, ETOH, or drug abuse. 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 FAMILY HISTORY: Significant for cardiac disease in her mother, also does give a history of requiring a permanent pacemaker. Thank you for allowing me to participate in the care of your patient. Do not hesitate to call if you have any questions in regards to her care. Yours sincerely, Ruslan Meek MD
--- NOTE | 2019-01-08 19:09 | RAD ---
Date of service: 01/08/2019 HISTORY: s/p pacemaker COMPARISON: 01/03/2019 FINDINGS: LUNGS: No active pulmonary disease. PLEURA: No significant pleural effusion identified, no pneumothorax apparent. CARDIOVASCULAR: There is atherosclerotic calcification of the thoracic aorta. Normal heart size. Permanent pacemaker. No pulmonary vascular congestion. OSSEOUS STRUCTURES: No significant abnormalities. VISUALIZED UPPER ABDOMEN: Normal. OTHER FINDINGS: None. IMPRESSION: No active disease.
--- NOTE | 2019-01-08 20:06 | PN ---
DATE: 01/08/2019 SUBJECTIVE: The patient is seen in the ICU. She is awake. She is alert. She is comfortable. She denies any chest pain. She denies any palpitations. PHYSICAL EXAMINATION: GENERAL: Obese elderly lady, lying in bed. VITAL SIGNS: Blood pressure 140/48, heart rate 40, respiratory rate 18 to 24, temperature 98.6. HEENT: Normocephalic, atraumatic. Positive pallor. NECK: Supple. No JVD. LUNGS: Bilateral equal air entry. Bilateral equal expansion. No rales. CARDIAC: S1 and S2. Regular rate and rhythm. No murmur. No rub. ABDOMEN: Obese, distended. Soft, nontender. Bowel sounds present. EXTREMITIES: No lower extremity edema. INTAKE AND OUTPUT: Not charted. LABORATORY DATA: WBC 11, hemoglobin 12.2, hematocrit 38, platelets 268. Sodium 137, potassium 4.3, chloride 107, CO2 of 24, BUN 21, creatinine 1, glucose 86, calcium 9.1, magnesium 2.3. Albumin 3.6. CURRENT MEDICATIONS: Apresoline 25 mg b.i.d., Cozaar 100 mg, Ecotrin, Imdur 60 mg, Lipitor 40 mg, morphine, amlodipine 10 mg, Pepcid 20 mg, Plavix 75 mg, Ancef 1 g. ASSESSMENT AND PLAN: 1. Bradycardia, complete heart block. 2. History of coronary artery disease, percutaneous transluminal coronary angioplasty and stents. 3. Status post hypertensive emergency. 4. History of angioedema with angiotensin-converting enzyme inhibitor. 5. Asthma. PLAN: 1. The patient is scheduled for a pacemaker placement today. 2. Blood pressure seems to be well controlled now. 3. Continue current antihypertensive regimen of losartan 100 mg, amlodipine 10 mg, hydralazine 25 mg b.i.d., isosorbide. 4. Stable from the renal standpoint. Bethany Bernal MD
[2019-01-08] MEDS ORDERED: Morphine 4 mg/ml ISec IVP ONE (20:43)
--- NOTE | 2019-01-08 23:09 | CARD ---
APPROVED REPORT Date of service: 01/08/2019 EKG Measurement Heart [id number] [id number] <Conclusion> Electronic ventricular pacemaker Atrial sensed, ventricular paced with first degree AVB and 1:1 capture
[2019-01-08 23:31] VITALS: RESP 20
--- NOTE | 2019-01-08 23:43 | OP ---
PROCEDURE DATE: 01/08/2019 CARDIOLOGY FOLLOWUP SUBJECTIVE: The patient is persistently bradycardic with occasional dizziness according to the patient when she stands up. PHYSICAL EXAMINATION: VITAL SIGNS: Blood pressure 140/48, heart rate is sinus rhythm in the low 40s. NECK: Negative JVD. LUNGS: Without rales. HEART: S1 and S2. EXTREMITIES: Without edema. LABORATORY DATA: Hemoglobin is 12.2. BUN and creatinine are 21 and 1. IMPRESSION: 1. Accelerated hypertension. 2. Allergy to angiotensin-converting enzyme inhibitors. 3. Persistent sinus bradycardia with period of symptoms. 4. Obesity. 5. Stable angina. 6. Coronary artery disease. PLAN: Given these findings, the patient is for pacemaker today. Dual-chamber pacer would be appropriate. Duc Jackson MD
--- NOTE | 2019-01-09 02:02 | OP ---
PROCEDURE DATE: 01/08/2019 PROCEDURE: Implantation of a dual chamber permanent pacemaker. PREPROCEDURE DIAGNOSES: Heart block, hypertension, and coronary artery disease. POSTPROCEDURE DIAGNOSES: Heart block, hypertension, and coronary artery disease. CONSCIOUS SEDATION/MODE OF ANESTHESIA: The patient received a total 4 mg of Versed, 125 mcg of fentanyl, and divided doses for sedation and comfort. REFERRING PHYSICIAN: Duc Jackson MD BRIEF HISTORY: Ms. Nancy Segovia is a 68-year-old female with past medical history significant for hypertension, coronary artery disease, atherosclerotic heart disease, obesity, refractory hypertension, who presents to [facility] with complaints of dizziness, lightheadedness, not feeling well, initially admitted for hypertensive urgency, found to be in complete heart block with heart rates in the 40s. The patient was seen. Decision for pacemaker was made this morning after reviewing the case extensively talking with the CCU team as well as with the managing physician, Dr. Duc Garcia. The patient was agreeable, presents now for a permanent pacemaker implantation for the treatment of complete heart block. DESCRIPTION OF PROCEDURE: Ms. Segovia was brought to the cardiac catheterization laboratory at [facility] in a post-absorptive state. The left pectoral area was treated and prepped in a sterile fashion. A 2% lidocaine solution was injected into the surgical site. Using blunt dissection and electrocautery, the fascial planes were dissected. Cephalic vein was identified. A cephalic vein cutdown was then performed with some degree of difficulty. There was some tortuosity in the initial parts of the cephalic vein. This did require a 0.035 guidewire to achieve and maintain access with the use of a micropuncture tip dilator. Subsequently, a 9-[place] SafeSheath was then inserted without difficulty. The right ventricular lead which is a Medtronic 50, 76, 50 cm leads, serial number [id number] was inserted via the sheath, manipulated into the right ventricular apex without difficulty. Parameters on the sleeve was within normal limits with thresholds of 0.6 volt to 0.5 milliseconds at a current of 0.7 milliamps with impedance of 1113. R-wave was measured 7.4 with sufficient injury current. Subsequently, using retained access guidewire was inserted. A 7-[place] SafeSheath was then inserted again with some degree of difficulty achieved in maintaining access. However, we were able to deliver a Medtronic 50, 76, 52 cm leads, serial number [id number]. The lead was then inserted via this access point and the termination of the lead went to the right atrial appendage. Active tip was extended. Parameters on this lead from this location is follows. Threshold is 1.5 volts to 0.5 milliseconds at a current of 2.2 milliamps. It was felt to be satisfactory. Both leads were then tied down using 0 silk suture. The leads were then connected to the pulse generator, which is an MRI-Safe Medtronic Annie XT device, serial number [id number]. Leads of the given device were then placed in a subfascial pocket, which was made with blunt dissection and electrocautery, and irrigated using Bacitracin solution. The device and leads were then maintained in position using a retention suture. The superficial fascia and skin layers were brought together using 2-0 Vicryl. Device is functioning normally during the postoperative check, lower rate is 60, upper tracking rate is 100. She is set in a DDD mode. The patient tolerated the procedure well, did have significant postop pain, but on inspection, there does not appear to be any significance. Postoperative checks which include chest x-ray, 12-lead EKG, and device check in the morning will be performed. If 12-lead EKG and chest x-ray within normal limits, the patient may be sent to the floor. The patient now can be optimized on beta-annette therapy, and now, the chronotropic support is in place. Of note, when the patient presented, the patient was in ongoing heart block with heart rate resulting in 46 beats per minute. The patient left with AV pacing at approximately 84 beats per minute. Thank you for allowing me to participate in the care of your patient. Please do not hesitate to call for any questions in regards to her care. Ruslan Meek MD cc: Duc Jackson MD
[2019-01-09 06:13] VITALS: O2SAT 95
[2019-01-09 07:00] LABS: MEAN CORPUSCULAR HEMOGLOBIN 24.6 pg (25.0-35.0); MEAN CORPUSCULAR HGB CONC 31.1 g/dl (31.0-37.0); MEAN PLATELET VOLUME 10.1 fl (7.0-11.0); RBC 4.48 10^6/uL (3.5-6.1); WHITE BLOOD COUNT 8.6 10^3/uL (4.5-11.0)
[2019-01-09 07:13] LABS: ALB/GLOB RATIO 1.1 (1.1-1.8); ALBUMIN 3.5 g/dL (3.0-4.8); ALT/SGPT 21 U/L (7-56); AST/SGOT 34 U/L (14-36); BLOOD UREA NITROGEN 15 mg/dL (7-21); CALCIUM 8.8 mg/dL (8.4-10.5); GFR NON-AFRICAN AMERICAN > 60
[2019-01-09] MEDS ORDERED: NIFEdipine 30 mg ER Tab PO SCH (10:15)
[2019-01-09 12:03] VITALS: TEMP 98.4
--- NOTE | 2019-01-09 12:07 | PN ---
DATE: 01/09/2019 SUBJECTIVE: The patient is status post pacemaker. She is complaining of pain over the incision site. PHYSICAL EXAMINATION: VITAL SIGNS: Blood pressure is 137/72, the heart rate in the 80s. NECK: Negative JVD. LUNGS: Without rales. HEART: Reveal S1, S2. EXTREMITIES: Without edema. LABORATORY DATA: Hemoglobin is 11. Chemistries are unremarkable. IMPRESSION: 1. Status post accelerated hypertension. 2. Symptomatic bradycardia. 3. Coronary artery disease. 4. History of percutaneous transluminal coronary angioplasty and stent. 5. Stable angina. 6. ALLERGY TO ANGIOTENSIN-CONVERTING ENZYME INHIBITORS. Given these findings, we will change her medications. We will discontinue her hydralazine, we will change the long-acting Procardia. We will begin ambulation today. We will discontinue her Norvasc as well as start her on clonidine. We will obtain an x-ray today as part of routine post pacemaker placement. We will begin ambulation and physical therapy. Duc Jackson MD
--- NOTE | 2019-01-09 12:58 | CP.PCM.PCO ---
Physician Communication Note - Physician Communication Note Physician Communication Note: cardiology cleared patient for TCU if accepted PT eval pending
--- NOTE | 2019-01-09 14:06 | RAD ---
Date of service: 01/09/2019 HISTORY: Follow up COMPARISON: 01/08/2019 TECHNIQUE: Chest PA and lateral FINDINGS: LUNGS: No active pulmonary disease. PLEURA: No significant pleural effusion identified. No pneumothorax apparent. CARDIOVASCULAR: Aortic calcification Normal cardiac size. No pulmonary vascular congestion. OSSEOUS STRUCTURES: No significant abnormalities. VISUALIZED UPPER ABDOMEN: Normal. OTHER FINDINGS: Dual lead pacemaker IMPRESSION: No active disease.
[2019-01-09 14:38] VITALS: BP 146/76
--- NOTE | 2019-01-09 15:17 | CP.PCM.DIS ---
Provider - Provider Date of Admission: 01/02/19 07:36 Attending physician: Zachary Michelle MD Primary care physician: Alfonso Villa MD Consults: 01/02/19 07:38 Cardiology Consult Stat Comment: Consulting Provider: Duc Jackson Consulting Physician: Duc Jackson Reason for Consult: bradycardia 01/02/19 07:39 Consult [Physician Consult] Routine Comment: Consulting Provider: Duc Jackson Consulting Physician: Duc Jackson Reason for Consult: chest pain; bradycardia 01/02/19 23:18 Inpatient [facility] Core Measures Referral Routine Comment: hypertensive emergency Physician Instructions: Reason For Exam: assess Transition In Care/Readmission Reduction Routine Comment: hypertensive emergency Physician Instructions: Reason For Exam: assess 01/03/19 15:22 Consult [Physician Consult] Routine Comment: Consulting Provider: Bethany Bernal Consulting Physician: Bethany Bernla Reason for Consult: hypertension 01/06/19 13:47 Cardiology Consult Routine Comment: Consulting Provider: Ruslan Meek Consulting Physician: Ruslan Meek Reason for Consult: 3rd degree heart block. evaluate for pacemaker 01/09/19 12:29 TRCU [Evaluation for TRCU] Routine Comment: Physician Instructions: Reason For Exam: DECONDITIONING Time Spent in preparation of Discharge (in minutes): 60 Diagnosis - Discharge Diagnosis (1) Hypertensive emergency Status: Acute (2) Symptomatic sinus bradycardia Status: Acute Hospital Course - Lab Results Lab Results: Micro Results 01/05/19 16:25 Naris MRSA Culture (Admit) - Final MRSA NOT DETECTED Most Recent Lab Values WBC 8.6 10^3/uL (4.5-11.0) D 01/09/19 06:15 RBC 4.48 10^6/uL (3.5-6.1) 01/09/19 06:15 Hgb 11.0 g/dL (12.0-16.0) L 01/09/19 06:15 Hct 35.4 % (36.0-48.0) L 01/09/19 06:15 MCV 79.0 fl (80.0-105.0) L 01/09/19 06:15 MCH 24.6 pg (25.0-35.0) L 01/09/19 06:15 MCHC 31.1 g/dl (31.0-37.0) 01/09/19 06:15 RDW 16.0 % (11.5-14.5) H 01/09/19 06:15 Plt Count 228 10^3/uL (120.0-450.0) 01/09/19 06:15 MPV 10.1 fl (7.0-11.0) 01/09/19 06:15 Neut % (Auto) 56.2 % (50.0-68.0) 01/06/19 05:45 Lymph % (Auto) 29.8 % (22.0-35.0) 01/06/19 05:45 [place] % (Auto) 8.2 % (1.0-6.0) H 01/06/19 05:45 Eos % (Auto) 5.2 % (1.5-5.0) H 01/06/19 05:45 Baso % (Auto) 0.6 % (0.0-3.0) 01/06/19 05:45 Lymph # (Auto) 2.5 (1.2-3.4) 01/06/19 05:45 [place] # (Auto) 0.7 (0.1-0.6) H 01/06/19 05:45 Eos # (Auto) 0.4 (0.0-0.7) 01/06/19 05:45 Baso # (Auto) 0.05 K/mm3 (0.0-2.0) 01/06/19 05:45 Absolute Neuts (auto) 4.67 (1.4-6.5) 01/06/19 05:45 Sodium 140 mmol/L (132-148) 01/09/19 06:15 Potassium 4.0 mmol/L (3.6-5.0) 01/09/19 06:15 Chloride 107 mmol/L (98-107) 01/09/19 06:15 Carbon Dioxide 27 mmol/L (21-33) 01/09/19 06:15 Anion Gap 10 (10-20) 01/09/19 06:15 BUN 15 mg/dL (7-21) 01/09/19 06:15 Creatinine 0.8 mg/dl (0.7-1.2) 01/09/19 06:15 Est GFR ( Amer) > 60 01/09/19 06:15 Est GFR (Non-Af Amer) > 60 01/09/19 06:15 POC Glucose (mg/dL) 105 mg/dL (65-110) 01/03/19 22:12 Random Glucose 80 mg/dL (70-110) 01/09/19 06:15 Calcium 8.8 mg/dL (8.4-10.5) 01/09/19 06:15 Phosphorus 4.5 mg/dL (2.5-4.5) 01/03/19 22:27 Magnesium 2.3 mg/dL (1.7-2.2) H 01/08/19 05:30 Total Bilirubin 0.6 mg/dL (0.2-1.3) 01/09/19 06:15 AST 34 U/L (14-36) 01/09/19 06:15 ALT 21 U/L (7-56) 01/09/19 06:15 Alkaline Phosphatase 125 U/L (38-126) 01/09/19 06:15 Lactate Dehydrogenase 450 U/L (333-699) 01/02/19 06:20 Total Creatine Kinase 43 U/L (35-230) 01/02/19 06:20 Troponin I < 0.01 ng/mL 01/04/19 16:35 NT-Pro-B Natriuret Pep 1620 pg/mL (0-450) H 01/02/19 06:20 Total Protein 6.7 g/dL (5.8-8.3) 01/09/19 06:15 Albumin 3.5 g/dL (3.0-4.8) 01/09/19 06:15 Globulin 3.2 gm/dL 01/09/19 06:15 Albumin/Globulin Ratio 1.1 (1.1-1.8) 01/09/19 06:15 Free T4 1.26 ng/dL (0.78-2.19) 01/02/19 06:20 TSH 3rd Generation 3.02 mIU/mL (0.46-4.68) 01/02/19 06:20 - Hospital Course Hospital Course: Selam Diallo, PGY-1, Internal Medicine Discharge Summary for Dr. Michelle 68 year old female with past medical history of CAD status post 3 stents (1 FRIEDA in LAD+2 in LCx in 08/[address] Jackson), JASON-inhibitor induced angioedema, hyperlipidemia, hypertension, and second degree heart block presented with shortness of breath and chest tightness. Patient was admitted for ACS rule out and hypertensive urgency vs. emergency. EKG upon admission showed sinus bradycardia with 1st degree AV block with HR of 49. Blood pressure upon admission was 201/82. Patient was started on norvasc and hydralazine for hypertension. Clonidine, beta blockers, and nondihydropyridine CCBs were held due to patient's bradycardia. Nifedipine was started as per Dr. Jackson recommendations. The following night after admission, rapid response was called due to headache, pressure like chest pain, and shortness of breath. EKG showed marked sinus bradycardia with AV block and troponinx1 was negative. Patient was given nitroglycerin with no resolution of symptoms. Patient was given ativan with resolution of symptoms. Patient continued to have elevated blood pressure. Later on on 01/05, patient complained of chest pain again and EKG showed sinus rhythm with 2nd degree AV block with 2:1 AV conduction and eventually complete heart block. Pacer pads were placed on patient and patient was transferred to ICU with pacer on standby. As per Dr. Bernal, patient was started on amlodipine, hydralazine, and nifedipine was stopped. In addition, losartan was started since patient had tolerated ARB in the past though she had allergy to ACEI with angioedema. Upon addition of losartan, patient's blood pressure was well controlled. On 01/06, patient had cardiac catherization with RCA lesion of 60-70% and left renal artery stenosis appreciated. No stents were placed at the time. On 01/08, Dr. Meek EP, evaluated the patient and placed pacer, medtronic Annie XT, for patient. Lower rate was 60 and upper tracking rate was 100. She was set in DDD mode. Patient tolerated procedure well and patient was ready for discharge today. Patient will be discharged to transitional care unit in [facility] with the same medications that patient has been receiving during hospital admission. Dr. Jackson restarted nifedipine for patient, as well. Patient will continue to follow up with physical therapy. This is a brief summary of the events that transpired at the hospital. Please refer to hospital documentation for further details. - Date & Time of H&P Date of H&P: 01/09/19 Time of H&P: 14:58 Discharge Exam - Head Exam Head Exam: ATRAUMATIC, NORMAL INSPECTION, NORMOCEPHALIC - Eye Exam Eye Exam: EOMI, PERRL - Respiratory Exam Respiratory Exam: Clear to PA & Lateral, NORMAL BREATHING PATTERN - Cardiovascular Exam Cardiovascular Exam: REGULAR RHYTHM, RRR - GI/Abdominal Exam GI & Abdominal Exam: Normal Bowel Sounds, Soft. absent: Tenderness - Extremities Exam Extremities exam: full ROM - Neurological Exam Neurological exam: Alert, CN II-XII Intact, Normal Gait, Oriented x3 - Skin Skin Exam: Dry, Intact, Normal Color Discharge Plan - Follow Up Plan Condition: IMPROVED Disposition: REHAB FACILITY/REHAB UNIT Instructions: High Blood Pressure (DC) Additional Instructions: Please take all medications as per ambulatory orders while in TCU Please return to the emergency department if you have any new or concerning symptoms. Referrals: Alfonso Villa MD [Primary Care Provider] -
[2019-01-09 19:04] VITALS: PULSE 95
--- NOTE | 2019-01-09 19:04 | PN ---
DATE: 01/09/2019 SUBJECTIVE: The patient is seen lying in bed. She is awake and alert. She is comfortable. She denies any chest pain. She denies any headaches. PHYSICAL EXAMINATION: GENERAL: Elderly lady lying in bed. VITAL SIGNS: Blood pressure 146/76, heart rate 80, respiratory rate 20, temperature 98.4. HEENT: Normocephalic, atraumatic, positive pallor. NECK: Supple, no JVD. LUNGS: Bilateral equal entry, bilateral equal expansion. CARDIAC: S1, S2, regular rate and rhythm, no murmur, no rub. ABDOMEN: Obese, distended, soft, nontender, bowel sounds present. EXTREMITIES: No lower extremity edema. LABORATORY DATA: WBC 8.6, hemoglobin 11, hematocrit 35, platelets 228. Sodium 140, potassium 4, chloride 107, CO2 of 27, BUN 15, creatinine 0.8, glucose 80, calcium 8.8, magnesium 2.3, albumin 3.5. CURRENT MEDICATIONS: Clonidine 0.1 b.i.d., losartan 100, isosorbide 60, Lipitor 40, Plavix 75, Procardia XL 30 started today, amlodipine discontinued. ASSESSMENT: 1. Status post hypertensive emergency. 2. Severe symptomatic bradycardia. 3. History of coronary artery disease and percutaneous transluminal coronary angioplasty and stent. 4. Status post pacemaker placement. PLAN: 1. Blood pressure medication adjusted by Cardiology. Continue management as per Cardiology. 2. Continue losartan 100. 3. Stable from the renal standpoint. Bethany Bernal MD
== END 2019-01-09 20:45 | DRG 243 ==
LOC: ED 05:47 → ERH 07:36 → UNDOADMIN 07:43 → ERH 16:41 → 2RSO 18:47 → ICU 01-05 16:16 → 2RSO 01-08 22:31
PROVIDERS: ADMIT Internal Medicine; ATTEND Internal Medicine
PROC: 4A023N7 Measurement of Cardiac Sampling and Pressure, Left Heart, Percutaneous Approach (ICD-10-PCS; 2019-01-06)
PROC: B211YZZ Fluoroscopy of Multiple Coronary Arteries using Other Contrast (ICD-10-PCS; 2019-01-06)
PROC: B215YZZ Fluoroscopy of Left Heart using Other Contrast (ICD-10-PCS; 2019-01-06)
PROC: B418YZZ Fluoroscopy of Bilateral Renal Arteries using Other Contrast (ICD-10-PCS; 2019-01-06)
PROC: 0JH606Z Insertion of Pacemaker, Dual Chamber into Chest Subcutaneous Tissue and Fascia, Open Approach (ICD-10-PCS; principal; 2019-01-08)
PROC: 02HK3JZ Insertion of Pacemaker Lead into Right Ventricle, Percutaneous Approach (ICD-10-PCS; 2019-01-08)
DX: I16.1 Hypertensive emergency (principal); I44.2 Atrioventricular block, complete; R00.1 Bradycardia, unspecified; I25.118 Atherosclerotic heart disease of native coronary artery with other forms of angina pectoris; I70.1 Atherosclerosis of renal artery; E87.6 Hypokalemia; E78.5 Hyperlipidemia, unspecified; E78.00 Pure hypercholesterolemia, unspecified; I08.3 Combined rheumatic disorders of mitral, aortic and tricuspid valves; I10 Essential (primary) hypertension; E11.9 Type 2 diabetes mellitus without complications; E66.9 Obesity, unspecified; Z68.33 Body mass index [BMI] 33.0-33.9, adult; I25.2 Old myocardial infarction; Z95.5 Presence of coronary angioplasty implant and graft; Z88.8 Allergy status to other drugs, medicaments and biological substances

== ENCOUNTER 2019-01-09 20:45 | Inpatient (IN) | payer BC, OTHER ==
[2019-01-10] MEDS ORDERED: Morphine 2 mg/ml ISec IVP SCH
[2019-01-10] MEDS ORDERED: Morphine 2 mg/ml ISec IVP PRN (00:30)
[2019-01-10] MEDS: NIFEdipine 30 mg ER Tab PO SCH (09:54)
--- NOTE | 2019-01-10 12:40 | CP.PCM.HP ---
<Selam Diallo - Last Filed: 01/10/19 12:34> History of Present Illness - History of Present Illness History of Present Illness: Selam Diallo, PGY-1, Internal Medicine History and Physical 68 year old female with past medical history of CAD status post 3 stents (1 FRIEDA in LAD+2 in LCx in 08/[address] Jackson), JASON-inhibitor induced angioedema, hyperlipidemia, hypertension, and second degree heart block initially presented with shortness of breath and chest tightness. Patient was admitted for ACS rule out and hypertensive urgency vs. emergency. EKG upon admission showed sinus bradycardia with 1st degree AV block with HR of 49. Blood pressure upon admission was 201/82. Patient was started on norvasc and hydralazine for hypertension. Clonidine, beta blockers, and nondihydropyridine CCBs were held due to patient's bradycardia. Nifedipine was started as per Dr. Jackson recommendations. The following night after admission, rapid response was called due to headache, pressure like chest pain, and shortness of breath. EKG showed marked sinus bradycardia with AV block and troponinx1 was negative. Patient was given nitroglycerin with no resolution of symptoms. Patient was given ativan with resolution of symptoms. Patient continued to have elevated blood pressure. Later on, patient complained of chest pain again and EKG showed sinus rhythm with 2nd degree AV block with 2:1 AV conduction and eventually complete heart block. Pacer pads were placed on patient and patient was transferred to ICU with pacer on standby. As per Dr. Bernal, patient was continued on amlodipine, hydralazine, and nifedipine was stopped. In addition, losartan was started since patient had tolerated ARB in the past though she had allergy to ACEI with angioedema. Upon addition of losartan, patient's blood pressure was well controlled. On 01/06, patient had cardiac catherization with RCA lesion of 60-70% and left renal artery stenosis appreciated. No stents were placed at the time. On 01/08, JESSE Eng, evaluated the patient and placed pacer, medtronic Annie XT, for patient. Lower rate was 60 and upper tracking rate was 100. She was set in DDD mode. Patient tolerated procedure well. Dr. Jackson restarted nifedipine for patient, as well. Patient was admitted to TCU for deconditioning requiring physical therapy. Today, patient reports heart palpitations and dizziness but denies any other symptoms including chest pain, shortness of breath, nausea, vomiting, constipation, diarrhea, dysuria, hematuria. 12-point ROS was unremarkable except for what was mentioned above. PMH: as above PSH: Knee arthroscopy (2014) Allergies: Grapefruit, Lisinopril (angioedema), nebivolol (heart block) Social History: Denies any tobacco, alcohol or illicit drug use Family History: Mom and grandma (heart disease requiring pacemaker) Present on Admission - Present on Admission Any Indicators Present on Admission: No Review of Systems - Review of Systems Review of Systems: except for what was mentioned in HPI Past Patient History - Infectious Disease Hx of Infectious Diseases: None - Past Medical History & Family History Past Medical History?: Yes - Past Social History Smoking Status: Never Smoked - CARDIAC Hx Cardiac Disorders: Yes (CADx 3 stents, pacemaker insertion) Hx Hypercholesterolemia: Yes (HLD,) Hx Hypertension: Yes - PULMONARY Hx Respiratory Disorders: Yes Other/Comment: H/O OF CARBON MONOXIDE POISONING - NEUROLOGICAL Hx Neurological Disorder: Yes Hx Dizziness: Yes (VERTIGO) - HEENT Hx HEENT Problems: No - RENAL Hx Chronic Kidney Disease: Yes - ENDOCRINE/METABOLIC Hx Diabetes Mellitus Type 2: Yes - HEMATOLOGICAL/ONCOLOGICAL Hx Blood Transfusions: No Hx Blood Transfusion Reaction: No - INTEGUMENTARY Hx Dermatological Problems: No - MUSCULOSKELETAL/RHEUMATOLOGICAL Hx Falls: No - GASTROINTESTINAL Hx Gastrointestinal Disorders: Yes (DIVERTICULITIS, FATTY LIVER DISEASE) - GENITOURINARY/GYNECOLOGICAL Hx Genitourinary Disorders: Yes (RENAL DISEASE) Hx Reproductive Disorders: No - PSYCHIATRIC Hx Anxiety: Yes Hx Substance Use: No - SURGICAL HISTORY Hx Surgeries: Yes - ANESTHESIA Hx Anesthesia Reactions: No Hx Malignant Hyperthermia: No Meds Allergies/Adverse Reactions: Allergies Allergy/AdvReac Type Severity Reaction Status Date / Time grapefruit AdvReac Severe ANGIOEDEMA Verified 01/02/19 05:57 lisinopril AdvReac SHORTNESS Verified 01/02/19 05:57 OF BREATH nebivolol [From Bystolic] AdvReac SHORTNESS Verified 01/02/19 05:57 OF BREATH Physical Exam - Constitutional Appears: Well, Non-toxic, No Acute Distress - Head Exam Head Exam: ATRAUMATIC, NORMAL INSPECTION, NORMOCEPHALIC - Eye Exam Eye Exam: EOMI, PERRL - Respiratory Exam Respiratory Exam: Clear to Auscultation Bilateral, NORMAL BREATHING PATTERN - Cardiovascular Exam Additional comments: irregular heart beat with 3 beats in NSR and 1 missed beat - GI/Abdominal Exam GI & Abdominal Exam: Normal Bowel Sounds, Soft. absent: Tenderness - Extremities Exam Extremities exam: Positive for: full ROM - Neurological Exam Neurological exam: Alert, CN II-XII Intact, Oriented x3 - Skin Skin Exam: Dry, Intact Results - Vital Signs Recent Vital Signs: Last Vital Signs Temp Pulse 59 L 01/10/19 09:54 Resp BP 172/90 H 01/10/19 09:54 Pulse Ox Assessment & Plan - Assessment and Plan (Free Text) Assessment: 68 year old female with past medical history of CAD status post 3 stents (1 FRIEDA in LAD+2 in LCx in 08/[address] Jackson), JASON-inhibitor induced angioedema, hy perlipidemia, hypertension, and second degree heart block presents with shortness of breath and chest tightness. Patient was admitted for ACS rule out. Patient was found to have complete heart block and pacer was placed. Patient is currently in TCU for deconditioning Plan: Third degree heart block-resolved -Patient had heart rate of 40-45 prior to pacemaker being placed. Post pacemaker placement, patient's dizziness has decreased and no longer complains of chest pain. -Patient can now have beta blockers, nondihydropyridine calcium channel blockers can be started if indicated -Continue with aspirin, lipitor, plavix, cozaar, isosorbide mononitrate, clonidine, nifedipine, hydralazine PRN -Continue with morphine 1 mg Q6PRN Hypertensive urgency -Blood pressure continues to be elevated at 172/90 -Will consider increasing nifedipine to 60 mg daily -Continue with cozaar, imdur, catapres, and apresoline PRN for hypertension Right groin pain-resolved -Patient no longer complains of right groin pain -No hematoma seen on evaluation Hyperlipidemia -Continue with lipitor 40 mg daily Deconditioned -Continue with physical therapy GI prophylaxis: pepcid 20 mg BID DVT prophylaxis: SCD Patient plan discussed with Dr. Michelle - Date & Time Date: 01/10/19 Time: 12:42 <Zachary Michelle - Last Filed: 01/11/19 12:03> Results - Vital Signs Recent Vital Signs: Last Vital Signs Temp 97.9 F 01/10/19 16:00 Pulse 75 01/10/19 17:18 Resp 18 01/10/19 16:00 BP 104/66 01/11/19 09:27 Pulse Ox 98 01/10/19 16:00 Attending/Attestation - Attestation I have personally seen and examined this patient.: Yes I have fully participated in the care of the patient.: Yes I have reviewed all pertinent clinical information: Yes Notes (Text): 01/11/19 12:01 Medical record note made by the resident after discussion with my direction and input after the patient was personally seen and examined by me. I have reviewed the chart and agree that the record accurately reflects by personal performance of the history, physical exam, data review, and medical decision-making, in the course for the patient. I have also personally directed the plan of care. 68 year old female with past medical history of CAD ,s/p stents, hypertension, dyslipidemia and JASON-I induced angioedema was initially admitted to [facility] with H/O of chest pain and shortness of breath. She was found to have hypertensive urgency and marked bradycardia. She was transferred to ICU after being found to have 2.1 heart block.Heart rate was in 40. Patient was also seen by EPS and underwent pacemaker placement Patient remained stable after Pacemaker placement.Blood pressure is better controlled. Patient was evaluated by Physical therapy and has been recommended TCU. She is admitted to TCU for rehabilitation. Management plan was discussed in detail with patient. Education was provided. to TCU for rehabilitation.
--- NOTE | 2019-01-10 14:20 | PN ---
DATE: 01/10/2019 CARDIOLOGY FOLLOWUP SUBJECTIVE: The patient is in the TCU. PHYSICAL EXAMINATION: VITAL SIGNS: Blood pressure 172/90 and heart rate in the 60s, paced. NECK: Negative JVD. LUNGS: Without rales. HEART: Reveals S1 and S2. EXTREMITIES: Without edema. LABORATORY DATA: Laboratories were reviewed. The laboratories are unremarkable. IMPRESSION: 1. Accelerated hypertension. 2. Stable angina. 3. Coronary artery disease. 4. Status post pacemaker. Given these findings, we will increase her clonidine to 0.2 b.i.d. Duc Jackson MD
--- NOTE | 2019-01-10 23:32 | CON ---
DATE: 01/10/2019 REASON FOR CONSULTATION: Severe hypertension. HISTORY OF PRESENT ILLNESS: A 68-year lady was seen by me initially on the medical side. The patient was admitted with hypertensive emergency, shortness of breath, chest tightness. Her shortness of breath was thought to be secondary to the beta annette. Her hypertensive emergency was secondary to the fact that she stopped her medications prior to presentation. The patient underwent cardiac catheterization which showed patent stents. She also was found to be severely bradycardic, she had a pacemaker placed. She is currently seen in the Transitional Care Unit because her pressure remains high. Also, she remains bradycardic. PAST MEDICAL AND SURGICAL HISTORY: Severe hypertension, CAD, PTCA and stents, history of JASON inhibitor induced angioedema, sinus bradycardia, status post pacemaker placement, she also has a history of left knee arthroscopy. FAMILY HISTORY: Hypertension. SOCIAL HISTORY: No smoking, no alcohol use, no IV drug abuse. ALLERGIES: GRAPE FOOD, LISINOPRIL, AND NEBIVOLOL. REVIEW OF SYSTEMS: All systems are reviewed, pertinent positives as mentioned in the history of presenting illness, rest unremarkable. PHYSICAL EXAMINATION: GENERAL: Elderly lady sitting in bed. VITAL SIGNS: Blood pressure 176/74, heart rate 49, respiratory rate 18, temperature 98.2. HEENT: Normocephalic, atraumatic, positive pallor. NECK: Supple, no JVD. LUNGS: Bilateral equal air entry, bilateral equal expansion. CARDIAC: S1, S2, regular rate and rhythm, no murmur, no rub. ABDOMEN: Obese, distended, soft, nontender, bowel sounds present. EXTREMITIES: No lower extremity edema. Intake and output not charted. LABORATORY DATA: No new labs. CURRENT MEDICATIONS: Catapres 0.2 b.i.d., losartan 100, Ecotrin 81, Imdur 60, Lipitor 40, morphine, Pepcid, Plavix, Procardia XL 30. ASSESSMENT: 1. Severe symptomatic bradycardia. 2. Severe hypertension. 3. Coronary artery disease. 4. Status post pacemaker placement. PLAN: 1. In light of her bradycardia, would recommend discontinuation of clonidine. 2. Continue losartan. 3. Continue Procardia XL 30. 4. Continue Imdur. 5. ? Restart hydralazine, discuss with Cardiology. Thank you for the courtesy of this consultation. We will follow this patient closely with you. Bethany Bernal MD
[2019-01-11] MEDS: NIFEdipine 30 mg ER Tab PO SCH (09:27)
[2019-01-12] MEDS: NIFEdipine 30 mg ER Tab PO SCH (10:56)
--- NOTE | 2019-01-12 13:55 | CP.PCM.PN ---
<Melvina Cook - Last Filed: 01/12/19 13:52> Subjective - Date & Time of Evaluation Date of Evaluation: 01/12/19 Time of Evaluation: 13:52 - Subjective Subjective: PGY1 Medicine Progress Note for Dr. Michelle Patient was seen and evaluated at bedside this morning. No acute events overnight. No new complaints. Patient tolerated PT without issue. Patient otherwise denies headache, shortness of breath, chest pain, palpitations, a bdominal pain, nausea, vomiting, fever, and/or chills. Objective - Vital Signs/Intake and Output Vital Signs (last 24 hours): Temp Pulse Resp BP Pulse Ox 97.4 F L 92 H 14 145/88 97 01/11/19 10:00 01/12/19 10:56 01/11/19 10:00 01/12/19 10:56 01/11/19 10:00 - Medications Medications: Current Medications Acetaminophen (Tylenol 325mg Tab) 650 mg PO Q4H PRN PRN Reason: Pain, Mild (1-3) Last Admin: 01/12/19 02:35 Dose: 650 mg Aspirin (Ecotrin) 81 mg PO 0800 [facility] Last Admin: 01/12/19 08:43 Dose: 81 mg Atorvastatin Calcium (Lipitor) 40 mg PO DIN [facility] Last Admin: 01/11/19 17:15 Dose: 40 mg Clonidine HCl (Catapres) 0.2 mg PO BID [facility] Last Admin: 01/12/19 10:55 Dose: 0.2 mg Clopidogrel Bisulfate (Plavix) 75 mg PO DAILY [facility] Last Admin: 01/12/19 10:56 Dose: 75 mg Famotidine (Pepcid) 20 mg PO 1000,2200 [facility] Last Admin: 01/12/19 10:56 Dose: 20 mg Hydralazine HCl (Apresoline) 10 mg IVP Q6 PRN PRN Reason: SBP > 140 Last Admin: 01/12/19 02:26 Dose: 10 mg Isosorbide Mononitrate (Imdur) 60 mg PO 0600 [facility] Last Admin: 01/12/19 05:49 Dose: 60 mg Losartan Potassium (Cozaar) 100 mg PO DAILY [facility] Last Admin: 01/12/19 10:55 Dose: 100 mg Morphine Sulfate (Morphine) 1 mg IVP Q6 PRN PRN Reason: Pain, severe (8-10) Last Admin: 01/11/19 17:21 Dose: 1 mg Nifedipine (Procardia Xl) 30 mg PO DAILY [facility] Last Admin: 01/12/19 10:56 Dose: 30 mg Assessment and Plan - Assessment and Plan (Free Text) Assessment: 68 year old female with past medical history of CAD status post 3 stents (1 FRIEDA in LAD+2 in LCx in 08/[address] Jackson), JASON-inhibitor induced angioedema, hyperlipidemia, hypertension, and second degree heart block presents with shortness of breath and chest tightness. Patient was admitted for ACS rule out. Patient was found to have complete heart block and pacer was placed. Patient is currently in TCU for deconditioning Plan: Third degree heart block-resolved - Patient had heart rate of 40-45 prior to pacemaker being placed. Post pacemaker placement, patient's dizziness has decreased and no longer complains of chest pain. - Patient can now have beta blockers, nondihydropyridine calcium channel blockers can be started if indicated - Continue with aspirin, lipitor, plavix, cozaar, isosorbide mononitrate, clonidine, nifedipine, hydralazine PRN - Continue with morphine 1 mg Q6PRN Hypertensive urgency, resolved - Patient with BP 145/88 - Continue with cozaar, imdur, catapres, and apresoline PRN for hypertension Right groin pain-resolved - Patient no longer complains of right groin pain - No hematoma seen on evaluation Hyperlipidemia - Continue with lipitor 40 mg daily Deconditioned - Continue with physical therapy GI prophylaxis: pepcid 20 mg BID DVT prophylaxis: SCD Patient seen and case discussed in detail with Dr. Miguel Angel Cook PGY1 <Zachary Michelle - Last Filed: 01/12/19 14:57> Objective - Vital Signs/Intake and Output Vital Signs (last 24 hours): Temp Pulse Resp BP Pulse Ox 97.4 F L 92 H 14 145/88 97 01/11/19 10:00 01/12/19 10:56 01/11/19 10:00 01/12/19 10:56 01/11/19 10:00 - Medications Medications: Current Medications Acetaminophen (Tylenol 325mg Tab) 650 mg PO Q4H PRN PRN Reason: Pain, Mild (1-3) Last Admin: 01/12/19 02:35 Dose: 650 mg Aspirin (Ecotrin) 81 mg PO 0800 [facility] Last Admin: 01/12/19 08:43 Dose: 81 mg Atorvastatin Calcium (Lipitor) 40 mg PO DIN [facility] Last Admin: 01/11/19 17:15 Dose: 40 mg Clonidine HCl (Catapres) 0.2 mg PO BID [facility] Last Admin: 01/12/19 10:55 Dose: 0.2 mg Clopidogrel Bisulfate (Plavix) 75 mg PO DAILY [facility] Last Admin: 01/12/19 10:56 Dose: 75 mg Famotidine (Pepcid) 20 mg PO 1000,2200 [facility] Last Admin: 01/12/19 10:56 Dose: 20 mg Hydralazine HCl (Apresoline) 10 mg IVP Q6 PRN PRN Reason: SBP > 140 Last Admin: 01/12/19 02:26 Dose: 10 mg Isosorbide Mononitrate (Imdur) 60 mg PO 0600 [facility] Last Admin: 01/12/19 05:49 Dose: 60 mg Losartan Potassium (Cozaar) 100 mg PO DAILY [facility] Last Admin: 01/12/19 10:55 Dose: 100 mg Morphine Sulfate (Morphine) 1 mg IVP Q6 PRN PRN Reason: Pain, severe (8-10) Last Admin: 01/11/19 17:21 Dose: 1 mg Nifedipine (Procardia Xl) 30 mg PO DAILY [facility] Last Admin: 01/12/19 10:56 Dose: 30 mg Polyethylene Glycol (Miralax) 17 gm PO BID [facility] Attending/Attestation - Attestation I have personally seen and examined this patient.: Yes I have fully participated in the care of the patient.: Yes I have reviewed all pertinent clinical information, including history, physical exam and plan: Yes Notes (Text): 01/12/19 14:53 Patient was seen and examined with medical reviewer. 68 year old female with past medical history of CAD ,s/p stents, hypertension, dyslipidemia and JASON-I induced angioedema was initially admitted to [facility] inpatient with H/O of chest pain and shortness of breath. She was found to have hypertensive urgency and marked bradycardia. She was transferred to ICU after being found to have 2.1 heart block. Heart rate was in 40.Patient was evaluate dby EPS and underwent pacemaker placement Patient remained stable after Pacemaker placement. Blood pressure is better controlled.Patient was evaluated by Physical therapy and was recommended TCU. She is admitted to TCU for rehabilitation. Blood pressure is better controlled. Continue Physical therapy.
[2019-01-12] MEDS: POLYETHYLENE GLYCOL 3350 17 GM/Dose PACKET PO SCH (18:26)
--- NOTE | 2019-01-12 21:29 | PN ---
DATE: 01/12/2019 SUBJECTIVE: The patient is seen sitting in chair. She is awake. She is alert. She is comfortable. She complains of intermittent fluttering. She denies any chest pain. She denies any shortness of breath. PHYSICAL EXAMINATION: GENERAL: Obese elderly lady sitting in bed. VITAL SIGNS: Blood pressure 145/88, heart rate 92, respiratory rate 14, and temperature 98. HEENT: Normocephalic and atraumatic. Positive pallor. NECK: Supple. No JVD. LUNGS: Bilateral equal air entry, bilateral equal expansion. CARDIAC: S1 and S2. Regular rate and rhythm. No murmur. No rub. ABDOMEN: Obese, distended, soft, and nontender. Bowel sounds present. EXTREMITIES: No lower extremity edema. LABORATORY DATA: No new labs. CURRENT MEDICATIONS: Catapres 0.2 b.i.d., losartan 100, Ecotrin, Imdur 60, Lipitor 40, MiraLax 17, Pepcid, Plavix, and Procardia XL 30. ASSESSMENT: 1. Severe hypertension, blood pressure is fairly controlled at this time. 2. Atrial fibrillation, status post pacemaker placement. 3. Coronary artery disease, history of percutaneous transluminal coronary angioplasty and stents. 4. Constipation. PLAN: 1. Continue current antihypertensives. 2. No longer bradycardic, okay to continue clonidine/Procardia. 3. Linzess for constipation today. Bethany Bernal MD
[2019-01-13] MEDS: NIFEdipine 30 mg ER Tab PO SCH (10:02)
[2019-01-13] MEDS: POLYETHYLENE GLYCOL 3350 17 GM/Dose PACKET PO SCH ×2 (10:03→17:12)
[2019-01-13 15:56] LABS: BASO # 0.05 K/mm3 (0.0-2.0); BASO % 0.6 % (0.0-3.0); EOS # 0.3 (0.0-0.7); EOS % 4.1 % (1.5-5.0); HEMOGLOBIN 11.2 g/dL (12.0-16.0); LYMPH # 2.2 (1.2-3.4); LYMPH % 27.4 % (22.0-35.0); MEAN CELL VOLUME 79.1 fl (80.0-105.0); MEAN CORPUSCULAR HEMOGLOBIN 25.4 pg (25.0-35.0); MEAN CORPUSCULAR HGB CONC 32.1 g/dl (31.0-37.0); MEAN PLATELET VOLUME 9.4 fl (7.0-11.0); MONO # 0.5 (0.1-0.6); MONO % 5.7 % (1.0-6.0); RBC 4.41 10^6/uL (3.5-6.1); RED CELL DISTRIBUTION WIDTH 15.6 % (11.5-14.5); WHITE BLOOD COUNT 8.1 10^3/uL (4.5-11.0)
[2019-01-13 16:07] LABS: BLOOD UREA NITROGEN 16 mg/dL (7-21); CALCIUM 9.1 mg/dL (8.4-10.5); GFR NON-AFRICAN AMERICAN > 60
--- NOTE | 2019-01-13 20:26 | PN ---
DATE: 01/13/2019 SUBJECTIVE: The patient is seen, lying in bed. She is awake, she is alert. She is comfortable. She reports that she just walked and then started having some midsternal pain. She denies any shortness of breath. PHYSICAL EXAMINATION: GENERAL: Obese elderly lady, lying in bed. VITAL SIGNS: Blood pressure 134/81, heart rate 90, respiratory rate 14-18, temperature 98.1. HEENT: Normocephalic, atraumatic, positive pallor. NECK: Supple, no JVD. LUNGS: Bilateral equal air entry, no rales, no rhonchi. CARDIAC: S1, S2. Regular rate and rhythm, no murmur, no rub. ABDOMEN: Obese, distended, soft, nontender, bowel sounds present. EXTREMITIES: No lower extremity edema. INTAKE AND OUTPUT: Not charted. LABORATORY DATA: No new labs. MEDICATIONS: Clonidine 0.2 mg b.i.d., Cozaar 100 mg, Ecotrin, Imdur 60 mg, Lipitor 40 mg, morphine, Pepcid 20 mg b.i.d., Plavix 75 mg, Tylenol, Procardia XL 30 mg. ASSESSMENT: 1. Severe hypertension. 2. Coronary artery disease/percutaneous transluminal coronary angioplasty and stent. 3. Sinus bradycardia, status post pacemaker placement. 4. Persistent sensation of flutter/chest pain. PLAN: 1. Continue current antihypertensives. 2. Continue losartan. 3. Check labs today. 4. Cardiology followup. Bethany Bernal MD
[2019-01-14] MEDS: POLYETHYLENE GLYCOL 3350 17 GM/Dose PACKET PO SCH ×2 (09:36→18:09)
[2019-01-14] MEDS: NIFEdipine 30 mg ER Tab PO SCH (09:36)
--- NOTE | 2019-01-14 14:34 | CP.PCM.PN ---
<Selam Diallo - Last Filed: 01/14/19 14:31> Subjective - Date & Time of Evaluation Date of Evaluation: 01/14/19 Time of Evaluation: 14:31 - Subjective Subjective: Selam Diallo, PGY-1, Internal Medicine Progress Note for Dr. Pabon Patient was seen and evaluated at bedside. Patient had no acute overnight events. Patient has been able to ambulate well though she notes shortness of breath upon walking up stairs which is not patient's baseline. Patient has not had a bowel movement since prior to the admission and will give patient home linzess once patient's family brings medication to hospital. Patient reports mild dizziness, reduction of heart palpitations and denies headache, fever, chest pain, abdominal pain, nausea, vomiting, diarrhea, dysuria, hematuria. Objective - Vital Signs/Intake and Output Vital Signs (last 24 hours): Temp Pulse Resp BP Pulse Ox 98.5 F 100 H 14 152/106 H 96 01/14/19 10:00 01/14/19 10:00 01/14/19 10:00 01/14/19 10:00 01/14/19 10:00 Intake and Output: 01/14/19 01/14/19 06:59 18:59 Intake Total 420 Balance 420 - Medications Medications: Current Medications Acetaminophen (Tylenol 325mg Tab) 650 mg PO Q4H PRN PRN Reason: Pain, Mild (1-3) Last Admin: 01/12/19 02:35 Dose: 650 mg Aspirin (Ecotrin) 81 mg PO 0800 [facility] Last Admin: 01/14/19 08:13 Dose: 81 mg Atorvastatin Calcium (Lipitor) 40 mg PO DIN [facility] Last Admin: 01/13/19 17:12 Dose: 40 mg Clonidine HCl (Catapres) 0.2 mg PO BID [facility] Last Admin: 01/14/19 09:37 Dose: 0.2 mg Clopidogrel Bisulfate (Plavix) 75 mg PO DAILY [facility] Last Admin: 01/14/19 09:36 Dose: 75 mg Famotidine (Pepcid) 20 mg PO 1000,2200 [facility] Last Admin: 01/14/19 09:36 Dose: 20 mg Hydralazine HCl (Apresoline) 10 mg IVP Q6 PRN PRN Reason: SBP > 140 Last Admin: 01/12/19 02:26 Dose: 10 mg Isosorbide Mononitrate (Imdur) 60 mg PO 0600 [facility] Last Admin: 01/14/19 05:36 Dose: 60 mg Losartan Potassium (Cozaar) 100 mg PO DAILY [facility] Last Admin: 01/14/19 09:37 Dose: 100 mg Morphine Sulfate (Morphine) 1 mg IVP Q6 PRN PRN Reason: Pain, severe (8-10) Last Admin: 01/11/19 17:21 Dose: 1 mg Nifedipine (Procardia Xl) 30 mg PO DAILY [facility] Last Admin: 01/14/19 09:36 Dose: 30 mg Polyethylene Glycol (Miralax) 17 gm PO BID [facility] Last Admin: 01/14/19 09:36 Dose: Not Given - Labs Labs: 01/13/19 15:45 01/13/19 15:45 - Constitutional Appears: Well, Non-toxic, No Acute Distress - Head Exam Head Exam: ATRAUMATIC, NORMAL INSPECTION, NORMOCEPHALIC - Eye Exam Eye Exam: EOMI, PERRL - ENT Exam ENT Exam: Mucous Membranes Moist - Neck Exam Neck Exam: Full ROM - Respiratory Exam Respiratory Exam: Clear to Ausculation Bilateral, NORMAL BREATHING PATTERN - Cardiovascular Exam Cardiovascular Exam: REGULAR RHYTHM, RRR - GI/Abdominal Exam GI & Abdominal Exam: Soft, Normal Bowel Sounds. absent: Tenderness - Extremities Exam Extremities Exam: Full ROM - Neurological Exam Neurological Exam: Alert, Awake, CN II-XII Intact, Oriented x3 Assessment and Plan - Assessment and Plan (Free Text) Assessment: 68 year old female with past medical history of CAD status post 3 stents (1 FRIEDA in LAD+2 in LCx in 08/[address] Jackson), JASON-inhibitor induced angioedema, hyperlipidemia, hypertension, and second degree heart block presents with shortness of breath and chest tightness. Patient was admitted for ACS rule out. Patient was found to have complete heart block and pacer was placed. Patient is currently in TCU for reconditioning Plan: Constipation -Currently on miralax but still has not had a bowel movement -Patient will bring home linzess to TCU to restart. Third degree heart block-resolved -Patient had heart rate of 40-45 prior to pacemaker being placed. Post pacemaker placement, patient's dizziness has decreased and palpitations have decreased. Third degree heart block possibly due to significant CAD with multiple stents. -Patient can now have beta blockers, nondihydropyridine calcium channel blockers can be started if indicated -Continue with aspirin, lipitor, plavix, cozaar, isosorbide mononitrate, clonidine, nifedipine, hydralazine PRN -Continue with morphine 1 mg Q6PRN Hypertensive urgency -Blood pressure improved -Continue with cozaar, imdur, catapres, and apresoline PRN for hypertension Hyperlipidemia -Continue with lipitor 40 mg daily Deconditioned -Continue with physical therapy GI prophylaxis: pepcid 20 mg BID DVT prophylaxis: SCD Patient plan discussed with attending <Fredy Pabon - Last Filed: 01/14/19 15:50> Objective - Vital Signs/Intake and Output Vital Signs (last 24 hours): Temp Pulse Resp BP Pulse Ox 98.5 F 100 H 14 152/106 H 96 01/14/19 10:00 01/14/19 10:00 01/14/19 10:00 01/14/19 10:00 01/14/19 10:00 Intake and Output: 01/14/19 01/14/19 06:59 18:59 Intake Total 420 Balance 420 - Medications Medications: Current Medications Acetaminophen (Tylenol 325mg Tab) 650 mg PO Q4H PRN PRN Reason: Pain, Mild (1-3) Last Admin: 01/12/19 02:35 Dose: 650 mg Aspirin (Ecotrin) 81 mg PO 0800 [facility] Last Admin: 01/14/19 08:13 Dose: 81 mg Atorvastatin Calcium (Lipitor) 40 mg PO DIN [facility] Last Admin: 01/13/19 17:12 Dose: 40 mg Clonidine HCl (Catapres) 0.2 mg PO BID [facility] Last Admin: 01/14/19 09:37 Dose: 0.2 mg Clopidogrel Bisulfate (Plavix) 75 mg PO DAILY [facility] Last Admin: 01/14/19 09:36 Dose: 75 mg Famotidine (Pepcid) 20 mg PO 1000,2200 [facility] Last Admin: 01/14/19 09:36 Dose: 20 mg Hydralazine HCl (Apresoline) 10 mg IVP Q6 PRN PRN Reason: SBP > 140 Last Admin: 01/12/19 02:26 Dose: 10 mg Isosorbide Mononitrate (Imdur) 60 mg PO 0600 [facility] Last Admin: 01/14/19 05:36 Dose: 60 mg Losartan Potassium (Cozaar) 100 mg PO DAILY [facility] Last Admin: 01/14/19 09:37 Dose: 100 mg Morphine Sulfate (Morphine) 1 mg IVP Q6 PRN PRN Reason: Pain, severe (8-10) Last Admin: 01/11/19 17:21 Dose: 1 mg Nifedipine (Procardia Xl) 30 mg PO DAILY [facility] Last Admin: 01/14/19 09:36 Dose: 30 mg Polyethylene Glycol (Miralax) 17 gm PO BID [facility] Last Admin: 01/14/19 09:36 Dose: Not Given - Labs Labs: 01/13/19 15:45 01/13/19 15:45 Attending/Attestation - Attestation I have personally seen and examined this patient.: Yes I have fully participated in the care of the patient.: Yes I have reviewed all pertinent clinical information, including history, physical exam and plan: Yes Notes (Text): 01/14/19 15:42 68 y/o F with PMH of CAD s/p stents, HTN, DLD, JASON-i induced angioedema initially admitted for hypertensive urgency and found to have complete heart block. Pt was evaluated by EP cards and a PPM was placed. Pt remained stable, however was deconditioned and required rehab in the TCU. Pt currently in TCU, will continue her BP meds.
--- NOTE | 2019-01-14 15:13 | PN ---
DATE: 01/14/2019 SUBJECTIVE: The patient is currently seen in the TCU sitting up in a chair. Blood pressure has remained controlled on present medical therapy. No ongoing issues. The patient states that she is in the process of walking steps, which she will need to do if she will be able to go home and have a successful outcome. MEDICATIONS: Medication list reviewed. The patient is currently on clonidine, losartan, Ecotrin, Imdur, Lipitor, MiraLax, p.r.n. morphine, Pepcid, Plavix, Procardia, and Tylenol p.r.n. OBJECTIVE VITAL SIGNS: Blood pressure 135/60, temperature 98.5, heart rate of 76 with a respiratory rate of 18, and a pulse ox of 95%. HEENT: Normocephalic, atraumatic. Conjunctivae are pink. Sclerae nonicteric. NECK: Supple. No neck vein distention. CHEST: Clear to auscultation and percussion. No rales, rhonchi or wheezing. CARDIOVASCULAR: Shows a normal S1 and S2 with /MR/TR/pulmonic insufficiency. No S3, no S4. No rub. ABDOMEN: Soft. Bowel sounds normal. No rebound, guarding or masses. EXTREMITIES: Show no lower extremity cyanosis, clubbing or edema. LABORATORY DATA AND IMAGING: CBC from yesterday, white blood cell count is 8.1, hemoglobin stable 11.2, platelet count is 238,000. Chemistries show normal electrolytes. BUN 60 with a creatinine of 0.8, glucose is 92. ASSESSMENT 1. Status post hypertensive urgency. Blood pressure is currently well controlled on present medical therapy. No changes should be made in her current regimen. The patient is tolerating an angiotensin-receptor annette well, which she has an adverse reaction to an JASON inhibitor. 2. Status post shortness of breath and chest pain. Cardiac catheterization was negative. 3. History of angioedema secondary to JASON inhibitors. 4. Hyperlipidemia, controlled with diet and statin therapy. 5. Status post bradycardia. The patient currently has pacemaker in place. 6. History of valvular heart disease as noted above. All appeared to be stable. PLAN 1. Continue rehabilitation in the TCU. 2. The patient is stable from hypertension and renal standpoint. 3. Continue present blood pressure medication upon discharge. 4. We will re-consult if necessary. Thank you for letting us partake and share in the care of your patient. Austin Pagan MD [email or web address]
[2019-01-15] MEDS: NIFEdipine 30 mg ER Tab PO SCH ×2 (08:10→11:50)
[2019-01-15] MEDS: POLYETHYLENE GLYCOL 3350 17 GM/Dose PACKET PO SCH ×2 (11:50→17:51)
--- NOTE | 2019-01-16 02:36 | PN ---
DATE: 01/15/2019 SUBJECTIVE: The patient is seen sitting in bed. She is awake. She is alert. She is comfortable. PHYSICAL EXAMINATION: GENERAL: Elderly lady, sitting in bed. VITAL SIGNS: Blood pressure 163/70, heart rate 78, respiratory rate 20, temperature 97.9. HEENT: Normocephalic, atraumatic, positive pallor. NECK: Supple, no JVD. LUNGS: Bilateral equal entry, bilateral equal expansion. CARDIAC: S1 and S2, regular rate and rhythm. No murmur, no rub. ABDOMEN: Obese, distended, soft, nontender, bowel sounds present. EXTREMITIES: No lower extremity edema. LABORATORY DATA: WBC 8, hemoglobin 11.2, hematocrit 35, platelets 238. Sodium 140, potassium 4.1, chloride 106, CO2 of 28, BUN 16, creatinine 0.8, glucose 92, calcium 9.1, phosphorus 4.2, magnesium 2. CURRENT MEDICATIONS: Catapres 0.2 b.i.d., losartan 100, Ecotrin, Imdur 60, Lipitor 40, MiraLax 17 g, Pepcid 20 b.i.d., Plavix 75, Procardia XL 30, Tylenol. ASSESSMENT: 1. Hypertension. 2. Coronary artery disease, percutaneous transluminal coronary angioplasty and stent. 3. Sinus bradycardia, status post pacemaker placement. 4. History of angioedema, on angiotensin-converting enzyme inhibitor. PLAN: 1. Continue current management. 2. Continue physical therapy. 3. We will discontinue followup. Bethany Bernal MD
--- NOTE | 2019-01-16 09:10 | CP.PCM.DIS ---
<Selam Diallo - Last Filed: 01/16/19 11:59> Provider - Provider Date of Admission: 01/09/19 20:45 Attending physician: No Munoz MD Primary care physician: Alfonso Villa MD Consults: 01/09/19 22:50 Physiatry Consult Routine Comment: Consulting Provider: Ruslan Meek Consulting Physician: Ruslan Meek Reason for Consult: 3rd degree heart block Physician Consult Routine Comment: Consulting Provider: Duc Jackson Consulting Physician: Duc Jackson Reason for Consult: bradycardia 01/09/19 22:51 Physician Consult Routine Comment: Consulting Provider: Bethany Bernal Consulting Physician: Bethany Bernal Reason for Consult: hypertension Time Spent in preparation of Discharge (in minutes): 60 Diagnosis - Discharge Diagnosis (1) Complete heart block Status: Acute Hospital Course - Lab Results Lab Results: Most Recent Lab Values WBC 8.1 10^3/uL (4.5-11.0) 01/13/19 15:45 RBC 4.41 10^6/uL (3.5-6.1) 01/13/19 15:45 Hgb 11.2 g/dL (12.0-16.0) L 01/13/19 15:45 Hct 34.9 % (36.0-48.0) L 01/13/19 15:45 MCV 79.1 fl (80.0-105.0) L 01/13/19 15:45 MCH 25.4 pg (25.0-35.0) 01/13/19 15:45 MCHC 32.1 g/dl (31.0-37.0) 01/13/19 15:45 RDW 15.6 % (11.5-14.5) H 01/13/19 15:45 Plt Count 238 10^3/uL (120.0-450.0) 01/13/19 15:45 MPV 9.4 fl (7.0-11.0) 01/13/19 15:45 Neut % (Auto) 62.2 % (50.0-68.0) 01/13/19 15:45 Lymph % (Auto) 27.4 % (22.0-35.0) 01/13/19 15:45 Amite % (Auto) 5.7 % (1.0-6.0) 01/13/19 15:45 Eos % (Auto) 4.1 % (1.5-5.0) 01/13/19 15:45 Baso % (Auto) 0.6 % (0.0-3.0) 01/13/19 15:45 Lymph # (Auto) 2.2 (1.2-3.4) 01/13/19 15:45 Amite # (Auto) 0.5 (0.1-0.6) 01/13/19 15:45 Eos # (Auto) 0.3 (0.0-0.7) 01/13/19 15:45 Baso # (Auto) 0.05 K/mm3 (0.0-2.0) 01/13/19 15:45 Absolute Neuts (auto) 5.07 (1.4-6.5) 01/13/19 15:45 Sodium 140 mmol/L (132-148) 01/13/19 15:45 Potassium 4.1 mmol/L (3.6-5.0) 01/13/19 15:45 Chloride 106 mmol/L (98-107) 01/13/19 15:45 Carbon Dioxide 28 mmol/L (21-33) 01/13/19 15:45 Anion Gap 10 (10-20) 01/13/19 15:45 BUN 16 mg/dL (7-21) 01/13/19 15:45 Creatinine 0.8 mg/dl (0.7-1.2) 01/13/19 15:45 Est GFR ( Amer) > 60 01/13/19 15:45 Est GFR (Non-Af Amer) > 60 01/13/19 15:45 Random Glucose 92 mg/dL (70-110) 01/13/19 15:45 Calcium 9.1 mg/dL (8.4-10.5) 01/13/19 15:45 Phosphorus 4.2 mg/dL (2.5-4.5) 01/13/19 15:45 Magnesium 2.0 mg/dL (1.7-2.2) 01/13/19 15:45 - Hospital Course Hospital Course: Selam Diallo, PGY-1, Internal Medicine Discharge Summary for Dr. Michelle 68 year old female with past medical history of CAD status post 3 stents (1 FRIEDA in LAD+2 in LCx in 08/[address] Jackson), JASON-inhibitor induced angioedema, hyperlipidemia, hypertension, and second degree heart block presented with shortness of breath and chest tightness. Patient was admitted for ACS rule out and hypertensive urgency vs. emergency. EKG upon admission showed sinus bradycardia with 1st degree AV block with HR of 49. Blood pressure upon admission was 201/82. Patient was started on norvasc and hydralazine for hypertension. Clonidine, beta blockers, and nondihydropyridine CCBs were held due to patient's bradycardia. Nifedipine was started as per Dr. Jackson recommendations. The following night after admission, rapid response was called due to headache, pressure like chest pain, and shortness of breath. EKG showed marked sinus bradycardia with AV block and troponinx1 was negative. Patient was given nitroglycerin with no resolution of symptoms. Patient was given ativan with resolution of symptoms. Patient continued to have elevated blood pressure. Later on on 01/05, patient complained of chest pain again and EKG showed sinus rhythm with 2nd degree AV block with 2:1 AV conduction and eventually complete heart block. Pacer pads were placed on patient and patient was transferred to ICU with pacer on standby. As per Dr. Bernal, patient was started on amlodipine, hydralazine, and nifedipine was stopped. In addition, losartan was started since patient had tolerated ARB in the past though she had allergy to ACEI with angioedema. Upon addition of losartan, patient's blood pressure was well controlled. On 01/06, patient had cardiac catherization with RCA lesion of 60-70% and left renal artery stenosis appreciated. No stents were placed at the time. On 01/08, Dr. Meek, EP, evaluated the patient and placed pacer, medtronic Annie XT, for patient. Lower rate was 60 and upper tracking rate was 100. She was set in DDD mode. Patient tolerated procedure well and patient was ready for discharge. Patient was discharged to transitional care unit in [facility] with the same medications that patient had received during hospital admission. Dr. Jackson restarted nifedipine for patient, as well. At TCU, patient was reconditioned with improvement with ambulation and reduction of palpitations and dizziness. Patient was found to be reconditioned and ready for discharge to home today. Patient was told to follow up with PCP in 7-[address] Jackson's office to make an appointment as soon as possible. Patient was told to take all home medications as prescribed. Patient was told to return to the ED if he had any new or concerning symptoms. This is a brief summary of the events that transpired at the hospital. Please refer to hospital documentation for further details. - Date & Time of H&P Date of H&P: 01/10/19 Time of H&P: 12:34 Discharge Exam - Head Exam Head Exam: ATRAUMATIC, NORMAL INSPECTION, NORMOCEPHALIC - Eye Exam Eye Exam: EOMI, PERRL - Respiratory Exam Respiratory Exam: Clear to PA & Lateral, NORMAL BREATHING PATTERN - Cardiovascular Exam Cardiovascular Exam: REGULAR RHYTHM - GI/Abdominal Exam GI & Abdominal Exam: Normal Bowel Sounds, Soft. absent: Tenderness - Extremities Exam Extremities exam: full ROM - Neurological Exam Neurological exam: Alert, CN II-XII Intact, Oriented x3 - Skin Skin Exam: Dry, Intact, Normal Color Discharge Plan - Discharge Medications Prescriptions: Aspirin [Ecotrin] 81 mg PO DAILY #30 tablet. Atorvastatin [Lipitor] 40 mg PO DIN 30 Days #30 tab Azilsartan Medoxomil [Edarbi] 40 mg PO DAILY 30 Days #30 tablet cloNIDine [Catapres] 0.2 mg PO BID 30 Days #30 tab Clopidogrel [Plavix] 75 mg PO DAILY 30 Days #30 tab Isosorbide Mononitrate [Imdur] 60 mg PO DAILY 30 Days #30 tab NIFEdipine ER [Procardia XL] 30 mg PO DAILY 30 Days #30 ter - Follow Up Plan Condition: GOOD Disposition: HOME/ ROUTINE Instructions: Chest Pain, Pacemaker Insertion (DC), High Blood Pressure Emergencies Additional Instructions: Please follow up with PCP in 7-14 days. Please follow up with Dr. Jackson, Cardiology, as soon as possible. Call Dr. Jackson's office to make an appointment. Please take all your home medications as prescribed. Please return to the emergency department if you have any new or concerning symptoms. Referrals: Alfonso Villa MD [Primary Care Provider] - Duc Jackson MD [Staff Provider] - <No Munoz - Last Filed: 01/16/19 12:24> Provider - Provider Date of Admission: 01/09/19 20:45 Attending physician: No Munoz MD Primary care physician: Alfonso Villa MD Consults: 01/09/19 22:50 Physiatry Consult Routine Comment: Consulting Provider: Ruslan Meek Consulting Physician: Ruslan Meek Reason for Consult: 3rd degree heart block Physician Consult Routine Comment: Consulting Provider: Duc Jackson Consulting Physician: Duc Jackson Reason for Consult: bradycardia 01/09/19 22:51 Physician Consult Routine Comment: Consulting Provider: Bethany Bernal Consulting Physician: Bethany Bernal Reason for Consult: hypertension Hospital Course - Lab Results Lab Results: Most Recent Lab Values WBC 8.1 10^3/uL (4.5-11.0) 01/13/19 15:45 RBC 4.41 10^6/uL (3.5-6.1) 01/13/19 15:45 Hgb 11.2 g/dL (12.0-16.0) L 01/13/19 15:45 Hct 34.9 % (36.0-48.0) L 01/13/19 15:45 MCV 79.1 fl (80.0-105.0) L 01/13/19 15:45 MCH 25.4 pg (25.0-35.0) 01/13/19 15:45 MCHC 32.1 g/dl (31.0-37.0) 01/13/19 15:45 RDW 15.6 % (11.5-14.5) H 01/13/19 15:45 Plt Count 238 10^3/uL (120.0-450.0) 01/13/19 15:45 MPV 9.4 fl (7.0-11.0) 01/13/19 15:45 Neut % (Auto) 62.2 % (50.0-68.0) 01/13/19 15:45 Lymph % (Auto) 27.4 % (22.0-35.0) 01/13/19 15:45 Amite % (Auto) 5.7 % (1.0-6.0) 01/13/19 15:45 Eos % (Auto) 4.1 % (1.5-5.0) 01/13/19 15:45 Baso % (Auto) 0.6 % (0.0-3.0) 01/13/19 15:45 Lymph # (Auto) 2.2 (1.2-3.4) 01/13/19 15:45 Amite # (Auto) 0.5 (0.1-0.6) 01/13/19 15:45 Eos # (Auto) 0.3 (0.0-0.7) 01/13/19 15:45 Baso # (Auto) 0.05 K/mm3 (0.0-2.0) 01/13/19 15:45 Absolute Neuts (auto) 5.07 (1.4-6.5) 01/13/19 15:45 Sodium 140 mmol/L (132-148) 01/13/19 15:45 Potassium 4.1 mmol/L (3.6-5.0) 01/13/19 15:45 Chloride 106 mmol/L (98-107) 01/13/19 15:45 Carbon Dioxide 28 mmol/L (21-33) 01/13/19 15:45 Anion Gap 10 (10-20) 01/13/19 15:45 BUN 16 mg/dL (7-21) 01/13/19 15:45 Creatinine 0.8 mg/dl (0.7-1.2) 01/13/19 15:45 Est GFR ( Amer) > 60 01/13/19 15:45 Est GFR (Non-Af Amer) > 60 01/13/19 15:45 Random Glucose 92 mg/dL (70-110) 01/13/19 15:45 Calcium 9.1 mg/dL (8.4-10.5) 01/13/19 15:45 Phosphorus 4.2 mg/dL (2.5-4.5) 01/13/19 15:45 Magnesium 2.0 mg/dL (1.7-2.2) 01/13/19 15:45 Attending/Attestation - Attestation I have personally seen and examined this patient.: Yes I have fully participated in the care of the patient.: Yes I have reviewed all pertinent clinical information, including history, physical exam and plan: Yes Notes (Text): 01/16/19 12:19 68 year old female with past medical history of CAD s/p stents, hypertension, dyslipidemia and JASON-I induced angioedema (but has been tolerating ARBs) who initially presented with chest pain, shortness of breath, bradycardia and unc ontrolled hypertension. She was seen by cardiology and nephrology and blood pressure improved with adjustments of medications. Hospital course was complicated with 2:1 heart block for which patient had PPM placed. She was transferred to TCU for rehab therapy which she has been tolerating well. Patient is discharged home to follow up with pmd. Follow up with cardiology, EPS and nephrology. No Munoz MD Hospitalist.
[2019-01-16] MEDS: POLYETHYLENE GLYCOL 3350 17 GM/Dose PACKET PO SCH ×2 (10:21→17:31)
[2019-01-16] MEDS: NIFEdipine 30 mg ER Tab PO SCH (10:22)
--- NOTE | 2019-01-16 13:38 | PN ---
DATE: 01/16/2019 CARDIOLOGY FOLLOWUP SUBJECTIVE: The patient is in the TCU. She walked further than she ever walked before, climbs the stairs without issues. PHYSICAL EXAMINATION VITAL SIGNS: Blood pressure is 130/83, the heart rate is in pace. NECK: Negative JVD. LUNGS: Without rales. HEART: S1, S2. EXTREMITIES: Without edema. LABORATORY DATA: Laboratories were unremarkable. IMPRESSION 1. Stable angina. 2. Status post pacemaker placement. 3. Blood pressure is well controlled on her current medications. 4. Coronary artery disease. 5. Resolution of bradycardia. PLAN: Given these findings, the patient is doing well. She can be discharged today. Duc Jackson MD
[2019-01-16 16:18] VITALS: TEMP 98.1
[2019-01-16 16:50] VITALS: BP 106/65; PULSE 77; RESP 18; O2SAT 98
--- NOTE | 2019-01-16 21:32 | PN ---
DATE: 01/16/2019 SUBJECTIVE: The patient is sitting in bed, in no acute distress. OBJECTIVE: VITAL SIGNS: Blood pressure 130/83, heart rate 87, respiratory rate 18, and temperature 98.1. LUNGS: Bilateral equal air entry. EXTREMITIES: No lower extremity edema. LABORATORY DATA: No new labs. MEDICATIONS: Catapres 0.2 b.i.d., losartan 100, Ecotrin, Imdur, Lipitor, MiraLax, Pepcid, Plavix, Procardia XL 30, and Tylenol. ASSESSMENT: 1. Hypertension well controlled, continue current management. 2. Coronary artery disease/percutaneous transluminal coronary angioplasty and stent. 3. Sick sinus syndrome, status post pacemaker placement. PLAN: 1. Continue losartan 100 mg, Procardia XL 30, and clonidine 0.2 b.i.d. 2. Continue lipid lowering therapy, Plavix. 3. No objection to discharge. Bethany Bernal MD
== END 2019-01-16 18:18 | disposition home or self-care (01) | DRG 305 ==
LOC: TRCU 20:45
PROVIDERS: ADMIT Internal Medicine; ATTEND Internal Medicine
PROC: F07Z9ZZ Gait Training/Functional Ambulation Treatment (ICD-10-PCS; principal; 2019-01-11)
PROC: F07L6ZZ Therapeutic Exercise Treatment of Musculoskeletal System - Lower Back / Lower Extremity (ICD-10-PCS; 2019-01-11)
PROC: F08Z1FZ Dressing Techniques Treatment using Assistive, Adaptive, Supportive or Protective Equipment (ICD-10-PCS; 2019-01-11)
PROC: F07Z8ZZ Transfer Training Treatment (ICD-10-PCS; 2019-01-13)
PROC: F08Z2ZZ Grooming/Personal Hygiene Treatment (ICD-10-PCS; 2019-01-15)
DX: I16.0 Hypertensive urgency (principal); I44.2 Atrioventricular block, complete; E11.9 Type 2 diabetes mellitus without complications; E78.5 Hyperlipidemia, unspecified; I25.118 Atherosclerotic heart disease of native coronary artery with other forms of angina pectoris; I70.1 Atherosclerosis of renal artery; K59.00 Constipation, unspecified; I48.91 Unspecified atrial fibrillation; Z88.8 Allergy status to other drugs, medicaments and biological substances; I49.5 Sick sinus syndrome; Z95.0 Presence of cardiac pacemaker; Z95.5 Presence of coronary angioplasty implant and graft

== ENCOUNTER 2019-03-25 07:19 | Emergency (ER) | payer MEDICARE, OTHER ==
--- NOTE | 2019-03-25 07:36 | ED PDOC ---
Arrival/HPI - General Historian: Patient - History of Present Illness Narrative History of Present Illness (Text): 03/25/19 07:59 Patient is a 68 yo AA female with CAD s/p stents, pacemaker, and HTN who presents with chest congestion. Patient states that she was around someone co ughing this weekend. She began coughing on Sunday. She states that she is not bringing up any sputum but feels like her chest is congested. She took sudafed and alkaseltzer but neither relieved symptoms. She has had trouble sleeping due to significant cough. She has mild SOB. Denies fevers, chills, body aches. She denies history of pulmonary disease. Patient also did not take her antihypertensive medications today because she did not eat or drink. Time/Duration: < week Symptom Course: Worsening Activities at Onset: Rest <Annette Hopson - Last Filed: 03/25/19 10:08> <Maxim Shelley - Last Filed: 03/25/19 15:22> - General Chief Complaint: Cough, Cold, Congestion Time Seen by Provider: 03/25/19 07:20 Past Medical History - Provider Review Primary Care Provider: Alfonso Villa - Infectious Disease Hx of Infectious Diseases: None - Tetanus Immunization Tetanus Immunization: Unknown - Reproductive Menopause: Yes - Cardiac Hx Cardiac Disorders: Yes (CADx 3 stents, pacemaker insertion) Hx Hypertension: Yes - Pulmonary Hx Respiratory Disorders: Yes Other/Comment: H/O OF CARBON MONOXIDE POISONING - Neurological Hx Neurological Disorder: Yes Hx Dizziness: Yes (VERTIGO) - HEENT Hx HEENT Disorder: No - Renal Hx Renal Disorder: Yes Other/Comment: renal artery stenosis - Endocrine/Metabolic Hx Diabetes Mellitus Type 2: Yes - Hematological/Oncological Hx Blood Transfusions: No Hx Blood Transfusion Reaction: No - Integumentary Hx Dermatological Disorder: No - Musculoskeletal/Rheumatological Hx Falls: No - Gastrointestinal Hx Gastrointestinal Disorders: Yes (DIVERTICULITIS, FATTY LIVER DISEASE) - Genitourinary/Gynecological Hx Genitourinary Disorders: Yes (RENAL DISEASE) Hx Reproductive Disorders: No - Psychiatric Hx Anxiety: Yes Hx Substance Use: No - Surgical History Hx Coronary Stent: Yes (X3) - Anesthesia Hx Anesthesia Reactions: No Hx Malignant Hyperthermia: No - Suicidal Assessment Feels Threatened In Home Enviroment: No <Annette Hopson - Last Filed: 03/25/19 10:08> Family/Social History Family/Social History: Unknown Family HX Smoking Status: Never Smoked Hx Alcohol Use: No Hx Substance Use: No <Annette Hopson - Last Filed: 03/25/19 10:08> Allergies/Home Meds <Annette Hopson - Last Filed: 03/25/19 10:08> <LaverneMaxim young - Last Filed: 03/25/19 15:22> Allergies/Adverse Reactions: Allergies grapefruit Adverse Reaction (Severe, Verified 01/02/19 05:57) ANGIOEDEMA lisinopril Adverse Reaction (Verified 01/02/19 05:57) SHORTNESS OF BREATH nebivolol [From Bystolic] Adverse Reaction (Verified 01/02/19 05:57) SHORTNESS OF BREATH Review of Systems - Review of Systems Constitutional: absent: Fevers, Night Sweats Eyes: absent: Vision Changes ENT: absent: Hearing Changes Respiratory: SOB, Cough. absent: Sputum Cardiovascular: absent: Chest Pain, Palpitations Gastrointestinal: absent: Abdominal Pain Genitourinary Female: absent: Dysuria Musculoskeletal: absent: Arthralgias, Myalgias Skin: absent: Rash, Pruritis, Skin Lesions Neurological: absent: Headache, Dizziness, Focal Weakness Endocrine: absent: Diaphoresis Hemo/Lymphatic: absent: Adenopathy <Annette Hopson - Last Filed: 03/25/19 10:08> Physical Exam Vital Signs Reviewed: Yes Temperature: Afebrile Blood Pressure: Hypertensive Pulse: Regular Respiratory Rate: Normal Appearance: Positive for: Non-Toxic, Comfortable Pain Distress: None Mental Status: Positive for: Alert and Oriented X 3 - Systems Exam Head: Present: Atraumatic, Normocephalic Extroacular Muscles: Present: EOMI Mouth: Present: Moist Mucous Membranes Pharnyx: Present: Normal Neck: No: Lymphadenopathy Respiratory/Chest: Present: Rales (b/l lower lung cole). No: Respiratory Distress, Accessory Muscle Use Cardiovascular: Present: Regular Rate and Rhythm Abdomen: No: Tenderness, Distention Upper Extremity: Present: Normal Inspection Lower Extremity: Present: Normal Inspection Neurological: Present: GCS=15, CN II-XII Intact, Speech Normal Skin: Present: Warm, Dry, Normal Color Lymphatic: No: Cervical Adenopathy Psychiatric: Present: Alert, Oriented x 3, Normal Insight, Normal Concentration <Annette Hopson - Last Filed: 03/25/19 10:08> Vital Signs Temp Pulse Resp BP Pulse Ox 03/25/19 10:45 84 18 150/79 96 03/25/19 09:57 86 181/93 H 03/25/19 08:31 81 191/99 H 03/25/19 08:19 86 17 191/99 H 96 03/25/19 07:42 98.3 F 92 H 18 147/86 96 <Maxim Shelley - Last Filed: 03/25/19 15:22> Medical Decision Making ED Course and Treatment: 03/25/19 09:56 Patient feeling better after breathing treatments. BP improved after antihypertensives. Re-evaluation Time: 09:30 Reassessment Condition: Re-examined, Improved - RAD Interpretation Narrative RAD Interpretations (Text): 03/25/19 08:53 CXR compared to 01/09/19- no significant change, some interval improvement of left costodiaphragmatic angle Radiology Orders: CXR [employer] Consultant: ED Physician, Radiologist - Medication Orders Current Medication Orders: 03/25/19 08:16 Duoneb x1 Mucomyst x1 Hydralazine 10 mg PO 03/25/19 09:17 Clonidine 0.2 mg PO <Annette Hopson - Last Filed: 03/25/19 10:08> ED Course and Treatment: 03/25/19 15:22 Patient Seen with Resident: In agreement with resident note which contains more details about the patient. Patient seen and evaluated with resident. Came up with plan and treatment together. - RAD Interpretation Radiology Orders: 03/25/19 07:48 CXR [CHEST PORTABLE] [RAD] Stat - Medication Orders Current Medication Orders: Discontinued Medications Acetylcysteine (Mucomyst 20% Inhal Berta (30ml)) 5 ml IH ONCE ONE Stop: 03/25/19 07:57 Last Admin: 03/25/19 09:12 Dose: Not Given Non-Admin Reason: duplicate Acetylcysteine (Acetylcysteine 20%) 5 ml IH ONCE ONE Stop: 03/25/19 08:16 Last Admin: 03/25/19 09:01 Dose: 5 ml Albuterol/Ipratropium (Duoneb 3 Mg/0.5 Mg (3 Ml) Ud) 3 ml IH STAT STA Stop: 03/25/19 07:56 Last Admin: 03/25/19 08:32 Dose: 3 ml Clonidine HCl (Catapres) 0.2 mg PO STAT STA Stop: 03/25/19 09:03 Last Admin: 03/25/19 09:57 Dose: 0.2 mg MAR Pulse and Blood Pressure Document 03/25/19 09:57 MR (Rec: 03/25/19 09:57 MR [id number]) Pulse Pulse Rate (60-90) 86 Blood Pressure Blood Pressure (100/60-150/90) 181/93 Hydralazine HCl (Apresoline) 10 mg PO ONCE ONE Stop: 03/25/19 07:55 Last Admin: 03/25/19 08:31 Dose: 10 mg MAR Pulse and Blood Pressure Document 03/25/19 08:31 MR (Rec: 03/25/19 08:32 MR [id number]) Pulse Pulse Rate (60-90) 81 Blood Pressure Blood Pressure (100/60-150/90) 191/99 <Maxim Shelley - Last Filed: 03/25/19 15:22> Disposition/Present on Arrival - Present on Arrival Any Indicators Present on Arrival: No History of DVT/PE: No History of Uncontrolled Diabetes: No Urinary Catheter: No History Surgical Site Infection Following: None - Disposition Have Diagnosis and Disposition been Completed?: Yes Disposition Time: 10:08 Patient Plan: Discharge <Annette Hopson - Last Filed: 03/25/19 10:08> <Maxim Shelley - Last Filed: 03/25/19 15:22> - Disposition Diagnosis: Viral respiratory illness, Hypertensive urgency Disposition: HOME/ ROUTINE Condition: IMPROVED Discharge Instructions (ExitCare): High Blood Pressure in Adults, Viral Syndrome (DC) Print Language: KINYARWANDA Additional Instructions: Take regularly scheduled blood pressure mediations at home today. Keep your appointment with your PMD Dr. Villa tomorrow 03/26/19. Prescriptions: guaiFENesin/Dextromethorphan [guaiFENesin/DM 600-30 mg] 1 tab PO BID 3 Days #6 tab Referrals: Alfonso Villa MD [Family Provider] - Follow up with primary Forms: Cardiovascular Simulation (Citizen Of [place])
[2019-03-25 07:47] VITALS: TEMP 98.3; O2SAT 96
[2019-03-25] MEDS ORDERED: Albuterol-Ipratrop 3 mg / 0.5 (3 ml) UD IH STA (07:55)
[2019-03-25] MEDS ORDERED: Acetylcysteine 20% Inhal Sol (30ml) IH ONE (07:56)
[2019-03-25] MEDS ORDERED: Acetylcysteine 20% Inhal Soln (4ml) IH ONE (08:15)
--- NOTE | 2019-03-25 09:04 | RAD ---
Date of service: 03/25/2019 HISTORY: Shortness of breath COMPARISON: 01/09/2019. FINDINGS: LUNGS: No active pulmonary disease. PLEURA: No significant pleural effusion identified, no pneumothorax apparent. CARDIOVASCULAR: No atherosclerotic calcification present No radiographic findings to suggest acute or significant cardiovascular disease. Position/ configuration of pacemaker device: Satisfactory. OSSEOUS STRUCTURES: No significant abnormalities. VISUALIZED UPPER ABDOMEN: Normal. OTHER FINDINGS: None. IMPRESSION: No active disease. No significant interval change compared to the prior examination(s).
[2019-03-25 11:06] VITALS: BP 150/79; PULSE 84; RESP 18
== END 2019-03-25 11:00 | disposition home or self-care (01) ==
LOC: ED 07:19
DX: J98.9 Respiratory disorder, unspecified (principal); I16.0 Hypertensive urgency; E11.9 Type 2 diabetes mellitus without complications; I25.10 Atherosclerotic heart disease of native coronary artery without angina pectoris; Z95.0 Presence of cardiac pacemaker; I10 Essential (primary) hypertension